=== PATIENT | male | born 1965 | race Caucasian/White ===

== ENCOUNTER 2018-09-15 03:00 | Inpatient (IN) | payer OTHER ==
[2018-09-15] MEDS ORDERED: Piperacillin/Tazobactam 4.5 GM VIAL ONE (03:15)
[2018-09-15] MEDS ORDERED: Morphine 4 MG/ML VIAL ONE ×2 (03:16→03:55)
[2018-09-15 03:39] LABS: #Eosinphils 0.1 thou/uL (0.0-0.7); #Lymphocytes 2.1 thou/uL (1.20-3.40); #Monocytes 1.3 thou/uL (0.11-0.59); #Neutrophils 12.6 thou/uL (1.40-6.50); %Basophils 0.2 % (0.0-1.0); %Eosinophils 0.8 % (0.0-10.0); %Lymphocytes 12.8 % (21.0-51.0); %Monocytes 8.2 % (0.0-10.0); Hemoglobin 13.1 g/dL (14.0-18.0); Mean Corpuscular HGB CONC 32.7 g/dL (32.0-36.0); Mean Corpuscular Hemoglobin 26.6 pg (27.0-31.0); Mean Corpuscular Volume 81.3 fL (78.0-98.0); Mean Platelet Volume 8.1 fL (7.4-10.4); Platelet Count 255 thou/uL (130-400); RBC Distribution Width 13.2 % (11.5-14.5); Red Blood Cell (RBC) Count 4.91 mill/uL (4.70-6.10); White Blood Cell (WBC) Count 16.1 thou/uL (4.8-10.8)
[2018-09-15 03:45] LABS: INR-International Normal Ratio 1.2; PTT 27.7 SEC (22.9-36.1); Prothrombin Time 15.6 SEC (12.0-14.7)
[2018-09-15 03:57] LABS: Albumin 3.2 g/dL (3.5-5.0); Calcium 8.8 mg/dL (7.8-10.44); Chloride 102 mmol/L (98-107); Glucose 260 mg/dL (70-105); Potassium 4.2 mmol/L (3.5-5.1); Sodium 132 mmol/L (136-145)
[2018-09-15 03:58] LABS: Globulin 3.1 g/dL (2.4-3.5); Protein, Total 6.3 g/dL (6.0-8.3)
[2018-09-15 03:59] LABS: Anion Gap 15 mmol/L (10-20); Bilirubin, Total 0.4 mg/dL (0.2-1.2); Carbon Dioxide 19 mmol/L (22-29)
[2018-09-15 04:00] LABS: Alkaline Phosphatase 91 U/L (40-150)
[2018-09-15 04:01] LABS: Calc. Creatinine Clearance 0 mL/min (70-130); Estimated GFR-MDRD 60
[2018-09-15 04:02] LABS: BUN (Urea Nitrogen) 29 mg/dL (8.4-25.7)
[2018-09-15 04:03] LABS: ALT (SGPT) 78 U/L (8-55); AST (SGOT) 84 U/L (5-34); Lipase 32 U/L (8-78)
[2018-09-15 04:23] LABS: Acetaminophen Less than 6.0 mcg/mL (10.0-30.0); Alcohol Less than 10 mg/dL (Less than 10); Salicylate Less than 8.0 mg/dL (15.0-30.0)
[2018-09-15] MEDS ORDERED: HYDROcodone/Acetaminophen 5/325 mg Tablet PO PRN (04:26)
[2018-09-15] MEDS ORDERED: Ondansetron PF 4 MG/2 ML Vial IVP PRN (04:26)
[2018-09-15] MEDS ORDERED: Dextrose 5% in Water 1,000 ML IV PRN (04:31)
[2018-09-15] MEDS ORDERED: Dextrose 50% Abboject 50 ML SYRINGE SLOW IVP PRN (04:31)
[2018-09-15 04:45] LABS: CK (CPK) 6045 U/L (30-200)
--- NOTE | 2018-09-15 04:50 | CON ---
DATE OF CONSULTATION: 09/15/2018 HISTORY OF PRESENT ILLNESS: Mr. Mo is a 53-year-old gentleman with a peripheral vascular disease history. Four years ago, he had an ischemic right foot. He had a right popliteal artery stent placed in [place] and a transmetatarsal amputation performed on the right. Subsequently, he moved to [place] where this was revised. He had a wound VAC and eventually his foot healed. He says that 4 days ago he began to have color changes in his foot. He has been in the emergency room on 09/03 with left foot pain, so this has been going on for some time. He presented today to [facility] with left foot pain. A limited CT angio was performed from the upper thigh down through the foot. Apparently, the inflow is okay because the superficial femoral artery has bright contrast within it. Distal superficial femoral artery on the left is occluded with chronic disease distal to this. He has no flow that is seen in the left leg below the distal superficial femoral artery. I was called for acute management of ischemic leg. PAST MEDICAL HISTORY: 1. Hypertension. 2. Diabetes mellitus. 3. Peripheral vascular disease. 4. Multisubstance abuse-the patient used methamphetamine prior to coming to the hospital. PAST SURGICAL HISTORY: 1. Right SFA stent. 2. Right transmetatarsal amputation. ALLERGIES: NONE. CURRENT MEDICATIONS: 1. Atenolol. 2. Atorvastatin. 3. Hydrochlorothiazide 25 mg daily. 4. Humalog 70/30, 20 units q.a.m. and 15 units q.p.m. SOCIAL HISTORY: He uses tobacco. He smokes methamphetamine. He is unemployed. He lives in his brother's rent house. PHYSICAL EXAMINATION: GENERAL: Obviously, chronically ill gentleman. VITAL SIGNS: Heart rate is 100. His rhythm on the monitor is sinus. Blood pressure is 130/72. HEENT: He has multiple lesions over his face. These are round, early eschars that are all over his face and neck. CHEST: Clear bilaterally. HEART: Rhythm is regular without murmur. ABDOMEN: Soft and nontender. EXTREMITIES: On the right, he has a transmetatarsal amputation. Femoral pulse is palpable. He has no lesions and no pain. On the left, his leg is purple from the upper calf through the foot. He has no sensation in his lower leg. He has no motor function of his lower leg. He states he has been unable to walk for 4 days on it. He has a palpable femoral pulse on the left with no Doppler signal below the femoral. ASSESSMENT AND PLAN: Chronic peripheral vascular disease with occlusion of his superficial femoral artery. This has obviously been going on for quite some time as he has an anesthetic, paralyzed left lower extremity. He is going to need an amputation. I have told him that he needs an above-knee amputation due to the level of the ischemia on his lower leg. We will get him admitted to the hospital. I will have the hospitalist see him for his diabetes mellitus and these lesions on his face, and plan is amputation later today. Job ID: [id number]
[2018-09-15] MEDS ORDERED: Morphine 4 MG/ML VIAL SLOW IVP PRN (05:45)
[2018-09-15 06:15] LABS: Bilirubin Negative (Negative); Blood, Urine Negative (Negative); Clarity CLEAR (Clear); Glucose, Urine (Dipstick) >=1000 mg/dL (Negative); Leukocyte Negative (Negative); Nitrite Negative (Negative); Protein, Urine (Dipstick) Negative (Neg-Trace); pH, Urine 5.5 (5.0-9.0)
[2018-09-15 06:17] LABS: Specific Gravity, Urine 1.048 (1.002-1.036)
[2018-09-15 06:25] LABS: Amphetamine Detected (NotDetected); Barbiturates Screen Not Detected (NotDetected); Benzodiazepine Screen Not Detected (NotDetected); Cocaine Metabolite Screen Not Detected (NotDetected); Medtox Control Line Valid? VALID (VALID); Medtox Reader # READER 1; Methadone Not Detected (NotDetected); Methamphetamine Detected (NotDetected); Opiate Screen Detected (NotDetected); Oxycodone Screen Not Detected (NotDetected); Phencyclidine (PCP) Not Detected (NotDetected); THC/Cannabinoid Screen Not Detected (NotDetected); Tricyclic Screen Not Detected (NotDetected)
[2018-09-15] MEDS: Sodium Chloride 0.9% 1,000 ML IV SCH ×2 (07:08→15:47)
--- NOTE | 2018-09-15 07:56 | RAD ---
Exam: Chest one view HISTORY:Dyspnea Comparison: None FINDINGS: Cardiac silhouette: Normal Pulmonary vessels: Slightly prominent Costophrenic angles: Clear LUNGS: Patchy interstitial opacities Pneumothorax: None Osseous abnormalities: None IMPRESSION: 1. Mild pulmonary vascular prominence. Patchy interstitial opacities. Correlate for volume overload a nd interstitial edema.
[2018-09-15 08:20] LABS: Hemoglobin A1c 11.8 % (4.0-6.0)
[2018-09-15 08:54] LABS: HBCM Index 0.19 S/CO (0-0.79); HBSAg Index 0.35 S/CO (0-0.99); Hep A IgM AB Non-Reactive (NonReactive); Hep A IgM S/CO 0.18 S/CO (0-0.79); Hep B Surf Ag Non-Reactive S/CO (NonReactive); Hepatitis B Core IgM Abs Non-Reactive (NonReactive)
[2018-09-15] MEDS ORDERED: Artificial Tears 18 DROP/0.9 ML EA EYE PRN (09:08)
[2018-09-15] MEDS ORDERED: hydrALAZINE 20 MG/ML VIAL SLOW IVP PRN (09:08)
[2018-09-15] MEDS ORDERED: Sodium Chloride 0.65% Nasal 44 ML BOT EA NARE PRN (09:08)
[2018-09-15] MEDS ORDERED: Cepastat Lozenges 1 LOZ PO PRN (09:08)
[2018-09-15] MEDS ORDERED: Eucerin (Mineral Oil/Petrolatum,White) 30 gm Jar TOP PRN (09:08)
[2018-09-15 09:11] LABS: Hep C IgG Ab Reflex HepC Qnt (NonReactive); Hep C Index 8.02 S/CO (0-0.79)
[2018-09-15] MEDS: Hydrochlorothiazide 25 MG TAB PO SCH (09:28)
[2018-09-15] MEDS: Famotidine 20 MG TAB PO SCH ×2 (09:28→21:19)
[2018-09-15] MEDS: Piperacillin/Tazobactam 3.375 GM in Sodium Chloride 0.9% 100 ML IVPB SCH ×3 (09:40→21:28)
--- NOTE | 2018-09-15 10:14 | HP ---
PRIMARY CARE PHYSICIAN: [facility] Call admission. REASON FOR ADMISSION: Subacute ischemia of left lower extremity. HISTORY OF PRESENT ILLNESS: A 53-year-old male, who has history of hypertension and diabetes type 2, who initially went to [facility] for evaluation of right lower extremity pain. The patient has this pain for about 2 weeks. Before that he was experiencing claudication symptoms. For last 2 weeks, he is experiencing more and more pain. Even at rest, he is experiencing entire left lower extremity pain. He also noticed erythema of left lower extremity. He did not have any fever. He was having cramps in his muscles. He was feeling his left lower extremity cold and finally after waiting two weeks, he decided to go to emergency room as he was not feeling better. At [facility], the patient had a CT scan of the lower extremity which showed an abrupt occlusion of distal left superficial femoral artery. The patient also has abrupt occlusion on the right distal femoral artery as well as metallic stent within the right popliteal artery. The patient also has complete occlusion of left popliteal artery. The patient was transferred to our hospital in our emergency room. Prior to that, he was given morphine 4 mg, Zofran 4 mg, insulin 10 units, 2 g vancomycin and after arrived to emergency room in our hospital, new cardiovascular surgeon evaluated this patient and the patient was planned for amputation. He is also given Zosyn, IV fluid, and a couple of doses of morphine. When I saw this patient at that time, he was feeling sleepy, but he was able to provide history. He was having lot of pain. REVIEW OF SYSTEMS: CONSTITUTIONAL: Negative for weight loss or gain, ability to conduct usual activities. SKIN: Negative for rash, itching. EYES: Negative for double vision, pain. ENT/MOUTH: Negative for nose bleeding, neck stiffness, pain, tenderness. CARDIOVASCULAR: Negative for palpitations, dyspnea on exertion, orthopnea. RESPIRATORY: Negative for shortness of breath, wheezing, cough, hemoptysis, fever or night sweats. GASTROINTESTINAL: Negative for poor appetite, abdominal pain, heartburn, nausea, vomiting, constipation, or diarrhea. GENITOURINARY: Negative for urgency, frequency, dysuria, nocturia. MUSCULOSKELETAL: Negative for pain, swelling. NEUROLOGIC/PSYCHIATRIC: Negative for anxiety, depression. ALLERGY/IMMUNOLOGIC: Negative for skin rash, bleeding tendency. Please see my HPI for pertinent positive and negative. All other review of systems reviewed and negative except as mentioned in HPI. PAST MEDICAL HISTORY: Hypertension, diabetes type 2, obesity, dyslipidemia, and peripheral arterial disease. PAST SURGICAL HISTORY: Stent placed in the right leg in popliteal artery. The patient also has toe amputated on the right foot. He also had rotator cuff repair on the left shoulder, which was repaired. PAST PSYCHIATRIC HISTORY: Reviewed and negative. SOCIAL HISTORY: The patient has history of methamphetamine use with last use yesterday. He abuses methamphetamine, amphetamine periodically. He currently denies any smoking. He denies any alcohol abuse. He is originally from other [facility]. FAMILY HISTORY: No strong family history of premature coronary artery disease, stroke, or cancer. ALLERGIES: NO KNOWN DRUG ALLERGIES. CURRENT HOME MEDICATION: 1. Atenolol 25 mg daily. 2. Lipitor 20 mg at bedtime. 3. Lasix 20 mg daily. 4. Humulin R 70/30, 20 units in the morning and 15 units in the evening. EMERGENCY ROOM COURSE: The patient has received morphine 4 mg, Zofran 4 mg, Humulin 10 units, 2 g vancomycin, Zosyn, and IV fluid as well as several doses of morphine. PHYSICAL EXAMINATION: VITAL SIGNS: Currently, blood pressure 156/117, pulse 108, respiratory rate 18, temperature 98.2, and saturation 96% on room air. Weight 108.6 kg. GENERAL: The patient is currently alert and awake. No obvious acute distress, though the patient has lot of pain. HEENT: Head; normocephalic and atraumatic. Eyes; pupils are round and reactive to light. Extraocular muscle intact. ENT; oropharynx within normal limits. Moist mucous membranes. No oral lesion. No pharyngeal erythema. No exudate. NECK: Supple. No JVD. No thyromegaly. No carotid bruit. No jugular venous distention. LUNGS: Clear to auscultation without any rhonchi or rales. CARDIAC: S1 and S2 regular. Tachycardia. No murmur. No gallop. No rub. ABDOMEN: Obesity present. Bowel sounds present. Nontender. Nondistended. No organomegaly. No mass. No suprapubic tenderness. BACK: Examination unremarkable. No CVA tenderness. EXTREMITIES: Upper extremity; passive movement of all joints are normal. Lower extremity, patient's left lower extremity is cold, erythematous, tender. Distal pulsation is completely absent. Right lower extremity has all toe amputated on the right foot, otherwise unremarkable. NEUROLOGIC: Nonfocal examination. He moves all 4 limbs. SKIN: No skin rash other than the erythematous changes and coldness on the left lower extremity. PSYCHIATRIC: Normal affect. SIGNIFICANT LABORATORY DATA: CT angiography showing abrupt occlusion on distal left superficial femoral artery and abrupt occlusion of right distal femoral artery. Metallic stent in the right popliteal artery. Complete occlusion of left popliteal artery. Chest x-ray based on my review; no acute cardiopulmonary process. CBC; WBC 18.3, hemoglobin 14.2, platelet 301. INR 1.2. Sodium 130, potassium 4.3, chloride 96, carbon dioxide 21, anion gap 17, BUN 31, creatinine 1.54, glucose 423, calcium 9.4. Lactic acid is 3.5. LFT; AST 104, ALT 99, alkaline phosphatase 109, albumin 3.9, lipase 32. BNP 55.2. Troponin I 0.022. Lactic acid 3.5. Hemoglobin A1c 11.8. Urinalysis; glucosuria; urine drug screen positive for amphetamine and methamphetamine. Serum drug screen negative. EKG showing sinus tachycardia without any acute ischemic changes. Chest x-ray based on my review, no acute cardiopulmonary process. ASSESSMENT AND PLAN/IMPRESSION: 1. Yqjkz-jf-ykoxvim arterial insufficiency of left lower extremity with ischemia. The patient has wrist pain and his left lower extremity [QAMARKER] complete gangrene. Cardiovascular surgeon has been consulted and they already evaluated. At this point, plan is to do amputation because there is no possibility of salvage therapy. The patient's pain will be controlled with morphine p.r.n. basis. Cardiovascular surgeon will do surgery later on. The patient is medically cleared for surgery at acceptable risk as the patient is currently euvolemic and he does not have any CHF symptoms or any active angina. We will continue prophylactic antibiotic therapy with Zosyn and vancomycin. This patient already has peripheral vascular disease. 2. Lactic acidosis, likely due to tissue ischemia and repeat lactic acid level is normal. 3. Acute kidney injury, likely due to dehydration. The patient has been given IV fluid and his renal function has improved. We will continue IV fluid while in hospital. 4. Dyslipidemia. We will continue Lipitor 40 mg p.o. nightly. 5. Hypertension. We will continue hydrochlorothiazide 25 mg p.o. daily. 6. Abnormal LFT. We will recheck hepatitis profile. 7. Rhabdomyolysis, likely related with muscle ischemia. We will repeat CK level tomorrow and continue IV fluid. 8. Hyponatremia, likely due to volume depletion. We will continue with IV fluid and will repeat BMP tomorrow. 9. Polysubstance abuse. The patient is given counseling to avoid amphetamine and methamphetamine abuse. 10. Obesity. Dietary education given. Weight loss education given. Healthy lifestyle measure discussed with the patient. 11. Deep venous thrombosis prophylaxis. After surgery, the patient will get heparin or Lovenox for DVT prophylaxis. 12. Gastrointestinal prophylaxis, Pepcid 20 mg p.o. b.i.d. CODE STATUS: The patient is full code. The patient does not have any surrogate decision maker. DISPOSITION PLAN: Based on clinical course, we are expecting the patient's stay in hospital more than 2 midnights. Plan of care discussed with the patient in detail. Job ID: [id number]
[2018-09-15] MEDS ORDERED: Lidocaine 1% PF 5 ML VIAL ONE (13:47)
[2018-09-15] MEDS ORDERED: Rocuronium Bromide 10 MG/ML (10ML VIAL) ONE (13:47)
[2018-09-15] MEDS ORDERED: PROPOFOL 200 MG/20 ML VIAL ONE (13:47)
[2018-09-15] MEDS ORDERED: Glycopyrrolate 0.2 MG/ML 5 ML SYRINGE ONE (13:47)
[2018-09-15 14:00] VITALS: BMI 36.5
[2018-09-15] MEDS: Morphine 4 MG/ML VIAL SLOW IVP PRN ×2 (16:41→21:19)
[2018-09-15] MEDS ORDERED: Fentanyl 100 MCG/2 ML VIAL ONE ×2 (16:52→19:34)
[2018-09-15] MEDS ORDERED: Ondansetron HCl/PF 4 MG/2 ML Vial IVP PRN (19:30)
[2018-09-15] MEDS ORDERED: Promethazine HCl 25 MG/ML VIAL SLOW IVP PRN (19:30)
[2018-09-15] MEDS ORDERED: Promethazine HCl 25 MG/ML VIAL IM PRN (19:30)
[2018-09-15] MEDS: Gabapentin 300 MG CAP PO SCH (21:19)
[2018-09-15] MEDS: Atorvastatin Calcium 40 MG TAB PO SCH (21:19)
[2018-09-15] MEDS: Insulin Regular 300 UNITS/3 ML VIAL SC PRN (21:25)
[2018-09-15] MEDS: Insulin Glargine 5 UNITS in Pre-Filled Syringe 1 EACH SC SCH (21:26)
[2018-09-16] MEDS: Ketorolac Tromethamine 30 MG/ML VIAL IVP SCH ×5 (00:15→23:52)
[2018-09-16] MEDS: Sodium Chloride 0.9% 1,000 ML IV SCH ×3 (01:32→23:48)
[2018-09-16] MEDS: Piperacillin/Tazobactam 3.375 GM in Sodium Chloride 0.9% 100 ML IVPB SCH ×4 (03:33→21:51)
[2018-09-16 06:36] LABS: #Eosinphils 0.2 thou/uL (0.0-0.7); #Lymphocytes 1.1 thou/uL (1.20-3.40); #Monocytes 0.9 thou/uL (0.11-0.59); #Neutrophils 9.9 thou/uL (1.40-6.50); %Basophils 0.4 % (0.0-1.0); %Eosinophils 1.4 % (0.0-10.0); %Monocytes 7.5 % (0.0-10.0); %Neutrophils 81.7 % (42.0-75.0); Hemoglobin 11.4 g/dL (14.0-18.0); Mean Corpuscular HGB CONC 30.4 g/dL (32.0-36.0); Mean Corpuscular Hemoglobin 25.4 pg (27.0-31.0); Mean Corpuscular Volume 83.4 fL (78.0-98.0); Mean Platelet Volume 7.9 fL (7.4-10.4); Platelet Count 263 thou/uL (130-400); RBC Distribution Width 13.3 % (11.5-14.5); Red Blood Cell (RBC) Count 4.49 mill/uL (4.70-6.10); White Blood Cell (WBC) Count 12.1 thou/uL (4.8-10.8)
[2018-09-16 06:55] LABS: ALT (SGPT) 57 U/L (8-55); AST (SGOT) 47 U/L (5-34); Albumin 2.7 g/dL (3.5-5.0); Alkaline Phosphatase 76 U/L (40-150); Anion Gap 11 mmol/L (10-20); BUN (Urea Nitrogen) 17 mg/dL (8.4-25.7); Bilirubin, Total 0.5 mg/dL (0.2-1.2); Calc. Creatinine Clearance 162 mL/min (70-130); Calcium 8.4 mg/dL (7.8-10.44); Carbon Dioxide 21 mmol/L (22-29); Chloride 107 mmol/L (98-107); Estimated GFR-MDRD Greater than 90; Glucose 165 mg/dL (70-105); Potassium 4.2 mmol/L (3.5-5.1); Protein, Total 5.7 g/dL (6.0-8.3); Sodium 135 mmol/L (136-145)
[2018-09-16 07:07] LABS: CK (CPK) 2104 U/L (30-200)
--- NOTE | 2018-09-16 08:28 | OP ---
DATE OF PROCEDURE: 09/15/2018 PREOPERATIVE DIAGNOSIS: Gangrene, left lower extremity. PROCEDURE PERFORMED: Left iksty-can-ozen amputation. ANESTHESIA: General. ESTIMATED BLOOD LOSS: 200. INDICATIONS FOR PROCEDURE: The patient with lower extremity gangrene, admitted early this morning with extensive tissue loss extending almost to the level of the knee. The patient was counseled by Dr. Rojas in the morning and by me this afternoon in preparation for this surgery. DESCRIPTION OF PROCEDURE: After adequate anesthesia had been obtained, the patient was prepped and draped. Antibiotics had been given just prior to coming to the operating room as a scheduled medication. Skin was marked and anteroposterior flaps created with skin incision. Muscle layers were divided with a Bovie flower arranger and the femur was divided with a Gigli saw and then about an inch more proximally with a power saw. Following copious irrigation and obtaining hemostasis, wounds were closed with interrupted [id number] Vicryl sutures approximating the fascia layers and then skin was closed with a combination of nylon sutures and graham. The tissues were quite edematous, but muscle appeared viable. Dressings were applied and the patient is to be taken to the recovery room. Job ID: [id number]
[2018-09-16] MEDS ORDERED: Insulin Glargine 5 UNITS in Pre-Filled Syringe 1 EACH SC SCH (09:00)
[2018-09-16] MEDS: Enoxaparin Sodium 30 MG/0.3 ML SYRINGE SC SCH (09:22)
[2018-09-16] MEDS: Gabapentin 300 MG CAP PO SCH ×3 (09:22→21:48)
[2018-09-16] MEDS: Famotidine 20 MG TAB PO SCH ×2 (09:23→21:49)
[2018-09-16] MEDS: Hydrochlorothiazide 25 MG TAB PO SCH (09:23)
[2018-09-16] MEDS: Insulin Regular 300 UNITS/3 ML VIAL SC PRN ×3 (09:24→21:47)
--- NOTE | 2018-09-16 10:42 | PDOC.PN ---
- Subjective Encounter Start Date: 09/16/18 Encounter Start Time: 08:30 -: old records requested/rev Patient seen and examined. No new complaints. No overnight events yesterday he had left AKA - Objective Resuscitation Status - Order Detail: 09/15/18 04:26 Resuscitation Status Routine Resuscitation Status: FULL: Full Resuscitation MAR Reviewed: Yes Vital Signs & Weight: Vital Signs (12 hours) Temp Pulse Resp BP Pulse Ox 09/16/18 07:28 97.7 F 106 H 20 132/84 95 09/16/18 03:38 97.4 F L 93 16 147/82 H 98 Weight Weight 240 lb I&O: 09/15/18 09/16/18 09/17/18 06:59 06:59 06:59 Intake Total 1400 Output Total 850 Balance 550 Result Diagrams: 09/16/18 05:55 09/16/18 05:55 Additional Labs: Accuchecks 09/15/18 09/15/18 20:54 16:23 POC Glucose 189 H 197 H Phys Exam - Physical Examination Constitutional: NAD HEENT: PERRLA, moist MMs, sclera anicteric Neck: no JVD, supple Respiratory: no wheezing, no rales, no rhonchi Cardiovascular: RRR, no significant murmur, no rub Gastrointestinal: soft, non-tender, no distention, positive bowel sounds left AKA with dressing, all toe amputated on right foot Neurological: non-focal, normal sensation Lymphatic: no nodes Psychiatric: normal affect, A&O x 3 Skin: no rash, normal turgor Dx/Plan (1) Abnormal LFTs Code(s): R94.5 - ABNORMAL RESULTS OF LIVER FUNCTION STUDIES Status: Acute Comment: due to chronic hep c (2) Anemia, normocytic normochromic Code(s): D64.9 - ANEMIA, UNSPECIFIED Status: Acute Comment: due to post operative blood loss (3) Hyponatremia Code(s): E87.1 - HYPO-OSMOLALITY AND HYPONATREMIA Status: Acute Comment: due to hyperglycemia, improved (4) Ischemia of left lower extremity Code(s): I99.8 - OTHER DISORDER OF CIRCULATORY SYSTEM Status: Acute Comment : due to arterial occlusion, subacute, s/p left AKA (5) Lactic acidosis Code(s): E87.2 - ACIDOSIS Status: Resolved (6) Rhabdomyolysis Code(s): M62.82 - RHABDOMYOLYSIS Status: Acute Comment: due to ischemic damage to muscle (7) Chronic hepatitis C Code(s): B18.2 - CHRONIC VIRAL HEPATITIS C Status: Chronic (8) Diabetes type 2, controlled Code(s): E11.9 - TYPE 2 DIABETES MELLITUS WITHOUT COMPLICATIONS Status: Chronic Comment: started lantus (9) Dyslipidemia Code(s): E78.5 - HYPERLIPIDEMIA, UNSPECIFIED Status: Chronic Comment: on lipitor (10) Hypertension Code(s): I10 - ESSENTIAL (PRIMARY) HYPERTENSION Status: Chronic (11) Methamphetamine abuse Code(s): F15.10 - OTHER STIMULANT ABUSE, UNCOMPLICATED Status: Chronic Comment: counselled to avoid illicit drugs (12) Obesity (BMI 30-39.9) Code(s): E66.9 - OBESITY, UNSPECIFIED Status: Chronic (13) PAD (peripheral artery disease) Code(s): I73.9 - PERIPHERAL VASCULAR DISEASE, UNSPECIFIED Status: Chronic - Plan cont current plan of care, continue antibiotics, 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 Review of Systems - Review of Systems ENT: negative: Ear Pain, Ear Discharge, Nose Pain, Nose Discharge, Nose Congestion, Mouth Pain, Mouth Swelling, Throat Pain, Throat Swelling, Other Respiratory: negative: Cough, Dry, Shortness of Breath, Hemoptysis, SOB with Excertion, Pleuritic Pain, Sputum, Wheezing Cardiovascular: negative: chest pain, palpitations, orthopnea, paroxysmal nocturnal dyspnea, edema, light headedness, other Gastrointestinal: negative: Nausea, Vomiting, Abdominal Pain, Diarrhea, Constipation, Melena, Hematochezia, Other Genitourinary: negative: Dysuria, Frequency, Incontinence, Hematuria, Retention , Other Musculoskeletal: negative: Neck Pain, Shoulder Pain, Arm Pain, Back Pain, Hand Pain, Leg Pain, Foot Pain, Other - Medications/Allergies Allergies/Adverse Reactions: Allergies Allergy/AdvReac Type Severity Reaction Status Date / Time No Known Allergies Allergy Unverified 09/15/18 05:30 Medications: Current Medications Hydrocodone Bitart/Acetaminophen ([place] 5/325) 1 tab PO Q4H PRN PRN Reason: Moderate Pain (4-6) Hydrocodone Bitart/Acetaminophen ([place] 5/325) 2 tab PO Q4H PRN PRN Reason: Severe Pain (7-10) Artificial Tears (Tears Naturale) 2 drop EA EYE PRN PRN PRN Reason: Dry Eyes Atorvastatin Calcium (Lipitor) 40 mg PO HS [facility] Last Admin: 09/15/18 21:19 Dose: 40 mg Dextrose/Water (Dextrose 50%) 25 gm SLOW IVP PRN PRN PRN Reason: Hypoglycemia Enoxaparin Sodium (Lovenox) 30 mg SC 0900 [facility] Last Admin: 09/16/18 09:22 Dose: 30 mg Famotidine (Pepcid) 20 mg PO BID [facility] Last Admin: 09/16/18 09:23 Dose: 20 mg Gabapentin (Neurontin) 300 mg PO TID [facility] Last Admin: 09/16/18 09:22 Dose: 300 mg Glucagon (Glucagon) 1 mg IM PRN PRN PRN Reason: Hypoglycemia Hydralazine HCl (Apresoline) 10 mg SLOW IVP Q4H PRN PRN Reason: SBP > 180 and HR < 70 Hydrochlorothiazide (Hydrochlorothiazide) 25 mg PO DAILY [facility] Last Admin: 09/16/18 09:23 Dose: 25 mg Dextrose/Water (D5w) 1,000 mls @ 0 mls/hr IV .Q0M PRN PRN Reason: Hypoglycemia Sodium Chloride (Normal Saline 0.9%) 1,000 mls @ 100 mls/hr IV .Q10H [facility] Last Admin: 09/16/18 01:32 Dose: Not Given Piperacillin Sod/Tazobactam (Sod 3.375 gm/ Sodium Chloride) 100 mls @ 200 mls/ hr IVPB Q6H [facility] Last Admin: 09/16/18 09:23 Dose: 100 mls Insulin Glargine 5 units/ (Miscellaneous Medication) 0.05 mls @ 0 mls/hr SC HS [facility] Last Admin: 09/15/18 21:26 Dose: 0.05 mls Insulin Glargine 5 units/ (Miscellaneous Medication) 0.05 mls @ 0 mls/hr SC QAM [facility] Last Admin: 09/16/18 09:23 Dose: 0.05 mls Vancomycin HCl 2.5 gm/ Sodium (Chloride) 500 mls @ 200 mls/hr IVPB 1100 [facility] Stop: 09/16/18 14:00 Vancomycin HCl 2 gm/ Sodium (Chloride) 500 mls @ 250 mls/hr IVPB 1100,2300 [facility] Insulin Human Regular (Humulin R) 0 units SC .MODERATE SLIDING SC PRN PRN Reason: Moderate Correctional Scale Last Admin: 09/16/18 09:24 Dose: 2 unit Ketorolac Tromethamine (Toradol) 15 mg IVP Q6HR [facility] Stop: 09/17/18 12:00 Last Admin: 09/16/18 05:42 Dose: 15 mg Mineral Oil/White Petrolatum (Eucerin Cream) 0 gm TOP BIDPRN PRN PRN Reason: Dry Skin Miscellaneous Medication (Pharmacy To Dose) 1 each IVPB .VANCOMYCIN PRN PRN Reason: LABS Morphine Sulfate (Morphine) 2 mg SLOW IVP Q4H PRN PRN Reason: Severe Pain (7-10) Morphine Sulfate (Morphine) 4 mg SLOW IVP Q4H PRN PRN Reason: Severe Pain 7-10 BREAKTHROUGH Last Admin: 09/15/18 21:19 Dose: 4 mg Ondansetron HCl (Zofran) 4 mg IVP Q6H PRN PRN Reason: Nausea/Vomiting Sodium Chloride (Flush - Normal Saline) 10 ml IVF Q12HR [facility] Last Admin: 09/15/18 21:51 Dose: Not Given Sodium Chloride (Flush - Normal Saline) 10 ml IVF PRN PRN PRN Reason: Saline Flush Sodium Chloride ([place] Nasal [place] 0.65%) 0 ml EA NARE QIDPRN PRN PRN Reason: Nasal Congestion Throat Lozenges (Cepastat Lozenges) 1 xiomara PO Q2H PRN PRN Reason: Sore Throat
[2018-09-16] MEDS ORDERED: Vancomycin HCl 2.5 GM in Sodium Chloride 0.9% 500 ML IVPB SCH (11:00)
[2018-09-16] MEDS: HYDROcodone/Acetaminophen 5/325 mg Tablet PO PRN ×2 (11:43→21:48)
[2018-09-16] MEDS: Insulin Glargine 5 UNITS in Pre-Filled Syringe 1 EACH SC SCH (21:47)
[2018-09-16] MEDS: Atorvastatin Calcium 40 MG TAB PO SCH (21:48)
[2018-09-17] MEDS: Piperacillin/Tazobactam 3.375 GM in Sodium Chloride 0.9% 100 ML IVPB SCH ×4 (04:07→20:29)
[2018-09-17] MEDS: Ketorolac Tromethamine 30 MG/ML VIAL IVP SCH ×2 (05:51→12:52)
[2018-09-17] MEDS: Insulin Regular 300 UNITS/3 ML VIAL SC PRN ×4 (06:21→20:37)
[2018-09-17] MEDS: Sodium Chloride 0.9% 1,000 ML IV SCH (07:34)
[2018-09-17] MEDS: Enoxaparin Sodium 30 MG/0.3 ML SYRINGE SC SCH (08:42)
[2018-09-17] MEDS: Hydrochlorothiazide 25 MG TAB PO SCH (08:43)
[2018-09-17] MEDS: Atenolol 25 MG TAB PO SCH (08:43)
[2018-09-17] MEDS: Gabapentin 300 MG CAP PO SCH ×3 (08:43→20:35)
[2018-09-17] MEDS: Famotidine 20 MG TAB PO SCH ×2 (08:43→20:35)
[2018-09-17] MEDS: Insulin Glargine 10 UNITS in Pre-Filled Syringe 1 EACH SC SCH (08:47)
--- NOTE | 2018-09-17 10:33 | PDOC.PN ---
- Subjective Encounter Start Date: 09/17/18 Encounter Start Time: 09:00 Patient seen and examined. No new complaints. No overnight events - Objective Resuscitation Status - Order Detail: 09/15/18 04:26 Resuscitation Status Routine Resuscitation Status: FULL: Full Resuscitation MAR Reviewed: Yes Vital Signs & Weight: Vital Signs (12 hours) Temp Pulse Resp BP BP BP Pulse Ox 09/17/18 08:43 87 138/85 09/17/18 04:24 98.2 F 88 16 135/87 96 09/17/18 00:14 98.4 F 98 16 141/84 H 92 L Weight Weight 240 lb I&O: 09/16/18 09/17/18 09/18/18 06:59 06:59 06:59 Intake Total 1400 2160 Output Total 850 1200 Balance 550 960 Result Diagrams: 09/16/18 05:55 09/16/18 05:55 Additional Labs: Accuchecks 09/17/18 09/16/18 09/16/18 05:51 21:01 15:40 POC Glucose 219 H 186 H 186 H 09/16/18 11:24 POC Glucose 143 H Phys Exam - Physical Examination Constitutional: NAD HEENT: PERRLA, moist MMs, sclera anicteric Neck: no JVD, supple Respiratory: no wheezing, no rales, no rhonchi Cardiovascular: RRR, no significant murmur, no rub Gastrointestinal: soft, non-tender, no distention, positive bowel sounds left AKA Neurological: non-focal, normal sensation, moves all 4 limbs Psychiatric: normal affect, A&O x 3 Skin: no rash, normal turgor Dx/Plan (1) Abnormal LFTs Code(s): R94.5 - ABNORMAL RESULTS OF LIVER FUNCTION STUDIES Status: Acute Comment: due to chronic hep c (2) Anemia, normocytic normochromic Code(s): D64.9 - ANEMIA, UNSPECIFIED Status: Acute Comment: due to post operative blood loss (3) Hyponatremia Code(s): E87.1 - HYPO-OSMOLALITY AND HYPONATREMIA Status: Acute Comment: due to hyperglycemia, improved (4) Ischemia of left lower extremity Code(s): I99.8 - OTHER DISORDER OF CIRCULATORY SYSTEM Status: Acute Comment : due to arterial occlusion, subacute, s/p left AKA (5) Lactic acidosis Code(s): E87.2 - ACIDOSIS Status: Resolved (6) Rhabdomyolysis Code(s): M62.82 - RHABDOMYOLYSIS Status: Acute Comment: due to ischemic damage to muscle (7) Chronic hepatitis C Code(s): B18.2 - CHRONIC VIRAL HEPATITIS C Status: Chronic (8) Diabetes type 2, controlled Code(s): E11.9 - TYPE 2 DIABETES MELLITUS WITHOUT COMPLICATIONS Status: Chronic Comment: started lantus (9) Dyslipidemia Code(s): E78.5 - HYPERLIPIDEMIA, UNSPECIFIED Status: Chronic Comment: on lipitor (10) Hypertension Code(s): I10 - ESSENTIAL (PRIMARY) HYPERTENSION Status: Chronic (11) Methamphetamine abuse Code(s): F15.10 - OTHER STIMULANT ABUSE, UNCOMPLICATED Status: Chronic Comment: counselled to avoid illicit drugs (12) Obesity (BMI 30-39.9) Code(s): E66.9 - OBESITY, UNSPECIFIED Status: Chronic (13) PAD (peripheral artery disease) Code(s): I73.9 - PERIPHERAL VASCULAR DISEASE, UNSPECIFIED Status: Chronic - Plan cont current plan of care, continue antibiotics * DC IVF * will consider changing to po antibiotics tomorrow * medication reviewed as below * symptomatic treatment * will need rehab * increase lantus 10 unit in AM, 5 unit PM. Review of Systems - Review of Systems ENT: negative: Ear Pain, Ear Discharge, Nose Pain, Nose Discharge, Nose Congestion, Mouth Pain, Mouth Swelling, Throat Pain, Throat Swelling, Other Respiratory: negative: Cough, Dry, Shortness of Breath, Hemoptysis, SOB with Excertion, Pleuritic Pain, Sputum, Wheezing Cardiovascular: negative: chest pain, palpitations, orthopnea, paroxysmal nocturnal dyspnea, edema, light headedness, other Gastrointestinal: negative: Nausea, Vomiting, Abdominal Pain, Diarrhea, Constipation, Melena, Hematochezia, Other Genitourinary: negative: Dysuria, Frequency, Incontinence, Hematuria, Retention , Other Musculoskeletal: negative: Neck Pain, Shoulder Pain, Arm Pain, Back Pain, Hand Pain, Leg Pain, Foot Pain, Other - Medications/Allergies Allergies/Adverse Reactions: Allergies Allergy/AdvReac Type Severity Reaction Status Date / Time No Known Allergies Allergy Unverified 09/15/18 05:30 Medications: Current Medications Hydrocodone Bitart/Acetaminophen ([place] 5/325) 1 tab PO Q4H PRN PRN Reason: Moderate Pain (4-6) Hydrocodone Bitart/Acetaminophen ([place] 5/325) 2 tab PO Q4H PRN PRN Reason: Severe Pain (7-10) Last Admin: 09/16/18 21:48 Dose: 2 tab Artificial Tears (Tears Naturale) 2 drop EA EYE PRN PRN PRN Reason: Dry Eyes Atenolol (Tenormin) 25 mg PO DAILY [facility] Last Admin: 09/17/18 08:43 Dose: 25 mg Atorvastatin Calcium (Lipitor) 40 mg PO [facility] Last Admin: 09/16/18 21:48 Dose: 40 mg Dextrose/Water (Dextrose 50%) 25 gm SLOW IVP PRN PRN PRN Reason: Hypoglycemia Enoxaparin Sodium (Lovenox) 30 mg SC 0900 [facility] Last Admin: 09/17/18 08:42 Dose: 30 mg Famotidine (Pepcid) 20 mg PO BID [facility] Last Admin: 09/17/18 08:43 Dose: 20 mg Gabapentin (Neurontin) 300 mg PO TID [facility] Last Admin: 09/17/18 08:43 Dose: 300 mg Glucagon (Glucagon) 1 mg IM PRN PRN PRN Reason: Hypoglycemia Hydralazine HCl (Apresoline) 10 mg SLOW IVP Q4H PRN PRN Reason: SBP > 180 and HR < 70 Hydrochlorothiazide (Hydrochlorothiazide) 25 mg PO DAILY [facility] Last Admin: 09/17/18 08:43 Dose: 25 mg Dextrose/Water (D5w) 1,000 mls @ 0 mls/hr IV .Q0M PRN PRN Reason: Hypoglycemia Piperacillin Sod/Tazobactam (Sod 3.375 gm/ Sodium Chloride) 100 mls @ 200 mls/ hr IVPB Q6H [facility] Last Admin: 09/17/18 08:44 Dose: 100 mls Insulin Glargine 5 units/ (Miscellaneous Medication) 0.05 mls @ 0 mls/hr SC [facility] Last Admin: 09/16/18 21:47 Dose: 0.05 mls Vancomycin HCl 2 gm/ Sodium (Chloride) 500 mls @ 250 mls/hr IVPB 1100,2300 [facility] Last Admin: 09/16/18 23:52 Dose: 500 mls Insulin Glargine 10 units/ (Miscellaneous Medication) 0.1 mls @ 0 mls/hr SC QAM [facility] Last Admin: 09/17/18 08:47 Dose: 0.1 mls Insulin Human Regular (Humulin R) 0 units SC .MODERATE SLIDING SC PRN PRN Reason: Moderate Correctional Scale Last Admin: 09/17/18 06:21 Dose: 4 unit Ketorolac Tromethamine (Toradol) 15 mg IVP Q6HR [facility] Stop: 09/17/18 12:00 Last Admin: 09/17/18 05:51 Dose: 15 mg Mineral Oil/White Petrolatum (Eucerin Cream) 0 gm TOP BIDPRN PRN PRN Reason: Dry Skin Miscellaneous Medication (Pharmacy To Dose) 1 each IVPB .VANCOMYCIN PRN PRN Reason: LABS Morphine Sulfate (Morphine) 2 mg SLOW IVP Q4H PRN PRN Reason: Severe Pain (7-10) Morphine Sulfate (Morphine) 4 mg SLOW IVP Q4H PRN PRN Reason: Severe Pain 7-10 BREAKTHROUGH Last Admin: 09/15/18 21:19 Dose: 4 mg Ondansetron HCl (Zofran) 4 mg IVP Q6H PRN PRN Reason: Nausea/Vomiting Sodium Chloride (Flush - Normal Saline) 10 ml IVF Q12HR [facility] Last Admin: 09/17/18 08:48 Dose: Not Given Sodium Chloride (Flush - Normal Saline) 10 ml IVF PRN PRN PRN Reason: Saline Flush Sodium Chloride ([place] Nasal [place] 0.65%) 0 ml EA NARE QIDPRN PRN PRN Reason: Nasal Congestion Throat Lozenges (Cepastat Lozenges) 1 xiomara PO Q2H PRN PRN Reason: Sore Throat
[2018-09-17] MEDS: HYDROcodone/Acetaminophen 5/325 mg Tablet PO PRN (11:24)
[2018-09-17] MEDS: Atorvastatin Calcium 40 MG TAB PO SCH (20:34)
[2018-09-17] MEDS: Insulin Glargine 5 UNITS in Pre-Filled Syringe 1 EACH SC SCH (20:36)
[2018-09-17 22:43] LABS: Vancomycin, Trough 44.9 ug/mL
[2018-09-18] MEDS: Piperacillin/Tazobactam 3.375 GM in Sodium Chloride 0.9% 100 ML IVPB SCH ×4 (03:40→21:41)
[2018-09-18 06:08] LABS: #Basophils 0.1 thou/uL (0.0-0.2); #Eosinphils 0.4 thou/uL (0.0-0.7); #Lymphocytes 1.5 thou/uL (1.20-3.40); #Monocytes 1.1 thou/uL (0.11-0.59); #Neutrophils 8.9 thou/uL (1.40-6.50); %Basophils 0.6 % (0.0-1.0); %Lymphocytes 12.3 % (21.0-51.0); %Monocytes 9.3 % (0.0-10.0); %Neutrophils 74.8 % (42.0-75.0); Hemoglobin 11.7 g/dL (14.0-18.0); Mean Corpuscular Volume 84.2 fL (78.0-98.0); Mean Platelet Volume 7.7 fL (7.4-10.4); Platelet Count 333 thou/uL (130-400); RBC Distribution Width 13.4 % (11.5-14.5); Red Blood Cell (RBC) Count 4.33 mill/uL (4.70-6.10); White Blood Cell (WBC) Count 11.9 thou/uL (4.8-10.8)
[2018-09-18 06:28] LABS: Anion Gap 14 mmol/L (10-20); BUN (Urea Nitrogen) 27 mg/dL (8.4-25.7); Calc. Creatinine Clearance 60 mL/min (70-130); Calcium 8.6 mg/dL (7.8-10.44); Carbon Dioxide 18 mmol/L (22-29); Chloride 105 mmol/L (98-107); Estimated GFR-MDRD 31; Glucose 256 mg/dL (70-105); Potassium 4.6 mmol/L (3.5-5.1); Sodium 132 mmol/L (136-145)
[2018-09-18] MEDS: HYDROcodone/Acetaminophen 5/325 mg Tablet PO PRN ×2 (08:05→19:44)
[2018-09-18] MEDS: Gabapentin 300 MG CAP PO SCH ×3 (08:06→21:30)
[2018-09-18] MEDS: Atenolol 25 MG TAB PO SCH (08:06)
[2018-09-18] MEDS: Hydrochlorothiazide 25 MG TAB PO SCH (08:07)
[2018-09-18] MEDS: Famotidine 20 MG TAB PO SCH ×2 (08:07→21:30)
[2018-09-18] MEDS: Enoxaparin Sodium 30 MG/0.3 ML SYRINGE SC SCH (08:08)
[2018-09-18] MEDS: Insulin Glargine 10 UNITS in Pre-Filled Syringe 1 EACH SC SCH (08:36)
--- NOTE | 2018-09-18 12:11 | PDOC.PN ---
- Subjective Encounter Start Date: 09/18/18 Encounter Start Time: 12:09 Subjective: still has pain in [facility], [place] - Objective Resuscitation Status - Order Detail: 09/15/18 04:26 Resuscitation Status Routine Resuscitation Status: FULL: Full Resuscitation MAR Reviewed: Yes Vital Signs & Weight: Vital Signs (12 hours) Temp Pulse Resp BP Pulse Ox 09/18/18 11:50 97.3 F L 66 20 109/72 97 09/18/18 08:06 71 09/18/18 08:00 98.4 F 71 18 131/84 93 L 09/18/18 04:00 97.7 F 76 20 131/84 96 Weight Weight 240 lb I&O: 09/17/18 09/18/18 09/19/18 06:59 06:59 06:59 Intake Total 2160 2890 Output Total 1200 1700 Balance 960 1190 Result Diagrams: 09/18/18 05:40 09/18/18 05:40 Additional Labs: Accuchecks 09/18/18 09/18/18 09/17/18 11:05 05:23 20:36 POC Glucose 300 H 132 H 221 H 09/17/18 15:34 POC Glucose 243 H Phys Exam - Physical Examination skin- cold, clammy Neck: no JVD Respiratory: clear to auscultation bilateral Cardiovascular: RRR, no significant murmur Gastrointestinal: soft, non-tender, positive bowel sounds bandaged [facility], [place] Dx/Plan (1) Anemia, normocytic normochromic Code(s): D64.9 - ANEMIA, UNSPECIFIED Status: Acute Comment: due to post operative blood loss (2) Hyponatremia Code(s): E87.1 - HYPO-OSMOLALITY AND HYPONATREMIA Status: Acute Comment: due to hyperglycemia, improved (3) Ischemia of left lower extremity Code(s): I99.8 - OTHER DISORDER OF CIRCULATORY SYSTEM Status: Acute Comment : due to arterial occlusion, subacute, s/p left AKA (4) Rhabdomyolysis Code(s): M62.82 - RHABDOMYOLYSIS Status: Acute Comment: due to ischemic damage to muscle (5) Chronic hepatitis C Code(s): B18.2 - CHRONIC VIRAL HEPATITIS C Status: Chronic (6) Diabetes type 2, controlled Code(s): E11.9 - TYPE 2 DIABETES MELLITUS WITHOUT COMPLICATIONS Status: Chronic Qualifiers: 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 use: with nursing home use Diabetes mellitus complication status: with circulatory complication Comment: started lantus (7) Hypertension Code(s): I10 - ESSENTIAL (PRIMARY) HYPERTENSION Status: Chronic Qualifiers: Hypertension type: essential hypertension Qualified Code(s): I10 - Essential (primary) hypertension (8) PAD (peripheral artery disease) Code(s): I73.9 - PERIPHERAL VASCULAR DISEASE, UNSPECIFIED Status: Chronic (9) Lactic acidosis Code(s): E87.2 - ACIDOSIS Status: Resolved (10) Acute renal failure Status: Acute - Plan stat accu -: start iv fluids- monitor renal fcn -: accu/ss -: morphine iv for pain * .
[2018-09-18] MEDS: Sodium Chloride 0.9% 1,000 ML IV SCH ×2 (14:24→21:56)
[2018-09-18] MEDS: Insulin Regular 300 UNITS/3 ML VIAL SC PRN ×2 (15:34→21:31)
[2018-09-18] MEDS: Atorvastatin Calcium 40 MG TAB PO SCH (21:30)
[2018-09-18] MEDS: Insulin Glargine 5 UNITS in Pre-Filled Syringe 1 EACH SC SCH (21:30)
[2018-09-18 22:32] LABS: Vancomycin, Random 25.2 ug/mL (See Comment)
[2018-09-18] MEDS ORDERED: Vancomycin HCl 1 GM in Premix Bag 1 BAG IVPB SCH (23:00)
[2018-09-19] MEDS: Piperacillin/Tazobactam 3.375 GM in Sodium Chloride 0.9% 100 ML IVPB SCH (02:31)
[2018-09-19] MEDS: Sodium Chloride 0.9% 1,000 ML IV SCH ×3 (02:31→18:14)
[2018-09-19] MEDS: HYDROcodone/Acetaminophen 5/325 mg Tablet PO PRN ×3 (04:29→13:55)
[2018-09-19] MEDS: Insulin Regular 300 UNITS/3 ML VIAL SC PRN ×3 (06:34→18:08)
[2018-09-19] MEDS: Gabapentin 300 MG CAP PO SCH ×3 (08:30→20:23)
[2018-09-19] MEDS: Hydrochlorothiazide 25 MG TAB PO SCH (08:30)
[2018-09-19] MEDS: Enoxaparin Sodium 30 MG/0.3 ML SYRINGE SC SCH (08:30)
[2018-09-19] MEDS: Atenolol 25 MG TAB PO SCH (08:30)
[2018-09-19] MEDS: Famotidine 20 MG TAB PO SCH ×2 (08:31→20:23)
[2018-09-19 10:09] LABS: Vancomycin, Random 20.1 ug/mL (See Comment)
[2018-09-19 10:18] LABS: ALT (SGPT) 47 U/L (8-55); AST (SGOT) 34 U/L (5-34); Albumin 2.8 g/dL (3.5-5.0); Alkaline Phosphatase 92 U/L (40-150); Anion Gap 14 mmol/L (10-20); BUN (Urea Nitrogen) 30 mg/dL (8.4-25.7); Bilirubin, Total 0.3 mg/dL (0.2-1.2); CK (CPK) 739 U/L (30-200); Calc. Creatinine Clearance 61 mL/min (70-130); Calcium 8.1 mg/dL (7.8-10.44); Carbon Dioxide 22 mmol/L (22-29); Chloride 106 mmol/L (98-107); Estimated GFR-MDRD 32; Globulin 2.7 g/dL (2.4-3.5); Glucose 171 mg/dL (70-105); Potassium 4.7 mmol/L (3.5-5.1); Protein, Total 5.5 g/dL (6.0-8.3); Sodium 137 mmol/L (136-145)
[2018-09-19] MEDS: HumuLIN 70/30 (300 UNITS/3 ML VIAL) SC SCH ×2 (10:49→18:08)
[2018-09-19] MEDS ORDERED: Polyethylene Glycol 3350 17 GM Packet PO PRN (12:21)
[2018-09-19] MEDS ORDERED: ALPRAZolam 0.25 MG TAB PO PRN (12:21)
--- NOTE | 2018-09-19 12:37 | PDOC.PN ---
- Subjective Encounter Start Date: 09/19/18 Encounter Start Time: 10:30 Subjective: pt up in bed complains of sob - Objective Resuscitation Status - Order Detail: 09/15/18 04:26 Resuscitation Status Routine Resuscitation Status: FULL: Full Resuscitation Vital Signs & Weight: Vital Signs (12 hours) Temp Pulse Resp BP Pulse Ox 09/19/18 11:30 98.0 F 62 20 142/91 H 100 09/19/18 08:30 64 09/19/18 07:40 98.0 F 64 16 130/98 H 98 09/19/18 04:00 98.5 F 67 20 139/93 H 93 L Weight Weight 240 lb I&O: 09/18/18 09/19/18 09/20/18 06:59 06:59 06:59 Intake Total 2890 1200 Output Total 1700 1500 Balance 1190 -300 Result Diagrams: 09/18/18 05:40 09/19/18 09:37 Additional Labs: Accuchecks 09/19/18 09/19/18 09/18/18 11:16 05:57 21:23 POC Glucose 167 H 176 H 310 H 09/18/18 09/18/18 15:26 12:12 POC Glucose 303 H 187 H Phys Exam - Physical Examination Respiratory: no wheezing, no rales, no rhonchi, wheezing present, clear to auscultation bilateral Cardiovascular: RRR, no significant murmur, no rub, gallop, irregular Gastrointestinal: soft, non-tender, no distention, positive bowel sounds Musculoskeletal: no edema, pulses present, edema present Dx/Plan (1) Ischemia of left lower extremity Code(s): I99.8 - OTHER DISORDER OF CIRCULATORY SYSTEM Status: Acute Comment : due to arterial occlusion, subacute, s/p left AKA (2) Anemia, normocytic normochromic Code(s): D64.9 - ANEMIA, UNSPECIFIED Status: Acute Comment: due to post operative blood loss (3) Rhabdomyolysis Code(s): M62.82 - RHABDOMYOLYSIS Status: Acute Comment: due to ischemic damage to muscle (4) Chronic hepatitis C Code(s): B18.2 - CHRONIC VIRAL HEPATITIS C Status: Chronic (5) Diabetes type 2, controlled Code(s): E11.9 - TYPE 2 DIABETES MELLITUS WITHOUT COMPLICATIONS Status: Chronic Qualifiers: 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 -: will add stool softners. will restart his home dose -: insulin. will discontinue his abx. his ck has improved -: will decrease his fluids to 50ml/hr * . Review of Systems - Review of Systems Respiratory: Shortness of Breath Cardiovascular: negative: chest pain, palpitations, orthopnea, paroxysmal nocturnal dyspnea, edema, light headedness, other Gastrointestinal: negative: Nausea, Vomiting, Abdominal Pain, Diarrhea, Constipation, Melena, Hematochezia, Other - Medications/Allergies Allergies/Adverse Reactions: Allergies Allergy/AdvReac Type Severity Reaction Status Date / Time No Known Allergies Allergy Unverified 09/15/18 05:30 Medications: Current Medications Hydrocodone Bitart/Acetaminophen ([place] 5/325) 1 tab PO Q4H PRN PRN Reason: Moderate Pain (4-6) Hydrocodone Bitart/Acetaminophen ([place] 5/325) 2 tab PO Q4H PRN PRN Reason: Severe Pain (7-10) Last Admin: 09/19/18 04:29 Dose: 2 tab Alprazolam (Xanax) 0.25 mg PO Q24H PRN PRN Reason: Anxiety Artificial Tears (Tears Naturale) 2 drop EA EYE PRN PRN PRN Reason: Dry Eyes Atenolol (Tenormin) 25 mg PO DAILY [facility] Last Admin: 09/19/18 08:30 Dose: 25 mg Atorvastatin Calcium (Lipitor) 40 mg PO HS [facility] Last Admin: 09/18/18 21:30 Dose: 40 mg Dextrose/Water (Dextrose 50%) 25 gm SLOW IVP PRN PRN PRN Reason: Hypoglycemia Enoxaparin Sodium (Lovenox) 30 mg SC 0900 [facility] Last Admin: 09/19/18 08:30 Dose: 30 mg Famotidine (Pepcid) 20 mg PO BID [facility] Last Admin: 09/19/18 08:31 Dose: 20 mg Gabapentin (Neurontin) 300 mg PO TID [facility] Last Admin: 09/19/18 08:30 Dose: 300 mg Glucagon (Glucagon) 1 mg IM PRN PRN PRN Reason: Hypoglycemia Hydralazine HCl (Apresoline) 10 mg SLOW IVP Q4H PRN PRN Reason: SBP > 180 and HR < 70 Hydrochlorothiazide (Hydrochlorothiazide) 25 mg PO DAILY [facility] Last Admin: 09/19/18 08:30 Dose: 25 mg Dextrose/Water (D5w) 1,000 mls @ 0 mls/hr IV .Q0M PRN PRN Reason: Hypoglycemia Sodium Chloride (Normal Saline 0.9%) 1,000 mls @ 50 mls/hr IV .Q20H [facility] Insulin Human Isoph/Insulin Regular (Humulin 70/30) 15 units SC BID-AC [facility] Last Admin: 09/19/18 10:49 Dose: 15 unit Insulin Human Regular (Humulin R) 0 units SC .MODERATE SLIDING SC PRN PRN Reason: Moderate Correctional Scale Last Admin: 09/19/18 06:34 Dose: 2 unit Mineral Oil/White Petrolatum (Eucerin Cream) 0 gm TOP BIDPRN PRN PRN Reason: Dry Skin Morphine Sulfate (Morphine) 2 mg SLOW IVP Q4H PRN PRN Reason: Severe Pain (7-10) Morphine Sulfate (Morphine) 4 mg SLOW IVP Q4H PRN PRN Reason: Severe Pain 7-10 BREAKTHROUGH Last Admin: 09/15/18 21:19 Dose: 4 mg Ondansetron HCl (Zofran) 4 mg IVP Q6H PRN PRN Reason: Nausea/Vomiting Last Admin: 09/19/18 08:30 Dose: 4 mg Polyethylene Glycol (Miralax) 17 gm PO DAILY [facility] Polyethylene Glycol (Miralax) 17 gm PO DAILYPRN PRN PRN Reason: Constipation Senna/Docusate Sodium (Senokot S) 1 tab PO BID [facility] Sodium Chloride (Flush - Normal Saline) 10 ml IVF Q12HR [facility] Last Admin: 09/19/18 08:31 Dose: Not Given Sodium Chloride (Flush - Normal Saline) 10 ml IVF PRN PRN PRN Reason: Saline Flush Sodium Chloride ([place] Nasal [place] 0.65%) 0 ml EA NARE QIDPRN PRN PRN Reason: Nasal Congestion Throat Lozenges (Cepastat Lozenges) 1 xiomara PO Q2H PRN PRN Reason: Sore Throat
[2018-09-19] MEDS: Morphine 4 MG/ML VIAL SLOW IVP PRN ×2 (12:51→20:18)
[2018-09-19] MEDS ORDERED: Morphine 4 MG/ML VIAL SLOW IVP SCH (15:45)
[2018-09-19 16:09] LABS: Hep C PCR-Quant HCV Not Detected IU/mL (.)
[2018-09-19] MEDS: Atorvastatin Calcium 40 MG TAB PO SCH (20:23)
[2018-09-19] MEDS: Senokot S 8.6-50 MG TAB PO SCH (20:23)
[2018-09-20] MEDS: HYDROcodone/Acetaminophen 5/325 mg Tablet PO PRN ×2 (00:13→08:29)
[2018-09-20] MEDS: HumuLIN 70/30 (300 UNITS/3 ML VIAL) SC SCH ×2 (07:34→16:50)
[2018-09-20] MEDS: Morphine 4 MG/ML VIAL SLOW IVP PRN ×2 (07:35→22:49)
[2018-09-20] MEDS: Atenolol 25 MG TAB PO SCH (08:24)
[2018-09-20] MEDS: Hydrochlorothiazide 25 MG TAB PO SCH (08:24)
[2018-09-20] MEDS: Gabapentin 300 MG CAP PO SCH ×3 (08:27→20:13)
[2018-09-20] MEDS: Famotidine 20 MG TAB PO SCH ×2 (08:27→20:14)
[2018-09-20] MEDS: Senokot S 8.6-50 MG TAB PO SCH ×2 (08:27→20:13)
[2018-09-20] MEDS: Sodium Chloride 0.9% 1,000 ML IV SCH (08:28)
[2018-09-20] MEDS: Enoxaparin Sodium 30 MG/0.3 ML SYRINGE SC SCH (08:28)
[2018-09-20] MEDS: Polyethylene Glycol 3350 17 GM Packet PO SCH (08:31)
[2018-09-20 10:56] LABS: #Basophils 0.1 thou/uL (0.0-0.2); #Eosinphils 0.3 thou/uL (0.0-0.7); #Lymphocytes 1.9 thou/uL (1.20-3.40); #Monocytes 0.9 thou/uL (0.11-0.59); #Neutrophils 8.6 thou/uL (1.40-6.50); %Basophils 0.5 % (0.0-1.0); %Eosinophils 2.5 % (0.0-10.0); %Lymphocytes 16.5 % (21.0-51.0); %Monocytes 7.9 % (0.0-10.0); %Neutrophils 72.6 % (42.0-75.0); Hemoglobin 11.5 g/dL (14.0-18.0); Mean Corpuscular HGB CONC 31.5 g/dL (32.0-36.0); Mean Corpuscular Hemoglobin 26.3 pg (27.0-31.0); Mean Corpuscular Volume 83.4 fL (78.0-98.0); Mean Platelet Volume 7.4 fL (7.4-10.4); Platelet Count 460 thou/uL (130-400); RBC Distribution Width 13.4 % (11.5-14.5); Red Blood Cell (RBC) Count 4.36 mill/uL (4.70-6.10); White Blood Cell (WBC) Count 11.8 thou/uL (4.8-10.8)
[2018-09-20 11:17] LABS: ALT (SGPT) 871 U/L (8-55); AST (SGOT) 1312 U/L (5-34); Albumin 2.8 g/dL (3.5-5.0); Alkaline Phosphatase 97 U/L (40-150); Anion Gap 14 mmol/L (10-20); BUN (Urea Nitrogen) 32 mg/dL (8.4-25.7); Bilirubin, Total 0.4 mg/dL (0.2-1.2); CK (CPK) 604 U/L (30-200); Calc. Creatinine Clearance 62 mL/min (70-130); Carbon Dioxide 22 mmol/L (22-29); Chloride 104 mmol/L (98-107); Estimated GFR-MDRD 33; Globulin 3.7 g/dL (2.4-3.5); Glucose 129 mg/dL (70-105); Potassium 4.8 mmol/L (3.5-5.1); Protein, Total 6.5 g/dL (6.0-8.3); Sodium 135 mmol/L (136-145)
[2018-09-20] MEDS: oxyCODONE 5 MG TAB PO PRN ×2 (12:10→20:11)
[2018-09-20] MEDS ORDERED: Lorazepam 1 MG TAB PO SCH (12:15)
--- NOTE | 2018-09-20 17:46 | PDOC.PN ---
- Subjective Encounter Start Date: 09/20/18 Encounter Start Time: 11:15 Subjective: pt up in bed complains of pain to his right stump area - Objective Resuscitation Status - Order Detail: 09/15/18 04:26 Resuscitation Status Routine Resuscitation Status: FULL: Full Resuscitation Vital Signs & Weight: Vital Signs (12 hours) Temp Pulse Pulse Resp BP BP Pulse Ox 09/20/18 15:36 97.8 F 52 L 20 115/82 96 09/20/18 11:16 98.3 F 57 L 20 116/79 96 09/20/18 08:50 65 142/94 H 09/20/18 08:24 62 09/20/18 07:34 100 09/20/18 07:07 98.3 F 58 L 18 122/80 100 Pulse Ox 09/20/18 15:36 09/20/18 11:16 09/20/18 08:50 95 09/20/18 08:24 09/20/18 07:34 09/20/18 07:07 Weight Weight 240 lb I&O: 09/19/18 09/20/18 09/21/18 06:59 06:59 06:59 Intake Total 1200 1600 1980 Output Total 1500 1200 1625 Balance -300 400 355 Result Diagrams: 09/20/18 10:43 09/20/18 10:43 Additional Labs: Accuchecks 09/20/18 09/20/18 09/20/18 15:40 11:20 05:12 POC Glucose 110 116 H 109 09/19/18 19:58 POC Glucose 110 Phys Exam - Physical Examination Neck: no nodes, no JVD, supple, full ROM Respiratory: no wheezing, no rales, no rhonchi, wheezing present, clear to auscultation bilateral Cardiovascular: RRR, no significant murmur, no rub, gallop, irregular Gastrointestinal: soft, non-tender, no distention, positive bowel sounds Dx/Plan (1) Ischemia of left lower extremity Code(s): I99.8 - OTHER DISORDER OF CIRCULATORY SYSTEM Status: Acute Comment : due to arterial occlusion, subacute, s/p left AKA (2) Anemia, normocytic normochromic Code(s): D64.9 - ANEMIA, UNSPECIFIED Status: Acute Comment: due to post operative blood loss (3) Rhabdomyolysis Code(s): M62.82 - RHABDOMYOLYSIS Status: Acute Comment: due to ischemic damage to muscle (4) Chronic hepatitis C Code(s): B18.2 - CHRONIC VIRAL HEPATITIS C Status: Chronic (5) Diabetes type 2, controlled Code(s): E11.9 - TYPE 2 DIABETES MELLITUS WITHOUT COMPLICATIONS Status: Chronic Qualifiers: 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 * . Review of Systems - Review of Systems Respiratory: negative: Cough, Dry, Shortness of Breath, Hemoptysis, SOB with Excertion, Pleuritic Pain, Sputum, Wheezing Cardiovascular: negative: chest pain, palpitations, orthopnea, paroxysmal nocturnal dyspnea, edema, light headedness, other Gastrointestinal: negative: Nausea, Vomiting, Abdominal Pain, Diarrhea, Constipation, Melena, Hematochezia, Other Musculoskeletal: Leg Pain - Medications/Allergies Allergies/Adverse Reactions: Allergies Allergy/AdvReac Type Severity Reaction Status Date / Time No Known Allergies Allergy Unverified 09/15/18 05:30 Medications: Current Medications Artificial Tears (Tears Naturale) 2 drop EA EYE PRN PRN PRN Reason: Dry Eyes Atenolol (Tenormin) 25 mg PO DAILY [facility] Last Admin: 09/20/18 08:24 Dose: 25 mg Dextrose/Water (Dextrose 50%) 25 gm SLOW IVP PRN PRN PRN Reason: Hypoglycemia Famotidine (Pepcid) 20 mg PO BID [facility] Last Admin: 09/20/18 08:27 Dose: 20 mg Gabapentin (Neurontin) 300 mg PO TID [facility] Last Admin: 09/20/18 15:31 Dose: 300 mg Glucagon (Glucagon) 1 mg IM PRN PRN PRN Reason: Hypoglycemia Heparin Sodium (Porcine) (Heparin) 5,000 units SC BID [facility] Hydralazine HCl (Apresoline) 10 mg SLOW IVP Q4H PRN PRN Reason: SBP > 180 and HR < 70 Hydrochlorothiazide (Hydrochlorothiazide) 25 mg PO DAILY [facility] Last Admin: 09/20/18 08:24 Dose: 25 mg Dextrose/Water (D5w) 1,000 mls @ 0 mls/hr IV .Q0M PRN PRN Reason: Hypoglycemia Sodium Chloride (Normal Saline 0.9%) 1,000 mls @ 50 mls/hr IV .Q20H [facility] Last Admin: 09/20/18 08:28 Dose: 1,000 mls Insulin Human Isoph/Insulin Regular (Humulin 70/30) 15 units SC BID-AC [facility] Last Admin: 09/20/18 16:50 Dose: 15 unit Insulin Human Regular (Humulin R) 0 units SC .MODERATE SLIDING SC PRN PRN Reason: Moderate Correctional Scale Last Admin: 09/19/18 18:08 Dose: 2 unit Mineral Oil/White Petrolatum (Eucerin Cream) 0 gm TOP BIDPRN PRN PRN Reason: Dry Skin Morphine Sulfate (Morphine) 2 mg SLOW IVP Q4H PRN PRN Reason: Severe Pain (7-10) Morphine Sulfate (Morphine) 4 mg SLOW IVP Q4H PRN PRN Reason: Severe Pain 7-10 BREAKTHROUGH Last Admin: 09/20/18 07:35 Dose: 4 mg Ondansetron HCl (Zofran) 4 mg IVP Q6H PRN PRN Reason: Nausea/Vomiting Last Admin: 09/19/18 08:30 Dose: 4 mg Oxycodone HCl (Oxycodone Ir) 10 mg PO Q4H PRN PRN Reason: Moderate Pain (4-6) Last Admin: 09/20/18 12:10 Dose: 10 mg Polyethylene Glycol (Miralax) 17 gm PO DAILY [facility] Last Admin: 09/20/18 08:31 Dose: Not Given Polyethylene Glycol (Miralax) 17 gm PO DAILYPRN PRN PRN Reason: Constipation Senna/Docusate Sodium (Senokot S) 1 tab PO BID [facility] Last Admin: 09/20/18 08:27 Dose: 1 tab Sodium Chloride (Flush - Normal Saline) 10 ml IVF Q12HR [facility] Last Admin: 09/20/18 08:31 Dose: Not Given Sodium Chloride (Flush - Normal Saline) 10 ml IVF PRN PRN PRN Reason: Saline Flush Sodium Chloride ([place] Nasal [place] 0.65%) 0 ml EA NARE QIDPRN PRN PRN Reason: Nasal Congestion Throat Lozenges (Cepastat Lozenges) 1 xiomara PO Q2H PRN PRN Reason: Sore Throat
[2018-09-20] MEDS: Heparin 5,000 UNITS/ML VIAL SC SCH (20:14)
[2018-09-21] MEDS: Morphine 4 MG/ML VIAL SLOW IVP PRN ×2 (04:19→21:05)
[2018-09-21 06:03] LABS: #Basophils 0.1 thou/uL (0.0-0.2); #Eosinphils 0.3 thou/uL (0.0-0.7); #Lymphocytes 1.8 thou/uL (1.20-3.40); #Monocytes 0.9 thou/uL (0.11-0.59); #Neutrophils 7.2 thou/uL (1.40-6.50); %Basophils 0.6 % (0.0-1.0); %Eosinophils 2.6 % (0.0-10.0); %Lymphocytes 17.3 % (21.0-51.0); %Monocytes 9.1 % (0.0-10.0); %Neutrophils 70.4 % (42.0-75.0); Hemoglobin 11.5 g/dL (14.0-18.0); Mean Corpuscular HGB CONC 31.2 g/dL (32.0-36.0); Mean Corpuscular Hemoglobin 26.1 pg (27.0-31.0); Mean Corpuscular Volume 83.7 fL (78.0-98.0); Mean Platelet Volume 7.6 fL (7.4-10.4); Platelet Count 483 thou/uL (130-400); RBC Distribution Width 13.6 % (11.5-14.5); Red Blood Cell (RBC) Count 4.41 mill/uL (4.70-6.10); White Blood Cell (WBC) Count 10.2 thou/uL (4.8-10.8)
[2018-09-21] MEDS: oxyCODONE 5 MG TAB PO PRN ×3 (06:19→19:51)
[2018-09-21] MEDS: Insulin Regular 300 UNITS/3 ML VIAL SC PRN (06:26)
[2018-09-21] MEDS: HumuLIN 70/30 (300 UNITS/3 ML VIAL) SC SCH ×2 (06:27→19:45)
[2018-09-21 06:36] LABS: ALT (SGPT) 696 U/L (8-55); AST (SGOT) 388 U/L (5-34); Albumin 2.8 g/dL (3.5-5.0); Alkaline Phosphatase 118 U/L (40-150); Anion Gap 12 mmol/L (10-20); BUN (Urea Nitrogen) 33 mg/dL (8.4-25.7); Bilirubin, Total 0.3 mg/dL (0.2-1.2); Calc. Creatinine Clearance 64 mL/min (70-130); Carbon Dioxide 23 mmol/L (22-29); Estimated GFR-MDRD 34; Globulin 3.6 g/dL (2.4-3.5); Glucose 173 mg/dL (70-105); Potassium 4.4 mmol/L (3.5-5.1); Protein, Total 6.4 g/dL (6.0-8.3)
[2018-09-21 06:43] LABS: Chloride 103 mmol/L (98-107); Sodium 134 mmol/L (136-145)
[2018-09-21] MEDS: Sodium Chloride 0.9% 1,000 ML IV SCH ×2 (07:21→09:00)
[2018-09-21] MEDS: Famotidine 20 MG TAB PO SCH ×2 (08:58→21:01)
[2018-09-21] MEDS: Hydrochlorothiazide 25 MG TAB PO SCH (08:58)
[2018-09-21] MEDS: Atenolol 25 MG TAB PO SCH (08:58)
[2018-09-21] MEDS: Senokot S 8.6-50 MG TAB PO SCH ×2 (08:59→21:00)
[2018-09-21] MEDS: Gabapentin 300 MG CAP PO SCH ×3 (08:59→21:01)
[2018-09-21] MEDS: Polyethylene Glycol 3350 17 GM Packet PO SCH (08:59)
[2018-09-21] MEDS: Heparin 5,000 UNITS/ML VIAL SC SCH ×2 (08:59→21:01)
--- NOTE | 2018-09-21 16:13 | RAD ---
CHEST ONE VIEW: 09/21/18 INDICATION: 53-year-old male with shortness of breath. COMPARISON: Prior exam dated 09/15/18. FINDINGS: Cardiomegaly is stable. Hypoventilation accentuates the heart size and pulmonary vasculature. No defi nite consolidation is evident. There is some increased linear opacity in the left lung base suspiciou s for atelectasis. No pleural effusion or pneumothorax evident. IMPRESSION: 1. Mild left basilar atelectasis. 2. Stable cardiomegaly. POS: CET
[2018-09-21] MEDS ORDERED: Bisacodyl 5 MG TAB PO SCH (19:00)
--- NOTE | 2018-09-21 19:00 | PDOC.PN ---
- Subjective Encounter Start Date: 09/21/18 Encounter Start Time: 10:15 Subjective: pt up in bed very emotional states he is he sob and starts crying - Objective Resuscitation Status - Order Detail: 09/15/18 04:26 Resuscitation Status Routine Resuscitation Status: FULL: Full Resuscitation Vital Signs & Weight: Vital Signs (12 hours) Temp Pulse Resp BP BP Pulse Ox 09/21/18 15:23 97.5 F L 55 L 20 131/83 97 09/21/18 11:34 97.9 F 67 18 114/71 97 09/21/18 08:58 66 139/85 09/21/18 08:00 100 09/21/18 07:19 97.7 F 66 20 139/85 100 Weight Weight 240 lb I&O: 09/20/18 09/21/18 09/22/18 06:59 06:59 06:59 Intake Total 1600 3780 Output Total 1200 3525 Balance 400 255 Result Diagrams: 09/21/18 04:53 09/21/18 04:53 Additional Labs: Accuchecks 09/21/18 09/21/18 09/21/18 15:25 11:33 05:30 POC Glucose 151 H 207 H 202 H 09/20/18 21:22 POC Glucose 141 H Phys Exam - Physical Examination Neck: no nodes, no JVD, supple, full ROM Respiratory: no wheezing, no rales, no rhonchi Cardiovascular: RRR, no significant murmur, no rub, gallop Gastrointestinal: soft, non-tender, no distention, positive bowel sounds Musculoskeletal: no edema, pulses present, edema present Neurological: non-focal, normal sensation, moves all 4 limbs Dx/Plan (1) Ischemia of left lower extremity Code(s): I99.8 - OTHER DISORDER OF CIRCULATORY SYSTEM Status: Acute Comment : due to arterial occlusion, subacute, s/p left AKA (2) Anemia, normocytic normochromic Code(s): D64.9 - ANEMIA, UNSPECIFIED Status: Acute Comment: due to post operative blood loss (3) Rhabdomyolysis Code(s): M62.82 - RHABDOMYOLYSIS Status: Acute Comment: due to ischemic damage to muscle (4) Chronic hepatitis C Code(s): B18.2 - CHRONIC VIRAL HEPATITIS C Status: Chronic (5) Diabetes type 2, controlled Code(s): E11.9 - TYPE 2 DIABETES MELLITUS WITHOUT COMPLICATIONS Status: Chronic Qualifiers: Diabetes mellitus buttermaker helper insulin use: with snf use Diabetes mellitus complication status: with circulatory complication Comment: started lantus (6) PAD (peripheral artery disease) Code(s): I73.9 - PERIPHERAL VASCULAR DISEASE, UNSPECIFIED Status: Chronic - Plan lfts improving, will hold statin for now -: cxr no acute process, pt is very anxious -: urinary retention will start pt on flomax. will also rx dulcolax -: since he has not had a bm. VALERIA improving -: stable to be discharged to rehab. will stop iv fluids * . Review of Systems - Review of Systems Respiratory: Shortness of Breath - Medications/Allergies Allergies/Adverse Reactions: Allergies Allergy/AdvReac Type Severity Reaction Status Date / Time No Known Allergies Allergy Unverified 09/15/18 05:30 Medications: Current Medications Artificial Tears (Tears Naturale) 2 drop EA EYE PRN PRN PRN Reason: Dry Eyes Atenolol (Tenormin) 25 mg PO DAILY [facility] Last Admin: 09/21/18 08:58 Dose: 25 mg Bisacodyl (Dulcolax) 10 mg PO NOW [facility] Dextrose/Water (Dextrose 50%) 25 gm SLOW IVP PRN PRN PRN Reason: Hypoglycemia Famotidine (Pepcid) 20 mg PO BID [facility] Last Admin: 09/21/18 08:58 Dose: 20 mg Gabapentin (Neurontin) 300 mg PO TID [facility] Last Admin: 09/21/18 15:05 Dose: 300 mg Glucagon (Glucagon) 1 mg IM PRN PRN PRN Reason: Hypoglycemia Heparin Sodium (Porcine) (Heparin) 5,000 units SC BID [facility] Last Admin: 09/21/18 08:59 Dose: 5,000 units Hydralazine HCl (Apresoline) 10 mg SLOW IVP Q4H PRN PRN Reason: SBP > 180 and HR < 70 Hydrochlorothiazide (Hydrochlorothiazide) 25 mg PO DAILY [facility] Last Admin: 09/21/18 08:58 Dose: 25 mg Dextrose/Water (D5w) 1,000 mls @ 0 mls/hr IV .Q0M PRN PRN Reason: Hypoglycemia Insulin Human Isoph/Insulin Regular (Humulin 70/30) 15 units SC BID[facility] Last Admin: 09/21/18 06:27 Dose: 15 unit Insulin Human Regular (Humulin R) 0 units SC .MODERATE SLIDING SC PRN PRN Reason: Moderate Correctional Scale Last Admin: 09/21/18 06:26 Dose: 4 unit Mineral Oil/White Petrolatum (Eucerin Cream) 0 gm TOP BIDPRN PRN PRN Reason: Dry Skin Morphine Sulfate (Morphine) 2 mg SLOW IVP Q4H PRN PRN Reason: Severe Pain (7-10) Morphine Sulfate (Morphine) 4 mg SLOW IVP Q4H PRN PRN Reason: Severe Pain 7-10 BREAKTHROUGH Last Admin: 09/21/18 04:19 Dose: 4 mg Ondansetron HCl (Zofran) 4 mg IVP Q6H PRN PRN Reason: Nausea/Vomiting Last Admin: 09/19/18 08:30 Dose: 4 mg Oxycodone HCl (Oxycodone Ir) 10 mg PO Q4H PRN PRN Reason: Moderate Pain (4-6) Last Admin: 09/21/18 12:19 Dose: 10 mg Polyethylene Glycol (Miralax) 17 gm PO DAILY [facility] Last Admin: 09/21/18 08:59 Dose: 17 gm Polyethylene Glycol (Miralax) 17 gm PO DAILYPRN PRN PRN Reason: Constipation Senna/Docusate Sodium (Senokot S) 1 tab PO BID [facility] Last Admin: 09/21/18 08:59 Dose: 1 tab Sodium Chloride (Flush - Normal Saline) 10 ml IVF Q12HR [facility] Last Admin: 09/21/18 08:59 Dose: Not Given Sodium Chloride (Flush - Normal Saline) 10 ml IVF PRN PRN PRN Reason: Saline Flush Sodium Chloride ([place] Nasal [place] 0.65%) 0 ml EA NARE QIDPRN PRN PRN Reason: Nasal Congestion Tamsulosin HCl (Flomax) 0.4 mg PO HS [facility] Throat Lozenges (Cepastat Lozenges) 1 xiomara PO Q2H PRN PRN Reason: Sore Throat
[2018-09-21] MEDS: Tamsulosin HCl 0.4 MG CAP PO SCH (21:00)
[2018-09-22] MEDS: oxyCODONE 5 MG TAB PO PRN ×5 (00:33→18:39)
[2018-09-22] MEDS: Morphine 4 MG/ML VIAL SLOW IVP PRN ×2 (02:40→22:13)
[2018-09-22] MEDS: Insulin Regular 300 UNITS/3 ML VIAL SC PRN ×3 (06:22→16:41)
[2018-09-22] MEDS: HumuLIN 70/30 (300 UNITS/3 ML VIAL) SC SCH ×2 (06:22→16:40)
[2018-09-22 06:25] LABS: #Basophils 0.1 thou/uL (0.0-0.2); #Eosinphils 0.3 thou/uL (0.0-0.7); #Lymphocytes 2.1 thou/uL (1.20-3.40); #Neutrophils 8.7 thou/uL (1.40-6.50); %Basophils 0.7 % (0.0-1.0); %Eosinophils 2.2 % (0.0-10.0); %Lymphocytes 17.5 % (21.0-51.0); %Monocytes 8.5 % (0.0-10.0); %Neutrophils 71.1 % (42.0-75.0); Hemoglobin 12.7 g/dL (14.0-18.0); Mean Corpuscular HGB CONC 31.5 g/dL (32.0-36.0); Mean Corpuscular Hemoglobin 26.3 pg (27.0-31.0); Mean Corpuscular Volume 83.5 fL (78.0-98.0); Mean Platelet Volume 7.2 fL (7.4-10.4); Platelet Count 524 thou/uL (130-400); RBC Distribution Width 13.6 % (11.5-14.5); Red Blood Cell (RBC) Count 4.81 mill/uL (4.70-6.10); White Blood Cell (WBC) Count 12.2 thou/uL (4.8-10.8)
[2018-09-22 06:48] LABS: ALT (SGPT) 556 U/L (8-55); AST (SGOT) 183 U/L (5-34); Albumin 3.1 g/dL (3.5-5.0); Alkaline Phosphatase 112 U/L (40-150); Anion Gap 16 mmol/L (10-20); BUN (Urea Nitrogen) 35 mg/dL (8.4-25.7); Bilirubin, Total 0.2 mg/dL (0.2-1.2); Calc. Creatinine Clearance 58 mL/min (70-130); Calcium 9.5 mg/dL (7.8-10.44); Carbon Dioxide 22 mmol/L (22-29); Chloride 103 mmol/L (98-107); Estimated GFR-MDRD 31; Globulin 3.9 g/dL (2.4-3.5); Glucose 196 mg/dL (70-105); Potassium 4.7 mmol/L (3.5-5.1); Sodium 136 mmol/L (136-145)
--- NOTE | 2018-09-22 09:30 | ULT ---
EXAM: Abdominal ultrasound complete: HISTORY: Liver and kidney function tests abnormal COMPARISON: None FINDINGS: Hepatomegaly with coarse increased echogenicity, nonspecific. Somewhat poorly defined gallbladder wit hout overt gallstones or wall thickening or pericholecystic fluid. Negative Marquis's sign. The common bile duct is 0.5 cm Visualized pancreas: Unremarkable. Visualized abdominal aorta: Unremarkable. Visualized IVC: Unremarkable. Visualized spleen: Unremarkable. Visualized kidneys: No evidence for hydronephrosis or solid or cystic mass. No mass, abscess, adenopathy, or abnormal fluid collection or other acute process. Evidence for right pleural effusion. IMPRESSION: Hepatomegaly with heterogeneous liver echogenicity, nonspecific. Right pleural effusion. No definite gallstones or signs of acute cholecystitis although the gallbladder is less than optimally imaged.
[2018-09-22] MEDS: Atenolol 25 MG TAB PO SCH (09:59)
[2018-09-22] MEDS: Hydrochlorothiazide 25 MG TAB PO SCH (09:59)
[2018-09-22] MEDS: Famotidine 20 MG TAB PO SCH (10:00)
[2018-09-22] MEDS: Gabapentin 300 MG CAP PO SCH ×3 (10:01→20:37)
[2018-09-22] MEDS: Heparin 5,000 UNITS/ML VIAL SC SCH ×2 (10:01→20:37)
--- NOTE | 2018-09-22 11:51 | PDOC.PN ---
- Subjective Encounter Start Date: 09/22/18 Encounter Start Time: 09:30 -: old records requested/rev today he has scrotal swelling, he has pain at amputation site, he had good BM, able to void by himself - Objective Resuscitation Status - Order Detail: 09/15/18 04:26 Resuscitation Status Routine Resuscitation Status: FULL: Full Resuscitation MAR Reviewed: Yes Vital Signs & Weight: Vital Signs (12 hours) Temp Pulse Resp BP Pulse Ox 09/22/18 09:59 61 09/22/18 08:26 98.4 F 63 20 153/80 H 96 09/22/18 04:42 98.7 F 66 16 128/82 96 09/22/18 00:52 98.4 F 62 16 126/80 100 Weight Weight 240 lb I&O: 09/21/18 09/22/18 09/23/18 06:59 06:59 06:59 Intake Total 3780 800 Output Total 3525 900 Balance 255 -100 Result Diagrams: 09/22/18 06:16 09/22/18 06:16 Additional Labs: Accuchecks 09/22/18 09/22/18 09/21/18 10:57 05:57 20:41 POC Glucose 209 H 198 H 178 H 09/21/18 09/21/18 15:25 11:33 POC Glucose 151 H 207 H Phys Exam - Physical Examination Constitutional: NAD HEENT: PERRLA, moist MMs, sclera anicteric Neck: no JVD, supple Respiratory: no wheezing, no rales, no rhonchi Cardiovascular: RRR, no significant murmur, no rub Gastrointestinal: soft, non-tender, no distention, positive bowel sounds scrotal swelling left AKA with dressing Neurological: non-focal, normal sensation Lymphatic: no nodes Psychiatric: normal affect Skin: no rash, normal turgor Dx/Plan (1) Ischemia of left lower extremity Code(s): I99.8 - OTHER DISORDER OF CIRCULATORY SYSTEM Status: Acute Comment : due to arterial occlusion, subacute, s/p left AKA (2) Abnormal LFTs Code(s): R94.5 - ABNORMAL RESULTS OF LIVER FUNCTION STUDIES Status: Acute Comment: due to fatty liver (3) Anemia, normocytic normochromic Code(s): D64.9 - ANEMIA, UNSPECIFIED Status: Acute Comment: due to post operative blood loss (4) Hyponatremia Code(s): E87.1 - HYPO-OSMOLALITY AND HYPONATREMIA Status: Resolved Comment: due to hyperglycemia, improved (5) Lactic acidosis Code(s): E87.2 - ACIDOSIS Status: Resolved (6) Rhabdomyolysis Code(s): M62.82 - RHABDOMYOLYSIS Status: Acute Comment: due to ischemic damage to muscle (7) Diabetes type 2, controlled Code(s): E11.9 - TYPE 2 DIABETES MELLITUS WITHOUT COMPLICATIONS Status: Chronic Qualifiers: Diabetes mellitus terminal operations manager insulin use: with correction use Diabetes mellitus complication status: with circulatory complication Comment: started lantus (8) Dyslipidemia Code(s): E78.5 - HYPERLIPIDEMIA, UNSPECIFIED Status: Chronic Comment: on lipitor (9) Hypertension Code(s): I10 - ESSENTIAL (PRIMARY) HYPERTENSION Status: Chronic Qualifiers: Hypertension type: essential hypertension Qualified Code(s): I10 - Essential (primary) hypertension (10) Methamphetamine abuse Code(s): F15.10 - OTHER STIMULANT ABUSE, UNCOMPLICATED Status: Chronic Comment: counselled to avoid illicit drugs (11) Obesity (BMI 30-39.9) Code(s): E66.9 - OBESITY, UNSPECIFIED Status: Chronic (12) PAD (peripheral artery disease) Code(s): I73.9 - PERIPHERAL VASCULAR DISEASE, UNSPECIFIED Status: Chronic (13) Acute renal failure Status: Acute (14) Acute urinary retention Code(s): R33.8 - OTHER RETENTION OF URINE Status: Resolved (15) Hepatitis C antibody test positive Code(s): R76.8 - OTHER SPECIFIED ABNORMAL IMMUNOLOGICAL FINDINGS IN SERUM Status: Acute - Plan cont current plan of care * will get US abdomen for abnormal LFT and RFT * consult nephrology for elevated creatinine * medication reviewed as below * symptomatic treatment * post operative wound care * rehab placement soon * repeat labs tomorrow. Review of Systems - Review of Systems ENT: negative: Ear Pain, Ear Discharge, Nose Pain, Nose Discharge, Nose Congestion, Mouth Pain, Mouth Swelling, Throat Pain, Throat Swelling, Other Respiratory: negative: Cough, Dry, Shortness of Breath, Hemoptysis, SOB with Excertion, Pleuritic Pain, Sputum, Wheezing Cardiovascular: negative: chest pain, palpitations, orthopnea, paroxysmal nocturnal dyspnea, edema, light headedness, other Gastrointestinal: negative: Nausea, Vomiting, Abdominal Pain, Diarrhea, Constipation, Melena, Hematochezia, Other Genitourinary: negative: Dysuria, Frequency, Incontinence, Hematuria, Retention , Other Musculoskeletal: Leg Pain. negative: Neck Pain, Shoulder Pain, Arm Pain, Back Pain, Hand Pain, Foot Pain, Other - Medications/Allergies Allergies/Adverse Reactions: Allergies Allergy/AdvReac Type Severity Reaction Status Date / Time No Known Allergies Allergy Unverified 09/15/18 05:30 Medications: Current Medications Artificial Tears (Tears Naturale) 2 drop EA EYE PRN PRN PRN Reason: Dry Eyes Atenolol (Tenormin) 25 mg PO DAILY [facility] Last Admin: 09/22/18 09:59 Dose: 25 mg Dextrose/Water (Dextrose 50%) 25 gm SLOW IVP PRN PRN PRN Reason: Hypoglycemia Famotidine (Pepcid) 20 mg PO DAILY [facility] Last Admin: 09/22/18 10:00 Dose: 20 mg Gabapentin (Neurontin) 300 mg PO TID [facility] Last Admin: 09/22/18 10:01 Dose: 300 mg Glucagon (Glucagon) 1 mg IM PRN PRN PRN Reason: Hypoglycemia Heparin Sodium (Porcine) (Heparin) 5,000 units SC BID [facility] Last Admin: 09/22/18 10:01 Dose: 5,000 units Hydralazine HCl (Apresoline) 10 mg SLOW IVP Q4H PRN PRN Reason: SBP > 180 and HR < 70 Hydrochlorothiazide (Hydrochlorothiazide) 25 mg PO DAILY [facility] Last Admin: 09/22/18 09:59 Dose: 25 mg Dextrose/Water (D5w) 1,000 mls @ 0 mls/hr IV .Q0M PRN PRN Reason: Hypoglycemia Insulin Human Isoph/Insulin Regular (Humulin 70/30) 15 units SC BID-[facility] Last Admin: 09/22/18 06:22 Dose: 15 unit Insulin Human Regular (Humulin R) 0 units SC .MODERATE SLIDING SC PRN PRN Reason: Moderate Correctional Scale Last Admin: 09/22/18 06:22 Dose: 2 unit Mineral Oil/White Petrolatum (Eucerin Cream) 0 gm TOP BIDPRN PRN PRN Reason: Dry Skin Morphine Sulfate (Morphine) 2 mg SLOW IVP Q4H PRN PRN Reason: Severe Pain (7-10) Morphine Sulfate (Morphine) 4 mg SLOW IVP Q4H PRN PRN Reason: Severe Pain 7-10 BREAKTHROUGH Last Admin: 09/22/18 02:40 Dose: 4 mg Ondansetron HCl (Zofran) 4 mg IVP Q6H PRN PRN Reason: Nausea/Vomiting Last Admin: 09/19/18 08:30 Dose: 4 mg Oxycodone HCl (Oxycodone Ir) 10 mg PO Q4H PRN PRN Reason: Moderate Pain (4-6) Last Admin: 09/22/18 10:02 Dose: 10 mg Polyethylene Glycol (Miralax) 17 gm PO DAILY [facility] Last Admin: 09/21/18 08:59 Dose: 17 gm Polyethylene Glycol (Miralax) 17 gm PO DAILYPRN PRN PRN Reason: Constipation Senna/Docusate Sodium (Senokot S) 1 tab PO BID [facility] Last Admin: 09/21/18 21:00 Dose: 1 tab Sodium Chloride (Flush - Normal Saline) 10 ml IVF Q12HR [facility] Last Admin: 09/22/18 10:03 Dose: 10 ml Sodium Chloride (Flush - Normal Saline) 10 ml IVF PRN PRN PRN Reason: Saline Flush Sodium Chloride ([place] Nasal [place] 0.65%) 0 ml EA NARE QIDPRN PRN PRN Reason: Nasal Congestion Tamsulosin HCl (Flomax) 0.4 mg PO HS [facility] Last Admin: 09/21/18 21:00 Dose: 0.4 mg Throat Lozenges (Cepastat Lozenges) 1 xiomara PO Q2H PRN PRN Reason: Sore Throat
[2018-09-22] MEDS: Senokot S 8.6-50 MG TAB PO SCH ×2 (14:13→20:37)
[2018-09-22] MEDS: Polyethylene Glycol 3350 17 GM Packet PO SCH (14:13)
[2018-09-22] MEDS: Tamsulosin HCl 0.4 MG CAP PO SCH (20:37)
--- NOTE | 2018-09-23 00:06 | CON ---
DATE OF CONSULTATION: CONSULTING PHYSICIAN: Sukhwinder Ochoa MD REASON FOR CONSULTATION: Acute kidney injury. IMPRESSION: 1. Acute kidney injury, query cause. This is possibly related to hemodynamically-mediated acute kidney injury with the possibility of intraoperative hypotension. 2. Cannot completely rule out other potential etiologies including obstructive uropathy and possible nephrotoxicity from Vancomycin supratherapeutic level PLAN: 1. Renal supportive measures in terms of gentle rehydration. 2. Ensure that there is no evidence of obstruction and if there is, we will relieve this with [place] catheterization. 3. Renally dose all medications and avoid potentially nephrotoxic agents. 4. Further management will be dependent on the clinical course. HISTORY OF PRESENT ILLNESS: History is that of a 53-year-old gentleman who presented here with right lower extremity pain. The patient did undergo amputation. The patient of note presented with a normal creatinine; however, over the course of this hospitalization, creatinine has gone up above 2. The patient did undergo above-knee amputation and ever since then, has been experiencing worsening renal function within the possibility of intraoperative related hypotension. Otherwise , the patient denies any other complaints except the noted finding of inability to urinate, which the patient described as inability to have a good position to urinate. Otherwise, no bloody urine and no frothy urine. PAST MEDICAL HISTORY: Significant for diabetes, peripheral vascular disease, obesity, and dyslipidemia. MEDICATIONS: Reviewed as documented on [employer]. ALLERGIES: NO KNOWN DRUG ALLERGIES. FAMILY HISTORY: No family history of kidney disease. SOCIAL HISTORY: Significant for illicit drug use and aware of methamphetamine. REVIEW OF SYSTEMS: As documented in the body of the history. All other systems were reviewed and found not to be significantly related to present illness. PHYSICAL EXAMINATION: GENERAL AND VITAL SIGNS: The patient was found not to be in any respiratory distress, noted with the following vital signs; afebrile, temperature 98, pulse 59, respiratory rate of 20, O2 saturation 98% with blood pressure of 122/81. HEENT: Unremarkable. CARDIOVASCULAR SYSTEM: First and second heart sounds were heard. RESPIRATORY SYSTEM: Clear to auscultation. DIGESTIVE SYSTEM: Revealed a benign abdomen. EXTREMITIES: No peripheral edema. SKIN: No new gross rash. LYMPHATICS: No peripheral lymphadenopathy. LABORATORY INVESTIGATION: Significant for creatinine of 2.25 and BUN of 35. In summary, a 53-year-old gentleman who came in with ischemic lower extremity above-knee amputation, now experiencing worsening renal function. Thank you for this consultation. We will follow with you. Job ID: [id number] MTDD
[2018-09-23] MEDS: oxyCODONE 5 MG TAB PO PRN ×3 (01:39→11:30)
[2018-09-23 05:30] LABS: #Basophils 0.1 thou/uL (0.0-0.2); #Eosinphils 0.5 thou/uL (0.0-0.7); #Lymphocytes 2.3 thou/uL (1.20-3.40); #Monocytes 1.2 thou/uL (0.11-0.59); #Neutrophils 7.9 thou/uL (1.40-6.50); %Basophils 0.7 % (0.0-1.0); %Eosinophils 3.8 % (0.0-10.0); %Monocytes 9.8 % (0.0-10.0); %Neutrophils 66.7 % (42.0-75.0); Hemoglobin 11.3 g/dL (14.0-18.0); Mean Corpuscular HGB CONC 31.8 g/dL (32.0-36.0); Mean Corpuscular Hemoglobin 26.2 pg (27.0-31.0); Mean Corpuscular Volume 82.5 fL (78.0-98.0); Mean Platelet Volume 7.1 fL (7.4-10.4); Platelet Count 540 thou/uL (130-400); RBC Distribution Width 13.9 % (11.5-14.5); Red Blood Cell (RBC) Count 4.32 mill/uL (4.70-6.10); White Blood Cell (WBC) Count 11.9 thou/uL (4.8-10.8)
[2018-09-23 05:51] LABS: ALT (SGPT) 417 U/L (8-55); AST (SGOT) 155 U/L (5-34); Albumin 2.8 g/dL (3.5-5.0); Alkaline Phosphatase 93 U/L (40-150); Anion Gap 15 mmol/L (10-20); BUN (Urea Nitrogen) 38 mg/dL (8.4-25.7); Bilirubin, Total 0.3 mg/dL (0.2-1.2); Calc. Creatinine Clearance 60 mL/min (70-130); Calcium 9.3 mg/dL (7.8-10.44); Carbon Dioxide 25 mmol/L (22-29); Chloride 101 mmol/L (98-107); Estimated GFR-MDRD 32; Globulin 3.6 g/dL (2.4-3.5); Glucose 157 mg/dL (70-105); Potassium 4.6 mmol/L (3.5-5.1); Protein, Total 6.4 g/dL (6.0-8.3); Sodium 136 mmol/L (136-145)
[2018-09-23] MEDS: HumuLIN 70/30 (300 UNITS/3 ML VIAL) SC SCH (06:18)
[2018-09-23] MEDS: Insulin Regular 300 UNITS/3 ML VIAL SC PRN ×2 (06:22→11:31)
[2018-09-23] MEDS: Heparin 5,000 UNITS/ML VIAL SC SCH (08:26)
[2018-09-23] MEDS: Atenolol 25 MG TAB PO SCH (08:26)
[2018-09-23] MEDS: Gabapentin 300 MG CAP PO SCH (08:26)
[2018-09-23] MEDS: Famotidine 20 MG TAB PO SCH (08:26)
[2018-09-23] MEDS: Hydrochlorothiazide 25 MG TAB PO SCH (08:26)
[2018-09-23] MEDS: Senokot S 8.6-50 MG TAB PO SCH (08:27)
[2018-09-23] MEDS: Polyethylene Glycol 3350 17 GM Packet PO SCH (08:27)
[2018-09-23] MEDS: Morphine 4 MG/ML VIAL SLOW IVP PRN (08:34)
--- NOTE | 2018-09-23 10:33 | PRG ---
DATE OF SERVICE: 09/23/2018 SUBJECTIVE: The patient was seen and examined with no new complaint noted with the following vital signs. OBJECTIVE: VITAL SIGNS: Afebrile, temperature 98.1 pulse 61, respiratory rate of 20, O2 saturation 98%, blood pressure 133/81. HEENT: Unremarkable. CARDIOVASCULAR SYSTEM: First and second heart sounds were heard. RESPIRATORY SYSTEM: Clear to auscultation. DIGESTIVE SYSTEM: Revealed obese abdomen. EXTREMITIES: No peripheral edema. UROGENITAL SYSTEM: Revealed scrotal edema. LABORATORY INVESTIGATION: Showed creatinine of 2.19 with BUN of 38. IMPRESSION: 1. Acute kidney injury. This is possibly related to supratherapeutic vancomycin level plus or minus hemodynamics changes especially during the surgery. 2. Scrotal edema, query cause may be related to hydrocele/ascites . PLAN: 1. Continue current renal supportive measures. 2. [facility]ph[facility] Service to continue under the service of Dr. Bill Prescott or Dr. Nichol Groves. 3. Further management to be dependent on the clinical course. Job ID: [id number]
[2018-09-23 11:07] VITALS: BP 116/75; TEMP 98.2
--- NOTE | 2018-09-23 11:27 | PDOC.PN ---
- Subjective Encounter Start Date: 09/23/18 Encounter Start Time: 09:30 Patient seen and examined. No new complaints. No overnight events - Objective Resuscitation Status - Order Detail: 09/15/18 04:26 Resuscitation Status Routine Resuscitation Status: FULL: Full Resuscitation MAR Reviewed: Yes Vital Signs & Weight: Vital Signs (12 hours) Temp Pulse Resp BP Pulse Ox 09/23/18 11:06 98.2 F 62 14 116/75 98 09/23/18 08:26 61 09/23/18 07:40 98.1 F 61 20 133/81 98 09/23/18 05:06 98.8 F 68 20 130/78 98 09/23/18 00:17 98.8 F 64 20 130/79 98 Weight Weight 240 lb I&O: 09/22/18 09/23/18 09/24/18 06:59 06:59 06:59 Intake Total 800 1960 Output Total 900 1725 Balance -100 235 Result Diagrams: 09/23/18 05:00 09/23/18 05:00 Additional Labs: Accuchecks 09/23/18 09/22/18 09/22/18 05:44 20:59 16:06 POC Glucose 161 H 143 H 183 H Phys Exam - Physical Examination Constitutional: NAD HEENT: PERRLA, moist MMs, sclera anicteric Neck: no JVD, supple Respiratory: no wheezing, no rales, no rhonchi Cardiovascular: RRR, no significant murmur, no rub Gastrointestinal: soft, non-tender, no distention, positive bowel sounds left AKA, all toe amputated on right foot Neurological: non-focal Lymphatic: no nodes Psychiatric: normal affect Skin: no rash, normal turgor Dx/Plan (1) Ischemia of left lower extremity Code(s): I99.8 - OTHER DISORDER OF CIRCULATORY SYSTEM Status: Acute Comment : due to arterial occlusion, subacute, s/p left AKA (2) Abnormal LFTs Code(s): R94.5 - ABNORMAL RESULTS OF LIVER FUNCTION STUDIES Status: Acute Comment: due to fatty liver (3) Anemia, normocytic normochromic Code(s): D64.9 - ANEMIA, UNSPECIFIED Status: Acute Comment: due to post operative blood loss (4) Hyponatremia Code(s): E87.1 - HYPO-OSMOLALITY AND HYPONATREMIA Status: Resolved Comment: due to hyperglycemia, improved (5) Lactic acidosis Code(s): E87.2 - ACIDOSIS Status: Resolved (6) Rhabdomyolysis Code(s): M62.82 - RHABDOMYOLYSIS Status: Acute Comment: due to ischemic damage to muscle (7) Diabetes type 2, controlled Code(s): E11.9 - TYPE 2 DIABETES MELLITUS WITHOUT COMPLICATIONS Status: Chronic Qualifiers: Diabetes mellitus prison insulin use: with vermin exterminator use Diabetes mellitus complication status: with circulatory complication Comment: started lantus (8) Dyslipidemia Code(s): E78.5 - HYPERLIPIDEMIA, UNSPECIFIED Status: Chronic Comment: on lipitor (9) Hypertension Code(s): I10 - ESSENTIAL (PRIMARY) HYPERTENSION Status: Chronic Qualifiers: Hypertension type: essential hypertension Qualified Code(s): I10 - Essential (primary) hypertension (10) Methamphetamine abuse Code(s): F15.10 - OTHER STIMULANT ABUSE, UNCOMPLICATED Status: Chronic Comment: counselled to avoid illicit drugs (11) Obesity (BMI 30-39.9) Code(s): E66.9 - OBESITY, UNSPECIFIED Status: Chronic (12) PAD (peripheral artery disease) Code(s): I73.9 - PERIPHERAL VASCULAR DISEASE, UNSPECIFIED Status: Chronic (13) Acute renal failure Status: Acute (14) Acute urinary retention Code(s): R33.8 - OTHER RETENTION OF URINE Status: Resolved (15) Hepatitis C antibody test positive Code(s): R76.8 - OTHER SPECIFIED ABNORMAL IMMUNOLOGICAL FINDINGS IN SERUM Status: Acute - Plan cont current plan of care, PT/OT, neonatal social worker * medication reviewed as below * symptomatic treatment * continue wound care at surgical site * he is advised to follow up with nephrology and CV surgery * see discharge marce. Review of Systems - Review of Systems ENT: negative: Ear Pain, Ear Discharge, Nose Pain, Nose Discharge, Nose Congestion, Mouth Pain, Mouth Swelling, Throat Pain, Throat Swelling, Other Respiratory: negative: Cough, Dry, Shortness of Breath, Hemoptysis, SOB with Excertion, Pleuritic Pain, Sputum, Wheezing Cardiovascular: negative: chest pain, palpitations, orthopnea, paroxysmal nocturnal dyspnea, edema, light headedness, other Gastrointestinal: negative: Nausea, Vomiting, Abdominal Pain, Diarrhea, Constipation, Melena, Hematochezia, Other Genitourinary: negative: Dysuria, Frequency, Incontinence, Hematuria, Retention , Other Musculoskeletal: negative: Neck Pain, Shoulder Pain, Arm Pain, Back Pain, Hand Pain, Leg Pain, Foot Pain, Other - Medications/Allergies Allergies/Adverse Reactions: Allergies Allergy/AdvReac Type Severity Reaction Status Date / Time No Known Allergies Allergy Unverified 09/15/18 05:30 Medications: Current Medications Artificial Tears (Tears Naturale) 2 drop EA EYE PRN PRN PRN Reason: Dry Eyes Atenolol (Tenormin) 25 mg PO DAILY [facility] Last Admin: 09/23/18 08:26 Dose: 25 mg Dextrose/Water (Dextrose 50%) 25 gm SLOW IVP PRN PRN PRN Reason: Hypoglycemia Famotidine (Pepcid) 20 mg PO DAILY [facility] Last Admin: 09/23/18 08:26 Dose: 20 mg Gabapentin (Neurontin) 300 mg PO TID [facility] Last Admin: 09/23/18 08:26 Dose: 300 mg Glucagon (Glucagon) 1 mg IM PRN PRN PRN Reason: Hypoglycemia Heparin Sodium (Porcine) (Heparin) 5,000 units SC BID [facility] Last Admin: 09/23/18 08:26 Dose: 5,000 units Hydralazine HCl (Apresoline) 10 mg SLOW IVP Q4H PRN PRN Reason: SBP > 180 and HR < 70 Hydrochlorothiazide (Hydrochlorothiazide) 25 mg PO DAILY [facility] Last Admin: 09/23/18 08:26 Dose: 25 mg Dextrose/Water (D5w) 1,000 mls @ 0 mls/hr IV .Q0M PRN PRN Reason: Hypoglycemia Insulin Human Isoph/Insulin Regular (Humulin 70/30) 15 units SC BID[facility] Last Admin: 09/23/18 06:18 Dose: 15 unit Insulin Human Regular (Humulin R) 0 units SC .MODERATE SLIDING SC PRN PRN Reason: Moderate [employer]al Scale Last Admin: 09/23/18 06:22 Dose: 2 unit Mineral Oil/White Petrolatum (Eucerin Cream) 0 gm TOP BIDPRN PRN PRN Reason: Dry Skin Morphine Sulfate (Morphine) 2 mg SLOW IVP Q4H PRN PRN Reason: Severe Pain (7-10) Morphine Sulfate (Morphine) 4 mg SLOW IVP Q4H PRN PRN Reason: Severe Pain 7-10 BREAKTHROUGH Last Admin: 09/23/18 08:34 Dose: 4 mg Ondansetron HCl (Zofran) 4 mg IVP Q6H PRN PRN Reason: Nausea/Vomiting Last Admin: 09/19/18 08:30 Dose: 4 mg Oxycodone HCl (Oxycodone Ir) 10 mg PO Q4H PRN PRN Reason: Moderate Pain (4-6) Last Admin: 09/23/18 06:18 Dose: 10 mg Polyethylene Glycol (Miralax) 17 gm PO DAILY [facility] Last Admin: 09/23/18 08:27 Dose: Not Given Polyethylene Glycol (Miralax) 17 gm PO DAILYPRN PRN PRN Reason: Constipation Senna/Docusate Sodium (Senokot S) 1 tab PO BID [facility] Last Admin: 09/23/18 08:27 Dose: Not Given Sodium Chloride (Flush - Normal Saline) 10 ml IVF Q12HR [facility] Last Admin: 09/23/18 08:27 Dose: 10 ml Sodium Chloride (Flush - Normal Saline) 10 ml IVF PRN PRN PRN Reason: Saline Flush Sodium Chloride ([place] Nasal [place] 0.65%) 0 ml EA NARE QIDPRN PRN PRN Reason: Nasal Congestion Tamsulosin HCl (Flomax) 0.4 mg PO HS [facility] Last Admin: 09/22/18 20:37 Dose: 0.4 mg Throat Lozenges (Cepastat Lozenges) 1 xiomara PO Q2H PRN PRN Reason: Sore Throat
--- NOTE | 2018-09-23 11:44 | DIS ---
DATE OF ADMISSION: 09/15/2018 DATE OF DISCHARGE: 09/23/2018 PRIMARY CARE PHYSICIAN: [facility] Call admission. DISCHARGE DISPOSITION: Rehab. PRIMARY DISCHARGE DIAGNOSES: 1. Subacute ischemia of left lower extremity state, required left above-knee amputation. 2. Hyponatremia due to hyperglycemia. 3. Lactic acidosis due to tissue ischemia. 4. Rhabdomyolysis due to muscle ischemia. 5. Abnormal LFT. 6. Acute kidney failure. 7. Acute urinary retention, resolved. SECONDARY DISCHARGE DIAGNOSES: Diabetes type 2, dyslipidemia, hypertension, methamphetamine abuse, obesity with BMI 36, and peripheral arterial disease. PRIMARY PROCEDURE/OPERATION: The patient underwent a bony amputation by Dr. Cho on September 15, 2018. RADIOLOGICAL INVESTIGATION: Chest x-ray normal. Repeat chest x-ray was unremarkable. Abdominal ultrasound was negative for any acute process. SIGNIFICANT LABORATORY DATA: WBC 11.9, hemoglobin 11.3, platelet 540. INR 1.2. Sodium 136, potassium 4.6, BUN 38, creatinine 2.19, glucose 157, calcium 9.3, AST 155, ALT 417, alkaline phosphatase 93, albumin 2.8. Urinalysis unremarkable. Urine drug screen positive for amphetamine and methamphetamine. Hepatitis C antibody positive, but hepatitis virus negative. DISCHARGE MEDICATIONS: 1. Lasix 20 mg daily. 2. Tenormin 25 mg daily. 3. Gabapentin 300 mg t.i.d. 4. Heparin 5000 units subcu b.i.d. for DVT prophylaxis. 5. Humulin 70/30, 15 units subcu b.i.d. 6. Hydrochlorothiazide 25 mg daily. 7. MiraLAX 17 g p.o. daily. 8. Senokot one tablet twice daily. 9. Flomax 0.4 mg p.o. daily. CONTRAINDICATION: None. CODE STATUS: Full code. INPATIENT BUSINESS SERVICES ADMINISTRATOR: Dr. Cho was consulted while in the hospital. Dr. Pretty, refinery operator polymerization plant, was consulted for renal failure. TEST RESULTS PENDING ON DISCHARGE: None. ALLERGIES: NO KNOWN DRUG ALLERGIES. DISCHARGE PLAN: Posthospital, the patient will follow up with primary care physician, Dr. Pretty as well as Dr. Cho as instructed. HOSPITAL COURSE: A 53-year-old male, who was admitted by me on September 15, 2018. Please see my HPI for further details. This patient was having 2-week history of increasing left lower extremity pain, erythema, and discoloration. His left lower extremity was cold, clammy, and with poor circulation. He was found with severe impending gangrene to left lower extremity. Dr. Rojas initially evaluated this patient and the patient was taken to OR for left AKA, which was done by Dr. Cho. After that, the patient was stayed in the surgical floor. We were managing medical problem. He was also positive for polysubstance abuse on admission, we provided the patient counseling. He was given IV fluid, empiric antibiotic therapy with vancomycin and Zosyn. He had renal insufficiency, which we suspected from vancomycin toxicity. His renal function started improving. We consulted Nephrology and Nephrology told me today that they will follow up with the patient as an outpatient basis to monitor his renal function. At this point, the patient is not given any more antibiotic therapy as source of infection is cleared. While in the hospital, he had urinary retention and that is why we started Flomax and subsequently, the patient was able to void by himself. He has abnormal LFT and that is why we checked hepatitis profile, but it was hepatitis C antibody positive, but virus was negative. We are suspecting that his LFT abnormality is related with fatty liver and he needs to follow up with his primary care physician to see the trend of LFT. We provided the patient counseling to avoid illicit drugs and healthy lifestyle measure discussed with the patient. Dietary education given. At this point, the patient has good improvement at surgical site and pleased with progress and the patient needs rehabilitation and that is why with the help of case management specialist, we are arranging to rehab. The patient will follow up with primary care physician, Dr. Cho and Dr. Pretty as instructed. I have seen and examined the patient at bedside today. Paper work for discharge done. Discharge medication reconciliation done. All review of systems reviewed with him and negative. Total time spent on discharge day, 32 minutes. Job ID: [id number] [facility]
== END 2018-09-23 14:11 | DRG 240 ==
LOC: ERS 03:00 → ERHOLD 04:26 → SURG B 13:18
PROVIDERS: ADMIT Thoracic Surgery (Cardiothoracic Vascular Surgery); ATTEND Thoracic Surgery (Cardiothoracic Vascular Surgery)
PROC: 0Y6D0Z1 Detachment at Left Upper Leg, High, Open Approach (ICD-10-PCS; principal; 2018-09-15)
DX: E11.52 Type 2 diabetes mellitus with diabetic peripheral angiopathy with gangrene (principal); I70.261 Atherosclerosis of native arteries of extremities with gangrene, right leg; E87.2 Acidosis; N17.9 Acute kidney failure, unspecified; E87.1 Hypo-osmolality and hyponatremia; M62.82 Rhabdomyolysis; I10 Essential (primary) hypertension; E78.5 Hyperlipidemia, unspecified; E66.9 Obesity, unspecified; E86.0 Dehydration; F19.10 Other psychoactive substance abuse, uncomplicated; R33.8 Other retention of urine; F15.10 Other stimulant abuse, uncomplicated; B18.2 Chronic viral hepatitis C; D64.9 Anemia, unspecified; E11.65 Type 2 diabetes mellitus with hyperglycemia; Z68.36 Body mass index [BMI] 36.0-36.9, adult; Z79.4 Long term (current) use of insulin; Z79.899 Other long term (current) drug therapy
CPT/HCPCS: 36415; 36416; 71045; 76700; 80048; 80053; 80074; 80202; 80306; 80307; 81003; 82550; 83036; 83605; 83690; 83880; 84484; 85025; 85610; 85730; 86850; 86900; 86901; 87522; 88307; 88311; 93005; 96361; 96365; 96375; 96376; J0360; J1644; J1650; J1815; J1825; J1885; J2001; J2270; J2405; J2543; J2704; J3010; J3370; J3490; J7050

== ENCOUNTER 2018-09-28 18:44 | Inpatient (IN) | payer OTHER ==
[~2018-09-28 18:44] MED LIST: ISOVUE-370 76%-LOCM 1 ML ONE
--- NOTE | 2018-09-28 19:16 | RAD ---
RADIOGRAPH CHEST 1 VIEW: DATE: 09/28/2018 HISTORY: 53-year-old male with chest pain FINDINGS: There is no airspace density, pulmonary edema, or pneumothorax. The lateral costophrenic angles are n ot effaced. IMPRESSION: No acute pulmonary findings.
[2018-09-28 19:17] LABS: #Basophils 0.1 thou/uL (0.0-0.2); #Eosinphils 0.3 thou/uL (0.0-0.7); #Monocytes 0.9 thou/uL (0.11-0.59); #Neutrophils 9.4 thou/uL (1.40-6.50); %Basophils 0.4 % (0.0-1.0); %Eosinophils 2.5 % (0.0-10.0); %Lymphocytes 15.9 % (21.0-51.0); %Monocytes 7.3 % (0.0-10.0); %Neutrophils 73.9 % (42.0-75.0); Hemoglobin 10.7 g/dL (14.0-18.0); Mean Corpuscular HGB CONC 31.6 g/dL (32.0-36.0); Mean Corpuscular Volume 82.3 fL (78.0-98.0); Platelet Count 472 thou/uL (130-400); RBC Distribution Width 13.6 % (11.5-14.5); Red Blood Cell (RBC) Count 4.12 mill/uL (4.70-6.10); White Blood Cell (WBC) Count 12.8 thou/uL (4.8-10.8)
[2018-09-28 19:42] LABS: ALT (SGPT) 62 U/L (8-55); AST (SGOT) 17 U/L (5-34); Alkaline Phosphatase 90 U/L (40-150); Anion Gap 15 mmol/L (10-20); BUN (Urea Nitrogen) 32 mg/dL (8.4-25.7); Bilirubin, Total 0.2 mg/dL (0.2-1.2); CK (CPK) 181 U/L (30-200); Calc. Creatinine Clearance 0 mL/min (70-130); Calcium 8.5 mg/dL (7.8-10.44); Carbon Dioxide 23 mmol/L (22-29); Chloride 102 mmol/L (98-107); Estimated GFR-MDRD 48; Globulin 2.9 g/dL (2.4-3.5); Glucose 213 mg/dL (70-105); Lipase 30 U/L (8-78); Protein, Total 5.9 g/dL (6.0-8.3); Sodium 135 mmol/L (136-145)
--- NOTE | 2018-09-28 20:10 | CT ---
CT angiogram thorax with contrast: (CTA pulmonary angiogram) DATE: 09/28/2018 HISTORY: 53-year-old male with chest pain and dyspnea. Dr. Herrera reported the findings by telephone to nurse practitioner Kimberlee Chambers at 8:02 PM on 019. TECHNIQUE: IV injection of iodinated contrast. Scan acquisition timing attempted to coincide with iodinated contrast bolus reaching maximal density in pulmonary arteries. 3-D MIP reconstructions. FINDINGS: There is thrombus at the peripheral portion of the right main pulmonary artery, extending into the pr oximal, mid, and distal branches of the right lower lobe, right middle lobe, and posterior segment branch of right upper lobe. There is no thrombus in the rest of the right main pulmonary artery, enti re left pulmonary artery, or pulmonary trunk. However, there are small thromboemboli in the lingular branch of left upper lobe pulmonary artery, and possibly in the peripheral branches of the b asilar segments of left lower lobe. There is a moderate sized alveolar infiltrate-consolidation at the superior segment of the right lowe r lobe. This is probably pulmonary infarction. There is a small right pleural effusion and a tiny left pleural effusion. No thoracic aortic aneurysm or dissection. No pneumothorax. No pulmonary edema . IMPRESSION: 1. Positive for pulmonary thromboembolism. 2. This is bilateral, but the right side is much more severe than the left. 3. Evidence for pulmonary infarction involving superior segment of right lower lobe. 2. Bilateral small pleural effusions, right greater than left.
[2018-09-28] MEDS ORDERED: Heparin 10,000 UNITS/ 10 ML VIAL SLOW IVP SCH (20:45)
[2018-09-28] MEDS ORDERED: Heparin 25,000 units/D5W 500 ML IV SCH (20:45)
[2018-09-28 20:47] LABS: PTT 30.8 SEC (22.9-36.1); Prothrombin Time 13.7 SEC (12.0-14.7)
[2018-09-28] MEDS ORDERED: Heparin 25,000 units/D5W 500 ML ONE (20:48)
[2018-09-29] MEDS ORDERED: Sodium Chloride 0.9% 1,000 ML IV SCH (00:15)
[2018-09-29] MEDS ORDERED: HYDROcodone/Acetaminophen 7.5/325 mg Tablet PO PRN (00:48)
[2018-09-29] MEDS ORDERED: Acetaminophen 325 MG TAB PO PRN (00:49)
[2018-09-29] MEDS: HYDROcodone/Acetaminophen 7.5/325 mg Tablet PO PRN ×5 (01:17→20:01)
[2018-09-29] MEDS ORDERED: Ondansetron ODT 4 MG TAB PO PRN (02:27)
[2018-09-29] MEDS ORDERED: Ondansetron PF 4 MG/2 ML Vial IVP PRN (02:27)
[2018-09-29 02:47] LABS: Troponin I 0.011 ng/mL (< 0.028)
[2018-09-29] MEDS ORDERED: Dextrose 5% in Water 1,000 ML IV PRN (04:11)
[2018-09-29] MEDS ORDERED: Dextrose 50% Abboject 50 ML SYRINGE SLOW IVP PRN (04:11)
--- NOTE | 2018-09-29 05:30 | HP ---
PRIMARY CARE PHYSICIAN: An out of town physician. CODE STATUS: Full code. TIME OF EVALUATION: 1:00 a.m. CHIEF COMPLAINT: Chest pain. HISTORY OF PRESENT ILLNESS: This is a 53-year-old male patient with past medical history of diabetes type 2, and hypertension. The patient came to the hospital after having chest pain. The pain has been present for the past few days. He was recently admitted to the hospital and received left lower leg amputation and was getting some rehab. The symptoms were severe and it was worse on the left over chest. The pain was dull associated with cough, but worse with deep breath. REVIEW OF SYSTEMS: CONSTITUTIONAL: No fever, chills, or generalized weakness. RESPIRATORY: The patient has cough. No sputum production. Shortness of breath was reported. The patient has some pleuritic-like chest pain. CARDIOVASCULAR: No chest pain, or palpitation. GASTROINTESTINAL: No nausea, vomiting, diarrhea, or abdominal pain. SCRAP CUTTER: No dizziness, headache, or feeling lightheaded. GENITOURINARY: No burning on urination. EXTREMITIES: No leg swelling. All other systems were reviewed and negative except for the findings mentioned above. PAST MEDICAL HISTORY: As mentioned in the HPI. PAST SURGICAL HISTORY: The patient has stents placed to the right leg, also right foot during August 2017, left [id number] amputation. PSYCHIATRIC HISTORY: No previous psychiatric history. FAMILY HISTORY: Reviewed and no contributory to current presentation. SOCIAL HISTORY: The patient used to use meth, the last time was on September 15. No alcohol. No smoking history. KNOWN ALLERGIES: No known drug allergies. REPORTED MEDICATIONS: 1. Atenolol. 2. Atorvastatin. 3. Humulin. 4. Gabapentin. PHYSICAL EXAMINATION: VITAL SIGNS: Blood pressure 143/96 with heart rate 65, respiratory rate was 20, temperature 98.4, oxygen saturation 98% on room air. GENERAL APPEARANCE: The patient is alert, oriented, not in acute distress. HEENT: Eyes, normal conjunctivae. Moist oral mucosa. Anicteric. No JVD. RESPIRATORY: Bilateral air entry. No rales. No wheezing. Symmetric expansion. CARDIOVASCULAR: Normal rate, regular rhythm. No murmurs. No gallop. No edema. ABDOMEN: Soft, normal bowel sounds. MUSCULOSKELETAL: The patient has recent left amputation in the right. SKIN: Warm, intact. No pallor. No rash. No redness. Peripheral pulses are present. Capillary refill seems to be intact. NEUROLOGIC: No evidence of any new focal weakness. Baseline speech. Cranial nerves seems to be intact. PSYCHIATRIC: The patient is in good mood. No anxiety. Optimal judgment. DIAGNOSTIC DATA: EKG was reviewed. The patient has sinus bradycardia with occasional PVCs, low voltage QRS, ventricular rate 57, TX 144, QRS 64, QT corrected 422. Chest x-ray was reviewed. The patient has no acute pulmonary findings. The CT angio was reviewed. The patient has pulmonary thromboembolism, it is bilateral , the right side much more severe than the left, evidence for pulmonary infarction involving superior segment of right lower lobe, bilateral small pleural effusions, right greater than left. LABORATORY DATA: Labs were reviewed. The patient has white count 12.8, hemoglobin 10.7, MCV 82.3, platelet count 272. PT 13.7, INR 1.0, PTT 30.8. D-dimer 2.91. Sodium 135, potassium 5.0, chloride 102, carbon dioxide 23, anion gap 15, BUN 32 , creatinine 1.52. In the previous admissions, creatinine was elevated since September 18. GFR 48, glucose 213, calcium 9.5, total bilirubin 0.2, AST 17, ALT 62, alkaline phosphatase 90, CK 181. Troponin was negative x3. Lipase 30. ASSESSMENT AND PLAN: The patient will be placed in the hospital for following medical problems: 1. Pulmonary embolism that is on the right branch of the artery. The patient is getting heparin, continue to monitor on tele. The patient has been stable. Most likely will need warfarin for discharge given kidney failure. 2. Acute kidney injury. The patient has sustained elevated creatinine since September 18. Dr. Pretty has seen him in the past in previous admission, probably etiology was likely related to hypotension during surgery as per Nephrology notes, we will continue to monitor. If worsening, might need Nephrology evaluation. 3. Hyponatremia, sodium 135, this is minimal, no need for any acute intervention. We will monitor, we will treat accordingly. 4. Uncontrolled diabetes with blood sugar 213. We will reconcile home medications and place the patient on sliding scale for optimal control. Job ID: [id number] [facility]
[2018-09-29 05:52] LABS: #Basophils 0.1 thou/uL (0.0-0.2); #Eosinphils 0.3 thou/uL (0.0-0.7); #Lymphocytes 2.2 thou/uL (1.20-3.40); #Neutrophils 7.9 thou/uL (1.40-6.50); %Basophils 0.6 % (0.0-1.0); %Eosinophils 2.7 % (0.0-10.0); %Lymphocytes 19.3 % (21.0-51.0); %Monocytes 8.8 % (0.0-10.0); %Neutrophils 68.6 % (42.0-75.0); Hemoglobin 10.6 g/dL (14.0-18.0); Mean Corpuscular HGB CONC 30.9 g/dL (32.0-36.0); Mean Corpuscular Hemoglobin 25.5 pg (27.0-31.0); Mean Corpuscular Volume 82.3 fL (78.0-98.0); Mean Platelet Volume 7.3 fL (7.4-10.4); Platelet Count 443 thou/uL (130-400); RBC Distribution Width 13.6 % (11.5-14.5); Red Blood Cell (RBC) Count 4.15 mill/uL (4.70-6.10); White Blood Cell (WBC) Count 11.6 thou/uL (4.8-10.8)
[2018-09-29 06:04] LABS: Anion Gap 12 mmol/L (10-20); BUN (Urea Nitrogen) 28 mg/dL (8.4-25.7); Calc. Creatinine Clearance 87 mL/min (70-130); Calcium 8.9 mg/dL (7.8-10.44); Carbon Dioxide 24 mmol/L (22-29); Chloride 103 mmol/L (98-107); Estimated GFR-MDRD 49; Glucose 178 mg/dL (70-105); Potassium 4.3 mmol/L (3.5-5.1); Sodium 135 mmol/L (136-145)
[2018-09-29] MEDS ORDERED: Enoxaparin Sodium 40 MG/0.4 ML SYRINGE SC SCH (09:00)
[2018-09-29] MEDS: Apixaban 5 MG TAB PO SCH ×2 (09:58→20:02)
[2018-09-29] MEDS: Atenolol 25 MG TAB PO SCH (09:58)
[2018-09-29] MEDS: Gabapentin 300 MG CAP PO SCH ×3 (09:58→20:02)
--- NOTE | 2018-09-29 14:28 | PDOC.EVN ---
Event Note - Event Note Event Note: Patient seen and examined. Chest pain improved when lies still, still very sore right anterior chest wall. Renal function reviewed, GFR almost 50, not a contraindication to Eliquis. Given first dose this AM and heparin drip then stopped. Will continue to monitor on telemetry.
[2018-09-29] MEDS: HumaLOG 300 UNITS/3 ML VIAL SC PRN (17:42)
[2018-09-30] MEDS: HYDROcodone/Acetaminophen 7.5/325 mg Tablet PO PRN ×5 (01:10→20:35)
[2018-09-30] MEDS: Atenolol 25 MG TAB PO SCH (08:03)
[2018-09-30] MEDS: Apixaban 5 MG TAB PO SCH ×2 (08:03→20:35)
[2018-09-30] MEDS: HumaLOG 300 UNITS/3 ML VIAL SC PRN ×2 (08:03→11:55)
[2018-09-30] MEDS: Gabapentin 300 MG CAP PO SCH ×3 (08:03→20:35)
--- NOTE | 2018-09-30 15:18 | PDOC.PN ---
- Subjective Encounter Start Date: 09/30/18 Encounter Start Time: 15:05 Subjective: f/u for bilateral PE's on Eliquis. Feels better overall and less SOB -: No fever or chills. - Objective Resuscitation Status - Order Detail: 09/29/18 02:27 Resuscitation Status Routine Resuscitation Status: FULL: Full Resuscitation MAR Reviewed: Yes Vital Signs & Weight: Vital Signs (12 hours) Temp Pulse Resp BP BP Pulse Ox 09/30/18 11:51 57 L 20 132/92 H 97 09/30/18 08:03 98 09/30/18 07:30 97.6 F 71 18 155/82 H 98 Weight Admit Weight 237 lb 7 oz Weight 237 lb 7 oz I&O: 09/29/18 09/30/18 10/01/18 06:59 06:59 06:59 Intake Total 500 2955 Output Total 500 3375 Balance 0 -420 Result Diagrams: 09/29/18 05:20 09/29/18 05:20 Additional Labs: Accuchecks 09/30/18 09/30/18 09/29/18 10:42 05:16 20:38 POC Glucose 178 H 209 H 178 H 09/29/18 16:50 POC Glucose 234 H Laboratory Tests 09/28/18 19:08 Sodium 135 L BUN 32 H Creatinine 1.52 H Radiology Reviewed by me: Yes (CTA chest - bilat PE's R>L) EKG Reviewed by me: Yes (Tele - SR) Phys Exam - Physical Examination Constitutional: NAD HEENT: PERRLA, sclera anicteric, oral pharynx no lesions Neck: no nodes, no JVD, supple, full ROM diminished in bases Respiratory: no wheezing S1, S2 Cardiovascular: RRR, no significant murmur, no rub, gallop Gastrointestinal: soft, non-tender, no distention, positive bowel sounds L AKA with stump intact Musculoskeletal: pulses present Neurological: normal sensation, moves all 4 limbs Psychiatric: A&O x 3 Skin: normal turgor, cap refill <2 seconds Dx/Plan (1) Bilateral pulmonary embolism Code(s): I26.99 - OTHER PULMONARY EMBOLISM WITHOUT ACUTE COR PULMONALE Status : Acute Comment: Continue Eliquis 10mg BID, O2 prn (2) Acute kidney injury superimposed on CKD Code(s): N17.9 - ACUTE KIDNEY FAILURE, UNSPECIFIED; N18.9 - CHRONIC KIDNEY DISEASE, UNSPECIFIED Status: Acute Comment: Mild improvement, avoid nephrotoxic meds and limit contrast exposure, serial creatinine (3) Diabetes type 2, controlled Code(s): E11.9 - TYPE 2 DIABETES MELLITUS WITHOUT COMPLICATIONS Status: Chronic Qualifiers: Diabetes mellitus fdc insulin use: with fdc use Diabetes mellitus complication status: with circulatory complication Comment: Resume Humulin 70/30, 15u sc BID, ISS, ADA (4) Hypertension Code(s): I10 - ESSENTIAL (PRIMARY) HYPERTENSION Status: Chronic Qualifiers: Hypertension type: essential hypertension Qualified Code(s): I10 - Essential (primary) hypertension Comment: Continue Atenolol 25mg daily (5) Hyponatremia Code(s): E87.1 - HYPO-OSMOLALITY AND HYPONATREMIA Status: Chronic Comment: Secondary to hyperglycemia, serial Na+ monitoring - Plan 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
[2018-09-30] MEDS: HumuLIN 70/30 (300 UNITS/3 ML VIAL) SC SCH (17:23)
[2018-10-01] MEDS: HYDROcodone/Acetaminophen 7.5/325 mg Tablet PO PRN ×4 (04:00→21:35)
[2018-10-01 05:17] LABS: Anion Gap 10 mmol/L (10-20); BUN (Urea Nitrogen) 26 mg/dL (8.4-25.7); Calc. Creatinine Clearance 90 mL/min (70-130); Calcium 9.1 mg/dL (7.8-10.44); Carbon Dioxide 25 mmol/L (22-29); Chloride 104 mmol/L (98-107); Estimated GFR-MDRD 51; Glucose 164 mg/dL (70-105); Potassium 4.4 mmol/L (3.5-5.1); Sodium 135 mmol/L (136-145)
[2018-10-01] MEDS: HumuLIN 70/30 (300 UNITS/3 ML VIAL) SC SCH ×2 (08:19→17:14)
[2018-10-01] MEDS: Atenolol 25 MG TAB PO SCH (08:19)
[2018-10-01] MEDS: Gabapentin 300 MG CAP PO SCH ×3 (08:19→20:24)
[2018-10-01] MEDS: Apixaban 5 MG TAB PO SCH ×2 (08:19→20:24)
[2018-10-01] MEDS: HumaLOG 300 UNITS/3 ML VIAL SC PRN (11:53)
--- NOTE | 2018-10-01 12:18 | PDOC.PN ---
- Subjective Encounter Start Date: 10/01/18 Encounter Start Time: 12:15 Subjective: f/u for bilat PE's on Eliquis. States feeling ok overall. + BM - Objective Resuscitation Status - Order Detail: 09/29/18 02:27 Resuscitation Status Routine Resuscitation Status: FULL: Full Resuscitation MAR Reviewed: Yes Vital Signs & Weight: Vital Signs (12 hours) Temp Pulse Resp BP BP Pulse Ox 10/01/18 11:56 97.6 F 60 18 131/57 L 97 10/01/18 08:19 62 10/01/18 07:45 98.0 F 65 17 140/63 99 10/01/18 07:35 97 10/01/18 03:10 97.5 F L 64 16 112/60 94 L Weight Admit Weight 237 lb 7 oz Weight 237 lb 7 oz I&O: 09/30/18 10/01/18 10/02/18 06:59 06:59 06:59 Intake Total 2955 800 Output Total 3375 1400 Balance -420 -600 Result Diagrams: 09/29/18 05:20 10/01/18 04:06 Additional Labs: Accuchecks 10/01/18 10/01/18 09/30/18 10:37 05:06 20:11 POC Glucose 203 H 141 H 129 H 09/30/18 17:18 POC Glucose 181 H Laboratory Tests 09/28/18 19:08 Sodium 135 L BUN 32 H Creatinine 1.52 H EKG Reviewed by me: Yes (Tele - SR) Phys Exam - Physical Examination Constitutional: NAD HEENT: PERRLA, sclera anicteric, oral pharynx no lesions Neck: no nodes, no JVD, supple, full ROM Respiratory: no wheezing, no rales, no rhonchi, clear to auscultation bilateral S1, S2 Cardiovascular: RRR, no significant murmur, no rub, gallop Gastrointestinal: soft, non-tender, no distention, positive bowel sounds L AKA with intact stump Musculoskeletal: no edema, pulses present Neurological: normal sensation, moves all 4 limbs Psychiatric: A&O x 3 Skin: normal turgor, cap refill <2 seconds Dx/Plan (1) Bilateral pulmonary embolism Code(s): I26.99 - OTHER PULMONARY EMBOLISM WITHOUT ACUTE COR PULMONALE Status : Acute Comment: Continue Eliquis 10mg BID, O2 prn (2) Acute kidney injury superimposed on CKD Code(s): N17.9 - ACUTE KIDNEY FAILURE, UNSPECIFIED; N18.9 - CHRONIC KIDNEY DISEASE, UNSPECIFIED Status: Acute Comment: Mild improvement, avoid nephrotoxic meds and limit contrast exposure, serial creatinine (3) Diabetes type 2, controlled Code(s): E11.9 - TYPE 2 DIABETES MELLITUS WITHOUT COMPLICATIONS Status: Chronic Qualifiers: Diabetes mellitus roasterman insulin use: with roasterman use Diabetes mellitus complication status: with circulatory complication Comment: Resume Humulin 70/30, 15u sc BID, ISS, ADA (4) Hypertension Code(s): I10 - ESSENTIAL (PRIMARY) HYPERTENSION Status: Chronic Qualifiers: Hypertension type: essential hypertension Qualified Code(s): I10 - Essential (primary) hypertension Comment: Continue Atenolol 25mg daily, stable (5) Hyponatremia Code(s): E87.1 - HYPO-OSMOLALITY AND HYPONATREMIA Status: Chronic Comment: Secondary to hyperglycemia, serial Na+ monitoring - Plan PT/OT, social organization professor, out of bed/ambulate Stable currently -: Continue Eliquis 10mg BID -: Continue Gabapentin 300mg TID -: PT for mobilization, trial of RW -: Rehab screening * .
[2018-10-01] MEDS ORDERED: HumaLOG 300 UNITS/3 ML VIAL SC PRN (21:02)
[2018-10-02] MEDS: Atenolol 25 MG TAB PO SCH (08:29)
[2018-10-02] MEDS: Apixaban 5 MG TAB PO SCH ×2 (08:29→20:50)
[2018-10-02] MEDS: HYDROcodone/Acetaminophen 7.5/325 mg Tablet PO PRN ×2 (08:30→20:50)
[2018-10-02] MEDS: Gabapentin 300 MG CAP PO SCH ×3 (08:30→20:50)
[2018-10-02] MEDS: HumuLIN 70/30 (300 UNITS/3 ML VIAL) SC SCH ×2 (08:37→18:04)
--- NOTE | 2018-10-02 12:23 | PDOC.PN ---
- Subjective Encounter Start Date: 10/02/18 Encounter Start Time: 12:20 Subjective: f/u for PE's on Eliquis. Had dyspnea this am when attempting to go -: to restroom. Feels better currently. No hemoptysis, fever. - Objective Resuscitation Status - Order Detail: 09/29/18 02:27 Resuscitation Status Routine Resuscitation Status: FULL: Full Resuscitation MAR Reviewed: Yes Vital Signs & Weight: Vital Signs (12 hours) Temp Pulse Resp BP Pulse Ox 10/02/18 12:00 98.2 F 61 18 117/69 100 10/02/18 08:39 97.9 F 65 22 H 144/82 H 98 10/02/18 08:25 97 10/02/18 04:00 97.6 F 67 15 131/71 97 Weight Admit Weight 237 lb 7 oz Weight 237 lb 7 oz I&O: 10/01/18 10/02/18 10/03/18 06:59 06:59 06:59 Intake Total 800 1740 Output Total 1400 2985 Balance -600 -1245 Result Diagrams: 09/29/18 05:20 10/01/18 04:06 Additional Labs: Accuchecks 10/02/18 10/02/18 10/01/18 10:52 05:22 20:07 POC Glucose 130 H 111 H 251 H 10/01/18 16:37 POC Glucose 148 H Laboratory Tests 09/28/18 19:08 Sodium 135 L BUN 32 H Creatinine 1.52 H EKG Reviewed by me: Yes (Tele - SR) Phys Exam - Physical Examination Constitutional: NAD HEENT: PERRLA, sclera anicteric, oral pharynx no lesions Neck: no nodes, no JVD, supple, full ROM Respiratory: no wheezing, no rales, no rhonchi, clear to auscultation bilateral S1, S2 Cardiovascular: RRR, no significant murmur, no rub, gallop Gastrointestinal: soft, non-tender, no distention, positive bowel sounds L AKA Musculoskeletal: no edema, pulses present Neurological: normal sensation, moves all 4 limbs Psychiatric: A&O x 3 Skin: normal turgor, cap refill <2 seconds Dx/Plan (1) Bilateral pulmonary embolism Code(s): I26.99 - OTHER PULMONARY EMBOLISM WITHOUT ACUTE COR PULMONALE Status : Acute Comment: Continue Eliquis 10mg BID, O2 prn (2) Acute kidney injury superimposed on CKD Code(s): N17.9 - ACUTE KIDNEY FAILURE, UNSPECIFIED; N18.9 - CHRONIC KIDNEY DISEASE, UNSPECIFIED Status: Acute Comment: Mild improvement, avoid nephrotoxic meds and limit contrast exposure, serial creatinine (3) Diabetes type 2, controlled Code(s): E11.9 - TYPE 2 DIABETES MELLITUS WITHOUT COMPLICATIONS Status: Chronic Qualifiers: Diabetes mellitus emt intermediate insulin use: with [place] [facility] use Diabetes mellitus complication status: with circulatory complication Comment: Resume Humulin 70/30, 15u sc BID, ISS, ADA (4) Hypertension Code(s): I10 - ESSENTIAL (PRIMARY) HYPERTENSION Status: Chronic Qualifiers: Hypertension type: essential hypertension Qualified Code(s): I10 - Essential (primary) hypertension Comment: Continue Atenolol 25mg daily, stable (5) Hyponatremia Code(s): E87.1 - HYPO-OSMOLALITY AND HYPONATREMIA Status: Chronic Comment: Secondary to hyperglycemia, serial Na+ monitoring - Plan PT/OT, social security specialist, out of bed/ambulate Stable currently -: Continue Eliquis 10mg BID -: Rehab screening in progress -: OOB with PT -: Serial H/H monitoring * .
[2018-10-03] MEDS: HYDROcodone/Acetaminophen 7.5/325 mg Tablet PO PRN ×3 (06:32→21:07)
[2018-10-03] MEDS ORDERED: Sodium Chloride 0.9% 10 ML ONE (08:02)
[2018-10-03] MEDS: HumuLIN 70/30 (300 UNITS/3 ML VIAL) SC SCH ×2 (08:25→17:25)
[2018-10-03] MEDS: Apixaban 5 MG TAB PO SCH ×2 (08:30→21:07)
[2018-10-03] MEDS: Atenolol 25 MG TAB PO SCH (08:30)
[2018-10-03] MEDS: Gabapentin 300 MG CAP PO SCH ×3 (08:30→21:08)
--- NOTE | 2018-10-03 10:40 | PDOC.PN ---
- Subjective Encounter Start Date: 10/03/18 Encounter Start Time: 10:35 Subjective: f/u for bilat PE's on current Eliquis. Some increased cough and chest -: pain with movement or activity. - Objective Resuscitation Status - Order Detail: 09/29/18 02:27 Resuscitation Status Routine Resuscitation Status: FULL: Full Resuscitation MAR Reviewed: Yes Vital Signs & Weight: Vital Signs (12 hours) Temp Pulse Resp BP Pulse Ox 10/03/18 08:23 98.2 F 75 18 141/67 H 95 10/03/18 03:00 98.7 F 63 18 140/72 96 Weight Admit Weight 237 lb 7 oz Weight 234 lb I&O: 10/02/18 10/03/18 10/04/18 06:59 06:59 06:59 Intake Total 1740 2510 Output Total 2985 4540 Balance -1244 Result Diagrams: 09/29/18 05:20 10/01/18 04:06 Additional Labs: Accuchecks 10/03/18 10/02/18 10/02/18 05:20 20:18 17:13 POC Glucose 195 H 167 H 139 H 10/02/18 10:52 POC Glucose 130 H Laboratory Tests 09/28/18 19:08 Sodium 135 L BUN 32 H Creatinine 1.52 H EKG Reviewed by me: Yes (Tele - SR) Phys Exam - Physical Examination Constitutional: NAD HEENT: PERRLA, sclera anicteric, oral pharynx no lesions Neck: no nodes, no JVD, supple, full ROM Respiratory: no wheezing, no rales, no rhonchi, clear to auscultation bilateral S1, S2 Cardiovascular: RRR, no significant murmur, no rub, gallop Gastrointestinal: soft, non-tender, no distention, positive bowel sounds L AKA Musculoskeletal: no edema, pulses present Neurological: normal sensation, moves all 4 limbs Psychiatric: A&O x 3 Skin: normal turgor, cap refill <2 seconds Dx/Plan (1) Bilateral pulmonary embolism Code(s): I26.99 - OTHER PULMONARY EMBOLISM WITHOUT ACUTE COR PULMONALE Status : Acute Comment: Continue Eliquis 10mg BID, O2 prn (2) Acute kidney injury superimposed on CKD Code(s): N17.9 - ACUTE KIDNEY FAILURE, UNSPECIFIED; N18.9 - CHRONIC KIDNEY DISEASE, UNSPECIFIED Status: Acute Comment: Mild improvement, avoid nephrotoxic meds and limit contrast exposure, serial creatinine (3) Diabetes type 2, controlled Code(s): E11.9 - TYPE 2 DIABETES MELLITUS WITHOUT COMPLICATIONS Status: Chronic Qualifiers: Diabetes mellitus usp insulin use: with wound treatment rn use Diabetes mellitus complication status: with circulatory complication Comment: Resume Humulin 70/30, 15u sc BID, ISS, ADA (4) Hypertension Code(s): I10 - ESSENTIAL (PRIMARY) HYPERTENSION Status: Chronic Qualifiers: Hypertension type: essential hypertension Qualified Code(s): I10 - Essential (primary) hypertension Comment: Continue Atenolol 25mg daily, stable (5) Hyponatremia Code(s): E87.1 - HYPO-OSMOLALITY AND HYPONATREMIA Status: Chronic Comment: Secondary to hyperglycemia, serial Na+ monitoring - Plan PT/OT, social work therapist Stable currently -: Add Robitussin DM q4h prn -: Continue Eliquis 10mg BID -: Pain control with [place]/Tylenol -: Rehab approval pending * AM lab: BMP, CBC
[2018-10-03] MEDS: Diabetic Tussin DM 5 ML UDCUP PO PRN ×2 (11:38→21:08)
[2018-10-04 05:01] LABS: Eosinophils 2 % (0-10); Hemoglobin 11.4 g/dL (14.0-18.0); Lymphocytes 31 % (21-51); MDiff Complete? YES; Mean Corpuscular HGB CONC 31.1 g/dL (32.0-36.0); Mean Corpuscular Hemoglobin 25.6 pg (27.0-31.0); Mean Corpuscular Volume 82.3 fL (78.0-98.0); Mean Platelet Volume 7.6 fL (7.4-10.4); Monocytes 8 % (0-10); Neutrophil 58 % (42-75); Platelet Count 462 thou/uL (130-400); RBC Distribution Width 13.7 % (11.5-14.5); Red Blood Cell (RBC) Count 4.44 mill/uL (4.70-6.10)
[2018-10-04 05:26] LABS: Anion Gap 15 mmol/L (10-20); BUN (Urea Nitrogen) 30 mg/dL (8.4-25.7); Calc. Creatinine Clearance 94 mL/min (70-130); Calcium 9.4 mg/dL (7.8-10.44); Carbon Dioxide 24 mmol/L (22-29); Chloride 104 mmol/L (98-107); Estimated GFR-MDRD 54; Glucose 181 mg/dL (70-105); Potassium 4.5 mmol/L (3.5-5.1); Sodium 138 mmol/L (136-145)
[2018-10-04] MEDS: HYDROcodone/Acetaminophen 7.5/325 mg Tablet PO PRN ×4 (06:26→18:55)
[2018-10-04] MEDS: Apixaban 5 MG TAB PO SCH ×2 (08:37→20:41)
[2018-10-04] MEDS: Atenolol 25 MG TAB PO SCH (08:38)
[2018-10-04] MEDS: Gabapentin 300 MG CAP PO SCH ×3 (08:38→20:41)
[2018-10-04] MEDS: HumuLIN 70/30 (300 UNITS/3 ML VIAL) SC SCH ×2 (08:39→16:20)
--- NOTE | 2018-10-04 13:16 | PDOC.PN ---
- Subjective Encounter Start Date: 10/04/18 Encounter Start Time: 13:14 Mr. Mo was seen today in follow-up of PE. He denies any chest pain, or dyspnea. He had the graham removed form the left stump. - Objective Resuscitation Status - Order Detail: 09/29/18 02:27 Resuscitation Status Routine Resuscitation Status: FULL: Full Resuscitation MAR Reviewed: Yes Vital Signs & Weight: Vital Signs (12 hours) Temp Pulse Pulse Pulse Resp BP BP 10/04/18 10:46 59 L 57 L 135/67 115/72 10/04/18 08:38 60 10/04/18 08:10 97.6 F 53 L 20 10/04/18 03:15 97.7 F 65 21 H BP BP Pulse Ox 10/04/18 10:46 10/04/18 08:38 10/04/18 08:10 146/72 H 98 10/04/18 03:15 129/71 97 Weight Admit Weight 237 lb 7 oz Weight 227 lb 12.8 oz I&O: 10/03/18 10/04/18 10/05/18 06:59 06:59 06:59 Intake Total 2510 1450 Output Total 4540 2560 Balance -2030 -1110 Result Diagrams: 10/04/18 04:08 10/04/18 04:08 Additional Labs: Accuchecks 10/04/18 10/04/18 10/03/18 10:34 05:52 20:11 POC Glucose 170 H 152 H 178 H 10/03/18 17:19 POC Glucose 151 H Phys Exam - Physical Examination HEENT: PERRLA Respiratory: no wheezing, no rales, no rhonchi, clear to auscultation bilateral Cardiovascular: RRR, no significant murmur, no rub Gastrointestinal: soft, non-tender, no distention, positive bowel sounds Musculoskeletal: no edema, pulses present + stump site ok, no drainage no induration no eruthema Dx/Plan (1) Bilateral pulmonary embolism Code(s): I26.99 - OTHER PULMONARY EMBOLISM WITHOUT ACUTE COR PULMONALE Status : Acute Comment: Continue Eliquis 10mg BID, O2 prn (2) Diabetes type 2, controlled Code(s): E11.9 - TYPE 2 DIABETES MELLITUS WITHOUT COMPLICATIONS Status: Chronic Qualifiers: Diabetes mellitus fpc insulin use: with 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
[2018-10-04 14:37] VITALS: BMI 34.6
[2018-10-04] MEDS: Diabetic Tussin 200 MG/10 ML UDCUP PO PRN (19:04)
[2018-10-05] MEDS: HumuLIN 70/30 (300 UNITS/3 ML VIAL) SC SCH ×2 (08:29→17:47)
[2018-10-05] MEDS: Gabapentin 300 MG CAP PO SCH ×3 (08:31→20:19)
[2018-10-05] MEDS: HYDROcodone/Acetaminophen 7.5/325 mg Tablet PO PRN ×3 (08:31→20:20)
[2018-10-05] MEDS: Apixaban 5 MG TAB PO SCH ×2 (08:31→20:19)
[2018-10-05] MEDS: Atenolol 25 MG TAB PO SCH (08:31)
--- NOTE | 2018-10-05 11:12 | PDOC.PN ---
- Subjective Encounter Start Date: 10/05/18 Encounter Start Time: 11:11 Mr. Mo was seen today in follow-up. He admits to an occasional cough, but denies feeling short of breath or having chest pain. - Objective Resuscitation Status - Order Detail: 09/29/18 02:27 Resuscitation Status Routine Resuscitation Status: FULL: Full Resuscitation MAR Reviewed: Yes Vital Signs & Weight: Vital Signs (12 hours) Temp Pulse Resp BP BP Pulse Ox 10/05/18 08:31 64 10/05/18 07:21 99.0 F 64 17 122/71 96 10/05/18 03:33 97.8 F 58 L 17 120/58 L 97 Weight Admit Weight 237 lb 7 oz Weight 227 lb 12.8 oz I&O: 10/04/18 10/05/18 10/06/18 06:59 06:59 06:59 Intake Total 1450 2084 Output Total 2560 2650 Balance -1110 -566 Result Diagrams: 10/04/18 04:08 10/04/18 04:08 Additional Labs: Accuchecks 10/05/18 10/05/18 10/04/18 10:34 05:15 20:18 POC Glucose 152 H 127 H 229 H 10/04/18 16:35 POC Glucose 157 H Phys Exam - Physical Examination HEENT: PERRLA Respiratory: no wheezing, no rales, no rhonchi, clear to auscultation bilateral Cardiovascular: RRR, no significant murmur, no rub Gastrointestinal: soft, non-tender, no distention, positive bowel sounds Musculoskeletal: no edema stump site ok Dx/Plan (1) Bilateral pulmonary embolism Code(s): I26.99 - OTHER PULMONARY EMBOLISM WITHOUT ACUTE COR PULMONALE Status : Acute Comment: Continue Eliquis 10mg BID, O2 prn (2) Diabetes type 2, controlled Code(s): E11.9 - TYPE 2 DIABETES MELLITUS WITHOUT COMPLICATIONS Status: Chronic Qualifiers: 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 * Recent Left AKA- continue PT/OT and awaiting Rehab approval
[2018-10-05] MEDS: HumaLOG 300 UNITS/3 ML VIAL SC PRN (13:36)
[2018-10-05] MEDS: Diabetic Tussin 200 MG/10 ML UDCUP PO PRN (13:40)
[2018-10-06] MEDS: Apixaban 5 MG TAB PO SCH (08:54)
[2018-10-06] MEDS: HYDROcodone/Acetaminophen 7.5/325 mg Tablet PO PRN ×4 (08:54→22:17)
[2018-10-06] MEDS: Atenolol 25 MG TAB PO SCH (08:55)
[2018-10-06] MEDS: Gabapentin 300 MG CAP PO SCH ×3 (08:55→20:57)
[2018-10-06] MEDS: HumuLIN 70/30 (300 UNITS/3 ML VIAL) SC SCH ×2 (08:58→15:55)
--- NOTE | 2018-10-06 10:56 | PDOC.PN ---
- Subjective Encounter Start Date: 10/06/18 Encounter Start Time: 10:55 Mr. Mo was seen today in follow-up of PE. He notes waking up this morning with chest pain. He also had some cough as well. He also noted some trouble catching his breath. He says this has passed. - Objective Resuscitation Status - Order Detail: 09/29/18 02:27 Resuscitation Status Routine Resuscitation Status: FULL: Full Resuscitation MAR Reviewed: Yes Vital Signs & Weight: Vital Signs (12 hours) Temp Pulse Resp BP BP Pulse Ox 10/06/18 08:54 98 10/06/18 07:51 97.7 F 61 18 139/79 98 10/06/18 03:53 98.0 F 74 24 H 139/63 95 Weight Admit Weight 237 lb 7 oz Weight 227 lb 12.8 oz I&O: 10/05/18 10/06/18 10/07/18 06:59 06:59 06:59 Intake Total 2084 3524 Output Total 2650 3600 Balance -566 -76 Result Diagrams: 10/04/18 04:08 10/04/18 04:08 Additional Labs: Accuchecks 10/06/18 10/05/18 10/05/18 05:23 20:58 16:31 POC Glucose 124 H 175 H 140 H 10/05/18 10:34 POC Glucose 152 H Phys Exam - Physical Examination HEENT: PERRLA Respiratory: no rales, wheezing present + rhonchi and occasional wheeze in the right lung field Cardiovascular: RRR, no significant murmur, no rub Gastrointestinal: soft, non-tender, no distention, positive bowel sounds Musculoskeletal: no edema, pulses present Dx/Plan (1) Bilateral pulmonary embolism Code(s): I26.99 - OTHER PULMONARY EMBOLISM WITHOUT ACUTE COR PULMONALE Status : Acute Comment: Continue Eliquis 10mg BID, O2 prn (2) Diabetes type 2, controlled Code(s): E11.9 - TYPE 2 DIABETES MELLITUS WITHOUT COMPLICATIONS Status: Chronic Qualifiers: 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 Diabetes mellitus complication status: with circulatory complication Comment: Resume Humulin 70/30, 15u sc BID, ISS, ADA (3) Hypertension Code(s): I10 - ESSENTIAL (PRIMARY) HYPERTENSION Status: Chronic Qualifiers: Hypertension type: essential hypertension Qualified Code(s): I10 - Essential (primary) hypertension Comment: Continue Atenolol 25mg daily, stable - Plan * Bilateral PE- continue Eliquis, and he has completed the loading dose, and will change to 5mg twice a day * Cough with some SOB- will check a Chest X-ray- rule out infiltrate * HTN- blood pressure is stable * DM- Blood glucose is stable.
--- NOTE | 2018-10-06 12:21 | RAD ---
SINGLE VIEW OF THE CHEST: COMPARISON: 09/28/2018. HISTORY: Cough and chest pain. FINDINGS: Single view of the chest shows a normal sized cardiomediastinal silhouette. There is no evidence of c onsolidation, mass, or pleural effusion. The bones are unremarkable. IMPRESSION: No evidence of acute cardiopulmonary disease. POS: [facility]
[2018-10-06] MEDS ORDERED: Apixaban 5 MG TAB PO SCH (21:00)
[2018-10-06 21:07] VITALS: BP 139/76; TEMP 98
--- NOTE | 2018-10-07 02:23 | DIS ---
DATE OF ADMISSION: 09/28/2018 DATE OF DISCHARGE: 10/06/2018 PRIMARY CARE PHYSICIAN: The patient does not have a primary care physician. DISCHARGE DISPOSITION: Inpatient rehab. DISCHARGE DIAGNOSES: 1. Bilateral pulmonary embolism. 2. Acute respiratory failure secondary to #1. 3. Hypertension. 4. Diabetes mellitus type 2. 5. Recent left [id number]-[id number] amputation. 6. Peripheral vascular disease. DISCHARGE MEDICATIONS: Include; 1. Eliquis 5 mg twice a day. 2. Atenolol 25 mg daily. 3. Neurontin 300 mg t.i.d. 4. Insulin 70/30, 15 units twice a day. PROCEDURES DONE DURING THE ADMISSION: The patient had a CT angiogram of the chest showing bilateral pulmonary thromboembolism, the right was more than the left. There was evidence of pulmonary infarction involving the superior segment of the right lower lobe. CODE STATUS: Full code. ALLERGIES: TRAMADOL. HOSPITAL COURSE: Mr. Mo is a pleasant, 53-year-old gentleman who presented to the emergency room with complaints of chest pain. He was also having some shortness of breath and cough. He was evaluated and found to have bilateral pulmonary embolism with right pulmonary infarct. He was admitted and started on Lovenox. This was eventually transitioned to Eliquis. The patient recently had blnby-[id number]-[id number] amputation. Surgery was consulted to remove the stitches and the patient will be evaluated for inpatient rehabilitation to aid in helping him with his ambulation. Job ID: [id number]
== END 2018-10-06 22:25 | DRG 175 ==
LOC: ERS 18:44 → 2NO 23:12
PROVIDERS: ADMIT Hospitalist; ATTEND Hospitalist
DX: I26.99 Other pulmonary embolism without acute cor pulmonale (principal); J96.01 Acute respiratory failure with hypoxia; N17.9 Acute kidney failure, unspecified; E87.1 Hypo-osmolality and hyponatremia; N18.9 Chronic kidney disease, unspecified; E11.22 Type 2 diabetes mellitus with diabetic chronic kidney disease; I12.9 Hypertensive chronic kidney disease with stage 1 through stage 4 chronic kidney disease, or unspecified chronic kidney disease; E11.51 Type 2 diabetes mellitus with diabetic peripheral angiopathy without gangrene; Z89.612 Acquired absence of left leg above knee
CPT/HCPCS: 36415; 36416; 71045; 71275; 80048; 80053; 82550; 83690; 84484; 85007; 85025; 85027; 85379; 85610; 85730; 93005; 94760; 96365; 96366; 96375; J1644; J1815; Q9966

== ENCOUNTER 2018-10-31 18:27 | Emergency (ER) | payer OTHER | END 2018-10-31 19:33 | disposition home or self-care (01) | LOC: ERS 18:27 | DX: M79.605 Pain in left leg (principal); E11.9 Type 2 diabetes mellitus without complications; I10 Essential (primary) hypertension; Z79.4 Long term (current) use of insulin; Z79.899 Other long term (current) drug therapy; Z86.711 Personal history of pulmonary embolism; W19.XXXA Unspecified fall, initial encounter | CPT/HCPCS: 99283 ==

== ENCOUNTER 2019-08-01 21:20 | Inpatient (IN) | payer OTHER ==
[~2019-08-01 21:20] MED LIST changes: +Heparin 1,000 UNITS/ML VIAL ONE; -ISOVUE-370 76%-LOCM 1 ML ONE; +Iopamidol-370 76% 500 ML 1 ML ONE
[2019-08-01] MEDS ORDERED: Ondansetron PF 4 MG/2 ML Vial ONE (21:45)
[2019-08-01] MEDS ORDERED: Morphine 4 MG/ML VIAL ONE ×2 (21:45→22:42)
[2019-08-01 22:09] LABS: #Basophils 0.1 thou/uL (0.0-0.2); #Eosinphils 0.1 thou/uL (0.0-0.7); #Lymphocytes 1.6 thou/uL (1.20-3.40); #Monocytes 1.1 thou/uL (0.11-0.59); %Basophils 0.5 % (0.0-1.0); %Eosinophils 0.8 % (0.0-10.0); %Monocytes 7.2 % (0.0-10.0); %Neutrophils 80.5 % (42.0-75.0); Hemoglobin 15.1 g/dL (14.0-18.0); Mean Corpuscular Hemoglobin 26.3 pg (27.0-31.0); Mean Corpuscular Volume 79.7 fL (78.0-98.0); Mean Platelet Volume 7.8 fL (7.4-10.4); Platelet Count 349 thou/uL (130-400); RBC Distribution Width 13.6 % (11.5-14.5); Red Blood Cell (RBC) Count 5.75 mill/uL (4.70-6.10); White Blood Cell (WBC) Count 14.9 thou/uL (4.8-10.8)
[2019-08-01] MEDS ORDERED: Cefepime 2 GM VIAL ONE (22:21)
[2019-08-01 22:30] LABS: ALT (SGPT) 19 U/L (8-55); AST (SGOT) 25 U/L (5-34); Albumin 3.8 g/dL (3.5-5.0); Alkaline Phosphatase 101 U/L (40-110); Anion Gap 14 mmol/L (10-20); BUN (Urea Nitrogen) 15 mg/dL (8.4-25.7); Bilirubin, Total 0.3 mg/dL (0.2-1.2); CK (CPK) 1544 U/L (30-200); Calc. Creatinine Clearance 0 mL/min (70-130); Calcium 8.6 mg/dL (7.8-10.44); Carbon Dioxide 21 mmol/L (22-29); Chloride 101 mmol/L (98-107); Estimated GFR-MDRD 76; Globulin 2.8 g/dL (2.4-3.5); Glucose 393 mg/dL (70-105); Potassium 4.6 mmol/L (3.5-5.1); Protein, Total 6.6 g/dL (6.0-8.3); Sodium 131 mmol/L (136-145)
--- NOTE | 2019-08-01 22:30 | ULT ---
ULTRASOUND DOPPLER DUPLEX VENOUS RIGHT LOWER EXTREMITY: DATE: 08/01/2019 HISTORY: 54-year-old female with right lower extremity pain and erythema TECHNIQUE: Grayscale, color-flow, and spectral analysis, of major veins of right lower extremity. FINDINGS: There is demonstration of blood flow with normal compressibility, of the right common femoral, profun da femoral, greater saphenous, femoral, popliteal, and posterior tibial, veins. IMPRESSION: Negative. No deep venous thrombosis of right lower extremity.
--- NOTE | 2019-08-01 22:40 | ULT ---
Ultrasound Doppler duplex arterial right lower extremity: DATE: 08/01/2019 HISTORY: 54-year-old female with absent pedal pulses and with cold and painful right lower extremity. Dr. Herrera discussed the findings by telephone with GIANNI Rojas at 10:33 PM 08/01/2019 TECHNIQUE: Grayscale, color-flow, spectral analysis, of major arteries of right lower extremity. FINDINGS: Common femoral artery: Triphasic waveform. Diminished peak systolic velocity of 40 cm/s. Proximal Superficial femoral artery: Triphasic but abnormal waterhammer-type waveform. Very diminishe d peak systolic velocity of 15 cm/s. Mid and distal superficial femoral arteries, popliteal artery, posterior tibial artery, and anterior tibial artery, all have very abnormal, completely nonpulsatile wave forms, with very low velocities of approximately 4 cm/s, and apparently bidirectional flow. Flow not detected in the dorsalis pedis artery. IMPRESSION: Very abnormal Doppler pattern of all major arteries of right lower extremity, with severely diminishe d blood flow, suggestive of near occlusion.
--- NOTE | 2019-08-01 22:51 | RAD ---
Radiograph right foot 3 views: DATE: 08/01/2019 Time: 10:35 PM HISTORY: 54-year-old male with cold, pulseless and painful right foot. Rule out osteomyelitis. FINDINGS: Other than the fragments of bases of fifth and second metatarsals, all of the rest of the metatarsals and all of the bones distal to them, are absent. No amina destructive osseous lesion is identified. No subcutaneous emphysema. IMPRESSION: 1. Status post amputation-disarticulation at all of the tarsometatarsal joints. 2. No amina bone destruction identified.
[2019-08-01] MEDS ORDERED: Sodium Chloride 0.9% 1,000 ML IV SCH (23:00)
[2019-08-01] MEDS ORDERED: Ondansetron ODT 4 MG TAB PO PRN (23:00)
[2019-08-01] MEDS ORDERED: Ondansetron PF 4 MG/2 ML Vial IVP PRN (23:00)
[2019-08-01] MEDS ORDERED: Calcium Carbonate 500 MG ChewTAB PO PRN (23:00)
[2019-08-01] MEDS ORDERED: Bisacodyl 10 MG SUPP PR PRN (23:00)
[2019-08-01] MEDS ORDERED: Heparin 1,000 UNITS/ML VIAL ONE (23:13)
[2019-08-01] MEDS ORDERED: Heparin 10,000 UNITS/ 10 ML VIAL SLOW IVP SCH (23:15)
[2019-08-01] MEDS ORDERED: Vancomycin 1 GM in Premix Bag 1 BAG IVPB SCH (23:15)
[2019-08-01] MEDS ORDERED: Heparin 25,000 units/D5W 500 ML IVPB SCH (23:15)
[2019-08-01 23:23] LABS: Hemoglobin 15.3 g/dL (14.0-18.0); Platelet Count 364 thou/uL (130-400)
--- NOTE | 2019-08-01 23:29 | RAD ---
RADIOGRAPH CHEST 1 VIEW: DATE: 08/01/2019 HISTORY: 54-year-old male with sepsis FINDINGS: There are no airspace densities, pulmonary edema, pneumothorax, or cardiomegaly. The lateral costophr enic angles are sharp. IMPRESSION: No acute cardiopulmonary findings.
[2019-08-01 23:30] LABS: PTT 25.6 SEC (22.9-36.1); Prothrombin Time 13.6 SEC (12.0-14.7)
[2019-08-01 23:41] LABS: Hemoglobin A1c 5.3 % (4.0-6.0)
[2019-08-01] MEDS ORDERED: Aspirin 81 mg Enteric Coated Tablet PO SCH (23:45)
[2019-08-01] MEDS ORDERED: Dextrose 50% Abboject 50 ML SYRINGE SLOW IVP PRN (23:46)
[2019-08-01] MEDS ORDERED: Dextrose 5% in Water 1,000 ML IV PRN (23:46)
[2019-08-01] MEDS ORDERED: hydrALAZINE 20 MG/ML VIAL SLOW IVP PRN (23:47)
[2019-08-01] MEDS ORDERED: Aspirin 325 MG TAB ONE (23:55)
[2019-08-01] MEDS ORDERED: Heparin 25,000 units/D5W 500 ML ONE (23:58)
[2019-08-02] MEDS ORDERED: cloNIDine 0.1 MG TAB PO PRN (00:25)
[2019-08-02] MEDS ORDERED: Nitroglycerin 0.4 MG TAB (25 Tab Bottle) PO PRN (01:03)
[2019-08-02 01:06] VITALS: BMI 37.3
[2019-08-02] MEDS: Morphine 2 MG/ML SYRINGE SLOW IVP PRN ×4 (01:11→20:45)
--- NOTE | 2019-08-02 01:59 | HP ---
Patient was seen and examined on August 01, 2019, in the emergency room. CHIEF COMPLAINT: Right lower extremity pain. HISTORY OF PRESENT ILLNESS: Patient is a 54-year-old male with peripheral vascular disease, status post left above-knee amputation last year, presented to the emergency room with the above complaints. The patient underwent left above-knee amputation for gangrene in September of 2018. He was diagnosed with bilateral pulmonary embolism and was started on Eliquis two weeks later. He recently completed the Eliquis. Over the last two weeks, he is only on Plavix. Patient presented to the emergency room with right lower extremity pain along with numbness that has been ongoing for a week or so. His pain got worse today, for which he presented to the emergency room. The pain was moderate to severe in intensity, radiating to his right groin. He felt febrile, however, did not record his temperature. He also noticed that his right lower extremity was cold to touch. He denies any chest pain, palpitations, lightheadedness, dizziness, or syncope. No recent immobilization or travel reported. PAST MEDICAL HISTORY: 1. Peripheral vascular disease, status post left above-knee amputation in September of 2018. 2. Bilateral pulmonary embolism in September of 2018, completed Eliquis. 3. Hypertension. 4. Diabetes mellitus, type 2. 5. Methamphetamine abuse. The last use was a few weeks ago. PAST SURGICAL HISTORY: 1. Left above-knee amputation. 2. Right lower extremity stent placement. 3. Right forearm surgery. 4. Left rotator cuff surgery. 5. Right metatarsal amputation in 2018. ALLERGIES: PATIENT IS ALLERGIC TO TRAMADOL. CURRENT HOME MEDICATION: 1. Plavix 75 mg daily. 2. Neurontin 600 mg 3 times a day. 3. Lisinopril 20 mg at bedtime. 4. Metformin 1000 mg b.i.d. 5. Atenolol 25 mg daily. 6. Lipitor 80 mg at bedtime. 7. Humulin 70/30, 15 units b.i.d., the last dose was approximately 1 week ago. SOCIAL HISTORY: As discussed above. He currently lives at home. His brother is the primary decision maker. He is full code. He denies any smoking or alcohol use. FAMILY HISTORY: Negative for premature coronary artery disease. REVIEW OF SYSTEMS: All other review of systems was reviewed and was found negative. PHYSICAL EXAMINATION: VITAL SIGNS: Temperature 97.8, respirations of 19, pulse rate of 109 with a blood pressure of 167/104, and O2 saturation 96% on room air. GENERAL: A 54-year-old male, in mild distress due to right lower extremity pain. HEENT: Head, atraumatic and normocephalic. Sclerae anicteric. Moist mucous membranes. No oral lesion. NECK: Supple. No JVD appreciated. No carotid bruit. LUNGS: Clear to auscultation bilaterally. No wheezing, rales, or rhonchi. HEART: S1 and S2 present. Regular rate and rhythm. No rubs or gallops. ABDOMEN: Soft, nontender. Bowel sounds present. EXTREMITIES: Right lower extremity was cool to touch. There was minimal drainage from the right foot amputation site. Posterior tibial pulses were not detectable even by Doppler. Patient has a history of left above-knee amputation. NEUROLOGIC: Grossly nonfocal. Moves all 4 extremities. PSYCHIATRY: As discussed above. SKIN: As discussed above. A small, approximately 1.5 x 1.5 cm abscess on the right sabianist noted with fluctuance. LYMPH NODES: No palpable lymph nodes in the neck. PERIPHERAL VASCULAR: As discussed above. LABORATORY FINDINGS: CBC showed WBC 14.9 with hemoglobin 15.1, hematocrit 45.8, and platelet of 349. Chemistries showed sodium 131, potassium 4.6, chloride 101, bicarb 21, BUN 15, and creatinine 1.02, and glucose of 393. Hemoglobin A1c 5.3. Lactic acid 2.0. Magnesium 1.9. CK was 1544. EKG by my review showed sinus rhythm with left axis deviation. CT angiogram of the abdomen and pelvis with runoff showed hypodense filling defect measuring approximately 3.2 x 2.4 cm in the left ventricle concerning for intraventricular thrombus. He also had complete loss of opacification of the right common femoral artery. There was complete loss of opacification of the right internal iliac artery. IMPRESSION: 1. Right lower extremity ischemia due to right common femoral artery/right internal iliac artery occlusion. 2. Questionable intraventricular thrombus. 3. Diabetes mellitus, type 2. 4. Obesity with a BMI of 37.3. 5. Systemic inflammatory response syndrome, probably secondary to right lower extremity ischemia due to right common femoral artery/right internal iliac artery occlusion. 6. Methamphetamine abuse. 7. Peripheral vascular disease, status post stent placement in the right lower extremity, and left above-knee amputation. 8. History of bilateral pulmonary embolism last year, completed Eliquis. Please note that Eliquis was discontinued two weeks ago. 9. Diabetic neuropathy. 10. Hypertension. 11. Chronic kidney disease, stage 2. 12. Hyponatremia. 13. Rhabdomyolysis. 14. Elevated inflammatory markers. PLAN: Patient has been started on heparin drip. Plavix will be continued. We will start him on low-dose aspirin as well. We will keep him n.p.o. past midnight. Dr. Cho has been notified. He also has been started on empiric antibiotics. Repeat CK in a.m. Echocardiogram will be obtained for left ventricular thrombus. Urine drug screen is pending at this time. We will monitor PTT and H and H per protocol. Patient understands the above plan of care. Job ID: [id number]
[2019-08-02] MEDS ORDERED: Heparin 25,000 units/D5W 500 ML IV SCH ×2 (02:00→20:45)
[2019-08-02] MEDS ORDERED: Heparin 10,000 UNITS/ 10 ML VIAL SLOW IVP SCH ×3 (02:00→16:00)
[2019-08-02 02:42] LABS: Troponin I 0.035 ng/mL (< 0.028)
[2019-08-02] MEDS: Sodium Chloride 0.9% 1,000 ML IV SCH ×3 (05:16→16:42)
[2019-08-02] MEDS: HYDROcodone/Acetaminophen 5/325 mg Tablet PO PRN ×3 (05:29→22:56)
[2019-08-02 05:31] LABS: #Basophils 0.1 thou/uL (0.0-0.2); #Eosinphils 0.3 thou/uL (0.0-0.7); #Lymphocytes 2.2 thou/uL (1.20-3.40); #Neutrophils 8.9 thou/uL (1.40-6.50); %Basophils 0.5 % (0.0-1.0); %Eosinophils 2.2 % (0.0-10.0); %Lymphocytes 17.9 % (21.0-51.0); %Monocytes 7.7 % (0.0-10.0); %Neutrophils 71.7 % (42.0-75.0); Hemoglobin 14.5 g/dL (14.0-18.0); Mean Corpuscular HGB CONC 31.6 g/dL (32.0-36.0); Mean Corpuscular Hemoglobin 25.3 pg (27.0-31.0); Mean Platelet Volume 7.8 fL (7.4-10.4); Platelet Count 361 thou/uL (130-400); RBC Distribution Width 13.6 % (11.5-14.5); Red Blood Cell (RBC) Count 5.72 mill/uL (4.70-6.10); White Blood Cell (WBC) Count 12.4 thou/uL (4.8-10.8)
[2019-08-02 05:47] LABS: Lactic Acid 1.1 mmol/L (0.5-2.2)
[2019-08-02 05:50] LABS: Albumin 3.5 g/dL (3.5-5.0)
[2019-08-02 05:51] LABS: Chloride 103 mmol/L (98-107); Potassium 4.5 mmol/L (3.5-5.1); Sodium 130 mmol/L (136-145)
[2019-08-02 05:52] LABS: Calcium 8.2 mg/dL (7.8-10.44); Glucose 259 mg/dL (70-105)
[2019-08-02 05:53] LABS: Globulin 3.1 g/dL (2.4-3.5); Protein, Total 6.6 g/dL (6.0-8.3); Triglycerides 162 mg/dL (Less than 150)
[2019-08-02 05:54] LABS: Bilirubin, Total 0.3 mg/dL (0.2-1.2); Carbon Dioxide 18 mmol/L (22-29)
[2019-08-02 05:55] LABS: Alkaline Phosphatase 95 U/L (40-110); Troponin I 0.051 ng/mL (< 0.028)
[2019-08-02 05:56] LABS: Calc. Creatinine Clearance 146 mL/min (70-130); Estimated GFR-MDRD 87
[2019-08-02 05:57] LABS: BUN (Urea Nitrogen) 13 mg/dL (8.4-25.7); Cholesterol 122 mg/dl (< 200 Desired)
[2019-08-02 05:58] LABS: ALT (SGPT) 19 U/L (8-55); AST (SGOT) 27 U/L (5-34); CK (CPK) 1365 U/L (30-200); Cardiac Risk 4.9 (Less than 4.5); HDL Cholesterol 25 mg/dL (>60 Neg Risk); LDL Cholesterol, Calculated 65 mg/dL
[2019-08-02 06:04] LABS: Anion Gap 14 mmol/L (10-20)
--- NOTE | 2019-08-02 07:34 | CON ---
DATE OF CONSULTATION: HISTORY OF PRESENT ILLNESS: This is an unfortunate 54-year-old diabetic gentleman with history of peripheral vascular disease. He initially was seen at this institution about September of last year when he presented with advanced mottled left lower extremity. He had previously undergone stenting of his right popliteal artery at another city. When evaluated in September last year, he required a left above knee amputation emergently and then was noted to have occlusion of his popliteal stent, his superficial femoral artery above this to about the mid thigh and then vein visualization of a tibial vessel distally on his CAT scan. He healed his AKA amputation site, but had persistent opening in a right transmetatarsal amputation that had been present for at least the year prior to his AKA amputation. He suffered a rather submassive pulmonary embolism almost completely occluding his right main pulmonary artery about a week postop, then was placed on Eliquis. This was maintained by Dr. Zambrano in [place] until about 2 weeks ago and this was stopped. He had been getting around recently with an artificial limb on some occasions. However, about 3 days ago noticed a fever and some small amount of drainage from his transmetatarsal amputation on the right. He then noticed a painful sensation in the foot region as well as coolness of his leg, which prompted coming to the emergency room last night. He was admitted with an ischemic leg. A CT angiogram was ordered showing normal aortoiliac and common femoral segments. He had only a single profunda branch on the right with perhaps a second profunda branch filling slowly, although this was difficult to see and unfortunately his CTA from last September did not include the groin region. Superficial femoral artery was occluded a couple of inches below its takeoff, which was a couple of inches higher than it was occluded last visit. No vasculature was visualized below the knee. PAST MEDICAL HISTORY: As mentioned includes diabetes mellitus. He has a remote history of drug usage in the past, but states he has not used any. He has a history of hypertension, the previously noted pulmonary embolus. PAST SURGICAL HISTORY: Includes the transmetatarsal amputation in 2018 and stenting at that time of his popliteal artery, left above-knee amputation, rotator cuff surgery. MEDICATIONS: At home included; 1. Plavix 75 a day. 2. Neurontin 600 t.i.d. 3. Lisinopril 20 at night. 4. 70/30 insulin 15 b.i.d. 5. Lipitor 80 at night. 6. Atenolol 25 a day. 7. Metformin 1000 b.i.d. He said he was taking these medicines regularly, although states he stopped his insulin about a week ago. SOCIAL HISTORY: He lives alone in the [place] area. Nonsmoker. PHYSICAL EXAMINATION: GENERAL: Alert, cooperative gentleman. VITAL SIGNS: Heart rate about 100, blood pressure . HEAD, EARS, EYES, NOSE, AND THROAT: He has inflamed pustular area on the side of his forehead on the right. NECK: No bruits. LUNGS: Clear to auscultation. CARDIAC: Tachycardia. ABDOMEN: Obese and nontender. EXTREMITIES: He has palpable femoral pulses with no distal pulses. He has no Doppler signals in his foot. He has slight erythematous changes on the right leg over the anterior compartment. Then, it is firm but nontender. SKIN: Cool and slightly dusky in the lower leg. It does not appear tense. He has open wound with no drainage at the site of his previous transmetatarsal amputation. There is no foul smell. Reviewing the CT scan, it appears that the superficial artery is occluded slightly more proximally than last time, probably compromising few collaterals that were stenotic but patent. His profunda system is rather small and whether he has occluded profunda branch is difficult to say. I have discussed with him the likelihood that above-knee amputation may be the only reasonable option. We will go ahead and check a cardiac echo to ensure that he does not have any embolic source, but this appears to be just progressive peripheral vascular disease, perhaps hypercoagulable state in addition. He is on a heparin infusion right now. Really not complaining of any pain. In fact, he was sleeping when I came in the room. He has above-knee amputation at this time, although I think he would agree to it and will discuss his case further with colleagues. Job ID: [id number]
--- NOTE | 2019-08-02 08:33 | CT ---
PRELIMINARY REPORT/[facility]/EMERGENCY AFTER HOURS PROCEDURE: This report was discussed with Sylvain Rojas NP by Margarita Muhammad on Aug 02, 2019 00:49:00 CDT. Addendum electronically signed by Margarita Muhammad on August 02, 2019 12:52:21 AM CDT Receipt of this report by the clinical staff was confirmed with Sylvain Rojas NP by Margarita Muhammad Aug 02, 2019 00:49:00 CDT. Addendum electronically signed by Margarita Muhammad on August 02, 2019 12:51:57 AM CDT EXAM: CTA Abdomen and Pelvis With Runoff to the Lower Extremities with Intravenous Contrast. CLINICAL HISTORY: ER 6... reports pain and numbness to right lower leg (starting at the rt knee all the way to his foot ) and states leg is cold to touch. Pt has history of PAD with stents in this leg. He was previously o n Eliquis, but stopped this approx. 10 days ago. States current symptoms started 2 days ago. Denies f ever or injury. Pt has chronic open sound to stump of right foot since forefoot amputation approx. 2 yrs ago. Denies any changes to this wound. TECHNIQUE: Axial CTA images of the abdomen, pelvis and lower extremities with intravenous contrast. Three-dimens ional MIP/volume rendered formations were performed. CONTRAST: With; isovue 370, 93 ml COMPARISON: None provided. FINDINGS: VASCULATURE: Aorta: No acute finding. No abdominal aortic aneurysm. No dissection. Celiac trunk: No acute finding. No occlusion or significant stenosis. Superior mesenteric artery: No acute finding. No occlusion or significant stenosis. Inferior mesenteric artery: No acute finding. No occlusion or significant stenosis. Renal arteries: No acute finding. No occlusion or significant stenosis. Right iliac arteries: No acute finding or occlusion of the right external iliac artery. Loss of opacification of the right internal iliac artery. Right femoral arteries: Abrupt loss of opacification of the mid right femoral artery, axial series 2, image 217. Just proxim al to this, there is non-calcific mural thrombus. Right popliteal artery Non-opacified. Right popliteal stent. Right calf arteries: Nonopacified Left iliac arteries No acute finding. No occlusion. Noncalcific mural plaque left common iliac artery. Left femoral arteries No acute finding. No occlusion or significant stenosis. Total [id number] amputation of the left lower extremity Lower thorax: No basilar airspace consolidation. Hypodense structure in the left ventricle measuring 3.2 x 2.4 cm. ABDOMEN: Liver: Unremarkable. No mass. Gallbladder and bile ducts: No calcified stone. No ductal dilation. Pancreas: Unremarkable. No ductal dilation. Spleen: Unremarkable. Adrenals: No mass. Kidneys, ureters, and bladder: The kidneys enhance symmetrically. Multifocal areas of cortical thinning may represent sequela of pr ior remote injury or infection. No hydronephrosis. No solid mass. Stomach and bowel: No obstruction. No bowel wall thickening. Scattered colonic diverticulosis. No CT evidence of acute diverticulitis. Abdominal wall and soft tissues: Unremarkable. Appendix: No CT evidence for appendicitis. Reproductive: Unremarkable. Peritoneum: No free fluid. No free air. Lymph nodes: No lymphadenopathy. Bones: No acute osseous abnormality. Soft tissues: The soft tissues are unremarkable. IMPRESSION: 1. Hypodense filling defect measuring approximately 3.2 x 2.4 cm in the left ventricle concerning fo r intraventricular thrombus. 2. Complete loss of opacification of the right common femoral artery as described above. No opacifi ed vessels distal to this is seen in the right lower extremity. 3. Complete loss of opacification of the right internal iliac artery. 4. Noncalcific atherosclerotic plaque of the left common iliac artery and right common femoral arter y. ELECTRONICALLY SIGNED BY: Elie Sanchez DO Aug 02, 2019 12:47:30 AM CDT This report is intended for review by the ordering physician only, in accordance of law. If you recei ve this report in error, please call [facility] at [phone]. FINAL REPORT CTA CHEST AND ABDOMEN AND LOWER EXTREMITIES: Date: 08/01/2019 Multiple axial tomograms obtained with IV enhancement following angio protocol with multiplanar recon struction and 3D postprocessing. FINDINGS/IMPRESSION: The abdominal aorta shows no significant atherosclerotic disease. There is thrombus in the left commo n iliac which is nonocclusive and results in moderate stenosis, which is nearing hemodynamic signific ance by NASCET criteria. Internal and external iliacs are patent on the left. The left common femoral and profunda femoral are patent. Left superficial femoral is patent proximally, but does occlude distally just proximal to the AK ampu tation. On the right, the right common iliac and external iliac are patent. Internal iliac on the right appea rs occluded proximally but does reconstitute distally. Profunda is patent. The right superficial femoral artery occludes proximally just beyond its origin i n the upper right thigh. There is a filling defect in the left ventricle as noted on the preliminary report concerning for lef t ventricular thrombus. I am in agreement with the preliminary report issued by [facility]. POS: JOEY
[2019-08-02] MEDS ORDERED: Midazolam HCl 2 mg/2 ml Vial ONE ×2 (08:39→15:51)
[2019-08-02] MEDS ORDERED: Fentanyl 100 MCG/2 ML VIAL ONE ×2 (08:39→15:51)
[2019-08-02] MEDS ORDERED: Heparin 10,000 UNITS/1 ML VIAL ONE (08:57)
[2019-08-02] MEDS ORDERED: Clopidogrel Bisulfate 75 MG TAB PO SCH ×2 (09:00→21:00)
[2019-08-02] MEDS ORDERED: Atenolol 25 MG TAB PO SCH (09:00)
[2019-08-02] MEDS ORDERED: Protamine Sulfate 50 MG/5 ML VIAL ONE ×2 (09:25→15:54)
[2019-08-02] MEDS ORDERED: Iopamidol 370 76% 50 ML VIAL FS ONE (09:37)
[2019-08-02] MEDS ORDERED: Morphine 2 MG/ML SYRINGE ONE (09:47)
[2019-08-02] MEDS ORDERED: Glycopyrrolate 0.2 MG/ML 5 ML SYRINGE ONE (09:50)
[2019-08-02] MEDS ORDERED: Lidocaine 1% PF 5 ML VIAL ONE (09:50)
[2019-08-02] MEDS ORDERED: Ondansetron PF 4 MG/2 ML Vial ONE (09:50)
[2019-08-02] MEDS ORDERED: PHENYLEPHRINE-NS 100 MCG/ML 10 ML SYRINGE ONE (09:50)
[2019-08-02] MEDS ORDERED: Rocuronium Bromide 10 MG/ML (10ML VIAL) ONE (09:50)
[2019-08-02] MEDS ORDERED: Succinylcholine Chloride 20 MG/ML 10 ml SYRINGE FS ONE (09:50)
--- NOTE | 2019-08-02 10:06 | OP ---
DATE OF PROCEDURE: 08/02/2019 PREOPERATIVE DIAGNOSIS: Peripheral vascular disease with limb-threatening ischemia of the right leg. POSTOPERATIVE DIAGNOSIS: Peripheral vascular disease with limb-threatening ischemia of the right leg. PROCEDURES PERFORMED: 1. Ultrasound-guided left common femoral artery access. 2. Abdominal aortogram x2. 3. Right common femoral, superficial femoral, popliteal artery angiograms with runoff. ANESTHESIA: 1% lidocaine for local/1 mg Versed and 25 mcg of fentanyl for IV sedation. TOTAL CONTRAST: 19 mL. TOTAL FLUORO TIME: 9.5 minutes. DESCRIPTION OF PROCEDURE: After consent was obtained, the patient was brought to the minilab operator, placed in supine position on minilab operator table. Appropriate monitoring was placed. IV sedation was given. Using ultrasound guidance, the left groin was anesthetized with 1% lidocaine. Using ultrasound guidance, the left common femoral artery was accessed with micropuncture needle and wire. This was followed under fluoro into the iliac system. A micropuncture sheath was placed and exchanged for a 5-Comoran sheath. A Contra catheter was passed over guidewire into the abdominal aorta. Aortogram was performed showing no intraluminal encroachment from atherosclerotic disease in the aorta or proximal iliac arteries. Contra catheter was brought back down to the aortic bifurcation. A second aortogram was performed illuminating the aortic bifurcation and iliac arteries. There was no flow-limiting disease throughout the iliac system. Contra catheter was guided over the aortic bifurcation into the right common femoral artery. Hand-injected arteriogram was performed showing the common femoral and proximal superficial femoral artery patent. He had very small profunda branches. The superficial femoral artery was acutely occluded. The Contra catheter was guided down to the area of occlusion. Digital angiography was used to follow contrast. The contrast filled retrograde into the profunda branches and then filled collaterals within the thigh. There was no reconstitution of the popliteal artery via the collaterals. The patient was given 5000 units of heparin. A Magic Torque guidewire was placed over the aortic bifurcation into the right superficial femoral artery. Contra catheter and 5-Comoran sheath were removed, and a 5-Comoran Destination sheath was passed over the aortic bifurcation into the common femoral artery. Using an angled Glidewire and angled Berkley catheter, the cap of the occlusion was traversed. Catheter was able to griffin all the way down to his previously-placed popliteal stent. Hand-injected arteriogram was performed with tip of the catheter in the popliteal artery. This showed a patent popliteal artery with occlusion and what appeared to be a significant calcification within the popliteal artery around and into the stent. There was no flow in the stent. There was no flow distal to the stent. At this point, we abandoned the further attempted intervention. Catheters and guidewires were removed. The 5-Comoran Destination sheath was removed over Bentson guidewire. Manual pressure was held for hemostasis. 50 mg of protamine was given. Heparin drip was stopped. The patient tolerated the procedure well and was transferred to the recovery area in stable condition. There is no intervention possible in this gentleman. He will need an above-knee amputation. Job ID: [id number]
[2019-08-02] MEDS ORDERED: HYDROcodone/Acetaminophen 5/325 mg Tablet ONE (10:28)
[2019-08-02] MEDS ORDERED: Vancomycin HCl 1.75 GM in Sodium Chloride 0.9% 500 ML IVPB SCH (11:00)
[2019-08-02] MEDS: Gabapentin 300 MG CAP PO SCH ×3 (12:15→23:04)
[2019-08-02] MEDS: Famotidine 20 MG TAB PO SCH ×2 (12:15→23:05)
[2019-08-02] MEDS: Senokot S 8.6-50 MG TAB PO SCH ×2 (12:15→23:05)
[2019-08-02] MEDS: Cefepime 1 GM in Sodium Chloride 0.9% 100 ML IVPB SCH ×2 (12:15→22:02)
[2019-08-02] MEDS: Acetaminophen 325 MG TAB PO PRN (12:22)
[2019-08-02] MEDS: Insulin Regular 300 UNITS/3 ML VIAL SC PRN ×2 (12:33→22:04)
[2019-08-02] MEDS ORDERED: Heparin 25,000 units/D5W 500 ML IVPB SCH (14:30)
[2019-08-02 14:46] LABS: Hemoglobin 13.7 g/dL (14.0-18.0); Platelet Count 308 thou/uL (130-400)
[2019-08-02] MEDS ORDERED: Lidocaine 2% Jelly 5 ML TUBE ONE (15:52)
[2019-08-02] MEDS ORDERED: Heparin 5,000 UNITS/ML VIAL ONE (15:54)
[2019-08-02 16:20] LABS: Bacteria/HPF None Seen HPF (None Seen); Bilirubin Negative (Negative); Blood, Urine Trace (Negative); Clarity Clear (Clear); Glucose, Urine (Dipstick) Greater than 1000 mg/dL (Negative); Leukocyte Negative Leu/uL (Negative); Nitrite Negative (Negative); Protein, Urine (Dipstick) 30 mg/dL (Neg-Trace); Squamous Epithelial None Seen HPF (0-3); Urobilinogen Normal mg/dL (Less than 2); WBC/HPF 0-3 HPF (0-3)
[2019-08-02] MEDS ORDERED: Phenylephrine 10 MG/ML VIAL ONE (16:27)
[2019-08-02 16:28] LABS: Amphetamine Detected (NotDetected); Cocaine Metabolite Screen Not Detected (NotDetected); Medtox Reader # READER 4; Methamphetamine Detected (NotDetected); Opiate Screen Detected (NotDetected); Phencyclidine (PCP) Not Detected (NotDetected); THC/Cannabinoid Screen Not Detected (NotDetected)
[2019-08-02 16:29] LABS: Barbiturates Screen Not Detected (NotDetected); Benzodiazepine Screen Not Detected (NotDetected); Medtox Control Line Valid? VALID (VALID); Methadone Not Detected (NotDetected); Oxycodone Screen Not Detected (NotDetected); Tricyclic Screen Not Detected (NotDetected)
[2019-08-02] MEDS ORDERED: Ketamine 50 MG/ML (10ML VIAL) ONE ×2 (16:32→18:55)
--- NOTE | 2019-08-02 17:19 | CON ---
DATE OF CONSULTATION: 08/02/2019 INDICATION FOR CONSULTATION: This is an unfortunate 54-year-old gentleman with a long history of diabetes and peripheral vascular disease. He has already experienced a left AKA. He presented at this time having some pain in the right lower extremity. He had also been noticing some fevers. He had a CT angiogram, which showed a significant peripheral vascular disease. He had then undergone an arteriogram and was found to have superficial femoral artery occlusion with some minimal flow from the profunda femoral artery. He also at that time was noted to have what appeared to be a thrombus in the left ventricle. Echocardiogram today also shows what appears to be a large left ventricular thrombus with severe decrease in left ventricular systolic function. It appears to be maybe he has had a silent myocardial infarction in the past, and review of the EKG also indicated poor R-wave progression in the anterior leads compatible with old anterior myocardial infarction. He does have sinus rhythm. EF is about 25% to 30%. The thrombus in the left ventricle is approximately 3.7 x 2.3 cm, appears to be in the apex of the left ventricle, but does not appear to be mobile and is attached to the apex, and the anterior wall and septum appear to be akinetic. He does not give any previous history of having any heart disease; however, he is a diabetic, and obviously, he has suffered what appears to be a silent myocardial infarction. He did have some history of drug abuse in the past, but apparently, he has not had any recently. He does have a history also of hypertension and also, I believe within the last 6 months or so, had a large pulmonary embolus. Actually, this occurred, I believe, back in September of 2018, after he had undergone the amputation of the left lower extremity. PAST MEDICAL HISTORY: Significant for the left AKA. He has also had metatarsal amputation in 2018, and underwent stenting of the popliteal artery. He has had rotator cuff surgery. He has diabetes. He has hypertension. MEDICATIONS PRIOR TO ADMISSION: Included: 1. Plavix 75 mg a day. 2. Neurontin 600 mg t.i.d. 3. Lisinopril 20 mg q.p.m. 4. Insulin 70/30 of 15 units twice a day. 5. Lipitor 80 mg q.p.m. 6. Atenolol 25 mg a day. 7. Metformin 1000 mg b.i.d. He recently said that he has stopped his insulin about a week ago. He also had been taken Eliquis, and this was stopped a couple of weeks ago. SOCIAL HISTORY: I believe he lives with his brother. He has moved to different areas. He has no history of significant tobacco abuse. REVIEW OF SYSTEMS: Please refer to the notes already dictated. He denies any new HEENT complaints or visual changes. No pulmonary complaints. No chest pains or other cardiac problems such as shortness of breath or dyspnea on exertion. He is mainly complaining of his leg problems with pain in his legs. PHYSICAL EXAMINATION: GENERAL: Reveals a morbidly obese gentleman, who is in some degree of distress complaining of right leg pain. VITAL SIGNS: His temperature, he is afebrile. Heart rate is around 100 to 104. Blood pressure is 131/98. O2 saturation is 96% on room air. HEENT: Showed the head to be normocephalic and atraumatic. I do not hear any significant bruits. CHEST: Actually was clear to auscultation without rales, rhonchi, or wheezing. CARDIOVASCULAR: Reveals a mild tachycardia, but no gross murmurs were noted. ABDOMEN: Obese. I cannot palpate any tenderness or masses. EXTREMITIES: Showed left AKA. The right lower extremity was cool to the touch. I cannot palpate pedal pulses. He has recently undergone an arteriogram with the puncture site that was on the left side and then up and over to the right femoral runoff. There is a palpable pulse on the right side, but otherwise, he has no significant pulses. There was no edema. NEUROLOGIC: He appears to be grossly intact. LABORATORY DATA: Show a WBC of 12.4, hemoglobin was 14.5, hematocrit 45.7, and platelet count was 361,000. His sodium is 130, potassium is 4.5, BUN was 13 with a creatinine of 0.91. Blood sugar was in the 250s to 300 range. His CK was elevated most likely due to the ischemia of the right lower extremity. His CK was 1365. Troponin I was 0.051, would not be considered abnormal, wound not even considered high in someone who has a severe CK of this magnitude. Triglyceride level was 162, and LDL level was 65. IMPRESSION: 1. Elderly gentleman, 54-year-old, with what appears to be a possibly ischemic cardiomyopathy. I suspect he has suffered an anterior myocardial infarction in the past with large left ventricular thrombus, who has severe peripheral vascular disease. He may have a part of a thrombus to the right lower extremity worsening his peripheral vascular disease. Most likely, he will be continued on his heparin and started on some other anticoagulation such as Eliquis or Coumadin long-term. I believe he is now being re-evaluated by the surgeons for possible embolectomy of the right lower extremity due to the large thrombus that was noted in the left ventricle. 2. Left ventricular thrombus. He will need to be on anticoagulation for a long time due to the size of this thrombus. 3. Peripheral vascular disease. This is being dealt with by the primary care surgeons, and it is quite possible he may lose his other leg. 4. History of pulmonary emboli. He may need to be evaluated for some type of coagulopathy since he has had this left ventricular thrombus as well as pulmonary emboli. 5. Diabetes. This will be dealt with by the primary care service. 6. Hypertension. This is under reasonable control at this time. We will be more than happy to continue to follow the patient with you. Once he becomes more stable, most likely, he will be advised to undergo a cardiac catheterization to evaluate his coronary artery status. Job ID: [id number]
[2019-08-02] MEDS ORDERED: SODIUM CHLORIDE 0.9% FS SCH (17:30)
[2019-08-02] MEDS ORDERED: ACTIVASE FS SCH (17:30)
[2019-08-02] MEDS: Lactated Ringer's 1,000 ML IV SCH (20:55)
[2019-08-02] MEDS ORDERED: Lisinopril 20 MG TAB PO SCH (21:00)
[2019-08-02] MEDS: Atorvastatin Calcium 40 MG TAB PO SCH (23:02)
[2019-08-02] MEDS: Aspirin 81 mg Enteric Coated Tablet PO SCH (23:05)
[2019-08-03 02:49] LABS: #Basophils 0.1 thou/uL (0.0-0.2); #Eosinphils 0.2 thou/uL (0.0-0.7); #Lymphocytes 1.3 thou/uL (1.20-3.40); #Neutrophils 11.5 thou/uL (1.40-6.50); %Basophils 0.5 % (0.0-1.0); %Eosinophils 1.3 % (0.0-10.0); %Lymphocytes 9.1 % (21.0-51.0); %Monocytes 7.1 % (0.0-10.0); %Neutrophils 81.9 % (42.0-75.0); Hemoglobin 11.7 g/dL (14.0-18.0); Mean Corpuscular HGB CONC 31.9 g/dL (32.0-36.0); Mean Corpuscular Hemoglobin 25.5 pg (27.0-31.0); Mean Corpuscular Volume 79.9 fL (78.0-98.0); Mean Platelet Volume 7.7 fL (7.4-10.4); Platelet Count 313 thou/uL (130-400); RBC Distribution Width 13.4 % (11.5-14.5); Red Blood Cell (RBC) Count 4.59 mill/uL (4.70-6.10); White Blood Cell (WBC) Count 14.1 thou/uL (4.8-10.8)
[2019-08-03 02:56] LABS: ALT (SGPT) 15 U/L (8-55); AST (SGOT) 22 U/L (5-34); Albumin 2.9 g/dL (3.5-5.0); Alkaline Phosphatase 76 U/L (40-110); Anion Gap 14 mmol/L (10-20); BUN (Urea Nitrogen) 13 mg/dL (8.4-25.7); Bilirubin, Total 0.2 mg/dL (0.2-1.2); CK (CPK) 1268 U/L (30-200); Calc. Creatinine Clearance 158 mL/min (70-130); Calcium 7.9 mg/dL (7.8-10.44); Carbon Dioxide 18 mmol/L (22-29); Chloride 104 mmol/L (98-107); Estimated GFR-MDRD Greater than 90; Globulin 2.8 g/dL (2.4-3.5); Glucose 271 mg/dL (70-105); Potassium 4.2 mmol/L (3.5-5.1); Protein, Total 5.7 g/dL (6.0-8.3); Sodium 132 mmol/L (136-145)
[2019-08-03] MEDS: Lactated Ringer's 1,000 ML IV SCH (04:32)
[2019-08-03] MEDS: Insulin Regular 300 UNITS/3 ML VIAL SC PRN ×5 (04:34→21:45)
[2019-08-03] MEDS: HYDROcodone/Acetaminophen 5/325 mg Tablet PO PRN (05:53)
[2019-08-03] MEDS: Famotidine 20 MG TAB PO SCH ×2 (08:52→21:23)
[2019-08-03] MEDS: Gabapentin 300 MG CAP PO SCH ×3 (08:52→21:22)
[2019-08-03] MEDS: Polyethylene Glycol 3350 17 GM Packet PO SCH (08:52)
[2019-08-03] MEDS: Senokot S 8.6-50 MG TAB PO SCH ×2 (08:52→21:28)
[2019-08-03] MEDS: Morphine 2 MG/ML SYRINGE SLOW IVP PRN ×3 (08:53→21:43)
[2019-08-03] MEDS ORDERED: Heparin 25,000 units/D5W 500 ML IV SCH (09:30)
[2019-08-03] MEDS: Heparin 10,000 UNITS/ 10 ML VIAL SLOW IVP SCH ×2 (09:45→14:56)
[2019-08-03] MEDS: Insulin Glargine 10 UNITS in Pre-Filled Syringe 1 EACH SC SCH (11:03)
--- NOTE | 2019-08-03 13:06 | OP ---
DATE OF PROCEDURE: 08/02/2019 PREOPERATIVE DIAGNOSIS: Severe ischemia of right lower extremity. PROCEDURE PERFORMED: Right femoral artery exploration and embolectomy. ANESTHESIA: General. ESTIMATED BLOOD LOSS: 250 mL. FINDINGS: The patient had no pulse in the femoral artery upon opening the groin. Subsequently, the patient was found to have embolic material in the common femoral artery, the profunda femoral artery, and the superficial femoral artery. DESCRIPTION OF PROCEDURE: After general anesthesia had been obtained, the patient was prepped and draped. Incision made in the groin and carried down probably about 4 to 5 cm to the common femoral artery, which was dissected out. There were two profunda branches coming off the common trunk, one going more posteriorly and one more going caudally. The superficial femoral artery was also soft and all vessels were controlled with loops. Arteriotomy was then performed from the common femoral onto the origin of the superficial femoral. Embolic material was removed and sent for permanent section. There was excellent flow from the iliac artery after removing embolic material, and the Fito was passed up there without any further retrieval of material. It was then passed down the superficial femoral, where some embolic material was removed and there was slow retrograde filling. The profunda femoral had a significant plug of embolic material, which was removed, and the posterior branch had vigorous backbleeding. The caudal branch had less impressive backbleeding and multiple passes with the catheter revealed only a small amount of embolic material. About 10 mg of tPA was then instilled in the superficial femoral artery and the profunda femoral branches while the arteriotomy was reapproximated with a double layer of 6-0 Prolene suture. Prior to completing the suture line, flow was restored down the profunda branches and then the superficial femoral artery. The patient was on a continuous heparin drip and did receive 5000 units of heparin during the case. The wounds were then irrigated and closed in layers. At that point, there was no palpable femoral pulse and Doppler demonstrated no flow in the groin. The incision was then opened and the femoral artery had an excellent pulse, and a different Doppler was then obtained showing triphasic flow in the profunda branch and monophasic in the superficial femoral artery. The wound was then irrigated and closed in layers. At the conclusion of the procedure, the anterior compartment remained tight and this was felt to be related to anterior compartment syndrome present prior to admission as the patient had a red area over the anterior compartment on admission, and related to that, this had been quite painful the prior 2 days. He had no significant pain over the compartment on admission. Posterior compartment was soft. Job ID: [id number]
--- NOTE | 2019-08-03 14:17 | PDOC.HOSPP ---
- Subjective Encounter Date: 08/03/19 Subjective: His pain is better controlled than yesterday - Objective Vital Signs & Weight: Vital Signs (12 hours) Temp Pulse Resp BP Pulse Ox 08/03/19 11:13 98.1 F 97 18 106/72 94 L 08/03/19 08:52 96 08/03/19 08:18 98.1 F 89 14 118/79 96 08/03/19 07:25 98.3 F 97 16 120/80 96 08/03/19 04:00 98.3 F 15 156/84 H 97 Weight Admit Weight 245 lb 3.2 oz Weight 245 lb 3.2 oz Most Recent Monitor Data Heart Rate from ECG 98 NIBP 119/72 NIBP BP-Mean 87 Respiration from ECG 19 SpO2 97 I&O: 08/02/19 08/03/19 08/04/19 06:59 06:59 06:59 Intake Total 3660.4 Output Total 1455 Balance 2205.4 Result Diagrams: 08/03/19 02:21 08/03/19 02:21 Additional Labs: Accuchecks 08/03/19 08/03/19 08/03/19 13:41 08:37 03:59 POC Glucose 227 H 323 H 246 H 08/03/19 08/02/19 00:13 20:56 POC Glucose 287 H 254 H Hospitalist ROS - Medication Medications: Active Medications Generic Name Dose Route Start Last Admin Trade Name Freq PRN Reason Stop Dose Admin Acetaminophen 650 mg 08/01/19 23:00 08/02/19 12:22 Tylenol PO 650 mg Q4H PRN Administration Headache/Fever/Mild Pain (1-3) Aspirin 81 mg 08/02/19 21:00 08/02/19 23:05 Ecotrin PO 81 mg HS KATHLEEN Administration Atorvastatin Calcium 80 mg 08/02/19 21:00 08/02/19 23:02 Lipitor PO 80 mg HS KATHLEEN Administration Famotidine 20 mg 08/02/19 09:00 08/03/19 08:52 Pepcid PO 20 mg BID KATHLEEN Administration Gabapentin 600 mg 08/02/19 09:00 08/03/19 14:10 Neurontin PO 600 mg TID KATHLEEN Administration Heparin Sodium (Porcine) 0 units 08/03/19 09:45 08/03/19 09:45 Heparin 1,000 Units/Ml (10 Ml) SLOW IVP 4,448 unit ASDIR KATHLEEN Administration Protocol Insulin Glargine 10 units/ 0.1 mls @ 0 mls/hr 08/03/19 09:00 08/03/19 11:03 Miscellaneous Medication SC 0.1 mls QAM KATHLEEN Administration Heparin Sodium/Dextrose 500 mls @ 0 mls/hr 08/03/19 09:30 08/03/19 13:06 Heparin 25,000 Units/D5w IV 08/03/19 17:00 500 mls INF KATHLEEN Administration Protocol As Directed Vancomycin HCl 2 gm/ Sodium 500 mls @ 250 mls/hr 08/03/19 13:00 08/03/19 12: 36 Chloride IVPB 500 mls 0100,1300 KATHLEEN Administration Insulin Human Regular 0 units 08/01/19 23:46 08/03/19 14:10 Humulin R SC 4 units .MODERATE SLIDING SC PRN Administration Moderate Correctional Scale Lisinopril 20 mg 08/02/19 21:00 08/02/19 22:56 Zestril PO 20 mg HS KATHLEEN Administration Morphine Sulfate 2 mg 08/03/19 07:14 08/03/19 08:53 Morphine SLOW IVP 2 mg Q4H PRN Administration Pain Polyethylene Glycol 17 gm 08/03/19 09:00 08/03/19 08:52 Miralax PO Not Given DAILY [facility] Senna/Docusate Sodium 1 tab 08/02/19 09:00 08/03/19 08:52 Senokot S PO 1 tab BID KATHLEEN Administration - Exam General Appearance: NAD ENT: normocephalic atraumatic Neck: supple, no JVD Heart: RRR Respiratory: CTAB Gastrointestinal: soft, non-tender, non-distended, normal bowel sounds Hosp A/P (1) Ischemia of right lower extremity Code(s): I99.8 - OTHER DISORDER OF CIRCULATORY SYSTEM Status: Acute (2) LV (left ventricular) mural thrombus Code(s): I51.3 - INTRACARDIAC THROMBOSIS, NOT ELSEWHERE CLASSIFIED Status: Acute (3) Bacteremia due to Staphylococcus Code(s): R78.81 - BACTEREMIA; B95.8 - UNSP STAPHYLOCOCCUS THE CAUSE OF DISEASES CLASSD ELSWHR Status: Acute - Plan S/P embolectomy. On heparin drip. Transition to eliquis this evening. Morphine for pain. Vancomycin for staph bactremia. Pending sensitivity data.
--- NOTE | 2019-08-03 14:39 | PDOC.CPN ---
- Subjective Date: 08/03/19 Time: 08:30 Interval history: The pt seen and examined. No overnight events. No cardiac complaints. - Objective Allergies/Adverse Reactions: Allergies Allergy/AdvReac Type Severity Reaction Status Date / Time tramadol Allergy Verified 09/28/18 23:44 Visit Medications: Current Medications Acetaminophen (Tylenol) 650 mg PO Q4H PRN PRN Reason: Headache/Fever/Mild Pain (1-3) Last Admin: 08/02/19 12:22 Dose: 650 mg Hydrocodone Bitart/Acetaminophen ([place] 5/325) 2 tab PO Q6HR KATHLEEN Apixaban (Eliquis) 5 mg PO BID [facility] Aspirin (Ecotrin) 81 mg PO HS [facility] Last Admin: 08/02/19 23:05 Dose: 81 mg Atorvastatin Calcium (Lipitor) 80 mg PO HS [facility] Last Admin: 08/02/19 23:02 Dose: 80 mg Bisacodyl (Dulcolax) 10 mg [place] DAILYPRN PRN PRN Reason: Constipation Calcium Carbonate (Tums) 1,000 mg PO Q4H PRN PRN Reason: Heartburn or Indigestion Clonidine (Catapres) 0.1 mg PO Q4H PRN PRN Reason: SBP Greater Than 180 Dextrose/Water (Dextrose 50%) 25 gm SLOW IVP PRN PRN PRN Reason: Hypoglycemia Famotidine (Pepcid) 20 mg PO BID [facility] Last Admin: 08/03/19 08:52 Dose: 20 mg Gabapentin (Neurontin) 600 mg PO TID [facility] Last Admin: 08/03/19 14:10 Dose: 600 mg Glucagon (Glucagon) 1 mg IM PRN PRN PRN Reason: Hypoglycemia Heparin Sodium (Porcine) (Heparin 1,000 Units/Ml (10 Ml)) 0 units SLOW IVP ASDIR [facility]; Protocol Last Admin: 08/03/19 09:45 Dose: 4,448 unit Hydralazine HCl (Apresoline) 10 mg SLOW IVP Q4H PRN PRN Reason: SBP Greater Than 180 Dextrose/Water (D5w) 1,000 mls @ 0 mls/hr IV .Q0M PRN PRN Reason: Hypoglycemia Insulin Glargine 10 units/ (Miscellaneous Medication) 0.1 mls @ 0 mls/hr SC QAM [facility] Last Admin: 08/03/19 11:03 Dose: 0.1 mls Heparin Sodium/Dextrose (Heparin 25,000 Units/D5w) 500 mls @ 0 mls/hr IV INF [facility]; Protocol Stop: 08/03/19 17:00 Last Admin: 08/03/19 13:06 Dose: 500 mls Vancomycin HCl 2 gm/ Sodium (Chloride) 500 mls @ 250 mls/hr IVPB 0100,1300 [facility] Last Admin: 08/03/19 12:36 Dose: 500 mls Insulin Glargine 13 units/ (Miscellaneous Medication) 0.13 mls @ 0 mls/hr SC BID KATHLEEN Insulin Human Regular (Humulin R) 0 units SC .MODERATE SLIDING SC PRN PRN Reason: Moderate Correctional Scale Last Admin: 08/03/19 14:10 Dose: 4 units Insulin Human Regular (Humulin R) 0 units SC .BEDTIME SLIDING SC PRN PRN Reason: Bedtime Correctional Scale Lisinopril (Zestril) 20 mg PO HS [facility] Last Admin: 08/02/19 22:56 Dose: 20 mg Miscellaneous Medication (Pharmacy To Dose) 1 each IVPB PRN PRN PRN Reason: Pharmacy to dose Morphine Sulfate (Morphine) 2 mg SLOW IVP Q4H PRN PRN Reason: Pain Last Admin: 08/03/19 14:27 Dose: 2 mg Nitroglycerin (Nitrostat) 0.4 mg PO Q5MIN PRN PRN Reason: Chest Pain Ondansetron HCl (Zofran) 4 mg IVP Q6H PRN PRN Reason: Nausea/Vomiting Polyethylene Glycol (Miralax) 17 gm PO DAILY [facility] Last Admin: 08/03/19 08:52 Dose: Not Given Senna/Docusate Sodium (Senokot S) 1 tab PO BID [facility] Last Admin: 08/03/19 08:52 Dose: 1 tab Sodium Chloride (Flush - Normal Saline) 10 ml IVF PRN PRN PRN Reason: Saline Flush Vital Signs & Weight: Vital Signs Temp Pulse Resp BP Pulse Ox 08/03/19 11:13 98.1 F 97 18 106/72 94 L 08/03/19 08:52 96 08/03/19 08:18 98.1 F 89 14 118/79 96 08/03/19 07:25 98.3 F 97 16 120/80 96 08/03/19 04:00 98.3 F 15 156/84 H 97 Admit Weight 245 lb 3.2 oz Weight 245 lb 3.2 oz - Physical Exam General: alert & oriented x3 HEENT: mucus membranes moist Neck: supple neck Cardiac: regular rate and rhythm, S1/S2 Lungs: decreased breath sounds - Labs Result Diagrams: 08/03/19 02:21 08/03/19 02:21 Troponin/CKMB Troponin I 0.051 ng/mL (< 0.028) H 08/02/19 05:21 - Assessment/Plan Assessment/Plan: 1. 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 2. Acute on Chronic Systolic HF with EF 25-30% - will start Coreg 3.125mg BID for CHF management; will hold Lisinopril until his VS is more stable; 3. Large Lt ventricular thrombus (3.7x2.3cm) - Eliquis 5mg BID will be started from this PM 4. Ischemia of RLE with s/p Rt Fem artery exploration and embolectomy on 2019 - On Eliquis, ASA and Plavix 5. HTN - stable 6. DM type 2 7. CKD stage 2 8. PVD with s/p stent in RLE and s/p Lt AKA in - on ASA and Plavix 9. hx of PE in 09/2018 10. hyponatremia - slightly better today 11. Staphylococcus Bacteremia - on ABX IV Methamphetamine abuse 12. Obese MAR Reviewed * Echo on 08/02/2019 with EF 25-30%, mild-mod LAE, mild MR and TR, and 3.7x2.3cm thrombus in LV. Pt. seen and eval. I agree with the a/P by the MANAGER [employer]ER[employer] DIRECTOR. Agree with prison OAC. May need to continue heparin for the right lower extremity.Likely embolic disease from the LV. Chest clear. RRR.
[2019-08-03] MEDS: HYDROcodone/Acetaminophen 5/325 mg Tablet PO SCH ×2 (17:16→23:45)
[2019-08-03] MEDS: Carvedilol 3.125 MG TAB PO SCH (17:17)
[2019-08-03] MEDS ORDERED: Insulin Glargine 10 UNITS in Pre-Filled Syringe 1 EACH SC SCH (21:00)
[2019-08-03] MEDS ORDERED: Vancomycin 1 GM in Premix Bag 1 BAG IVPB SCH (21:00)
[2019-08-03] MEDS: Atorvastatin Calcium 40 MG TAB PO SCH (21:21)
[2019-08-03] MEDS: Apixaban 5 MG TAB PO SCH (21:22)
[2019-08-03] MEDS: Insulin Glargine 13 UNITS in Pre-Filled Syringe 1 EACH SC SCH (21:24)
[2019-08-03] MEDS: Aspirin 81 mg Enteric Coated Tablet PO SCH (21:28)
[2019-08-03 23:46] LABS: Hemoglobin 11.8 g/dL (14.0-18.0); Platelet Count 309 thou/uL (130-400)
[2019-08-04 05:54] LABS: Mean Corpuscular HGB CONC 32.9 g/dL (32.0-36.0); Mean Corpuscular Hemoglobin 26.6 pg (27.0-31.0); Mean Corpuscular Volume 80.7 fL (78.0-98.0); Platelet Count 321 thou/uL (130-400); RBC Distribution Width 13.4 % (11.5-14.5); Red Blood Cell (RBC) Count 4.51 mill/uL (4.70-6.10)
[2019-08-04 06:06] LABS: Band 4 % (5-11); Eosinophils 3 % (0-10); Lymphocytes 8 % (21-51); MDiff Complete? YES; Monocytes 11 % (0-10); Neutrophil 74 % (42-75)
[2019-08-04 06:08] LABS: Anion Gap 14 mmol/L (10-20); BUN (Urea Nitrogen) 16 mg/dL (8.4-25.7); Calc. Creatinine Clearance 154 mL/min (70-130); Calcium 8.3 mg/dL (7.8-10.44); Carbon Dioxide 20 mmol/L (22-29); Chloride 105 mmol/L (98-107); Estimated GFR-MDRD Greater than 90; Glucose 247 mg/dL (70-105); Potassium 4.2 mmol/L (3.5-5.1); Sodium 135 mmol/L (136-145)
[2019-08-04] MEDS: HYDROcodone/Acetaminophen 5/325 mg Tablet PO SCH ×4 (06:45→23:53)
[2019-08-04] MEDS: Insulin Regular 300 UNITS/3 ML VIAL SC PRN ×4 (06:52→21:08)
[2019-08-04] MEDS: Apixaban 5 MG TAB PO SCH ×2 (09:09→21:08)
[2019-08-04] MEDS: Carvedilol 3.125 MG TAB PO SCH ×2 (09:09→18:10)
[2019-08-04] MEDS: Senokot S 8.6-50 MG TAB PO SCH ×2 (09:09→21:08)
[2019-08-04] MEDS: Gabapentin 300 MG CAP PO SCH ×3 (09:09→21:08)
[2019-08-04] MEDS: Insulin Glargine 10 UNITS in Pre-Filled Syringe 1 EACH SC SCH (09:09)
[2019-08-04] MEDS: Famotidine 20 MG TAB PO SCH ×2 (09:09→21:08)
[2019-08-04] MEDS: Polyethylene Glycol 3350 17 GM Packet PO SCH (09:09)
[2019-08-04] MEDS: Insulin Glargine 13 UNITS in Pre-Filled Syringe 1 EACH SC SCH (10:39)
--- NOTE | 2019-08-04 11:04 | PDOC.CPN ---
- Subjective Date: 08/04/19 Time: 08:00 Interval history: The pt seen and examined. No overnight events. No cardiac complaints. - Objective Allergies/Adverse Reactions: Allergies Allergy/AdvReac Type Severity Reaction Status Date / Time tramadol Allergy Verified 09/28/18 23:44 Visit Medications: Current Medications Acetaminophen (Tylenol) 650 mg PO Q4H PRN PRN Reason: Headache/Fever/Mild Pain (1-3) Last Admin: 08/02/19 12:22 Dose: 650 mg Hydrocodone Bitart/Acetaminophen ([place] 5/325) 2 tab PO Q6HR [facility] Last Admin: 08/04/19 06:45 Dose: 2 tab Apixaban (Eliquis) 5 mg PO BID [facility] Last Admin: 08/04/19 09:09 Dose: 5 mg Aspirin (Ecotrin) 81 mg PO [facility] Last Admin: 08/03/19 21:28 Dose: 81 mg Atorvastatin Calcium (Lipitor) 80 mg PO [facility] Last Admin: 08/03/19 21:21 Dose: 80 mg Bisacodyl (Dulcolax) 10 mg [place] DAILYPRN PRN PRN Reason: Constipation Calcium Carbonate (Tums) 1,000 mg PO Q4H PRN PRN Reason: Heartburn or Indigestion Carvedilol (Coreg) 3.125 mg PO BID[facility] Last Admin: 08/04/19 09:09 Dose: 3.125 mg Clonidine (Catapres) 0.1 mg PO Q4H PRN PRN Reason: SBP Greater Than 180 Dextrose/Water (Dextrose 50%) 25 gm SLOW IVP PRN PRN PRN Reason: Hypoglycemia Famotidine (Pepcid) 20 mg PO BID [facility] Last Admin: 08/04/19 09:09 Dose: 20 mg Gabapentin (Neurontin) 600 mg PO TID [facility] Last Admin: 08/04/19 09:09 Dose: 600 mg Glucagon (Glucagon) 1 mg IM PRN PRN PRN Reason: Hypoglycemia Hydralazine HCl (Apresoline) 10 mg SLOW IVP Q4H PRN PRN Reason: SBP Greater Than 180 Dextrose/Water (D5w) 1,000 mls @ 0 mls/hr IV .Q0M PRN PRN Reason: Hypoglycemia Vancomycin HCl 2 gm/ Sodium (Chloride) 500 mls @ 250 mls/hr IVPB 0100,1300 [facility] Last Admin: 08/04/19 01:14 Dose: 500 mls Insulin Glargine 13 units/ (Miscellaneous Medication) 0.13 mls @ 0 mls/hr SC BID [facility] Last Admin: 08/04/19 10:39 Dose: 0.03 mls Insulin Human Regular (Humulin R) 0 units SC .MODERATE SLIDING SC PRN PRN Reason: Moderate Correctional Scale Last Admin: 08/04/19 06:52 Dose: 4 units Insulin Human Regular (Humulin R) 0 units SC .BEDTIME SLIDING SC PRN PRN Reason: Bedtime Correctional Scale Last Admin: 08/03/19 21:45 Dose: 3 unit Miscellaneous Medication (Pharmacy To Dose) 1 each IVPB PRN PRN PRN Reason: Pharmacy to dose Morphine Sulfate (Morphine) 2 mg SLOW IVP Q4H PRN PRN Reason: Pain Last Admin: 08/03/19 21:43 Dose: 2 mg Nitroglycerin (Nitrostat) 0.4 mg PO Q5MIN PRN PRN Reason: Chest Pain Ondansetron HCl (Zofran) 4 mg IVP Q6H PRN PRN Reason: Nausea/Vomiting Last Admin: 08/03/19 23:49 Dose: 4 mg Polyethylene Glycol (Miralax) 17 gm PO DAILY [facility] Last Admin: 08/04/19 09:09 Dose: 17 gm Senna/Docusate Sodium (Senokot S) 1 tab PO BID [facility] Last Admin: 08/04/19 09:09 Dose: 1 tab Sodium Chloride (Flush - Normal Saline) 10 ml IVF PRN PRN PRN Reason: Saline Flush Vital Signs & Weight: Vital Signs Temp Pulse Resp BP Pulse Ox 08/04/19 07:10 98 F 98 16 127/89 95 08/04/19 04:48 98.6 F 99 18 119/78 94 L 08/04/19 01:00 94 L 08/03/19 23:59 98.5 F 106 H 18 156/92 H 93 L Admit Weight 245 lb 3.2 oz Weight 245 lb 3.2 oz - Physical Exam General: alert & oriented x3 HEENT: mucus membranes moist Neck: supple neck Cardiac: regular rate and rhythm Lungs: decreased breath sounds Extremities: other: (Lt AKA, Rt toe amputation.) - Labs Result Diagrams: 08/04/19 14:35 08/04/19 04:55 Troponin/CKMB Troponin I 0.051 ng/mL (< 0.028) H 08/02/19 05:21 - Assessment/Plan Assessment/Plan: 1. 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 2. Acute on Chronic Systolic HF with EF 25-30% - will start Coreg 3.125mg BID for CHF management; will hold Lisinopril until his VS is more stable; 3. Large Lt ventricular thrombus (3.7x2.3cm), ? mass. - Eliquis 5mg BID will be started from this PM 4. Ischemia of RLE with s/p Rt Fem artery exploration and embolectomy on 2019 - On Eliquis, ASA and Plavix 5. HTN - stable 6. DM type 2 7. CKD stage 2 8. PVD with s/p stent in RLE and s/p Lt AKA in - on ASA and Plavix 9. hx of PE in 09/2018 10. hyponatremia - slightly better today 11. Staphylococcus Bacteremia - on ABX IV 12. Obese 13.Methamphetamine abuse, positive drug screen this admission. The CMY may be due to prior drug abuse, CAD or idiopathic. MAR Reviewed * Echo on 08/02/2019 with EF 25-30%, mild-mod LAE, mild MR and TR, and 3.7x2.3cm thrombus in LV. Pt. seen and eval. by me. The right leg is painful and has an area that is demarcated on the lat. calf area that is cyanotic. this may be due to decreased perfusion from vascular disease and occlusion or compartment syndrome. The area is firm and tender. I agree with the remainder of the A/P by the MIDDLEWARE ARCHITECT.
--- NOTE | 2019-08-04 11:10 | PDOC.HOSPP ---
- Subjective Encounter Date: 08/04/19 Subjective: No new events - Objective Vital Signs & Weight: Vital Signs (12 hours) Temp Pulse Resp BP Pulse Ox 08/04/19 07:10 98 F 98 16 127/89 95 08/04/19 04:48 98.6 F 99 18 119/78 94 L 08/04/19 01:00 94 L 08/03/19 23:59 98.5 F 106 H 18 156/92 H 93 L Weight Admit Weight 245 lb 3.2 oz Weight 245 lb 3.2 oz Most Recent Monitor Data Heart Rate from ECG 98 NIBP 119/72 NIBP BP-Mean 87 Respiration from ECG 19 SpO2 97 I&O: 08/03/19 08/04/19 08/05/19 06:59 06:59 06:59 Intake Total 3660.4 1500 Output Total 1455 2550 Balance 2205.4 -1050 Result Diagrams: 08/04/19 04:55 08/04/19 04:55 Additional Labs: Accuchecks 08/04/19 08/03/19 08/03/19 04:54 20:24 16:06 POC Glucose 244 H 273 H 341 H 08/03/19 13:41 POC Glucose 227 H Hospitalist ROS - Medication Medications: Active Medications Generic Name Dose Route Start Last Admin Trade Name Freq PRN Reason Stop Dose Admin Acetaminophen 650 mg 08/01/19 23:00 08/02/19 12:22 Tylenol PO 650 mg Q4H PRN Administration Headache/Fever/Mild Pain (1-3) Hydrocodone Bitart/Acetaminophen 2 tab 08/03/19 18:00 08/04/19 06:45 [place] 5/325 PO 2 tab Q6HR KATHLEEN Administration Apixaban 5 mg 08/03/19 21:00 08/04/19 09:09 Eliquis PO 5 mg BID KATHLEEN Administration Aspirin 81 mg 08/02/19 21:00 08/03/19 21:28 Ecotrin PO 81 mg HS KATHLEEN Administration Atorvastatin Calcium 80 mg 08/02/19 21:00 08/03/19 21:21 Lipitor PO 80 mg HS KATHLEEN Administration Carvedilol 3.125 mg 08/03/19 17:00 08/04/19 09:09 Coreg PO 3.125 mg BID-WM KATHLEEN Administration Famotidine 20 mg 08/02/19 09:00 08/04/19 09:09 Pepcid PO 20 mg BID KATHLEEN Administration Gabapentin 600 mg 08/02/19 09:00 08/04/19 09:09 Neurontin PO 600 mg TID KATHLEEN Administration Vancomycin HCl 2 gm/ Sodium 500 mls @ 250 mls/hr 08/03/19 13:00 08/04/19 01: 14 Chloride IVPB 500 mls 0100,1300 KATHLEEN Administration Insulin Glargine 13 units/ 0.13 mls @ 0 mls/hr 08/03/19 21:00 08/04/19 10:39 Miscellaneous Medication SC 0.03 mls BID KATHLEEN Administration Insulin Human Regular 0 units 08/01/19 23:46 08/04/19 06:52 Humulin R SC 4 units .MODERATE SLIDING SC PRN Administration Moderate Correctional Scale Insulin Human Regular 0 units 08/01/19 23:46 08/03/19 21:45 Humulin R SC 3 unit .BEDTIME SLIDING SC PRN Administration Bedtime Correctional Scale Morphine Sulfate 2 mg 08/03/19 07:14 08/03/19 21:43 Morphine SLOW IVP 2 mg Q4H PRN Administration Pain Ondansetron HCl 4 mg 08/01/19 23:00 08/03/19 23:49 Zofran IVP 4 mg Q6H PRN Administration Nausea/Vomiting Polyethylene Glycol 17 gm 08/03/19 09:00 08/04/19 09:09 Miralax PO 17 gm DAILY KATHLEEN Administration Senna/Docusate Sodium 1 tab 08/02/19 09:00 08/04/19 09:09 Senokot S PO 1 tab BID KATHLEEN Administration - Exam General Appearance: awake alert ENT: normocephalic atraumatic Neck: supple, no JVD Heart: RRR Respiratory: CTAB, no wheezes, no rales, no ronchi Gastrointestinal: soft, non-tender, non-distended, normal bowel sounds Hosp A/P (1) Ischemia of right lower extremity Code(s): I99.8 - OTHER DISORDER OF CIRCULATORY SYSTEM Status: Acute (2) LV (left ventricular) mural thrombus Code(s): I51.3 - INTRACARDIAC THROMBOSIS, NOT ELSEWHERE CLASSIFIED Status: Acute (3) Bacteremia due to Staphylococcus Code(s): R78.81 - BACTEREMIA; B95.8 - UNSP STAPHYLOCOCCUS THE CAUSE OF DISEASES CLASSD ELSWHR Status: Acute - Plan S/P embolectomy. On Eliquis. MSSA in the blood. Change Vancomycin to cefazolin. Consult ID. Repeat cuture.
[2019-08-04] MEDS ORDERED: CEFAZOLIN 1 GM in Sodium Chloride 0.9% 100 ML IVPB SCH (14:00)
[2019-08-04 14:49] LABS: Platelet Count 328 thou/uL (130-400)
--- NOTE | 2019-08-04 17:26 | CON ---
DATE OF CONSULTATION: 08/04/2019 REASON FOR CONSULTATION: Bacteremia. 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 The patient was noted from previous echocardiogram to have a left ventricular clot, felt to be secondary to prior CA that had not been identified. At this time, he presented with acute onset of pain, numbness in the right lower extremity, which felt cold to touch. He had been on Eliquis, but had stopped the medication 10 days before the development of these symptoms. He was found to have again the left ventricular thrombus and the impression was that most likely a fragment of the thrombus lodged in the right lower extremity arterial supply causing acute ischemia superimposed on chronic. He underwent procedure by Dr. Cho, which was embolectomy after femoral artery exploration, and the pathology showed reactive lymph node and fragments of thrombus with focal inflammatory change. The original procedure was on August 02, 2019. On the day of admission, 1 out of 2 sets of blood cultures yielded Staphylococcus aureus. The patient is currently complaining of pain in the right lower extremity, which is sort of an intermittent, mostly centered around the distal right thigh and calf. He also has noticed this inflammatory process in the right frontal area right above the right eye or lateral to it actually, close to the temporal skin area right side. He has squeezed this in the past and noticed a purulent exudate emanating from it. He denies headaches. No visual symptoms, sore throat, odynophagia, or dysphagia. No back pain. No shoulder pain. No chest pain. No abdominal pain or diarrhea. No genitourinary symptoms. No dyspnea, cough, or sputum production. No other joint symptoms, except the ones related to the acute ischemia right lower extremity. No neurological symptoms other than the ones related to the ischemic injury to the right lower extremity. PAST MEDICAL HISTORY: Includes type 2 diabetes; left ventricular thrombus; probable CA in the past; bilateral pulmonary embolism in September 2018; peripheral vascular disease and left above the knee amputation in September 2018; methamphetamine use, still current use. He mostly inhales, but does not inject in the vein. PAST SURGICAL HISTORY: Left AKA; stents placed in the right lower extremity in the past; forearm surgery; rotator cuff surgery; transmetatarsal amputation, right foot. ALLERGIES: TRAMADOL. SOCIAL HISTORY: He lives in the area. No smoking, but does use methamphetamine regularly. FAMILY HISTORY: Noncontributory. CURRENT MEDICATIONS: 1. Tylenol. 2. [place]. 3. Eliquis. 4. Aspirin. 5. Lipitor. 6. Dulcolax. 7. Coreg. 8. Cefazolin. 9. Catapres. 10. Pepcid. 11. Glucagon. 12. Insulin. 13. Morphine. 14. MiraLax. PHYSICAL EXAMINATION: VITAL SIGNS: T-max 98.6, blood pressure 130/80, pulse 100, respirations 16, and O2 saturation 95%. SKIN: Shows the mottling livedo reticularis in the right lower extremity all the way to the foot. The transmetatarsal amputation site has an irregular kind of oval shaped wound in the lateral aspect of the transmetatarsal stump with dried, reddish base measuring about 1.5 cm x 0.5. The right side of the catholic has this inflammatory nodule, likely a skin abscess with a central ulcerated area. A sample from this area was submitted for cultures. Peripheral IV access; he has a [place] catheter in place. No lymphadenopathy. HEENT: Ocular movements conjugate. Oral cavity is not remarkable. NECK: Supple. No jugular vein distention. LUNGS: Symmetric. Clear breath sounds. Diminished heart sounds. HEART: S1 and S2, regular rate. No S3 or S4. No murmurs. ABDOMEN: Moderately distended, but not tender. No ascites. No bladder distention. No organomegaly. EXTREMITIES: The right knee is markedly tender, but that includes all the soft tissues around the right knee. I could not feel any popliteal or dorsalis pedis pulses. He moves upper extremities well. His cognitive function appears to be intact. LABORATORY DATA: White cell count is 12.4, now is 14,000; hemoglobin 12; platelets 321 with 74% neutrophils. Sodium 135, creatinine 0.86. Liver profile normal. CK was 1268 and it was 1544 on admission. Urinalysis with 0 to 3 wbc's, 1 out of 2 sets of blood cultures with Staphylococcus aureus, which is methicillin- sensitive. IMAGING STUDIES: Include the echocardiogram and a chest x-ray without any inflammatory changes. ASSESSMENT: 1. Type 2 diabetes; peripheral vascular disease; previous gangrene, left lower extremity, which led to an above the knee amputation, and now acute ischemia of the right lower extremity associated with embolism from the left ventricle, which is known to have a thrombus. 2. Methicillin-sensitive Staphylococcus aureus bacteremia, which appears to be transient, 1 out of 2 sets. 3. Skin abscess right forehead/temporal area skin. DISCUSSION: Differential diagnosis includes transient bacteremia from the abscess in the right forehead skin versus an operative site infection that is less likely since he was present on admission. Possibility of endocarditis is less likely since this is not a continuous bacteremia. No other sites of involvement are apparent at this time , and we will continue cefazolin. The dose will be upgraded to 2 g q.8. He is at risk for amputation of the right lower extremity at the AKA level, and we will have to follow closely. The right femoral access site for the embolectomy appears to be clinically well at this moment. Will submit culture swab from cutaneous abscess. Job ID: [id number] [facility]
[2019-08-04] MEDS: Insulin Glargine 15 UNITS in Pre-Filled Syringe 1 EACH SC SCH (21:07)
[2019-08-04] MEDS: Atorvastatin Calcium 40 MG TAB PO SCH (21:08)
[2019-08-04] MEDS: Aspirin 81 mg Enteric Coated Tablet PO SCH (21:08)
[2019-08-04] MEDS: Morphine 2 MG/ML SYRINGE SLOW IVP PRN (21:08)
[2019-08-04] MEDS: CEFAZOLIN 2 GM in Premix Bag 1 BAG IVPB SCH (21:26)
[2019-08-05] MEDS: Morphine 2 MG/ML SYRINGE SLOW IVP PRN ×4 (03:24→20:38)
[2019-08-05] MEDS: HYDROcodone/Acetaminophen 5/325 mg Tablet PO SCH ×3 (05:25→18:08)
[2019-08-05] MEDS: CEFAZOLIN 2 GM in Premix Bag 1 BAG IVPB SCH ×3 (05:25→21:25)
[2019-08-05 06:15] LABS: Anion Gap 17 mmol/L (10-20); BUN (Urea Nitrogen) 15 mg/dL (8.4-25.7); Calc. Creatinine Clearance 166 mL/min (70-130); Calcium 8.6 mg/dL (7.8-10.44); Carbon Dioxide 19 mmol/L (22-29); Chloride 101 mmol/L (98-107); Estimated GFR-MDRD Greater than 90; Glucose 248 mg/dL (70-105); Potassium 4.5 mmol/L (3.5-5.1); Sodium 132 mmol/L (136-145)
[2019-08-05 08:29] LABS: Band 6 % (5-11); Eosinophils 2 % (0-10); Lymphocytes 15 % (21-51); Monocytes 4 % (0-10); Neutrophil 73 % (42-75)
[2019-08-05 08:41] LABS: Hemoglobin 11.5 g/dL (14.0-18.0); Mean Corpuscular Hemoglobin 25.8 pg (27.0-31.0); Mean Corpuscular Volume 80.7 fL (78.0-98.0); Platelet Count 320 thou/uL (130-400); RBC Distribution Width 13.4 % (11.5-14.5); Red Blood Cell (RBC) Count 4.46 mill/uL (4.70-6.10); White Blood Cell (WBC) Count 19.2 thou/uL (4.8-10.8)
[2019-08-05 08:42] LABS: MDiff Complete? YES
[2019-08-05] MEDS: Gabapentin 300 MG CAP PO SCH ×3 (09:19→20:47)
[2019-08-05] MEDS: Famotidine 20 MG TAB PO SCH ×2 (09:19→20:48)
[2019-08-05] MEDS: Carvedilol 3.125 MG TAB PO SCH ×2 (09:19→18:09)
[2019-08-05] MEDS: Apixaban 5 MG TAB PO SCH ×2 (09:19→20:47)
[2019-08-05] MEDS: Polyethylene Glycol 3350 17 GM Packet PO SCH (09:20)
[2019-08-05] MEDS: Senokot S 8.6-50 MG TAB PO SCH ×2 (09:20→20:48)
--- NOTE | 2019-08-05 10:41 | PDOC.HOSPP ---
- Subjective Encounter Date: 08/05/19 Subjective: The patient complaining of RLE pain. He is receiving [place] and Morphine. No BM since admission. - Objective Vital Signs & Weight: Vital Signs (12 hours) Temp Pulse Resp BP Pulse Ox 08/05/19 08:29 98 F 95 18 123/79 95 08/05/19 04:10 98.7 F 97 16 133/86 95 08/04/19 23:29 99.4 F 100 16 130/88 95 Weight Admit Weight 245 lb 3.2 oz Weight 245 lb 3.2 oz Most Recent Monitor Data Heart Rate from ECG 98 NIBP 119/72 NIBP BP-Mean 87 Respiration from ECG 19 SpO2 97 I&O: 08/04/19 08/05/19 08/06/19 06:59 06:59 06:59 Intake Total 1500 2260 Output Total 2550 2400 Balance -1050 -140 Result Diagrams: 08/05/19 05:42 08/05/19 05:42 Additional Labs: Accuchecks 08/05/19 08/04/19 08/04/19 05:49 19:39 17:11 POC Glucose 292 H 274 H 279 H 08/04/19 11:30 POC Glucose 321 H Hospitalist ROS - Medication Medications: Active Medications Generic Name Dose Route Start Last Admin Trade Name Freq PRN Reason Stop Dose Admin Acetaminophen 650 mg 08/01/19 23:00 08/02/19 12:22 Tylenol PO 650 mg Q4H PRN Administration Headache/Fever/Mild Pain (1-3) Hydrocodone Bitart/Acetaminophen 2 tab 08/03/19 18:00 08/05/19 05:25 [place] 5/325 PO 2 tab Q6HR KATHLEEN Administration Apixaban 5 mg 08/03/19 21:00 08/05/19 09:19 Eliquis PO 5 mg BID KATHLEEN Administration Aspirin 81 mg 08/02/19 21:00 08/04/19 21:08 Ecotrin PO 81 mg HS KATHLEEN Administration Atorvastatin Calcium 80 mg 08/02/19 21:00 08/04/19 21:08 Lipitor PO 80 mg HS KATHLEEN Administration Carvedilol 3.125 mg 08/03/19 17:00 08/05/19 09:19 Coreg PO 3.125 mg BID-WM KATHLEEN Administration Famotidine 20 mg 08/02/19 09:00 08/05/19 09:19 Pepcid PO 20 mg BID KATHLEEN Administration Gabapentin 600 mg 08/02/19 09:00 08/05/19 09:19 Neurontin PO 600 mg TID KATHLEEN Administration Insulin Glargine 15 units/ 0.15 mls @ 0 mls/hr 08/04/19 21:00 08/04/19 21:07 Miscellaneous Medication SC 0.15 mls BID KATHLEEN Administration Cefazolin Sodium/Dextrose 2 gm 50 mls @ 100 mls/hr 08/04/19 22:00 08/05/19 05 :25 / Device IVPB 50 mls Q8HR KATHLEEN Administration Insulin Human Regular 0 units 08/01/19 23:46 08/04/19 18:12 Humulin R SC 6 units .MODERATE SLIDING SC PRN Administration Moderate Correctional Scale Insulin Human Regular 0 units 08/01/19 23:46 08/04/19 21:08 Humulin R SC 3 unit .BEDTIME SLIDING SC PRN Administration Bedtime Correctional Scale Morphine Sulfate 2 mg 08/03/19 07:14 08/05/19 09:18 Morphine SLOW IVP 2 mg Q4H PRN Administration Pain Ondansetron HCl 4 mg 08/01/19 23:00 08/03/19 23:49 Zofran IVP 4 mg Q6H PRN Administration Nausea/Vomiting Polyethylene Glycol 17 gm 08/03/19 09:00 08/05/19 09:20 Miralax PO Not Given DAILY [facility] Senna/Docusate Sodium 1 tab 08/02/19 09:00 08/05/19 09:20 Senokot S PO Not Given BID [facility] - Exam General Appearance: awake alert ENT: normocephalic atraumatic Neck: supple, no JVD Heart: RRR Respiratory: CTAB Gastrointestinal: soft, non-tender, normal bowel sounds, distended Hosp A/P (1) Ischemia of right lower extremity Code(s): I99.8 - OTHER DISORDER OF CIRCULATORY SYSTEM Status: Acute (2) LV (left ventricular) mural thrombus Code(s): I51.3 - INTRACARDIAC THROMBOSIS, NOT ELSEWHERE CLASSIFIED Status: Acute (3) Bacteremia due to Staphylococcus Code(s): R78.81 - BACTEREMIA; B95.8 - UNSP STAPHYLOCOCCUS THE CAUSE OF DISEASES CLASSD ELSWHR Status: Acute (4) Constipation Code(s): K59.00 - CONSTIPATION, UNSPECIFIED Status: Acute - Plan S/P embolectomy. On Eliquis. MSSA in the blood likely transient due to surgery vs from small facial abcess which was drained. Continue Cefazolin per ID. Continue [place] and morphine for pain. Miralax and dulcolax for constipation. PT and OT eval. Pending rehab placement.
[2019-08-05] MEDS: Insulin Glargine 15 UNITS in Pre-Filled Syringe 1 EACH SC SCH ×2 (10:46→21:25)
[2019-08-05] MEDS: HumaLOG 300 UNITS/3 ML VIAL SC SCH ×2 (12:17→18:09)
[2019-08-05] MEDS: Insulin Regular 300 UNITS/3 ML VIAL SC PRN ×3 (12:18→21:28)
--- NOTE | 2019-08-05 12:27 | PQF ---
CLINICAL DOCUMENTATION IMPROVEMENT CLARIFICATION FORM: ICD-10 Updated PLEASE DO AN ADDENDUM TO THE PROGRESS NOTE WITH ANY DOCUMENTATION UPDATES OR ADDITIONS AND CARRY THROUGH TO DC SUMMARY. THANK YOU. DATE: 08/05/2019 ATTN: Dr. Madrid Please exercise your independent, professional judgment in responding to the clarification form. Clinical indicators are provided on the bottom of this form for your review Please check appropriate box(es): [ >] Sepsis present on admission [ ] Sepsis NOT present on admission [ ] Unable to determine Due to Methicillin-sensitive Staphylococcus aureus bacteremia [ ] Sepsis present on admission [ ] Sepsis NOT present on admission [ ] Unable to determine Due to other: [ ] SIRS due to non-infectious process (please specify etiology) ____ [ ] with organ dysfunction [ ] without organ dysfunction [ ] Localized infection without sepsis [ ] Other diagnosis [ ] Unable to determine For continuity of documentation, please document condition throughout progress notes and discharge summary. Thank You. CLINICAL INDICATORS - SIGNS / SYMPTOMS / LABS / RESULTS AND LOCATION IN MR ER RECORD 07/31: VS: BP 167/104, Pulse 109. Resp 19, Temp 97.8 Diagnosis: Arterial occlusion of R LE. Additional: Sepsis H&P 07/31: SKIN: A small, approximately 1.5 x 1.5 cm abscess of the right orthodoxy noted with fluctuance. LAB: WBC 14.9 Lactic acid 2.0 Impression: Systemic inflammatory response syndrome, probably 2/2 to R LE ischemia due to r common femoral artery/ r internal iliac artery occlusion. 08/03 (Marlyn) On the day of admission, 1 out of 2 sets of blood cultures yielded Staphylococcus aureus. Assessment: Methicillin-sensitive Staphylococcus aureus bacteremia, which appears transient, 1 out of 2 sets. Discussion: Differential diagnosis includes transient bacteremia from the abscess in the right forehead skin versus an operative site infection that is less likely since he was present on admission. 08/04 (eMrcy) A/P Bacteremia due to Staphylococcus. Plan: MSSA in the blood likely transient due to surgery vs from small facial abcess which was drained. RISKS: H&P 07/31: PMH: PVD, s/p L AKA in September 2018. HTN: DM 2; Methamphetamine abuse. SKIN: A small, approximately 1.5 x 1.5 cm abscess of the right orthodoxy noted with fluctuance. PN 08/02 (Kelvingiuseppedavid) Bacteremia due to Staphylococcus TREATMENT: ID Consult 08/03 MAR: Order 08/02 -08/03: Vancomycin 2 gm IV. MAR: Order 08/03: Ancef 2 gm IV q 8 hr Thank you, Jessenia (This form is maintained as a part of the permanent medical record) 2015 [employer]. All Rights Reserved Jessenia Mccabe RN, BSN [email or web address] [facility]
[2019-08-05] MEDS: Aspirin 81 mg Enteric Coated Tablet PO SCH (20:47)
[2019-08-05] MEDS: Atorvastatin Calcium 40 MG TAB PO SCH (20:48)
[2019-08-05] MEDS: Acetaminophen 325 MG TAB PO PRN (21:27)
[2019-08-06] MEDS: HYDROcodone/Acetaminophen 5/325 mg Tablet PO SCH ×2 (00:01→06:00)
[2019-08-06] MEDS: Morphine 2 MG/ML SYRINGE SLOW IVP PRN ×3 (01:04→07:40)
[2019-08-06 05:14] LABS: Band 6 % (5-11); Eosinophils 2 % (0-10); Hemoglobin 11.2 g/dL (14.0-18.0); Lymphocytes 10 % (21-51); MDiff Complete? YES; Mean Corpuscular HGB CONC 33.8 g/dL (32.0-36.0); Mean Platelet Volume 7.9 fL (7.4-10.4); Monocytes 6 % (0-10); Neutrophil 76 % (42-75); Platelet Count 342 thou/uL (130-400); RBC Distribution Width 13.2 % (11.5-14.5); Red Blood Cell (RBC) Count 4.15 mill/uL (4.70-6.10); White Blood Cell (WBC) Count 17.7 thou/uL (4.8-10.8)
[2019-08-06 05:28] LABS: Anion Gap 14 mmol/L (10-20); BUN (Urea Nitrogen) 14 mg/dL (8.4-25.7); Calc. Creatinine Clearance 175 mL/min (70-130); Calcium 8.6 mg/dL (7.8-10.44); Carbon Dioxide 23 mmol/L (22-29); Chloride 99 mmol/L (98-107); Estimated GFR-MDRD Greater than 90; Glucose 192 mg/dL (70-105); Potassium 4.6 mmol/L (3.5-5.1); Sodium 131 mmol/L (136-145)
[2019-08-06] MEDS: CEFAZOLIN 2 GM in Premix Bag 1 BAG IVPB SCH ×3 (06:01→21:33)
[2019-08-06] MEDS: HumaLOG 300 UNITS/3 ML VIAL SC SCH ×3 (06:02→17:31)
[2019-08-06] MEDS: Carvedilol 3.125 MG TAB PO SCH ×2 (07:46→17:31)
[2019-08-06] MEDS: Gabapentin 300 MG CAP PO SCH ×3 (07:46→21:29)
[2019-08-06] MEDS: Polyethylene Glycol 3350 17 GM Packet PO SCH (07:46)
[2019-08-06] MEDS: Senokot S 8.6-50 MG TAB PO SCH ×2 (07:47→21:30)
[2019-08-06] MEDS: Famotidine 20 MG TAB PO SCH ×2 (07:47→21:30)
[2019-08-06] MEDS: Apixaban 5 MG TAB PO SCH (07:47)
[2019-08-06] MEDS: Insulin Glargine 15 UNITS in Pre-Filled Syringe 1 EACH SC SCH ×2 (09:49→21:29)
[2019-08-06] MEDS ORDERED: oxyCODONE/Acetaminophen 5 mg/325 mg Tablet PO PRN (10:25)
[2019-08-06] MEDS: Morphine 4 MG/ML VIAL SLOW IVP PRN ×5 (10:48→23:29)
--- NOTE | 2019-08-06 10:49 | PDOC.HOSPP ---
- Subjective Encounter Date: 08/06/19 Subjective: The patient started to work with PT today. Complained of worsening of his pain after physical therapy today. - Objective Vital Signs & Weight: Vital Signs (12 hours) Temp Pulse Resp BP Pulse Ox 08/06/19 07:30 99.4 F 91 16 133/82 98 08/06/19 03:02 97 Weight Admit Weight 245 lb 3.2 oz Weight 245 lb 3.2 oz Most Recent Monitor Data Heart Rate from ECG 98 NIBP 119/72 NIBP BP-Mean 87 Respiration from ECG 19 SpO2 97 I&O: 08/05/19 08/06/19 08/07/19 06:59 06:59 06:59 Intake Total 2260 800 Output Total 2400 3000 Balance -140 -2200 Result Diagrams: 08/06/19 04:50 08/06/19 04:50 Additional Labs: Accuchecks 08/05/19 08/05/19 08/05/19 21:28 15:54 12:10 POC Glucose 327 H 289 H 299 H Hospitalist ROS - Review of Systems Constitutional: denies: fever, chills Respiratory: denies: cough, shortness of breath Cardiovascular: denies: chest pain Gastrointestinal: denies: nausea, vomiting, abdominal pain - Medication Medications: Active Medications Generic Name Dose Route Start Last Admin Trade Name Jean Carlosq PRN Reason Stop Dose Admin Acetaminophen 650 mg 08/01/19 23:00 08/05/19 21:27 Tylenol PO 650 mg Q4H PRN Administration Headache/Fever/Mild Pain (1-3) Aspirin 81 mg 08/02/19 21:00 08/05/19 20:47 Ecotrin PO 81 mg HS KATHLEEN Administration Atorvastatin Calcium 80 mg 08/02/19 21:00 08/05/19 20:48 Lipitor PO 80 mg HS KATHLEEN Administration Carvedilol 3.125 mg 08/03/19 17:00 08/06/19 07:46 Coreg PO 3.125 mg BID-WM KATHLEEN Administration Famotidine 20 mg 08/02/19 09:00 08/06/19 07:47 Pepcid PO 20 mg BID KATHLEEN Administration Gabapentin 600 mg 08/02/19 09:00 08/06/19 07:46 Neurontin PO 600 mg TID KATHLEEN Administration Insulin Glargine 15 units/ 0.15 mls @ 0 mls/hr 08/04/19 21:00 08/06/19 09:49 Miscellaneous Medication SC 0.15 mls BID KATHLEEN Administration Cefazolin Sodium/Dextrose 2 gm 50 mls @ 100 mls/hr 08/04/19 22:00 08/06/19 06 :01 / Device IVPB 50 mls Q8HR KATHLEEN Administration Insulin Human Lispro 5 units 08/05/19 11:30 08/06/19 06:02 Humalog SC 5 unit AC KATHLEEN Administration Insulin Human Regular 0 units 08/01/19 23:46 08/05/19 18:10 Humulin R SC 6 units .MODERATE SLIDING SC PRN Administration Moderate Correctional Scale Insulin Human Regular 0 units 08/01/19 23:46 08/05/19 21:28 Humulin R SC 4 unit .BEDTIME SLIDING SC PRN Administration Bedtime Correctional Scale Ondansetron HCl 4 mg 08/01/19 23:00 08/03/19 23:49 Zofran IVP 4 mg Q6H PRN Administration Nausea/Vomiting Polyethylene Glycol 17 gm 08/03/19 09:00 08/06/19 07:46 Miralax PO 17 gm DAILY KATHLEEN Administration Senna/Docusate Sodium 1 tab 08/02/19 09:00 08/06/19 07:47 Senokot S PO 1 tab BID KATHLEEN Administration - Exam General Appearance: NAD, awake alert ENT: normocephalic atraumatic Neck: supple, no JVD Heart: normal peripheral pulses Respiratory: normal chest expansion, no tachypnea Gastrointestinal: soft Neurological: cranial nerve grossly intact Hosp A/P (1) Ischemia of right lower extremity Code(s): I99.8 - OTHER DISORDER OF CIRCULATORY SYSTEM Status: Acute (2) LV (left ventricular) mural thrombus Code(s): I51.3 - INTRACARDIAC THROMBOSIS, NOT ELSEWHERE CLASSIFIED Status: Acute (3) Bacteremia due to Staphylococcus Code(s): R78.81 - BACTEREMIA; B95.8 - UNSP STAPHYLOCOCCUS THE CAUSE OF DISEASES CLASSD ELSWHR Status: Acute (4) Constipation Code(s): K59.00 - CONSTIPATION, UNSPECIFIED Status: Acute - Plan Limb ischemia on the right LE due to embolic event related to LV thrombus. S/P embolectomy. On Eliquis. No evedince of bleeding. MSSA in the blood likely transient due to surgery vs from small facial abcess which was drained. Continue Cefazolin per ID. Continue [place] and morphine for pain. Anesthesiology consulted for pain management. Miralax and dulcolax for constipation. PT and OT eval. Pending rehab placement.
[2019-08-06] MEDS: Insulin Regular 300 UNITS/3 ML VIAL SC PRN ×2 (10:59→17:39)
[2019-08-06] MEDS: oxyCODONE/Acetaminophen 5 mg/325 mg Tablet PO PRN ×2 (17:30→21:33)
--- NOTE | 2019-08-06 17:48 | PRG ---
DATE OF SERVICE: 08/06/2019 SUBJECTIVE: Mr. Mo is still having quite a bit of pain in the right lower extremity, centered around the calf in the area surrounding the right knee. He still has a [place] catheter. He does not have any respiratory symptoms. No vomiting or abdominal pain. OBJECTIVE: VITAL SIGNS: T-max is 99.4, blood pressure 130/80, pulse 94, respirations 18, and O2 saturation 98%. The right leg still with mottling and livedo reticularis. Still cool to touch and with marked tenderness in the calf and the area surrounding the right knee. The patient has a [place] catheter. HEENT: Ocular movements conjugate. LUNGS: With clear breath sounds. HEART: S1 and S2, regular rate. ABDOMEN: Soft, not tender. No bladder distention. NEURO: Nonfocal. LABORATORY DATA: White cell count 17.7, hemoglobin 11, platelets 342 and creatinine 0.76. CK was 1200. Microbiology with only one set of blood cultures positive for Staphylococcus aureus. 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 The patient had an embolectomy by Dr. Cho, and now is in the surgical floor. He also had methicillin-sensitive Staphylococcus aureus bacteremia, one out of three sets, which could be from the right forehead or from the area of acute ischemia where he has an ulcer. Endocarditis is less likely. No other sites of involvement are apparent at this time and the patient will continue with cefazolin. We will go ahead and order a PICC line. He will need a total of 2 weeks of IV cefazolin followed by transition to oral Keflex for another 2 weeks. The patient is still at risk for losing the right leg at the AKA level and that is unfortunately the more likely scenario at this point in time. Job ID: [id number] [facility]
[2019-08-06] MEDS: Atorvastatin Calcium 40 MG TAB PO SCH (21:29)
[2019-08-06] MEDS: Aspirin 81 mg Enteric Coated Tablet PO SCH (21:30)
[2019-08-07] MEDS: Morphine 4 MG/ML VIAL SLOW IVP PRN ×5 (02:01→16:37)
[2019-08-07] MEDS: CEFAZOLIN 2 GM in Premix Bag 1 BAG IVPB SCH ×3 (05:00→22:09)
[2019-08-07 06:21] LABS: Anion Gap 18 mmol/L (10-20); BUN (Urea Nitrogen) 15 mg/dL (8.4-25.7); Calc. Creatinine Clearance 149 mL/min (70-130); Calcium 9.5 mg/dL (7.8-10.44); Carbon Dioxide 23 mmol/L (22-29); Chloride 96 mmol/L (98-107); Estimated GFR-MDRD 89; Glucose 223 mg/dL (70-105); Potassium 4.7 mmol/L (3.5-5.1); Sodium 132 mmol/L (136-145)
[2019-08-07 06:27] LABS: Band 14 % (5-11); Hemoglobin 12.2 g/dL (14.0-18.0); Lymphocytes 13 % (21-51); MDiff Complete? YES; Mean Corpuscular HGB CONC 29.3 g/dL (32.0-36.0); Mean Corpuscular Hemoglobin 23.4 pg (27.0-31.0); Mean Corpuscular Volume 79.9 fL (78.0-98.0); Monocytes 9 % (0-10); Neutrophil 64 % (42-75); Platelet Count 495 thou/uL (130-400); RBC Distribution Width 13.3 % (11.5-14.5); RBC Morphology Normal; White Blood Cell (WBC) Count 16.9 thou/uL (4.8-10.8)
[2019-08-07] MEDS: HumaLOG 300 UNITS/3 ML VIAL SC SCH ×3 (06:31→16:39)
--- NOTE | 2019-08-07 06:45 | PRG ---
DATE OF SERVICE: 08/07/2019 The patient's vital signs are good with a blood pressure in the 120 to 130 range, heart rate in the 90 range. His hemoglobin is stable. White count is 17,000. His sugars remain poorly controlled in the 200 to 300 range, even though, his A1c on admission was 5.3. Creatinine is satisfactory. The patient's main complaint is intermittent pain just above the knee, which has been present since his femoral embolectomy. Initially, this was thought to possibly due to neuropathy from his surgery. However, this really not responded to gabapentin. He is not really complaining of too much pain in the lower leg and has actually can bear weight on it to some degree. On examination, he still has some capillary refill and his heel dressing in place over his non-healed transmetatarsal site. He has some tenderness to palpation in the region of the suprapatellar area just medial to this. It is firm. At this time, the patient is still not interested in amputation and is being maintained on anticoagulation in anticipation of going to a alf unit soon. Ultimately, he will require [id number] amputation when he is ready to proceed with this. I am not certain the etiology of his pain in the knee, but he appears to have adequate circulation in the thigh. He can be switched back from his Lovenox to his Eliquis with anticipation that the Eliquis can be stopped whenever is deemed that an amputation is appropriate. Job ID: [id number]
[2019-08-07] MEDS: Polyethylene Glycol 3350 17 GM Packet PO SCH (07:52)
[2019-08-07] MEDS: Gabapentin 300 MG CAP PO SCH ×3 (07:52→20:31)
[2019-08-07] MEDS: Famotidine 20 MG TAB PO SCH ×2 (07:52→20:31)
[2019-08-07] MEDS: Carvedilol 3.125 MG TAB PO SCH ×2 (07:53→16:39)
[2019-08-07] MEDS: Insulin Glargine 15 UNITS in Pre-Filled Syringe 1 EACH SC SCH (07:53)
[2019-08-07] MEDS: Senokot S 8.6-50 MG TAB PO SCH ×2 (07:53→20:31)
[2019-08-07] MEDS: oxyCODONE/Acetaminophen 5 mg/325 mg Tablet PO PRN (08:37)
[2019-08-07] MEDS ORDERED: Enoxaparin Sodium 60 MG/0.6 ML SYRINGE SC SCH (09:00)
--- NOTE | 2019-08-07 10:58 | PDOC.CPN ---
- Subjective Date: 08/07/19 Time: 11:05 Interval history: The pt seen and examined. No overnight events. No cardiac complaints. - Objective Allergies/Adverse Reactions: Allergies Allergy/AdvReac Type Severity Reaction Status Date / Time tramadol Allergy Verified 09/28/18 23:44 Visit Medications: Current Medications Acetaminophen (Tylenol) 650 mg PO Q4H PRN PRN Reason: Headache/Fever/Mild Pain (1-3) Last Admin: 08/05/19 21:27 Dose: 650 mg Aspirin (Ecotrin) 81 mg PO [facility] Last Admin: 08/06/19 21:30 Dose: 81 mg Atorvastatin Calcium (Lipitor) 80 mg PO HS [facility] Last Admin: 08/06/19 21:29 Dose: 80 mg Bisacodyl (Dulcolax) 10 mg [place] DAILYPRN PRN PRN Reason: Constipation Calcium Carbonate (Tums) 1,000 mg PO Q4H PRN PRN Reason: Heartburn or Indigestion Carvedilol (Coreg) 3.125 mg PO BID-[facility] Last Admin: 08/07/19 07:53 Dose: 3.125 mg Clonidine (Catapres) 0.1 mg PO Q4H PRN PRN Reason: SBP Greater Than 180 Dextrose/Water (Dextrose 50%) 25 gm SLOW IVP PRN PRN PRN Reason: Hypoglycemia Enoxaparin Sodium (Lovenox) 100 mg SC 0900,2100 [facility] Enoxaparin Sodium (Lovenox) 60 mg SC 0900 [facility] Stop: 08/07/19 11:00 Famotidine (Pepcid) 20 mg PO BID [facility] Last Admin: 08/07/19 07:52 Dose: 20 mg Gabapentin (Neurontin) 600 mg PO TID [facility] Last Admin: 08/07/19 07:52 Dose: 600 mg Glucagon (Glucagon) 1 mg IM PRN PRN PRN Reason: Hypoglycemia Hydralazine HCl (Apresoline) 10 mg SLOW IVP Q4H PRN PRN Reason: SBP Greater Than 180 Dextrose/Water (D5w) 1,000 mls @ 0 mls/hr IV .Q0M PRN PRN Reason: Hypoglycemia Cefazolin Sodium/Dextrose 2 gm (/ Device) 50 mls @ 100 mls/hr IVPB Q8HR [facility] Last Admin: 08/07/19 05:00 Dose: 50 mls Insulin Glargine 18 units/ (Miscellaneous Medication) 0.18 mls @ 0 mls/hr SC BID [facility] Insulin Human Lispro (Humalog) 5 units SC AC [facility] Last Admin: 08/07/19 06:31 Dose: 5 unit Insulin Human Regular (Humulin R) 0 units SC .MODERATE SLIDING SC PRN PRN Reason: Moderate Correctional Scale Last Admin: 08/06/19 17:39 Dose: 4 units Insulin Human Regular (Humulin R) 0 units SC .BEDTIME SLIDING SC PRN PRN Reason: Bedtime Correctional Scale Last Admin: 08/05/19 21:28 Dose: 4 unit Morphine Sulfate (Morphine) 4 mg SLOW IVP Q2H PRN PRN Reason: Breakthrough Pain Last Admin: 08/07/19 07:53 Dose: 4 mg Nitroglycerin (Nitrostat) 0.4 mg PO Q5MIN PRN PRN Reason: Chest Pain Ondansetron HCl (Zofran) 4 mg IVP Q6H PRN PRN Reason: Nausea/Vomiting Last Admin: 08/03/19 23:49 Dose: 4 mg Oxycodone/Acetaminophen (Percocet 5/325) 1 tab PO Q4H PRN PRN Reason: Moderate Pain (4-6) Oxycodone/Acetaminophen (Percocet 5/325) 2 tab PO Q4H PRN PRN Reason: Severe Pain (7-10) Last Admin: 08/07/19 08:37 Dose: 2 tab Polyethylene Glycol (Miralax) 17 gm PO DAILY [facility] Last Admin: 08/07/19 07:52 Dose: 17 gm Senna/Docusate Sodium (Senokot S) 1 tab PO BID [facility] Last Admin: 08/07/19 07:53 Dose: 1 tab Sodium Chloride (Flush - Normal Saline) 10 ml IVF PRN PRN PRN Reason: Saline Flush Last Admin: 08/06/19 10:53 Dose: 10 ml Vital Signs & Weight: Vital Signs Temp Pulse Resp BP BP Pulse Ox 08/07/19 07:42 99.2 F 95 14 130/87 98 08/07/19 03:00 99 08/07/19 00:00 91 18 123/78 08/06/19 23:25 98 F 91 18 123/78 100 Admit Weight 245 lb 3.2 oz Weight 245 lb 3.2 oz - Physical Exam General: alert & oriented x3 HEENT: mucus membranes moist Neck: supple neck Cardiac: regular rate and rhythm Lungs: clear to auscultation, decreased breath sounds Neuro: cranial nerve 2-12 intact Extremities: other: (erythmia to Rt knee to iniguez. Lt AKA) - Labs Result Diagrams: 08/07/19 05:15 08/07/19 05:15 Troponin/CKMB Troponin I 0.051 ng/mL (< 0.028) H 08/02/19 05:21 - Assessment/Plan Assessment/Plan: 1. 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 Will order LifeVest for EF 25-30% 2. Acute on Chronic Systolic HF with EF 25-30% - will start Lisinopril 10mg qd from tomorrow; On Coreg 3.125mg BID; stable with RA and voiding well without diuretics 3. Large Lt ventricular thrombus (3.7x2.3cm), ? mass. - Lovenox was stopped today; Eliquis 5mg BID will be started from this PM; 4. Ischemia of RLE with s/p Rt Fem artery exploration and embolectomy on 2019 - On Eliquis, ASA and Plavix; plan for AKA in future 5. HTN - stable 6. DM type 2 7. CKD stage 2 8. PVD with s/p stent in RLE and s/p Lt AKA in - on ASA and Lovenox or Eliquis? 9. hx of PE in 09/2018 10. hyponatremia - slightly better today 11. Staphylococcus Bacteremia - on ABX IV 12. Obese 13.Methamphetamine abuse, positive drug screen this admission. The CMY may be due to prior drug abuse, CAD or idiopathic. MAR Reviewed * Echo on 08/02/2019 with EF 25-30%, mild-mod LAE, mild MR and TR, and 3.7x2.3cm thrombus in LV. Pt. seen and eval. by me. I agree with the A/P by the ALIGNMENT MECHANIC. Chest clear. RRR. There is an area on the right leg just above the knee that is erythematous and tender. I have outline this with a marker to see if it is increasing.
[2019-08-07] MEDS: Insulin Regular 300 UNITS/3 ML VIAL SC PRN ×3 (11:00→20:32)
--- NOTE | 2019-08-07 12:33 | SPC ---
Ultrasound and Fluoroscopic guided left upper extremity PICC placement HISTORY: Infection. Patient needs long-term IV antibiotics FINDINGS: Informed consent obtained prior to the procedure. An appropriate access site was determined with ultrasound guidance. The area was then meticulously pr epped and draped in usual sterile fashion. Skin overlying the left basilic vein anesthetized with 1% buffered lidocaine. Utilizing direct sonogr aphic guidance, vascular access is obtained via the left basilic vein, and an 0.018in guidewire was advanced to the SVC. Intravascular length is calculated at 42.5 cm, and the PICC is cut accordingly. Needle is removed and replaced with a peel-away sheath. The PICC was advanced over the wire. Wire and peel-away sheath were removed. The tip of the catheter overlies the SVC. The catheter was accessed and aspirated/flushed easily. Exposure data: 0 minutes of fluoroscopic time 1043 mGy centimeter squared FINDINGS: Technically successful placement of a 42.5 centimeter single lumen 5 Arabic left upper extremity PICC line. IMPRESSION: Successful ultrasound guided placement of a left upper extremity PICC.
--- NOTE | 2019-08-07 14:12 | PDOC.HOSPP ---
- Subjective Subjective: Seen and examined. Pending Life vest. Pain issues, chronic pain and Meth use Hx. States Muir was more effective then Oxycodone. Breathing comfortably. Anticoagulation being changed to oral. - Objective Vital Signs & Weight: Vital Signs (12 hours) Temp Pulse Resp BP Pulse Ox 08/07/19 07:42 99.2 F 95 14 130/87 98 08/07/19 03:00 99 Weight Admit Weight 245 lb 3.2 oz Weight 245 lb 3.2 oz Most Recent Monitor Data Heart Rate from ECG 98 NIBP 119/72 NIBP BP-Mean 87 Respiration from ECG 19 SpO2 97 I&O: 08/06/19 08/07/19 08/08/19 06:59 06:59 06:59 Intake Total 800 2654 Output Total 3000 2950 Balance -2200 -296 Result Diagrams: 08/07/19 05:15 08/07/19 05:15 Additional Labs: Accuchecks 08/07/19 08/06/19 08/06/19 05:18 21:31 15:39 POC Glucose 248 H 337 H 229 H Radiology Reviewed by me: Yes Hospitalist ROS - Review of Systems All other systems reviewed; all pertinent +/- noted in HPI/Subj - Medication Medications: Active Medications Generic Name Dose Route Start Last Admin Trade Name Freq PRN Reason Stop Dose Admin Acetaminophen 650 mg 08/01/19 23:00 08/05/19 21:27 Tylenol PO 650 mg Q4H PRN Administration Headache/Fever/Mild Pain (1-3) Aspirin 81 mg 08/02/19 21:00 08/06/19 21:30 Ecotrin PO 81 mg HS KATHLEEN Administration Atorvastatin Calcium 80 mg 08/02/19 21:00 08/06/19 21:29 Lipitor PO 80 mg HS KATHLEEN Administration Carvedilol 3.125 mg 08/03/19 17:00 08/07/19 07:53 Coreg PO 3.125 mg BID-WM KATHLEEN Administration Famotidine 20 mg 08/02/19 09:00 08/07/19 07:52 Pepcid PO 20 mg BID KATHLEEN Administration Gabapentin 600 mg 08/02/19 09:00 08/07/19 07:52 Neurontin PO 600 mg TID KATHLEEN Administration Cefazolin Sodium/Dextrose 2 gm 50 mls @ 100 mls/hr 08/04/19 22:00 08/07/19 05 :00 / Device IVPB 50 mls Q8HR KATHLEEN Administration Insulin Human Lispro 5 units 08/05/19 11:30 08/07/19 11:00 Humalog SC 5 unit AC KATHLEEN Administration Insulin Human Regular 0 units 08/01/19 23:46 08/07/19 11:00 Humulin R SC 8 units .MODERATE SLIDING SC PRN Administration Moderate Correctional Scale Insulin Human Regular 0 units 08/01/19 23:46 08/05/19 21:28 Humulin R SC 4 unit .BEDTIME SLIDING SC PRN Administration Bedtime Correctional Scale Morphine Sulfate 4 mg 08/06/19 10:26 08/07/19 10:54 Morphine SLOW IVP 4 mg Q2H PRN Administration Breakthrough Pain Ondansetron HCl 4 mg 08/01/19 23:00 08/03/19 23:49 Zofran IVP 4 mg Q6H PRN Administration Nausea/Vomiting Polyethylene Glycol 17 gm 08/03/19 09:00 08/07/19 07:52 Miralax PO 17 gm DAILY KATHLEEN Administration Senna/Docusate Sodium 1 tab 08/02/19 09:00 08/07/19 07:53 Senokot S PO 1 tab BID KATHLEEN Administration Sodium Chloride 10 ml 08/01/19 23:00 08/06/19 10:53 Flush - Normal Saline IVF 10 ml PRN PRN Administration Saline Flush - Exam General Appearance: NAD, awake alert Eye: anicteric sclera ENT: normocephalic atraumatic, moist mucosa Neck: supple, symmetric, no lymphadenopathy Heart: no murmur, no gallops, no rubs Respiratory: CTAB, no wheezes, no rales, no ronchi, no tachypnea Gastrointestinal: soft, non-tender, no guarding, no rigidity Gastrointestinal - other findings: obese Skin - other findings: See wound care pictures. Neurological: cranial nerve grossly intact, no focal deficits Musculoskeletal: generalized weakness Psychiatric: A&O x 3 Hosp A/P (1) Bacteremia due to Staphylococcus Code(s): R78.81 - BACTEREMIA; B95.8 - UNSP STAPHYLOCOCCUS THE CAUSE OF DISEASES CLASSD ELSWHR Status: Acute (2) Constipation Code(s): K59.00 - CONSTIPATION, UNSPECIFIED Status: Acute (3) Ischemia of right lower extremity Code(s): I99.8 - OTHER DISORDER OF CIRCULATORY SYSTEM Status: Acute (4) LV (left ventricular) mural thrombus Code(s): I51.3 - INTRACARDIAC THROMBOSIS, NOT ELSEWHERE CLASSIFIED Status: Acute (5) Abnormal LFTs Code(s): R94.5 - ABNORMAL RESULTS OF LIVER FUNCTION STUDIES Status: Acute (6) Acute kidney injury superimposed on CKD Code(s): N17.9 - ACUTE KIDNEY FAILURE, UNSPECIFIED; N18.9 - CHRONIC KIDNEY DISEASE, UNSPECIFIED Status: Acute (7) Acute renal failure Status: Acute (8) Anemia, normocytic normochromic Code(s): D64.9 - ANEMIA, UNSPECIFIED Status: Acute (9) Bilateral pulmonary embolism Code(s): I26.99 - OTHER PULMONARY EMBOLISM WITHOUT ACUTE COR PULMONALE Status : Acute (10) Hepatitis C antibody test positive Code(s): R76.8 - OTHER SPECIFIED ABNORMAL IMMUNOLOGICAL FINDINGS IN SERUM Status: Acute (11) Ischemia of left lower extremity Code(s): I99.8 - OTHER DISORDER OF CIRCULATORY SYSTEM Status: Acute (12) Rhabdomyolysis Code(s): M62.82 - RHABDOMYOLYSIS Status: Acute (13) Diabetes type 2, controlled Code(s): E11.9 - TYPE 2 DIABETES MELLITUS WITHOUT COMPLICATIONS Status: Chronic Qualifiers: Diabetes mellitus manager intermediate insulin use: with usp use Diabetes mellitus complication status: with circulatory complication (14) Dyslipidemia Code(s): E78.5 - HYPERLIPIDEMIA, UNSPECIFIED Status: Chronic (15) Hypertension Code(s): I10 - ESSENTIAL (PRIMARY) HYPERTENSION Status: Chronic Qualifiers: Hypertension type: essential hypertension Qualified Code(s): I10 - Essential (primary) hypertension (16) Hyponatremia Code(s): E87.1 - HYPO-OSMOLALITY AND HYPONATREMIA Status: Chronic (17) Methamphetamine abuse Code(s): F15.10 - OTHER STIMULANT ABUSE, UNCOMPLICATED Status: Chronic (18) Obesity (BMI 30-39.9) Code(s): E66.9 - OBESITY, UNSPECIFIED Status: Chronic (19) PAD (peripheral artery disease) Code(s): I73.9 - PERIPHERAL VASCULAR DISEASE, UNSPECIFIED Status: Chronic (20) Acute urinary retention Code(s): R33.8 - OTHER RETENTION OF URINE Status: Resolved (21) Lactic acidosis Code(s): E87.2 - ACIDOSIS Status: Resolved - Plan Plan: medical unit cardiology consultation, recommendations appreciated vascular surgery consultation, recommendations appreciated discharge planning to rehabilitation will need amputation at some point in the future per vascular surgery Life vest, prior to D/c Anticoagulation transition from Lovenox to Eliquis, large left ventricular thrombus ischemic right lower extremity status post right femoral artery with thrombectomy aspirin/Plavix ABX hypertension diabetes mellitus, adjust regimen chronic kidney disease Patient states norco was more effective than oxycodone methamphetamine use on urine toxicology, likely contributing to cardiomyopathy continue other home medications as able blood pressure control blood sugar control GI prophylaxis DVT prophylaxis
[2019-08-07] MEDS: HYDROcodone/Acetaminophen 10/325 mg Tablet PO PRN ×3 (14:18→23:18)
[2019-08-07] MEDS: HYDROcodone/Acetaminophen 5/325 mg Tablet PO PRN (18:36)
[2019-08-07] MEDS ORDERED: Morphine 2 MG/ML SYRINGE SLOW IVP SCH (19:30)
[2019-08-07] MEDS: Enoxaparin Sodium 100 MG/ML SYRINGE SC SCH (20:30)
[2019-08-07] MEDS: Aspirin 81 mg Enteric Coated Tablet PO SCH (20:31)
[2019-08-07] MEDS: Insulin Glargine 18 UNITS in Pre-Filled Syringe 1 EACH SC SCH (20:31)
[2019-08-07] MEDS: Atorvastatin Calcium 40 MG TAB PO SCH (20:31)
[2019-08-08] MEDS: Morphine 4 MG/ML VIAL SLOW IVP PRN ×2 (00:54→08:57)
[2019-08-08] MEDS: HYDROcodone/Acetaminophen 10/325 mg Tablet PO PRN ×4 (03:19→16:42)
[2019-08-08] MEDS: Acetaminophen 325 MG TAB PO PRN (03:19)
[2019-08-08] MEDS: CEFAZOLIN 2 GM in Premix Bag 1 BAG IVPB SCH ×2 (06:32→14:57)
[2019-08-08] MEDS: HumaLOG 300 UNITS/3 ML VIAL SC SCH ×3 (06:32→16:41)
[2019-08-08 07:05] LABS: Anion Gap 13 mmol/L (10-20); BUN (Urea Nitrogen) 18 mg/dL (8.4-25.7); Calc. Creatinine Clearance 146 mL/min (70-130); Calcium 8.8 mg/dL (7.8-10.44); Carbon Dioxide 27 mmol/L (22-29); Chloride 96 mmol/L (98-107); Estimated GFR-MDRD 87; Glucose 313 mg/dL (70-105); Potassium 4.8 mmol/L (3.5-5.1); Sodium 131 mmol/L (136-145)
[2019-08-08 07:27] LABS: Band 3 % (5-11); Eosinophils 3 % (0-10); Hemoglobin 10.1 g/dL (14.0-18.0); Lymphocytes 12 % (21-51); MDiff Complete? YES; Mean Corpuscular HGB CONC 32.8 g/dL (32.0-36.0); Mean Corpuscular Hemoglobin 26.2 pg (27.0-31.0); Mean Corpuscular Volume 79.7 fL (78.0-98.0); Mean Platelet Volume 7.5 fL (7.4-10.4); Monocytes 8 % (0-10); Myelocyte 1 % (0-0); Neutrophil 73 % (42-75); Platelet Count 451 thou/uL (130-400); Platelet Morphology Comment Appears Increased; Polychromasia SLIGHT = 2-3 cells (100X) (0-2/hpf); RBC Distribution Width 13.3 % (11.5-14.5); Red Blood Cell (RBC) Count 3.86 mill/uL (4.70-6.10); White Blood Cell (WBC) Count 17.2 thou/uL (4.8-10.8)
[2019-08-08] MEDS: Senokot S 8.6-50 MG TAB PO SCH (08:52)
[2019-08-08] MEDS: Polyethylene Glycol 3350 17 GM Packet PO SCH (08:52)
[2019-08-08] MEDS: Famotidine 20 MG TAB PO SCH (08:52)
[2019-08-08] MEDS: Enoxaparin Sodium 100 MG/ML SYRINGE SC SCH (08:52)
[2019-08-08] MEDS: Insulin Glargine 18 UNITS in Pre-Filled Syringe 1 EACH SC SCH (08:52)
[2019-08-08] MEDS: Gabapentin 300 MG CAP PO SCH ×2 (08:52→14:57)
[2019-08-08] MEDS: Carvedilol 3.125 MG TAB PO SCH ×2 (08:52→16:41)
[2019-08-08] MEDS ORDERED: Lisinopril 10 MG TAB PO SCH (09:00)
[2019-08-08] MEDS: HYDROcodone/Acetaminophen 5/325 mg Tablet PO PRN ×2 (11:57→16:42)
[2019-08-08] MEDS: Insulin Regular 300 UNITS/3 ML VIAL SC PRN ×2 (11:57→16:41)
--- NOTE | 2019-08-08 13:01 | PDOC.CPN ---
- Subjective Date: 08/08/19 Time: 08:00 Interval history: The pt seen and examined. No overnight events. No cardiac complaints. - Objective Allergies/Adverse Reactions: Allergies Allergy/AdvReac Type Severity Reaction Status Date / Time tramadol Allergy Verified 09/28/18 23:44 Visit Medications: Current Medications Acetaminophen (Tylenol) 650 mg PO Q4H PRN PRN Reason: Headache/Fever/Mild Pain (1-3) Last Admin: 08/08/19 03:19 Dose: 650 mg Hydrocodone Bitart/Acetaminophen ([place] 5/325) 1 tab PO Q4H PRN PRN Reason: Moderate Pain (4-6) Last Admin: 08/08/19 11:57 Dose: 1 tab Hydrocodone Bitart/Acetaminophen ([place] 10/325) 1 tab PO Q4H PRN PRN Reason: Severe Pain (7-10) Last Admin: 08/08/19 11:55 Dose: 1 tab Aspirin (Ecotrin) 81 mg PO [facility] Last Admin: 08/07/19 20:31 Dose: 81 mg Atorvastatin Calcium (Lipitor) 80 mg PO [facility] Last Admin: 08/07/19 20:31 Dose: 80 mg Bisacodyl (Dulcolax) 10 mg HI DAILYPRN PRN PRN Reason: Constipation Calcium Carbonate (Tums) 1,000 mg PO Q4H PRN PRN Reason: Heartburn or Indigestion Carvedilol (Coreg) 3.125 mg PO BID[facility] Last Admin: 08/08/19 08:52 Dose: 3.125 mg Clonidine (Catapres) 0.1 mg PO Q4H PRN PRN Reason: SBP Greater Than 180 Dextrose/Water (Dextrose 50%) 25 gm SLOW IVP PRN PRN PRN Reason: Hypoglycemia Enoxaparin Sodium (Lovenox) 100 mg SC 0900,2100 [facility] Last Admin: 08/08/19 08:52 Dose: 100 mg Famotidine (Pepcid) 20 mg PO BID [facility] Last Admin: 08/08/19 08:52 Dose: 20 mg Gabapentin (Neurontin) 600 mg PO TID [facility] Last Admin: 08/08/19 08:52 Dose: 600 mg Glucagon (Glucagon) 1 mg IM PRN PRN PRN Reason: Hypoglycemia Hydralazine HCl (Apresoline) 10 mg SLOW IVP Q4H PRN PRN Reason: SBP Greater Than 180 Dextrose/Water (D5w) 1,000 mls @ 0 mls/hr IV .Q0M PRN PRN Reason: Hypoglycemia Cefazolin Sodium/Dextrose 2 gm (/ Device) 50 mls @ 100 mls/hr IVPB Q8HR [facility] Last Admin: 08/08/19 06:32 Dose: 50 mls Insulin Glargine 18 units/ (Miscellaneous Medication) 0.18 mls @ 0 mls/hr SC BID [facility] Last Admin: 08/08/19 08:52 Dose: 0.18 mls Insulin Human Lispro (Humalog) 5 units SC AC [facility] Last Admin: 08/08/19 11:57 Dose: 8 unit Insulin Human Regular (Humulin R) 0 units SC .MODERATE SLIDING SC PRN PRN Reason: Moderate Correctional Scale Last Admin: 08/08/19 11:57 Dose: 6 units Insulin Human Regular (Humulin R) 0 units SC .BEDTIME SLIDING SC PRN PRN Reason: Bedtime Correctional Scale Last Admin: 08/07/19 20:32 Dose: 2 unit Lisinopril (Zestril) 10 mg PO DAILY [facility] Last Admin: 08/08/19 08:52 Dose: 10 mg Morphine Sulfate (Morphine) 4 mg SLOW IVP Q8H PRN PRN Reason: Breakthrough Pain Last Admin: 08/08/19 08:57 Dose: 4 mg Nitroglycerin (Nitrostat) 0.4 mg PO Q5MIN PRN PRN Reason: Chest Pain Ondansetron HCl (Zofran) 4 mg IVP Q6H PRN PRN Reason: Nausea/Vomiting Last Admin: 08/03/19 23:49 Dose: 4 mg Polyethylene Glycol (Miralax) 17 gm PO DAILY [facility] Last Admin: 08/08/19 08:52 Dose: 17 gm Senna/Docusate Sodium (Senokot S) 1 tab PO BID [facility] Last Admin: 08/08/19 08:52 Dose: 1 tab Sodium Chloride (Flush - Normal Saline) 10 ml IVF PRN PRN PRN Reason: Saline Flush Last Admin: 08/06/19 10:53 Dose: 10 ml Vital Signs & Weight: Vital Signs Temp Pulse Resp BP BP Pulse Ox 08/08/19 11:18 98.4 F 98 18 132/83 97 08/08/19 07:30 97.6 F 94 18 119/76 98 08/08/19 04:00 97 16 117/75 08/08/19 03:08 98.9 F 97 16 117/75 96 Admit Weight 245 lb 3.2 oz Weight 245 lb 3.2 oz - Physical Exam General: alert & oriented x3 HEENT: mucus membranes moist Neck: supple neck Cardiac: regular rate and rhythm - Labs Result Diagrams: 08/08/19 06:30 08/08/19 06:30 Troponin/CKMB Troponin I 0.051 ng/mL (< 0.028) H 08/02/19 05:21 - Assessment/Plan Assessment/Plan: 1. 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 The pt agrees to wear LifeVest for EF 25-30% 2. Acute on Chronic Systolic HF with EF 25-30% - On Lisinopril 10mg qd and Coreg 3.125mg BID; stable with RA and voiding well without diuretics 3. Large Lt ventricular thrombus (3.7x2.3cm), ? mass. - Lovenox 100mg BID; may start Eliquis 5mg BID; 4. Ischemia of RLE with s/p Rt Fem artery exploration and embolectomy on 2019 - On Lovenox, ASA and Plavix; plan for AKA in future 5. HTN - stable 6. DM type 2 7. CKD stage 2 8. PVD with s/p stent in RLE and s/p Lt AKA in - on ASA and Lovenox or Eliquis? 9. hx of PE in 09/2018 10. hyponatremia - slightly better today 11. Staphylococcus Bacteremia - on ABX IV 12. Obese 13.Methamphetamine abuse, positive drug screen this admission. The CMY may be due to prior drug abuse, CAD or idiopathic. MAR Reviewed * Echo on 08/02/2019 with EF 25-30%, mild-mod LAE, mild MR and TR, and 3.7x2.3cm thrombus in LV. Pt. seen and eval. by me. I agree with the A/P by the INSTRUMENT SETTER. Chest clear. RRR. site on right leg no larger. C/O pain in the right leg but says he has slept during the night with decr. pain. Life-Vest pending. Plan for cardiac cath when the infection has resolved.
--- NOTE | 2019-08-08 13:35 | PDOC.HOSPP ---
- Subjective Subjective: Seen and examined on the medical/surgical floor. Patient asks me if doing math is contributing to his current wound status and I told him definitely yes. I recommended he abstain from all methamphetamine use in the future if he would like to live. We are waiting for life vest, rehab will not take him until he has one. If the life vest can be arranged for today then we will plan for rehabilitation placement. Ultimately patient will lose the leg in the long-term situation per surgery, though he would like to try conservative therapy at this time. - Objective Vital Signs & Weight: Vital Signs (12 hours) Temp Pulse Resp BP BP Pulse Ox 08/08/19 11:18 98.4 F 98 18 132/83 97 08/08/19 07:30 97.6 F 94 18 119/76 98 08/08/19 04:00 97 16 117/75 08/08/19 03:08 98.9 F 97 16 117/75 96 Weight Admit Weight 245 lb 3.2 oz Weight 245 lb 3.2 oz Most Recent Monitor Data Heart Rate from ECG 98 NIBP 119/72 NIBP BP-Mean 87 Respiration from ECG 19 SpO2 97 I&O: 08/07/19 08/08/19 08/09/19 06:59 06:59 06:59 Intake Total 2654 3676 Output Total 2950 2450 Balance -296 1226 Result Diagrams: 08/08/19 06:30 08/08/19 06:30 Additional Labs: Accuchecks 08/08/19 08/08/19 11:46 06:35 POC Glucose 276 H 358 H Radiology Reviewed by me: Yes Hospitalist ROS - Review of Systems All other systems reviewed; all pertinent +/- noted in HPI/Subj - Medication Medications: Active Medications Generic Name Dose Route Start Last Admin Trade Name Freq PRN Reason Stop Dose Admin Acetaminophen 650 mg 08/01/19 23:00 08/08/19 03:19 Tylenol PO 650 mg Q4H PRN Administration Headache/Fever/Mild Pain (1-3) Hydrocodone Bitart/Acetaminophen 1 tab 08/07/19 11:20 08/08/19 11:57 [place] 5/325 PO 1 tab Q4H PRN Administration Moderate Pain (4-6) Hydrocodone Bitart/Acetaminophen 1 tab 08/07/19 11:20 08/08/19 11:55 [place] 10/325 PO 1 tab Q4H PRN Administration Severe Pain (7-10) Aspirin 81 mg 08/02/19 21:00 08/07/19 20:31 Ecotrin PO 81 mg HS KATHLEEN Administration Atorvastatin Calcium 80 mg 08/02/19 21:00 08/07/19 20:31 Lipitor PO 80 mg HS KATHLEEN Administration Carvedilol 3.125 mg 08/03/19 17:00 08/08/19 08:52 Coreg PO 3.125 mg BID-WM KATHLEEN Administration Enoxaparin Sodium 100 mg 08/07/19 21:00 08/08/19 08:52 Lovenox SC 100 mg 0900,2100 KATHLEEN Administration Famotidine 20 mg 08/02/19 09:00 08/08/19 08:52 Pepcid PO 20 mg BID KATHLEEN Administration Gabapentin 600 mg 08/02/19 09:00 08/08/19 08:52 Neurontin PO 600 mg TID KATHLEEN Administration Cefazolin Sodium/Dextrose 2 gm 50 mls @ 100 mls/hr 08/04/19 22:00 08/08/19 06 :32 / Device IVPB 50 mls Q8HR KATHLEEN Administration Insulin Glargine 18 units/ 0.18 mls @ 0 mls/hr 08/07/19 21:00 08/08/19 08:52 Miscellaneous Medication SC 0.18 mls BID KATHLEEN Administration Insulin Human Lispro 5 units 08/05/19 11:30 08/08/19 11:57 Humalog SC 8 unit AC KATHLEEN Administration Insulin Human Regular 0 units 08/01/19 23:46 08/08/19 11:57 Humulin R SC 6 units .MODERATE SLIDING SC PRN Administration Moderate Correctional Scale Insulin Human Regular 0 units 08/01/19 23:46 08/07/19 20:32 Humulin R SC 2 unit .BEDTIME SLIDING SC PRN Administration Bedtime Correctional Scale Lisinopril 10 mg 08/08/19 09:00 08/08/19 08:52 Zestril PO 10 mg DAILY KATHLEEN Administration Morphine Sulfate 4 mg 08/07/19 14:24 08/08/19 08:57 Morphine SLOW IVP 4 mg Q8H PRN Administration Breakthrough Pain Ondansetron HCl 4 mg 08/01/19 23:00 08/03/19 23:49 Zofran IVP 4 mg Q6H PRN Administration Nausea/Vomiting Polyethylene Glycol 17 gm 08/03/19 09:00 08/08/19 08:52 Miralax PO 17 gm DAILY KATHLEEN Administration Senna/Docusate Sodium 1 tab 08/02/19 09:00 08/08/19 08:52 Senokot S PO 1 tab BID KATHLEEN Administration Sodium Chloride 10 ml 08/01/19 23:00 08/06/19 10:53 Flush - Normal Saline IVF 10 ml PRN PRN Administration Saline Flush - Exam General Appearance: NAD, awake alert Eye: anicteric sclera ENT: normocephalic atraumatic, moist mucosa Neck: supple, symmetric, no lymphadenopathy Heart: no murmur, no gallops, no rubs Respiratory: CTAB, no wheezes, no rales, no ronchi, normal chest expansion, no tachypnea Gastrointestinal: soft, non-tender, non-distended, no guarding, no rigidity Extremities: 1+ LE edema Extremities - other findings: Prior amputations, see wound care pictures for details. Skin - other findings: Dressings clean and intact Neurological: cranial nerve grossly intact, no focal deficits Musculoskeletal: generalized weakness Psychiatric: A&O x 3 Hosp A/P (1) Bacteremia due to Staphylococcus Code(s): R78.81 - BACTEREMIA; B95.8 - UNSP STAPHYLOCOCCUS THE CAUSE OF DISEASES CLASSD ELSWHR Status: Acute (2) Constipation Code(s): K59.00 - CONSTIPATION, UNSPECIFIED Status: Acute (3) Ischemia of right lower extremity Code(s): I99.8 - OTHER DISORDER OF CIRCULATORY SYSTEM Status: Acute (4) LV (left ventricular) mural thrombus Code(s): I51.3 - INTRACARDIAC THROMBOSIS, NOT ELSEWHERE CLASSIFIED Status: Acute (5) Abnormal LFTs Code(s): R94.5 - ABNORMAL RESULTS OF LIVER FUNCTION STUDIES Status: Acute (6) Acute kidney injury superimposed on CKD Code(s): N17.9 - ACUTE KIDNEY FAILURE, UNSPECIFIED; N18.9 - CHRONIC KIDNEY DISEASE, UNSPECIFIED Status: Acute (7) Acute renal failure Status: Acute (8) Anemia, normocytic normochromic Code(s): D64.9 - ANEMIA, UNSPECIFIED Status: Acute (9) Bilateral pulmonary embolism Code(s): I26.99 - OTHER PULMONARY EMBOLISM WITHOUT ACUTE COR PULMONALE Status : Acute (10) Hepatitis C antibody test positive Code(s): R76.8 - OTHER SPECIFIED ABNORMAL IMMUNOLOGICAL FINDINGS IN SERUM Status: Acute (11) Ischemia of left lower extremity Code(s): I99.8 - OTHER DISORDER OF CIRCULATORY SYSTEM Status: Acute (12) Rhabdomyolysis Code(s): M62.82 - RHABDOMYOLYSIS Status: Acute (13) Diabetes type 2, controlled Code(s): E11.9 - TYPE 2 DIABETES MELLITUS WITHOUT COMPLICATIONS Status: Chronic Qualifiers: Diabetes mellitus half-way insulin use: with half-way use Diabetes mellitus complication status: with circulatory complication (14) Dyslipidemia Code(s): E78.5 - HYPERLIPIDEMIA, UNSPECIFIED Status: Chronic (15) Hypertension Code(s): I10 - ESSENTIAL (PRIMARY) HYPERTENSION Status: Chronic Qualifiers: Hypertension type: essential hypertension Qualified Code(s): I10 - Essential (primary) hypertension (16) Hyponatremia Code(s): E87.1 - HYPO-OSMOLALITY AND HYPONATREMIA Status: Chronic (17) Methamphetamine abuse Code(s): F15.10 - OTHER STIMULANT ABUSE, UNCOMPLICATED Status: Chronic (18) Obesity (BMI 30-39.9) Code(s): E66.9 - OBESITY, UNSPECIFIED Status: Chronic (19) PAD (peripheral artery disease) Code(s): I73.9 - PERIPHERAL VASCULAR DISEASE, UNSPECIFIED Status: Chronic (20) Acute urinary retention Code(s): R33.8 - OTHER RETENTION OF URINE Status: Resolved (21) Lactic acidosis Code(s): E87.2 - ACIDOSIS Status: Resolved - Plan Plan: medical unit cardiology consultation, recommendations appreciated vascular surgery consultation, recommendations appreciated discharge planning to rehabilitation will need amputation at some point in the future per vascular surgery Life vest, prior to D/c - Rehab will not accept him until he has this Anticoagulation transitioned Eliquis, large left ventricular thrombus ischemic right lower extremity status post right femoral artery with thrombectomy aspirin/Plavix ABX hypertension diabetes mellitus, adjust regimen chronic kidney disease Patient states norco was more effective than oxycodone Wean morphine methamphetamine use on urine toxicology, likely contributing to cardiomyopathy continue other home medications as able blood pressure control blood sugar control GI prophylaxis DVT prophylaxis
[2019-08-08] MEDS ORDERED: Morphine 4 MG/ML VIAL SLOW IVP PRN (13:38)
[2019-08-08] MEDS ORDERED: Morphine 2 MG/ML SYRINGE SLOW IVP PRN (13:39)
[2019-08-08 15:22] VITALS: BP 125/85; TEMP 97.6
--- NOTE | 2019-08-08 16:52 | DIS ---
DATE OF ADMISSION: 08/01/2019 DATE OF DISCHARGE: 08/08/2019 REASON FOR HOSPITALIZATION: Right lower extremity pain. PROCEDURES PERFORMED AND TREATMENTS RENDERED: Mr. Mo is a pleasant 54-year-old gentleman, who presented to [facility] on 08/02/2019 with right lower extremity leg pain. He was diagnosed with right lower extremity ischemia due to right common femoral artery/right internal iliac artery occlusion with thrombus. The patient was taken to the operating room by Dr. Rojas on 08/02/2019, please see full operative report from Dr. Rojas for full details. The patient diagnosed with peripheral vascular disease with limb-threatening ischemia of the right leg and angiograms were performed by Dr. Rojas. Please see full report for details. Dr. Cho also performing surgery on 08/02/2019, with right femoral artery exploration and embolectomy, please see full operative report for details. The patient tolerated the procedure well without intraoperative complications. The patient was transferred to the medical floor/surgical floor for close management postoperatively. Cardiology evaluated the patient throughout his hospitalization, please see full consultation notes and progress notes for details. The patient with cardiomyopathy with reduced ejection fraction. Manage cardiac medications throughout his hospitalization. The patient with an echocardiogram demonstrating an ejection fraction of 25% to 30% with a thrombus measuring 3.7 x 2.3 cm in the left ventricle, please see full report for details. Cardiology recommending chemical anticoagulation with Lovenox transitioned to Eliquis therapy. The patient had blood pressure medications adjusted appropriately throughout his hospitalization. The patient's diabetes regimen was adjusted for glucose control. Unfortunately, the patient with methamphetamine abuse, which was positive on drug screen on this admission and his cardiomyopathy may be partially due to methamphetamine use. The patient was evaluated by Vascular Surgery for possible amputation. Ultimately, he will require [id number]-[id number] amputation when he is ready. The patient at this time is stating he would like to give medical therapy an option and he would like to deny and refuse any amputations at this time. The patient wants to work with therapy and would like to walk again. The patient is motivated to work with Physical Therapy and Occupational Therapy and states that he wants to live. The patient was counseled on the importance of compliance with his medication regimen if he would like to avoid an amputation. The patient was also counseled on the critical importance of abstaining from methamphetamine use if he would like to avoid an amputation. Ultimately, if the patient does not control his diabetes, does not take all of his medications strictly as directed, does not follow up with all specialists including Surgery, Infectious Disease, Primary Care Physician, and Cardiology, he will require an amputation in the near future. Infectious Disease specialist, Dr. Cline, evaluated the patient for antibiotic management, please see full consultation notes and progress notes for details. Dr. Cline recommending a 2-week course of cefazolin, intravenous administration via PICC line. Following 2 weeks of IV cefazolin, he will have 2 weeks of Keflex orally. The patient was recommended safe for discharge by all specialists to rehabilitation facility with close followup in the outpatient setting. The patient was evaluated by Cardiology, who recommended that the patient would require a LifeVest due to his reduced ejection fraction. The patient was set up with a LifeVest at [facility] and fitted for this prior to discharge. This was completed on 08/08/2019. After his LifeVest was in place, he was recommended safe for discharge by Cardiology. CONDITION ON DISCHARGE: Stable. SPECIFIC INSTRUCTIONS FOR PATIENT/FAMILY: 1. The patient is recommended safe for transfer to rehabilitation facility. 2. The patient is recommended to take all medications as directed, to be re-evaluated by admitting physician. 3. The patient recommended to complete a 2-week course of cefazolin via his PICC line, which will be completed on August 17, this is to be followed by 2 weeks of oral Keflex. 4. The patient recommended to follow up with Infectious Disease specialist, Dr. Cline, in the outpatient setting in the next 1 to 2 weeks. 5. The patient is recommended follow up with Dr. Cho and Dr. Rojas in the outpatient setting in the next 1 to 2 weeks. 6. The patient recommended to follow up with Cardiology, Dr. Gandhi, in the next 1 to 2 weeks. 7. The patient is recommended to return to [facility] immediately if he is unable to comply with all of the previously mentioned steps in the allotted time. 8. The patient recommended to return to acute care hospital immediately if signs or symptoms return, worsen, or any other new symptoms occur. DISCHARGE MEDICATIONS: Please see full discharge medication list for details. 1. Cefazolin 2 g q.8 hours for the next 10 days, to be completed on August 17. 2. Keflex 250 mg p.o. b.i.d. for an additional 2 weeks. 3. Insulin Lantus 18 units injection b.i.d. 4. Aspirin 81 mg one tablet p.o. daily. 5. Atorvastatin 80 mg one tablet p.o. at bedtime. 6. Carvedilol 3.125 mg one tablet p.o. b.i.d. 7. Eliquis 5 mg one tablet p.o. b.i.d. 8. Famotidine 20 mg one tablet p.o. b.i.d. 9. Gabapentin 600 mg one tablet p.o. t.i.d. 10. Humalog 5 units with meals subcutaneous injection. 11. Humalog sliding scale - moderate - on top of meals and at bedtime, follow sliding scale for details. 12. Lisinopril 10 mg one tablet p.o. daily. 13. MiraLAX 17 g p.o. daily. 14. Senokot-S one tab p.o. b.i.d. 15. Tylenol 650 mg p.o. q.4 hours p.r.n. pain or fever. 16. Dulcolax 10 mg per rectal daily p.r.n. constipation. 17. Tums 1000 mg p.o. q.4 hours p.r.n. indigestion. 18. Clonidine 0.1 mg one tablet p.o. q.4 hours p.r.n. hypertension. 19. Glucagon 1 mg intramuscular injection p.r.n. hypoglycemia. TIME SPENT: Greater than 40 minutes spent in coordinating care and discharge process for this patient. Job ID: [id number]
== END 2019-08-08 20:15 | DRG 853 ==
LOC: ERS 21:20 → 2NO 23:04 → CCU 08-02 18:56 → SURG B 08-03 07:42 → SURG A 08-04 21:53
PROVIDERS: ADMIT Internal Medicine; ATTEND Internal Medicine
PROC: 04CK0ZZ Extirpation of Matter from Right Femoral Artery, Open Approach (ICD-10-PCS; principal; 2019-08-02)
PROC: B4101ZZ Fluoroscopy of Abdominal Aorta using Low Osmolar Contrast (ICD-10-PCS; 2019-08-02)
PROC: B41F1ZZ Fluoroscopy of Right Lower Extremity Arteries using Low Osmolar Contrast (ICD-10-PCS; 2019-08-02)
PROC: 02HV33Z Insertion of Infusion Device into Superior Vena Cava, Percutaneous Approach (ICD-10-PCS; 2019-08-07)
DX: A41.9 Sepsis, unspecified organism (principal); I50.23 Acute on chronic systolic (congestive) heart failure; I21.9 Acute myocardial infarction, unspecified; I74.5 Embolism and thrombosis of iliac artery; I74.3 Embolism and thrombosis of arteries of the lower extremities; I13.0 Hypertensive heart and chronic kidney disease with heart failure and stage 1 through stage 4 chronic kidney disease, or unspecified chronic kidney disease; E87.1 Hypo-osmolality and hyponatremia; M62.82 Rhabdomyolysis; I24.0 Acute coronary thrombosis not resulting in myocardial infarction; I96 Gangrene, not elsewhere classified; E11.52 Type 2 diabetes mellitus with diabetic peripheral angiopathy with gangrene; N17.9 Acute kidney failure, unspecified; E87.2 Acidosis; L02.01 Cutaneous abscess of face; F15.10 Other stimulant abuse, uncomplicated; I99.8 Other disorder of circulatory system; Z89.612 Acquired absence of left leg above knee; E11.9 Type 2 diabetes mellitus without complications; Z86.711 Personal history of pulmonary embolism; Z89.431 Acquired absence of right foot; Z88.6 Allergy status to analgesic agent; E66.9 Obesity, unspecified; Z68.37 Body mass index [BMI] 37.0-37.9, adult; E11.40 Type 2 diabetes mellitus with diabetic neuropathy, unspecified; E11.22 Type 2 diabetes mellitus with diabetic chronic kidney disease; N18.2 Chronic kidney disease, stage 2 (mild); I51.3 Intracardiac thrombosis, not elsewhere classified; I25.10 Atherosclerotic heart disease of native coronary artery without angina pectoris; K59.00 Constipation, unspecified; B95.61 Methicillin susceptible Staphylococcus aureus infection as the cause of diseases classified elsewhere; D64.9 Anemia, unspecified; R76.8 Other specified abnormal immunological findings in serum; Z79.4 Long term (current) use of insulin; I25.5 Ischemic cardiomyopathy
CPT/HCPCS: 36415; 36416; 36569; 71045; 75625; 75635; 75710; 76942; 80048; 80053; 80061; 80306; 81001; 82550; 83036; 83605; 83735; 84484; 85007; 85025; 85027; 85610; 85652; 85730; 86140; 87040; 87077; 87149; 87186; 88184; 88304; 88307; 88341; 88342; 93306; 93923; 94760; 96365; 96367; 96375; 96376; 99152; 99153; C1751; C1760; C1769; C1887; J0690; J0692; J1644; J1650; J1815; J2001; J2250; J2270; J2370; J2405; J2720; J3010; J3370; J3490; J7050; Q9967

== ENCOUNTER 2019-08-15 06:16 | Inpatient (IN) | payer OTHER ==
--- NOTE | 2019-08-15 13:56 | HP ---
HISTORY: This is an unfortunate 54-year-old gentleman, who underwent an amputation of his left leg about a year prior. At that time, he re-presented with a sizable right-sided pulmonary embolism, was begun on Eliquis, which was continued until about 1 month prior to this admission. The patient then developed severe pain in his right lower extremity over several days duration as well as a nonhealing right transmetatarsal amputation that had been done in [place] prior to 1 year ago. He underwent angiography of his right leg demonstrating very poor flow in his femoral artery with normal-appearing vessel, and I then performed a femoral embolectomy primarily involving one of the two profunda branches. His superficial femoral artery had poor backflow and no thrombus that could be evacuated. He continued to have pain in his right leg, but to a lesser degree and it warmed up some [id number]. Cardiac echo demonstrated a mass in his left ventricle with diminished ejection fraction, felt to be a thrombus, and he was restarted on his Eliquis. He is now reporting severe rest pain in his foot and wishing to have his leg amputated, which is planned for tomorrow. His risk factors include hypertension, diabetes mellitus, and multisubstance abuse. PAST SURGICAL HISTORY: Previous superficial femoral artery stent in his distal right superficial femoral popliteal artery, actually crossing the knee joint, and a right transmetatarsal amputation. ALLERGIES: HE HAS NO ALLERGIES. MEDICATIONS: 1. Insulin. 2. Hydrochlorothiazide. 3. Atorvastatin. 4. Atenolol. PHYSICAL EXAMINATION: GENERAL: On exam, he is alert and cooperative gentleman, overweight. VITAL SIGNS: Blood pressure 130/70. NECK: No carotid bruits. HEENT: He does have a healing infected area on his right taoist area. LUNGS: Clear to auscultation. CARDIAC: No murmurs. Regular rate and rhythm. Mild resting tachycardia. ABDOMEN: Soft and nontender. EXTREMITIES: He has a healing right groin incision with some macerations. His right leg is somewhat tender in the distal anterior thigh to palpation with an open wound on his right trans met area. PLAN: Plan at this time is a right AK amputation and the patient's Eliquis has been held. Job ID: [id number]
[2019-08-16] MEDS ORDERED: Midazolam HCl 2 mg/2 ml Vial ONE (06:27)
[2019-08-16] MEDS ORDERED: Fentanyl 100 MCG/2 ML VIAL ONE ×2 (06:27→10:22)
[2019-08-16] MEDS ORDERED: Atracurium 100 MG/10 ML VIAL ONE (07:30)
--- NOTE | 2019-08-16 07:38 | HP ---
ADDENDUM: On examination, the patient is in quite a bit of pain from his right leg. He has an area of redness over the anterior distal thigh and knee. That was the site of previous tenderness postoperatively, but now appears to be red, probably ischemic in nature rather than infectious. The thigh otherwise is warm. His recorded medications include Levemir 25 b.i.d., trazodone 50 at bedtime, gabapentin 600 t.i.d., Pepcid 20 b.i.d., Plavix 75 a day, Coreg 3.125 b.i.d., atorvastatin 80 a day, Eliquis 5 b.i.d., which has been on hold since Wednesday morning, lisinopril 10 a day. Plan on right [id number]-prw-[id number] amputation, may be a high amputation given the skin findings on the anterior thigh. Job ID: [id number]
[2019-08-16] MEDS ORDERED: Ondansetron HCl/PF 4 MG/2 ML Vial IVP PRN (09:47)
[2019-08-16] MEDS ORDERED: Ondansetron PF 4 MG/2 ML Vial ONE (09:56)
--- NOTE | 2019-08-16 10:37 | OP ---
DATE OF PROCEDURE: 08/16/2019 PREOPERATIVE DIAGNOSES: Ischemic rest pain and ulcerations, right lower extremity. PROCEDURE PERFORMED: Right djrtk-hjy-hrpy amputation with wound left open. ANESTHESIA: General. ESTIMATED BLOOD LOSS: 300. DESCRIPTION OF PROCEDURE: After prepping and draping, incision was made circumferentially around the distal femur. The anterior muscle bellies were all nonviable. Skin incision was then raised approximately about 2 inches to allow removal of as much of the necrotic muscle as possible. The femur was exposed. Femoral vessels were ligated and divided with the artery being occluded and the vein being patent. Skin incision was then extended cephalad anteriorly to allow removal of more necrotic muscle and a high femur transection with the saw. After this had been done, the leg was removed by completing the posterior incision, and hemostasis was obtained. At that time, it was felt that any attempted closure would be unsuccessful and that he should be treated with a wound VAC to see him if the circulation was adequate to allow eventual closure. Wound VAC was then placed by Wound Care. Job ID: [id number]
[2019-08-16] MEDS ORDERED: PROPOFOL 200 MG/20 ML VIAL ONE (10:56)
[2019-08-16] MEDS ORDERED: Bupivacaine HCl 0.5%/Epinephrine 1:200,000/PF 30 ml Vial ONE (10:56)
[2019-08-16] MEDS ORDERED: EPHEDRINE 25 MG/5 ML SYRINGE ONE (10:56)
[2019-08-16] MEDS ORDERED: Ondansetron ODT 4 MG TAB PO PRN (11:17)
[2019-08-16] MEDS ORDERED: Cepastat Lozenges 1 LOZ PO PRN (11:17)
[2019-08-16] MEDS ORDERED: Acetaminophen 325 MG TAB PO PRN (11:17)
[2019-08-16] MEDS ORDERED: Dextrose 5% in Water 1,000 ML IV PRN (11:17)
[2019-08-16] MEDS ORDERED: Dextrose 50% Abboject 50 ML SYRINGE SLOW IVP PRN (11:17)
[2019-08-16] MEDS ORDERED: Bisacodyl 5 MG TAB PO PRN (11:17)
[2019-08-16] MEDS ORDERED: Ondansetron PF 4 MG/2 ML Vial IVP PRN (11:17)
[2019-08-16] MEDS ORDERED: Senokot S 8.6-50 MG TAB PO PRN (11:17)
[2019-08-16] MEDS ORDERED: Bisacodyl 10 MG SUPP PR PRN (11:17)
[2019-08-16] MEDS ORDERED: HYDROcodone/Acetaminophen 5/325 mg Tablet PO PRN (11:17)
[2019-08-16] MEDS ORDERED: Fentanyl 100 MCG/2 ML VIAL SLOW IVP PRN ×2 (11:17→22:13)
[2019-08-16 12:02] VITALS: BMI 36.5
[2019-08-16 12:02] LABS: Hemoglobin 8.2 g/dL (14.0-18.0)
[2019-08-16] MEDS: HumaLOG 300 UNITS/3 ML VIAL SC PRN ×3 (12:16→20:20)
[2019-08-16] MEDS: HYDROcodone/Acetaminophen 5/325 mg Tablet PO PRN ×3 (12:17→20:12)
[2019-08-16] MEDS: Gabapentin 300 MG CAP PO SCH ×2 (14:23→20:26)
[2019-08-16] MEDS: Carvedilol 3.125 MG TAB PO SCH (16:40)
--- NOTE | 2019-08-16 17:27 | CON ---
DATE OF CONSULTATION: REASON FOR THE CONSULTATION: Medical management after AKA. 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 The patient was diagnosed with LV thrombus complicating his cardiomyopathy. He underwent a thrombectomy procedure and was placed on Eliquis for anticoagulation. His hospital stay was complicated with Staphylococcal bacteremia and he was discharged from the hospital on IV cefazolin. The patient was transferred back from the rehab facility due to worsening pain in his right lower extremity. He opted against AKA during his prior hospitalization and wanted to pursue medical. Apparently, his pain has worsened and at this time, he was agreeable for surgery. The patient underwent right above-knee amputation with wound VAC placement earlier today. At the time of my assessment, the patient was still sleepy, but denied any pain or complaints. REVIEW OF SYSTEMS: Negative except as noted in HPI. PAST MEDICAL HISTORY: Hypertension, diabetes mellitus, chronic kidney disease, chronic anemia, hepatitis C, limb ischemia, methamphetamine abuse, obesity, peripheral arterial disease, and cardiomyopathy. PAST SURGICAL HISTORY: Previous superficial femoral artery stent, right metatarsal amputation, left AKA. PHYSICAL EXAMINATION: GENERAL: The patient is sleepy, but answers questions appropriately. HEENT: Head is normocephalic and atraumatic. Extraocular muscles are intact. NECK: Supple. CHEST: Clear to auscultation bilaterally. ABDOMEN: Soft, nontender, nondistended. CARDIOVASCULAR: Showed normal S1 and S2. RRR, no murmurs, rubs, or gallops. ASSESSMENT: 1. Peripheral vascular disease, status post right AKA. 2. Bacteremia due to Staphylococcus. 3. Left LV thrombus. 4. Chronic kidney disease. 5. Chronic anemia. 6. Hepatitis C. 7. History of urinary retention. 8. Diabetes mellitus. 9. Hypertension. PLAN: 1. Continue postoperative surgical wound management per Dr. Cho. 2. Resume Eliquis when cleared by Surgery. 3. Continue sliding scale and Lantus for sugar management. 4. Continue IV cefazolin until August 17. 5. Continue his home antihypertensive medications. We will continue to follow the patient closely. Job ID: [id number]
[2019-08-16] MEDS: Insulin Glargine 25 UNITS in Pre-Filled Syringe 1 EACH SC SCH (20:13)
[2019-08-16] MEDS: Atorvastatin Calcium 40 MG TAB PO SCH (20:13)
[2019-08-16] MEDS: Famotidine 20 MG TAB PO SCH (20:13)
[2019-08-16] MEDS: Aspirin 81 mg Enteric Coated Tablet PO SCH (20:13)
[2019-08-16] MEDS: Enoxaparin Sodium 60 MG/0.6 ML SYRINGE SC SCH (20:26)
[2019-08-16] MEDS ORDERED: Non-Formulary Item 1 EACH (Insulin Detemir [Levemir] 25 UNIT) SQ SCH (21:00)
[2019-08-17] MEDS: HYDROcodone/Acetaminophen 5/325 mg Tablet PO PRN (03:15)
[2019-08-17 05:44] LABS: #Basophils 0.1 thou/uL (0.0-0.2); #Eosinphils 0.3 thou/uL (0.0-0.7); #Lymphocytes 1.7 thou/uL (1.20-3.40); #Neutrophils 12.7 thou/uL (1.40-6.50); %Basophils 0.4 % (0.0-1.0); %Eosinophils 1.8 % (0.0-10.0); %Lymphocytes 10.6 % (21.0-51.0); %Monocytes 6.3 % (0.0-10.0); %Neutrophils 80.8 % (42.0-75.0); Mean Corpuscular HGB CONC 29.9 g/dL (32.0-36.0); Mean Corpuscular Hemoglobin 24.5 pg (27.0-31.0); Mean Corpuscular Volume 81.8 fL (78.0-98.0); Mean Platelet Volume 6.9 fL (7.4-10.4); Platelet Count 759 thou/uL (130-400); RBC Distribution Width 14.4 % (11.5-14.5); Red Blood Cell (RBC) Count 3.28 mill/uL (4.70-6.10); White Blood Cell (WBC) Count 15.8 thou/uL (4.8-10.8)
[2019-08-17] MEDS: HumaLOG 300 UNITS/3 ML VIAL SC PRN ×2 (05:58→17:36)
[2019-08-17 06:06] LABS: Anion Gap 14 mmol/L (10-20); BUN (Urea Nitrogen) 20 mg/dL (8.4-25.7); Calc. Creatinine Clearance 161 mL/min (70-130); Calcium 8.4 mg/dL (7.8-10.44); Carbon Dioxide 22 mmol/L (22-29); Chloride 100 mmol/L (98-107); Estimated GFR-MDRD Greater than 90; Glucose 225 mg/dL (70-105); Potassium 5.1 mmol/L (3.5-5.1); Sodium 131 mmol/L (136-145)
[2019-08-17] MEDS ORDERED: Fentanyl 100 MCG/2 ML VIAL SLOW IVP SCH (06:15)
[2019-08-17] MEDS ORDERED: HYDROcodone/Acetaminophen 10/325 mg Tablet PO PRN (06:45)
--- NOTE | 2019-08-17 06:58 | PRG ---
DATE OF SERVICE: 08/17/2019 The patient is afebrile. Vital signs stable and blood pressure 130, heart rate 80s. Laboratory values; white count is 15,800 with a hemoglobin of 8, which is stable compared to yesterday postoperatively. His creatinine remains less than 1. Potassium level remains about 5. His primary complaint this morning is pain with some leg spasms. He states the pain is better than preop yesterday. He also complains of sweats, although he is afebrile. His wound VAC appears to be intact with an Herbert dressing over the residual stump on the right. We will increase his [place] for pain control and increase his fentanyl as needed. The patient has been on pain medicine for the better part of 3 to 4 weeks now and expect that he is getting some tolerance to this. We will look at the wound, when his wound VAC is changed to see whether how much more proximally we will have to debride in order to get to viable tissue. Otherwise, he is on Lovenox 60 q.6 and we will increase this gradually with his history of pulmonary embolus as well as LV thrombus. Job ID: [id number]
[2019-08-17] MEDS: HYDROcodone/Acetaminophen 10/325 mg Tablet PO PRN ×5 (07:35→23:44)
[2019-08-17] MEDS: Polyethylene Glycol 3350 17 GM Packet PO SCH (09:09)
[2019-08-17] MEDS: Insulin Glargine 25 UNITS in Pre-Filled Syringe 1 EACH SC SCH (09:09)
[2019-08-17] MEDS: Gabapentin 300 MG CAP PO SCH ×3 (09:09→21:17)
[2019-08-17] MEDS: Enoxaparin Sodium 60 MG/0.6 ML SYRINGE SC SCH ×2 (09:09→21:17)
[2019-08-17] MEDS: Carvedilol 3.125 MG TAB PO SCH ×2 (09:10→16:31)
[2019-08-17] MEDS: Famotidine 20 MG TAB PO SCH ×2 (09:10→21:17)
--- NOTE | 2019-08-17 09:39 | PDOC.HOSPP ---
- Subjective Encounter Date: 08/17/19 Subjective: The patient was sleeping when I walked into the room. I woke him up and he complained of "unbearable" pain. Tolerating his diet. BM yeaterday. - Objective Vital Signs & Weight: Vital Signs (12 hours) Temp Pulse Resp BP Pulse Ox 08/17/19 07:40 97.9 F 87 18 147/92 H 98 08/17/19 03:19 98.5 F 86 17 137/87 92 L 08/16/19 23:02 97.8 F 83 16 133/83 98 Weight Weight 240 lb I&O: 08/16/19 08/17/19 08/18/19 06:59 06:59 06:59 Intake Total 920 Output Total 1200 Balance -280 Result Diagrams: 08/17/19 05:22 08/17/19 05:22 Additional Labs: Accuchecks 08/17/19 08/16/19 08/16/19 05:15 19:59 15:39 POC Glucose 238 H 263 H 262 H 08/16/19 12:15 POC Glucose 305 H Hospitalist ROS - Medication Medications: Active Medications Generic Name Dose Route Start Last Admin Trade Name Freq PRN Reason Stop Dose Admin Hydrocodone Bitart/Acetaminophen 2 tab 08/17/19 06:45 08/17/19 07:35 [place] 10/325 PO 2 tab Q4H PRN Administration Severe Pain (7-10) Aspirin 81 mg 08/16/19 21:00 08/16/19 20:13 Ecotrin PO 81 mg HS KATHLEEN Administration Atorvastatin Calcium 80 mg 08/16/19 21:00 08/16/19 20:13 Lipitor PO 80 mg HS KATHLEEN Administration Carvedilol 3.125 mg 08/16/19 17:00 08/17/19 09:10 Coreg PO 3.125 mg BID-WM KATHLEEN Administration Cefazolin Sodium/Dextrose 2 gm 08/16/19 16:00 08/17/19 09:09 Ancef IVPB 08/18/19 08:01 2 gm Q8H KATHLEEN Administration Enoxaparin Sodium 60 mg 08/16/19 21:00 08/17/19 09:09 Lovenox SC 60 mg 0900,2100 KATHLEEN Administration Famotidine 20 mg 08/16/19 21:00 08/17/19 09:10 Pepcid PO 20 mg BID KATHLENE Administration Fentanyl 25 mcg 08/16/19 22:13 08/16/19 22:31 Sublimaze SLOW IVP 08/19/19 22:14 25 mcg ONE PRN Administration Severe Pain (7-10) Gabapentin 600 mg 08/16/19 15:00 08/17/19 09:09 Neurontin PO 600 mg TID KATHLEEN Administration Insulin Glargine 25 units/ 0.25 mls @ 0 mls/hr 08/16/19 21:00 08/17/19 09:09 Miscellaneous Medication SC 0.25 mls BID KATHLEEN Administration Insulin Human Lispro 0 units 08/16/19 11:17 08/17/19 05:58 Humalog SC 3 unit .MILD SLIDING SCALE PRN Administration Mild Correctional Scale Polyethylene Glycol 17 gm 08/17/19 09:00 08/17/19 09:09 Miralax PO 17 gm DAILY KATHLEEN Administration - Exam General Appearance: awake alert ENT: normocephalic atraumatic Neck: supple, symmetric, no JVD Respiratory: normal chest expansion, no tachypnea Gastrointestinal: non-tender, non-distended Extremities: no cyanosis Neurological: cranial nerve grossly intact Psychiatric: A&O x 3 Hosp A/P (1) Bacteremia due to Staphylococcus Code(s): R78.81 - BACTEREMIA; B95.8 - UNSP STAPHYLOCOCCUS THE CAUSE OF DISEASES CLASSD ELSWHR Status: Acute (2) Bilateral pulmonary embolism Code(s): I26.99 - OTHER PULMONARY EMBOLISM WITHOUT ACUTE COR PULMONALE Status : Acute (3) Ischemia of right lower extremity Code(s): I99.8 - OTHER DISORDER OF CIRCULATORY SYSTEM Status: Acute (4) LV (left ventricular) mural thrombus Code(s): I51.3 - INTRACARDIAC THROMBOSIS, NOT ELSEWHERE CLASSIFIED Status: Acute (5) Diabetes type 2, controlled Code(s): E11.9 - TYPE 2 DIABETES MELLITUS WITHOUT COMPLICATIONS Status: Chronic Qualifiers: Diabetes mellitus fci insulin use: with fci use Diabetes mellitus complication status: with circulatory complication (6) Dyslipidemia Code(s): E78.5 - HYPERLIPIDEMIA, UNSPECIFIED Status: Chronic (7) Hypertension Code(s): I10 - ESSENTIAL (PRIMARY) HYPERTENSION Status: Chronic Qualifiers: Hypertension type: essential hypertension Qualified Code(s): I10 - Essential (primary) hypertension (8) Methamphetamine abuse Code(s): F15.10 - OTHER STIMULANT ABUSE, UNCOMPLICATED Status: Chronic (9) Obesity (BMI 30-39.9) Code(s): E66.9 - OBESITY, UNSPECIFIED Status: Chronic (10) PAD (peripheral artery disease) Code(s): I73.9 - PERIPHERAL VASCULAR DISEASE, UNSPECIFIED Status: Chronic - Plan S/P R AKA Continue wound management per Dr. Cho. Resume full dose anticoagulation when okay by surgery. On [place] and Fentanyl for pain. Last dose of Cefazolin tomorrow.
[2019-08-17] MEDS ORDERED: Insulin Glargine 15 UNITS in Pre-Filled Syringe 1 EACH SC SCH (09:45)
[2019-08-17] MEDS: Fentanyl 100 MCG/2 ML VIAL SLOW IVP PRN ×4 (13:30→21:18)
[2019-08-17] MEDS: Insulin Glargine 20 UNITS in Pre-Filled Syringe 1 EACH SC SCH (21:16)
[2019-08-17] MEDS: Aspirin 81 mg Enteric Coated Tablet PO SCH (21:17)
[2019-08-17] MEDS: Atorvastatin Calcium 40 MG TAB PO SCH (21:17)
[2019-08-18] MEDS: Zolpidem Tartrate 5 MG TAB PO PRN (00:46)
[2019-08-18] MEDS: Fentanyl 100 MCG/2 ML VIAL SLOW IVP PRN ×6 (01:44→16:32)
[2019-08-18] MEDS: HYDROcodone/Acetaminophen 10/325 mg Tablet PO PRN ×4 (04:38→19:56)
--- NOTE | 2019-08-18 07:11 | PRG ---
DATE OF SERVICE: 08/18/2019 The patient is postop day #2 from an open amputation of the right lower extremity above the knee. 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 His blood pressure has been good. Sugars have been rather elevated and his insulin was adjusted by the hospitalist service yesterday. On examination, the patient is asleep and snoring. His wound VAC is intact. I just need to look at his wound when wound VAC is changed either today or tomorrow. No other laboratory values done this morning. Job ID: [id number]
[2019-08-18] MEDS: Famotidine 20 MG TAB PO SCH ×2 (08:00→20:05)
[2019-08-18] MEDS: Enoxaparin Sodium 60 MG/0.6 ML SYRINGE SC SCH (08:00)
[2019-08-18] MEDS: Gabapentin 300 MG CAP PO SCH ×3 (08:01→20:05)
[2019-08-18] MEDS: Insulin Glargine 40 UNITS in Pre-Filled Syringe 1 EACH SC SCH (08:01)
[2019-08-18] MEDS: Polyethylene Glycol 3350 17 GM Packet PO SCH (08:01)
[2019-08-18] MEDS: Carvedilol 3.125 MG TAB PO SCH ×2 (08:01→16:29)
[2019-08-18] MEDS ORDERED: Enoxaparin Sodium 60 MG/0.6 ML SYRINGE SC SCH (11:56)
[2019-08-18] MEDS: Cyclobenzaprine 10 MG TAB PO PRN ×2 (11:58→22:34)
[2019-08-18] MEDS ORDERED: Enoxaparin Sodium 80 MG/0.8 ML SYRINGE SC SCH (12:15)
[2019-08-18] MEDS: Lidocaine 4% Topical Sol 50 ML BOT TOP SCH (15:33)
[2019-08-18] MEDS: HumaLOG 300 UNITS/3 ML VIAL SC PRN (17:31)
[2019-08-18] MEDS: Atorvastatin Calcium 40 MG TAB PO SCH (20:05)
[2019-08-18] MEDS: Aspirin 81 mg Enteric Coated Tablet PO SCH (20:05)
[2019-08-18] MEDS: Enoxaparin Sodium 80 MG/0.8 ML SYRINGE SC SCH (20:05)
[2019-08-18] MEDS: Insulin Glargine 20 UNITS in Pre-Filled Syringe 1 EACH SC SCH (20:05)
--- NOTE | 2019-08-18 20:05 | PDOC.HOSPP ---
- Subjective Encounter Date: 08/18/19 Subjective: The patient was seen and examined. He stated that his pain is better than yesterday and he was able to sleep. - Objective Vital Signs & Weight: Vital Signs (12 hours) Temp Pulse Resp BP Pulse Ox 08/18/19 19:29 98 F 85 16 131/84 95 08/18/19 14:50 98.1 F 89 18 136/85 97 08/18/19 10:44 97.6 F 77 18 136/73 95 Weight Admit Weight 240 lb Weight 240 lb I&O: 08/17/19 08/18/19 08/19/19 06:59 06:59 06:59 Intake Total 920 1000 1500 Output Total 1200 1450 1000 Balance -280 -450 500 Result Diagrams: 08/17/19 05:22 08/17/19 05:22 Additional Labs: Accuchecks 08/18/19 08/18/19 08/18/19 16:10 10:38 05:38 POC Glucose 223 H 201 H 165 H 08/17/19 21:00 POC Glucose 310 H Hospitalist ROS - Medication Medications: Active Medications Generic Name Dose Route Start Last Admin Trade Name Freq PRN Reason Stop Dose Admin Hydrocodone Bitart/Acetaminophen 2 tab 08/17/19 06:45 08/18/19 19:56 [place] 10/325 PO 2 tab Q4H PRN Administration Severe Pain (7-10) Aspirin 81 mg 08/16/19 21:00 08/17/19 21:17 Ecotrin PO 81 mg HS KATHLEEN Administration Atorvastatin Calcium 80 mg 08/16/19 21:00 08/17/19 21:17 Lipitor PO 80 mg HS KATHLEEN Administration Carvedilol 3.125 mg 08/16/19 17:00 08/18/19 16:29 Coreg PO 3.125 mg BID-WM KATHLEEN Administration Cyclobenzaprine HCl 10 mg 08/18/19 11:46 08/18/19 11:58 Flexeril PO 10 mg TIDPRN PRN Administration Muscle Spasm Famotidine 20 mg 08/16/19 21:00 08/18/19 08:00 Pepcid PO 20 mg BID KATHLEEN Administration Fentanyl 25 mcg 08/16/19 22:13 08/16/19 22:31 Sublimaze SLOW IVP 08/19/19 22:14 25 mcg ONE PRN Administration Severe Pain (7-10) Fentanyl 50 mcg 08/17/19 06:12 08/18/19 16:32 Sublimaze SLOW IVP 50 mcg Q2H PRN Administration Severe Pain (7-10) Gabapentin 600 mg 08/16/19 15:00 08/18/19 16:29 Neurontin PO 600 mg TID KATHLEEN Administration Insulin Glargine 20 units/ 0.2 mls @ 0 mls/hr 08/17/19 21:00 08/17/19 21:16 Miscellaneous Medication SC 0.2 mls HS KATHLEEN Administration Insulin Glargine 40 units/ 0.4 mls @ 0 mls/hr 08/18/19 09:00 08/18/19 08:01 Miscellaneous Medication SC 0.4 mls QAM KAHTLEEN Administration Insulin Human Lispro 0 units 08/16/19 11:17 08/18/19 17:31 Humalog SC 3 unit .MILD SLIDING SCALE PRN Administration Mild Correctional Scale Lidocaine HCl 0 ml 08/18/19 12:15 08/18/19 15:33 Xylocaine 4% Topical Barb TOP Not Given Q3D KATHLEEN Polyethylene Glycol 17 gm 08/17/19 09:00 08/18/19 08:01 Miralax PO 17 gm DAILY KATHLEEN Administration Sodium Chloride 10 ml 08/17/19 21:00 08/18/19 10:12 Flush - Normal Saline IVF 10 ml Q12HR KATHLEEN Administration Zolpidem Tartrate 5 mg 08/16/19 11:17 08/18/19 00:46 Ambien PO 5 mg HSPRN PRN Administration Insomnia - Exam General Appearance: awake alert ENT: normocephalic atraumatic Neck: supple, no JVD Heart: RRR, no murmur, no gallops, no rubs, normal peripheral pulses Respiratory: CTAB, no wheezes, no rales Gastrointestinal: soft, non-tender, non-distended, normal bowel sounds Hosp A/P (1) Bacteremia due to Staphylococcus Code(s): R78.81 - BACTEREMIA; B95.8 - UNSP STAPHYLOCOCCUS THE CAUSE OF DISEASES CLASSD ELSWHR Status: Acute (2) Bilateral pulmonary embolism Code(s): I26.99 - OTHER PULMONARY EMBOLISM WITHOUT ACUTE COR PULMONALE Status : Acute (3) Ischemia of right lower extremity Code(s): I99.8 - OTHER DISORDER OF CIRCULATORY SYSTEM Status: Acute (4) LV (left ventricular) mural thrombus Code(s): I51.3 - INTRACARDIAC THROMBOSIS, NOT ELSEWHERE CLASSIFIED Status: Acute (5) Diabetes type 2, controlled Code(s): E11.9 - TYPE 2 DIABETES MELLITUS WITHOUT COMPLICATIONS Status: Chronic Qualifiers: Diabetes 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 exterminator insulin use: with fci use Diabetes mellitus complication status: with circulatory complication (6) Dyslipidemia Code(s): E78.5 - HYPERLIPIDEMIA, UNSPECIFIED Status: Chronic (7) Hypertension Code(s): I10 - ESSENTIAL (PRIMARY) HYPERTENSION Status: Chronic Qualifiers: Hypertension type: essential hypertension Qualified Code(s): I10 - Essential (primary) hypertension (8) Methamphetamine abuse Code(s): F15.10 - OTHER STIMULANT ABUSE, UNCOMPLICATED Status: Chronic (9) Obesity (BMI 30-39.9) Code(s): E66.9 - OBESITY, UNSPECIFIED Status: Chronic (10) PAD (peripheral artery disease) Code(s): I73.9 - PERIPHERAL VASCULAR DISEASE, UNSPECIFIED Status: Chronic - Plan S/P R AKA Continue wound management per Dr. Cho. Resume full dose anticoagulation when okay by surgery. On [place] and Fentanyl for pain. Completed his IV cefazolin course today.
[2019-08-19] MEDS: HYDROcodone/Acetaminophen 10/325 mg Tablet PO PRN ×4 (00:54→23:04)
[2019-08-19] MEDS: Fentanyl 100 MCG/2 ML VIAL SLOW IVP PRN ×5 (03:19→17:13)
[2019-08-19 03:55] LABS: #Basophils 0.1 thou/uL (0.0-0.2); #Eosinphils 0.4 thou/uL (0.0-0.7); #Lymphocytes 2.5 thou/uL (1.20-3.40); #Monocytes 1.1 thou/uL (0.11-0.59); #Neutrophils 9.3 thou/uL (1.40-6.50); %Basophils 0.5 % (0.0-1.0); %Eosinophils 3.3 % (0.0-10.0); %Lymphocytes 18.8 % (21.0-51.0); %Monocytes 8.4 % (0.0-10.0); %Neutrophils 68.9 % (42.0-75.0); Mean Corpuscular HGB CONC 30.3 g/dL (32.0-36.0); Mean Corpuscular Volume 82.6 fL (78.0-98.0); Mean Platelet Volume 6.4 fL (7.4-10.4); Platelet Count 678 thou/uL (130-400); RBC Distribution Width 14.9 % (11.5-14.5); Red Blood Cell (RBC) Count 3.18 mill/uL (4.70-6.10); White Blood Cell (WBC) Count 13.5 thou/uL (4.8-10.8)
[2019-08-19 04:52] LABS: Anion Gap 9 mmol/L (10-20); BUN (Urea Nitrogen) 21 mg/dL (8.4-25.7); Calc. Creatinine Clearance 173 mL/min (70-130); Calcium 8.5 mg/dL (7.8-10.44); Carbon Dioxide 30 mmol/L (22-29); Chloride 100 mmol/L (98-107); Estimated GFR-MDRD Greater than 90; Glucose 133 mg/dL (70-105); Potassium 4.9 mmol/L (3.5-5.1); Sodium 134 mmol/L (136-145)
[2019-08-19] MEDS: HumaLOG 300 UNITS/3 ML VIAL SC PRN (06:37)
[2019-08-19] MEDS: Gabapentin 300 MG CAP PO SCH ×3 (07:48→20:47)
[2019-08-19] MEDS: Polyethylene Glycol 3350 17 GM Packet PO SCH (07:48)
[2019-08-19] MEDS: Carvedilol 3.125 MG TAB PO SCH ×2 (07:48→17:12)
[2019-08-19] MEDS: Famotidine 20 MG TAB PO SCH ×2 (07:48→20:47)
[2019-08-19] MEDS: Cyclobenzaprine 10 MG TAB PO PRN ×2 (07:48→15:08)
[2019-08-19] MEDS: Enoxaparin Sodium 80 MG/0.8 ML SYRINGE SC SCH (07:48)
[2019-08-19] MEDS: Insulin Glargine 40 UNITS in Pre-Filled Syringe 1 EACH SC SCH (07:48)
[2019-08-19] MEDS: HumaLOG 300 UNITS/3 ML VIAL SC SCH ×2 (11:56→17:15)
--- NOTE | 2019-08-19 20:34 | PDOC.HOSPP ---
- Subjective Encounter Date: 08/19/19 Encounter Time: 10:00 Subjective: no overnight events. This morning feels well and has no complaints. - Objective Vital Signs & Weight: Vital Signs (12 hours) Temp Pulse Resp BP Pulse Ox 08/19/19 19:18 97.9 F 94 18 131/85 94 L 08/19/19 16:10 97.8 F 77 16 138/87 98 08/19/19 11:35 98.2 F 78 16 142/88 H 96 Weight Admit Weight 240 lb Weight 240 lb I&O: 08/18/19 08/19/19 08/20/19 06:59 06:59 06:59 Intake Total 1000 1500 Output Total 1450 1000 Balance -450 500 Result Diagrams: 08/19/19 03:30 08/19/19 03:30 Additional Labs: Accuchecks 08/19/19 08/19/19 08/19/19 16:26 11:41 06:08 POC Glucose 275 H 283 H 215 H 08/18/19 19:42 POC Glucose 181 H Hospitalist ROS - Review of Systems Constitutional: denies: fever, chills, sweats, weakness, malaise, other Respiratory: denies: cough, dry, shortness of breath, hemoptysis, SOB with excertion, pleuritic pain, sputum, wheezing, other Cardiovascular: denies: chest pain, palpitations, orthopnea, paroxysmal noc. dyspnea, edema, light headedness, other Gastrointestinal: denies: nausea, vomiting, abdominal pain, diarrhea, constipation, melena, hematochezia, other - Medication Medications: Active Medications Generic Name Dose Route Start Last Admin Trade Name Freq PRN Reason Stop Dose Admin Hydrocodone Bitart/Acetaminophen 2 tab 08/17/19 06:45 08/19/19 17:12 [place] 10/325 PO 2 tab Q4H PRN Administration Severe Pain (7-10) Aspirin 81 mg 08/16/19 21:00 08/18/19 20:05 Ecotrin PO 81 mg HS KATHLEEN Administration Atorvastatin Calcium 80 mg 08/16/19 21:00 08/18/19 20:05 Lipitor PO 80 mg HS KATHLEEN Administration Carvedilol 3.125 mg 08/16/19 17:00 08/19/19 17:12 Coreg PO 3.125 mg BID-WM KATHLEEN Administration Cyclobenzaprine HCl 10 mg 08/18/19 11:46 08/19/19 15:08 Flexeril PO 10 mg TIDPRN PRN Administration Muscle Spasm Famotidine 20 mg 08/16/19 21:00 08/19/19 07:48 Pepcid PO 20 mg BID KATHLEEN Administration Fentanyl 25 mcg 08/16/19 22:13 08/16/19 22:31 Sublimaze SLOW IVP 08/19/19 22:14 25 mcg ONE PRN Administration Severe Pain (7-10) Fentanyl 50 mcg 08/17/19 06:12 08/19/19 17:13 Sublimaze SLOW IVP 50 mcg Q2H PRN Administration Severe Pain (7-10) Gabapentin 600 mg 08/16/19 15:00 08/19/19 15:08 Neurontin PO 600 mg TID KATHLEEN Administration Insulin Glargine 20 units/ 0.2 mls @ 0 mls/hr 08/17/19 21:00 08/18/19 20:05 Miscellaneous Medication SC 0.2 mls HS KATHLEEN Administration Insulin Glargine 40 units/ 0.4 mls @ 0 mls/hr 08/18/19 09:00 08/19/19 07:48 Miscellaneous Medication SC 0.4 mls QAM KATHLEEN Administration Insulin Human Lispro 0 units 08/16/19 11:17 08/19/19 06:37 Humalog SC 3 unit .MILD SLIDING SCALE PRN Administration Mild Correctional Scale Insulin Human Lispro 5 units 08/19/19 11:30 08/19/19 17:15 Humalog SC 5 unit AC KATHLEEN Administration Lidocaine HCl 0 ml 08/18/19 12:15 08/18/19 15:33 Xylocaine 4% Topical Barb TOP Not Given Q3D KATHLEEN Polyethylene Glycol 17 gm 08/17/19 09:00 08/19/19 07:48 Miralax PO 17 gm DAILY KATHLEEN Administration Sodium Chloride 10 ml 08/17/19 21:00 08/19/19 08:21 Flush - Normal Saline IVF Not Given Q12HR KATHLEEN Zolpidem Tartrate 5 mg 08/16/19 11:17 08/18/19 00:46 Ambien PO 5 mg HSPRN PRN Administration Insomnia - Exam General Appearance: NAD, awake alert Heart: RRR, no murmur, no gallops, no rubs Respiratory: CTAB, no wheezes, no rales, no ronchi Gastrointestinal: soft, non-tender, non-distended, normal bowel sounds Extremities - other findings: R stomp wound vac in place draining serosanuinous fluid Psychiatric: normal affect, normal behavior, A&O x 3 Hosp A/P - Plan #PVD s/p R AKA -POD 3; pain improved -continue wound management as per surgery #right groin puncture wound -at site of previous access for emboletomy -draining serous fluid with minimal surrounding erythema -apply dry dressing to prevent infection -will continue to follow #T2DM -poorly controlled -started scheduled humalog in addition to long acting and sliding scale -will continue to monitor; if still poorly controlled, will revise regimen based on current insulin requirements and more balanced distribution of short and long acting insulin #pulmonary embolism -restarted on eliquis
[2019-08-19] MEDS: Apixaban 5 MG TAB PO SCH (20:47)
[2019-08-19] MEDS: Aspirin 81 mg Enteric Coated Tablet PO SCH (20:47)
[2019-08-19] MEDS: Atorvastatin Calcium 40 MG TAB PO SCH (20:47)
[2019-08-19] MEDS: Insulin Glargine 20 UNITS in Pre-Filled Syringe 1 EACH SC SCH (20:48)
[2019-08-19] MEDS: Zolpidem Tartrate 5 MG TAB PO PRN (23:04)
[2019-08-20] MEDS: Fentanyl 100 MCG/2 ML VIAL SLOW IVP PRN ×6 (04:04→20:58)
[2019-08-20] MEDS: HYDROcodone/Acetaminophen 10/325 mg Tablet PO PRN ×3 (06:40→18:02)
[2019-08-20] MEDS: HumaLOG 300 UNITS/3 ML VIAL SC SCH ×3 (06:40→18:01)
[2019-08-20] MEDS: Carvedilol 3.125 MG TAB PO SCH ×2 (09:22→18:01)
[2019-08-20] MEDS: Insulin Glargine 40 UNITS in Pre-Filled Syringe 1 EACH SC SCH (09:22)
[2019-08-20] MEDS: Gabapentin 300 MG CAP PO SCH ×3 (09:22→21:03)
[2019-08-20] MEDS: Famotidine 20 MG TAB PO SCH ×2 (09:22→21:03)
[2019-08-20] MEDS: Polyethylene Glycol 3350 17 GM Packet PO SCH (09:22)
[2019-08-20] MEDS: Apixaban 5 MG TAB PO SCH ×2 (09:23→21:03)
[2019-08-20 09:29] LABS: Hemoglobin 8.7 g/dL (14.0-18.0); Platelet Count 675 thou/uL (130-400)
[2019-08-20 09:45] LABS: Calc. Creatinine Clearance 181 mL/min (70-130); Estimated GFR-MDRD Greater than 90
[2019-08-20] MEDS: Cyclobenzaprine 10 MG TAB PO PRN (11:04)
--- NOTE | 2019-08-20 13:46 | PDOC.HOSPP ---
- Subjective Encounter Date: 08/20/19 Encounter Time: 10:00 Subjective: overnight, has been having waxing and waning right stomp pain temporally related to pain medication and muscle relaxant administration. Otherwise, has no complaints. - Objective Vital Signs & Weight: Vital Signs (12 hours) Temp Pulse Resp BP Pulse Ox 08/20/19 12:00 97.6 F 87 16 138/89 97 08/20/19 07:11 98 F 80 18 125/79 96 08/20/19 03:59 97.9 F 81 18 133/78 98 Weight Admit Weight 240 lb Weight 240 lb I&O: 08/19/19 08/20/19 08/21/19 06:59 06:59 06:59 Intake Total 1500 1200 Output Total 1000 2700 Balance 500 -1500 Result Diagrams: 08/20/19 09:18 08/20/19 09:18 Additional Labs: Accuchecks 08/20/19 08/20/19 08/19/19 10:53 05:33 19:24 POC Glucose 189 H 189 H 237 H 08/19/19 16:26 POC Glucose 275 H Hospitalist ROS - Review of Systems Constitutional: denies: fever, chills, sweats, weakness, malaise, other Respiratory: denies: cough, dry, shortness of breath, hemoptysis, SOB with excertion, pleuritic pain, sputum, wheezing, other Cardiovascular: denies: chest pain, palpitations, orthopnea, paroxysmal noc. dyspnea, edema, light headedness, other Gastrointestinal: denies: nausea, vomiting, abdominal pain, diarrhea, constipation, melena, hematochezia, other Musculoskeletal: reports: leg pain - Medication Medications: Active Medications Generic Name Dose Route Start Last Admin Trade Name Freq PRN Reason Stop Dose Admin Hydrocodone Bitart/Acetaminophen 2 tab 08/17/19 06:45 08/20/19 11:05 [place] 10/325 PO 2 tab Q4H PRN Administration Severe Pain (7-10) Apixaban 5 mg 08/19/19 21:00 08/20/19 09:23 Eliquis PO 5 mg BID KATHLEEN Administration Aspirin 81 mg 08/16/19 21:00 08/19/19 20:47 Ecotrin PO 81 mg HS KATHLEEN Administration Atorvastatin Calcium 80 mg 08/16/19 21:00 08/19/19 20:47 Lipitor PO 80 mg HS KATHLEEN Administration Carvedilol 3.125 mg 08/16/19 17:00 08/20/19 09:22 Coreg PO 3.125 mg BID-WM KATHLEEN Administration Cyclobenzaprine HCl 10 mg 08/18/19 11:46 08/20/19 11:04 Flexeril PO 10 mg TIDPRN PRN Administration Muscle Spasm Famotidine 20 mg 08/16/19 21:00 08/20/19 09:22 Pepcid PO 20 mg BID KATHLEEN Administration Fentanyl 50 mcg 08/17/19 06:12 08/20/19 09:23 Sublimaze SLOW IVP 50 mcg Q2H PRN Administration Severe Pain (7-10) Gabapentin 600 mg 08/16/19 15:00 08/20/19 09:22 Neurontin PO 600 mg TID KATHLEEN Administration Insulin Glargine 20 units/ 0.2 mls @ 0 mls/hr 08/17/19 21:00 08/19/19 20:48 Miscellaneous Medication SC 0.2 mls HS KATHLEEN Administration Insulin Glargine 40 units/ 0.4 mls @ 0 mls/hr 08/18/19 09:00 08/20/19 09:22 Miscellaneous Medication SC 0.4 mls QAM KATHLEEN Administration Lidocaine HCl 0 ml 08/18/19 12:15 08/18/19 15:33 Xylocaine 4% Topical Barb TOP Not Given Q3D KATHLEEN Polyethylene Glycol 17 gm 08/17/19 09:00 08/20/19 09:22 Miralax PO 17 gm DAILY KATHLEEN Administration Sodium Chloride 10 ml 08/17/19 21:00 08/20/19 09:23 Flush - Normal Saline IVF 10 ml Q12HR KATHLEEN Administration Zolpidem Tartrate 5 mg 08/16/19 11:17 08/19/19 23:04 Ambien PO 5 mg HSPRN PRN Administration Insomnia - Exam General Appearance: NAD, awake alert Heart: RRR, no murmur, no gallops, no rubs Respiratory: CTAB, no wheezes, no rales, no ronchi Gastrointestinal: soft, non-tender, non-distended, normal bowel sounds Extremities - other findings: wound vacuum on right stomp, minimal drainage of serosanguinous; Skin - other findings: right femoral puncture site with minimal serous drainage , erythema; not ten Psychiatric: normal affect, normal behavior, A&O x 3 Hosp A/P - Plan #PVD s/p R AKA -POD 4; waxing and waning stomp pain, occasinal phantom pain -patient showed recent picture of wound which appeared noninfected -consider long acting (oxycontin, moprhine), short acting PRN for breakthrough pain -continue wound management as per surgery #right groin puncture wound -at site of previous access for embolectomy -draining serous fluid with minimal surrounding erythema -apply dry dressing to prevent infection -will continue to follow #T2DM -better controlled -currently on lantus 20,40; increased humalog to 15u tidac and moderate correction -will continue to follow #pulmonary embolism -on eliquis
[2019-08-20] MEDS: Atorvastatin Calcium 40 MG TAB PO SCH (21:02)
[2019-08-20] MEDS: Insulin Glargine 20 UNITS in Pre-Filled Syringe 1 EACH SC SCH (21:02)
[2019-08-20] MEDS: Aspirin 81 mg Enteric Coated Tablet PO SCH (21:03)
[2019-08-20] MEDS: HumaLOG 300 UNITS/3 ML VIAL SC PRN (21:06)
[2019-08-21] MEDS: HYDROcodone/Acetaminophen 10/325 mg Tablet PO PRN ×5 (00:44→20:15)
[2019-08-21] MEDS: Fentanyl 100 MCG/2 ML VIAL SLOW IVP PRN ×6 (03:05→22:29)
[2019-08-21] MEDS: Cyclobenzaprine 10 MG TAB PO PRN ×2 (05:41→15:14)
[2019-08-21] MEDS: HumaLOG 300 UNITS/3 ML VIAL SC SCH ×3 (07:23→17:37)
[2019-08-21] MEDS: Famotidine 20 MG TAB PO SCH ×2 (08:43→20:15)
[2019-08-21] MEDS: Apixaban 5 MG TAB PO SCH ×2 (08:43→20:15)
[2019-08-21] MEDS: Gabapentin 300 MG CAP PO SCH ×3 (08:43→20:15)
[2019-08-21] MEDS: Insulin Glargine 40 UNITS in Pre-Filled Syringe 1 EACH SC SCH (08:43)
[2019-08-21] MEDS: Polyethylene Glycol 3350 17 GM Packet PO SCH (08:43)
[2019-08-21] MEDS: Carvedilol 3.125 MG TAB PO SCH ×2 (08:44→17:36)
[2019-08-21] MEDS: Lidocaine 4% Topical Sol 50 ML BOT TOP SCH (10:55)
[2019-08-21] MEDS: Insulin Glargine 20 UNITS in Pre-Filled Syringe 1 EACH SC SCH (20:14)
[2019-08-21] MEDS: Aspirin 81 mg Enteric Coated Tablet PO SCH (20:15)
[2019-08-21] MEDS: Atorvastatin Calcium 40 MG TAB PO SCH (20:15)
--- NOTE | 2019-08-21 21:02 | PDOC.HOSPP ---
- Subjective Encounter Date: 08/21/19 Encounter Time: 09:00 Subjective: no overnight events. this morning, says pain is better controlled but needs pain medication before bedtime since pain kept him up at night. otherwise has no complaints. - Objective Vital Signs & Weight: Vital Signs (12 hours) Temp Pulse Resp BP Pulse Ox 08/21/19 20:00 98 08/21/19 19:28 97.9 F 85 18 113/74 98 08/21/19 15:45 97.8 F 77 16 118/77 98 08/21/19 10:26 97.9 F 84 18 119/75 96 Weight Admit Weight 240 lb Weight 240 lb I&O: 08/20/19 08/21/19 08/22/19 06:59 06:59 06:59 Intake Total 3700 Output Total 5000 1000 Balance -1300 -1000 Result Diagrams: 08/20/19 09:18 08/20/19 09:18 Additional Labs: Accuchecks 08/21/19 08/21/19 08/21/19 20:15 16:08 10:29 POC Glucose 131 H 168 H 158 H 08/21/19 08/20/19 05:52 20:30 POC Glucose 194 H 200 H Hospitalist ROS - Review of Systems Constitutional: denies: fever, chills, sweats, weakness, malaise, other Respiratory: denies: cough, dry, shortness of breath, hemoptysis, SOB with excertion, pleuritic pain, sputum, wheezing, other Cardiovascular: denies: chest pain, palpitations, orthopnea, paroxysmal noc. dyspnea, edema, light headedness, other Gastrointestinal: denies: nausea, vomiting, abdominal pain, diarrhea, constipation, melena, hematochezia, other Musculoskeletal: reports: leg pain - Medication Medications: Active Medications Generic Name Dose Route Start Last Admin Trade Name Freq PRN Reason Stop Dose Admin Hydrocodone Bitart/Acetaminophen 2 tab 08/17/19 06:45 08/21/19 20:15 [place] 10/325 PO 2 tab Q4H PRN Administration Severe Pain (7-10) Apixaban 5 mg 08/19/19 21:00 08/21/19 20:15 Eliquis PO 5 mg BID KATHLEEN Administration Aspirin 81 mg 08/16/19 21:00 08/21/19 20:15 Ecotrin PO 81 mg HS KATHLEEN Administration Atorvastatin Calcium 80 mg 08/16/19 21:00 08/21/19 20:15 Lipitor PO 80 mg HS KATHLEEN Administration Carvedilol 3.125 mg 08/16/19 17:00 08/21/19 17:36 Coreg PO 3.125 mg BID-WM KATHLEEN Administration Cyclobenzaprine HCl 10 mg 08/18/19 11:46 08/21/19 15:14 Flexeril PO 10 mg TIDPRN PRN Administration Muscle Spasm Famotidine 20 mg 08/16/19 21:00 08/21/19 20:15 Pepcid PO 20 mg BID KATHLEEN Administration Fentanyl 50 mcg 08/17/19 06:12 08/21/19 18:47 Sublimaze SLOW IVP 50 mcg Q2H PRN Administration Severe Pain (7-10) Gabapentin 600 mg 08/16/19 15:00 08/21/19 20:15 Neurontin PO 600 mg TID KATHLEEN Administration Insulin Glargine 20 units/ 0.2 mls @ 0 mls/hr 08/17/19 21:00 08/21/19 20:14 Miscellaneous Medication SC 0.2 mls HS KATHLEEN Administration Insulin Glargine 40 units/ 0.4 mls @ 0 mls/hr 08/18/19 09:00 08/21/19 08:43 Miscellaneous Medication SC 0.4 mls QAM KATHLEEN Administration Insulin Human Lispro 0 units 08/19/19 20:55 08/20/19 21:06 Humalog SC 2 unit .MODERATE SLIDING SC PRN Administration Moderate Correctional Scale Insulin Human Lispro 15 units 08/20/19 17:00 08/21/19 17:37 Humalog SC 15 unit AC KATHLEEN Administration Lidocaine HCl 0 ml 08/18/19 12:15 08/21/19 10:55 Xylocaine 4% Topical Barb TOP 1 ml Q3D KATHLEEN Administration Polyethylene Glycol 17 gm 08/17/19 09:00 08/21/19 08:43 Miralax PO 17 gm DAILY KATHLEEN Administration Sodium Chloride 10 ml 08/17/19 21:00 08/21/19 20:15 Flush - Normal Saline IVF 10 ml Q12HR KATHLEEN Administration Zolpidem Tartrate 5 mg 08/16/19 11:17 08/19/19 23:04 Ambien PO 5 mg HSPRN PRN Administration Insomnia - Exam General Appearance: NAD, awake alert Neck: no JVD Heart: RRR, no murmur, no gallops, no rubs Respiratory: CTAB, no wheezes, no rales, no ronchi Gastrointestinal: soft, non-tender, non-distended, normal bowel sounds Extremities - other findings: no fluid in wound vac Skin - other findings: right femoral wound appears about the same, no active drainage Psychiatric: normal affect, normal behavior, A&O x 3 Hosp A/P - Plan #PVD s/p R AKA -POD 5; waxing and waning stomp pain, occasinal phantom pain -patient showed recent picture of wound which appeared noninfected -consider long acting (oxycontin, moprhine), short acting PRN for breakthrough pain -continue wound management as per surgery, wound care #right groin puncture wound -at site of previous access for embolectomy -no active drainage, minimal surrounding erythema -apply dry dressing to prevent infection #T2DM -within goal; will aid with wound healing -currently on lantus 20,40; humalog to 15u tidac and moderate correction -will continue to follow #pulmonary embolism -on eliquis
[2019-08-21] MEDS: Morphine ER 30 MG TAB PO SCH (22:29)
[2019-08-22] MEDS: HYDROcodone/Acetaminophen 10/325 mg Tablet PO PRN ×3 (00:34→15:38)
[2019-08-22] MEDS: Zolpidem Tartrate 5 MG TAB PO PRN (00:35)
[2019-08-22 04:01] LABS: #Eosinphils 0.4 thou/uL (0.0-0.7); #Lymphocytes 1.7 thou/uL (1.20-3.40); #Neutrophils 11.1 thou/uL (1.40-6.50); %Basophils 0.2 % (0.0-1.0); %Lymphocytes 12.1 % (21.0-51.0); %Monocytes 6.8 % (0.0-10.0); %Neutrophils 77.9 % (42.0-75.0); Mean Corpuscular HGB CONC 31.9 g/dL (32.0-36.0); Mean Corpuscular Hemoglobin 25.6 pg (27.0-31.0); Mean Corpuscular Volume 80.4 fL (78.0-98.0); Mean Platelet Volume 6.3 fL (7.4-10.4); Platelet Count 590 thou/uL (130-400); RBC Distribution Width 15.4 % (11.5-14.5); Red Blood Cell (RBC) Count 3.52 mill/uL (4.70-6.10); White Blood Cell (WBC) Count 14.3 thou/uL (4.8-10.8)
[2019-08-22 04:25] LABS: Anion Gap 12 mmol/L (10-20); BUN (Urea Nitrogen) 19 mg/dL (8.4-25.7); Calc. Creatinine Clearance 176 mL/min (70-130); Carbon Dioxide 27 mmol/L (22-29); Chloride 100 mmol/L (98-107); Estimated GFR-MDRD Greater than 90; Glucose 101 mg/dL (70-105); Magnesium 1.9 mg/dL (1.6-2.6); Potassium 4.7 mmol/L (3.5-5.1); Sodium 134 mmol/L (136-145)
[2019-08-22] MEDS: Morphine ER 30 MG TAB PO SCH ×3 (06:02→22:11)
[2019-08-22] MEDS: HumaLOG 300 UNITS/3 ML VIAL SC SCH ×3 (06:36→18:30)
[2019-08-22] MEDS: Fentanyl 100 MCG/2 ML VIAL SLOW IVP PRN ×5 (06:50→20:55)
[2019-08-22] MEDS: Carvedilol 3.125 MG TAB PO SCH ×2 (08:23→18:29)
[2019-08-22] MEDS: Gabapentin 300 MG CAP PO SCH ×3 (08:23→20:55)
[2019-08-22] MEDS: Famotidine 20 MG TAB PO SCH ×2 (08:24→20:55)
[2019-08-22] MEDS: Insulin Glargine 40 UNITS in Pre-Filled Syringe 1 EACH SC SCH (08:24)
[2019-08-22] MEDS: Apixaban 5 MG TAB PO SCH ×2 (08:24→20:55)
[2019-08-22] MEDS: Polyethylene Glycol 3350 17 GM Packet PO SCH (08:28)
[2019-08-22] MEDS: HumaLOG 300 UNITS/3 ML VIAL SC PRN ×2 (12:08→18:31)
--- NOTE | 2019-08-22 16:29 | PDOC.HOSPP ---
- Subjective Encounter Date: 08/22/19 Encounter Time: 09:00 Subjective: no overnight events. Endorses better control of pain with start of long acting morphine but still in significant pain. otherwise feels well and has no complaints. - Objective Vital Signs & Weight: Vital Signs (12 hours) Temp Pulse Pulse Resp BP BP Pulse Ox 08/22/19 15:53 98.1 F 87 20 122/80 94 L 08/22/19 11:13 98.1 F 92 20 131/84 96 08/22/19 10:23 96 111/69 08/22/19 07:44 98.6 F 91 18 141/85 H 96 Pulse Ox 08/22/19 15:53 08/22/19 11:13 08/22/19 10:23 95 08/22/19 07:44 Weight Admit Weight 240 lb Weight 240 lb I&O: 08/21/19 08/22/19 08/23/19 06:59 06:59 06:59 Intake Total 3700 1100 Output Total 5000 3975 Balance -1300 -1599 Result Diagrams: 08/22/19 03:50 08/22/19 03:50 Additional Labs: Accuchecks 08/22/19 08/22/19 08/22/19 16:01 12:09 11:04 POC Glucose 161 H 165 H 181 H 08/22/19 08/21/19 05:17 20:15 POC Glucose 139 H 131 H Hospitalist ROS - Review of Systems Constitutional: denies: fever, chills, sweats, weakness, malaise, other Respiratory: denies: cough, dry, shortness of breath, hemoptysis, SOB with excertion, pleuritic pain, sputum, wheezing, other Cardiovascular: denies: chest pain, palpitations, orthopnea, paroxysmal noc. dyspnea, edema, light headedness, other Gastrointestinal: denies: nausea, vomiting, abdominal pain, diarrhea, constipation, melena, hematochezia, other - Medication Medications: Active Medications Generic Name Dose Route Start Last Admin Trade Name Freq PRN Reason Stop Dose Admin Hydrocodone Bitart/Acetaminophen 2 tab 08/17/19 06:45 08/22/19 15:38 [place] 10/325 PO 2 tab Q4H PRN Administration Severe Pain (7-10) Apixaban 5 mg 08/19/19 21:00 08/22/19 08:24 Eliquis PO 5 mg BID KATHLEEN Administration Aspirin 81 mg 08/16/19 21:00 08/21/19 20:15 Ecotrin PO 81 mg HS KATHLEEN Administration Atorvastatin Calcium 80 mg 08/16/19 21:00 08/21/19 20:15 Lipitor PO 80 mg HS KATHLEEN Administration Carvedilol 3.125 mg 08/16/19 17:00 08/22/19 08:23 Coreg PO 3.125 mg BID-WM KATHLEEN Administration Cyclobenzaprine HCl 10 mg 08/18/19 11:46 08/21/19 15:14 Flexeril PO 10 mg TIDPRN PRN Administration Muscle Spasm Famotidine 20 mg 08/16/19 21:00 08/22/19 08:24 Pepcid PO 20 mg BID KATHLEEN Administration Fentanyl 50 mcg 08/17/19 06:12 08/22/19 11:56 Sublimaze SLOW IVP 50 mcg Q2H PRN Administration Severe Pain (7-10) Gabapentin 600 mg 08/16/19 15:00 08/22/19 14:05 Neurontin PO 600 mg TID KATHLEEN Administration Insulin Glargine 20 units/ 0.2 mls @ 0 mls/hr 08/17/19 21:00 08/21/19 20:14 Miscellaneous Medication SC 0.2 mls HS KATHLEEN Administration Insulin Glargine 40 units/ 0.4 mls @ 0 mls/hr 08/18/19 09:00 08/22/19 08:24 Miscellaneous Medication SC 0.4 mls QAM KATHLEEN Administration Insulin Human Lispro 0 units 08/19/19 20:55 08/22/19 12:08 Humalog SC 2 unit .MODERATE SLIDING SC PRN Administration Moderate Correctional Scale Lidocaine HCl 0 ml 08/18/19 12:15 08/21/19 10:55 Xylocaine 4% Topical Barb TOP 1 ml Q3D KATHLEEN Administration Morphine Sulfate 30 mg 08/21/19 22:00 08/22/19 14:05 Ms Contin PO 30 mg Q8HR KATHLEEN Administration Polyethylene Glycol 17 gm 08/17/19 09:00 08/22/19 08:28 Miralax PO Not Given DAILY KATHLEEN Sodium Chloride 10 ml 08/17/19 21:00 08/22/19 09:37 Flush - Normal Saline IVF 10 ml Q12HR KATHLEEN Administration Zolpidem Tartrate 5 mg 08/16/19 11:17 08/22/19 00:35 Ambien PO 5 mg HSPRN PRN Administration Insomnia - Exam General Appearance: NAD, awake alert Neck: no JVD Heart: RRR, no murmur, no gallops, no rubs Respiratory: CTAB, no wheezes, no rales, no ronchi Gastrointestinal: soft, non-tender, non-distended, normal bowel sounds Neurological: cranial nerve grossly intact Psychiatric: normal affect, normal behavior, A&O x 3 Hosp A/P - Plan #PVD s/p R AKA -POD 5; pain improved with long acting morphine -if remains in pain, can increase morphine long acting to 60mg -continue wound management as per surgery; pending wound assessment on 08/22, then may be discharged per patient #right groin puncture wound -at site of previous access for embolectomy -draining serous fluid with minimal surrounding erythema, improving -apply dry dressing to prevent infection -will continue to follow #T2DM -better controlled -currently on lantus 20,40; reduced humalog to 10u tidac, continue moderate correction -will continue to follow #pulmonary embolism -on eliquis
[2019-08-22] MEDS: Cyclobenzaprine 10 MG TAB PO PRN (18:34)
[2019-08-22] MEDS: Aspirin 81 mg Enteric Coated Tablet PO SCH (20:55)
[2019-08-22] MEDS: Atorvastatin Calcium 40 MG TAB PO SCH (20:55)
[2019-08-22] MEDS: Insulin Glargine 20 UNITS in Pre-Filled Syringe 1 EACH SC SCH (20:56)
[2019-08-23] MEDS: HYDROcodone/Acetaminophen 10/325 mg Tablet PO PRN ×4 (01:20→18:29)
[2019-08-23] MEDS: Fentanyl 100 MCG/2 ML VIAL SLOW IVP PRN ×6 (05:38→18:30)
[2019-08-23] MEDS: Cyclobenzaprine 10 MG TAB PO PRN ×2 (05:43→13:21)
[2019-08-23] MEDS: HumaLOG 300 UNITS/3 ML VIAL SC SCH ×3 (06:31→16:25)
[2019-08-23] MEDS: Morphine ER 30 MG TAB PO SCH ×2 (06:32→13:21)
[2019-08-23] MEDS: Gabapentin 300 MG CAP PO SCH ×3 (08:16→21:22)
[2019-08-23] MEDS: Famotidine 20 MG TAB PO SCH ×2 (08:16→21:23)
[2019-08-23] MEDS: Insulin Glargine 40 UNITS in Pre-Filled Syringe 1 EACH SC SCH (08:16)
[2019-08-23] MEDS: Polyethylene Glycol 3350 17 GM Packet PO SCH (08:17)
[2019-08-23] MEDS: Apixaban 5 MG TAB PO SCH ×2 (08:17→21:23)
[2019-08-23] MEDS: Carvedilol 3.125 MG TAB PO SCH ×2 (08:17→16:25)
[2019-08-23 09:51] LABS: Hemoglobin 8.7 g/dL (14.0-18.0); Platelet Count 508 thou/uL (130-400)
[2019-08-23 10:08] LABS: Calc. Creatinine Clearance 186 mL/min (70-130); Estimated GFR-MDRD Greater than 90
[2019-08-23] MEDS: HumaLOG 300 UNITS/3 ML VIAL SC PRN ×2 (11:04→21:28)
--- NOTE | 2019-08-23 15:28 | PDOC.HOSPP ---
- Subjective Encounter Date: 08/23/19 Encounter Time: 09:00 Subjective: no overnight events. This morning, complains of significant pain at the stomp area and requests to increase long acting morphine which helps him ask less short acting pain medications. otherwise no complaints. - Objective Vital Signs & Weight: Vital Signs (12 hours) Temp Pulse Resp BP Pulse Ox 08/23/19 11:25 97.8 F 89 14 122/83 98 08/23/19 07:37 98.2 F 93 16 120/80 94 L 08/23/19 03:30 98.6 F 90 16 115/78 97 Weight Admit Weight 240 lb Weight 240 lb I&O: 08/22/19 08/23/19 08/24/19 06:59 06:59 06:59 Intake Total 1100 1200 480 Output Total 7163 4300 Balance -4075 -5870 480 Result Diagrams: 08/23/19 09:34 08/23/19 09:34 Additional Labs: Accuchecks 08/23/19 08/23/19 08/22/19 10:52 03:39 20:54 POC Glucose 169 H 145 H 136 H 08/22/19 08/22/19 16:01 11:04 POC Glucose 161 H 181 H Hospitalist ROS - Review of Systems Constitutional: denies: fever, chills, sweats, weakness, malaise, other Respiratory: denies: cough, dry, shortness of breath, hemoptysis, SOB with excertion, pleuritic pain, sputum, wheezing, other Cardiovascular: denies: chest pain, palpitations, orthopnea, paroxysmal noc. dyspnea, edema, light headedness, other Gastrointestinal: denies: nausea, vomiting, abdominal pain, diarrhea, constipation, melena, hematochezia, other - Medication Medications: Active Medications Generic Name Dose Route Start Last Admin Trade Name Freq PRN Reason Stop Dose Admin Hydrocodone Bitart/Acetaminophen 2 tab 08/17/19 06:45 08/23/19 15:05 [place] 10/325 PO 2 tab Q4H PRN Administration Severe Pain (7-10) Apixaban 5 mg 08/19/19 21:00 08/23/19 08:17 Eliquis PO 5 mg BID KATHLEEN Administration Aspirin 81 mg 08/16/19 21:00 08/22/19 20:55 Ecotrin PO 81 mg HS KATHLEEN Administration Atorvastatin Calcium 80 mg 08/16/19 21:00 08/22/19 20:55 Lipitor PO 80 mg HS KATHLEEN Administration Carvedilol 3.125 mg 08/16/19 17:00 08/23/19 08:17 Coreg PO 3.125 mg BID-WM KATHLEEN Administration Cyclobenzaprine HCl 10 mg 08/18/19 11:46 08/23/19 13:21 Flexeril PO 10 mg TIDPRN PRN Administration Muscle Spasm Famotidine 20 mg 08/16/19 21:00 08/23/19 08:16 Pepcid PO 20 mg BID KATHLEEN Administration Fentanyl 50 mcg 08/17/19 06:12 08/23/19 13:22 Sublimaze SLOW IVP 50 mcg Q2H PRN Administration Severe Pain (7-10) Gabapentin 600 mg 08/16/19 15:00 08/23/19 08:16 Neurontin PO 600 mg TID KATHLEEN Administration Insulin Human Lispro 0 units 08/19/19 20:55 08/23/19 11:04 Humalog SC 2 unit .MODERATE SLIDING SC PRN Administration Moderate Correctional Scale Insulin Human Lispro 10 units 08/22/19 12:55 08/23/19 11:04 Humalog SC Not Given AC [facility] Lidocaine HCl 0 ml 08/18/19 12:15 08/21/19 10:55 Xylocaine 4% Topical Barb TOP 1 ml Q3D KATHLEEN Administration Polyethylene Glycol 17 gm 08/17/19 09:00 08/23/19 08:17 Miralax PO Not Given DAILY [facility] Sodium Chloride 10 ml 08/17/19 21:00 08/23/19 08:17 Flush - Normal Saline IVF 10 ml Q12HR KATHLEEN Administration Zolpidem Tartrate 5 mg 08/16/19 11:17 08/22/19 00:35 Ambien PO 5 mg HSPRN PRN Administration Insomnia - Exam General Appearance: awake alert General - other findings: in mild distress due to pain Eye: PERRL Neck: no JVD Heart: RRR, no murmur, no gallops, no rubs, normal peripheral pulses Respiratory: CTAB, no wheezes, no rales, no ronchi, normal chest expansion, no tachypnea, normal percussion Gastrointestinal: soft, non-tender, non-distended, normal bowel sounds, no palpable masses, no hepatomegaly, no splenomegaly, no bruit Psychiatric: normal affect, normal behavior, A&O x 3 Hosp A/P - Plan #PVD s/p R AKA -POD 6; pain improved with long acting morphine; increased to 45mg PO q8h pending wound assessment on 08/22 by surgery #right groin puncture wound -at site of previous access for embolectomy -draining serous fluid with minimal surrounding erythema, improving -apply dry dressing to prevent infection -will continue to follow #T2DM -reduced insulin demand, likely due to improving pain and inflammation -changed lantus to once daily 50u; continue moderate correction; stopped scheduled -will continue to follow #pulmonary embolism -on eliquis
[2019-08-23] MEDS ORDERED: Insulin Glargine 50 UNITS in Pre-Filled Syringe 1 EACH SC SCH (21:00)
[2019-08-23] MEDS: Aspirin 81 mg Enteric Coated Tablet PO SCH (21:23)
[2019-08-23] MEDS: Atorvastatin Calcium 40 MG TAB PO SCH (21:26)
[2019-08-23] MEDS: Morphine ER 15 MG TAB PO SCH (21:27)
[2019-08-24] MEDS: Fentanyl 100 MCG/2 ML VIAL SLOW IVP PRN ×3 (01:28→13:47)
[2019-08-24] MEDS: HYDROcodone/Acetaminophen 10/325 mg Tablet PO PRN ×2 (03:39→08:08)
[2019-08-24] MEDS: Morphine ER 15 MG TAB PO SCH ×2 (06:08→13:43)
[2019-08-24] MEDS: HumaLOG 300 UNITS/3 ML VIAL SC SCH ×2 (07:11→13:03)
[2019-08-24] MEDS: Gabapentin 300 MG CAP PO SCH (07:55)
[2019-08-24] MEDS: Carvedilol 3.125 MG TAB PO SCH ×2 (07:56→08:04)
[2019-08-24] MEDS: Polyethylene Glycol 3350 17 GM Packet PO SCH (07:57)
[2019-08-24] MEDS: Famotidine 20 MG TAB PO SCH (07:57)
[2019-08-24] MEDS: Apixaban 5 MG TAB PO SCH (07:57)
[2019-08-24] MEDS: Cyclobenzaprine 10 MG TAB PO PRN (08:08)
[2019-08-24 11:15] VITALS: BP 123/77; TEMP 98.2
[2019-08-24] MEDS: Lidocaine 4% Topical Sol 50 ML BOT TOP SCH (13:45)
== END 2019-08-24 15:33 | DRG 239 ==
LOC: SURG A 08-16 06:23 → SURG B 08-16 11:49 → SURG A 08-23 21:53
PROVIDERS: ADMIT Thoracic Surgery (Cardiothoracic Vascular Surgery); ATTEND Thoracic Surgery (Cardiothoracic Vascular Surgery)
PROC: 0Y6C0Z1 Detachment at Right Upper Leg, High, Open Approach (ICD-10-PCS; principal; 2019-08-16)
DX: I73.9 Peripheral vascular disease, unspecified (principal); I26.99 Other pulmonary embolism without acute cor pulmonale; R78.81 Bacteremia; B95.8 Unspecified staphylococcus as the cause of diseases classified elsewhere; I12.9 Hypertensive chronic kidney disease with stage 1 through stage 4 chronic kidney disease, or unspecified chronic kidney disease; E11.22 Type 2 diabetes mellitus with diabetic chronic kidney disease; N18.9 Chronic kidney disease, unspecified; D64.9 Anemia, unspecified; B19.20 Unspecified viral hepatitis C without hepatic coma; I51.3 Intracardiac thrombosis, not elsewhere classified; E78.5 Hyperlipidemia, unspecified; F15.10 Other stimulant abuse, uncomplicated; I99.8 Other disorder of circulatory system; E66.9 Obesity, unspecified; T81.89XA Other complications of procedures, not elsewhere classified, initial encounter; Y83.8 Other surgical procedures as the cause of abnormal reaction of the patient, or of later complication, without mention of misadventure at the time of the procedure; Z68.36 Body mass index [BMI] 36.0-36.9, adult; Z89.612 Acquired absence of left leg above knee
CPT/HCPCS: 36415; 36416; 36430; 80048; 82565; 83735; 85014; 85018; 85025; 85049; 86850; 86900; 86901; 88307; 88312; J0670; J0690; J1650; J1815; J2250; J2405; J2704; J3010

== ENCOUNTER 2019-08-27 15:01 | Inpatient (IN) | payer OTHER ==
[~2019-08-27 15:01] MED LIST changes: -Heparin 1,000 UNITS/ML VIAL ONE; +Iopamidol 370 76% 100 ML VIAL ONE; -Iopamidol-370 76% 500 ML 1 ML ONE
[2019-08-27] MEDS ORDERED: Morphine 4 MG/ML VIAL ONE (15:35)
[2019-08-27 16:15] LABS: #Eosinphils 0.4 thou/uL (0.0-0.7); #Lymphocytes 1.3 thou/uL (1.20-3.40); #Monocytes 1.1 thou/uL (0.11-0.59); #Neutrophils 7.8 thou/uL (1.40-6.50); %Basophils 0.4 % (0.0-1.0); %Eosinophils 3.6 % (0.0-10.0); %Lymphocytes 12.2 % (21.0-51.0); %Monocytes 10.5 % (0.0-10.0); %Neutrophils 73.2 % (42.0-75.0); Hemoglobin 8.6 g/dL (14.0-18.0); Mean Corpuscular HGB CONC 30.9 g/dL (32.0-36.0); Mean Corpuscular Hemoglobin 24.5 pg (27.0-31.0); Mean Corpuscular Volume 79.2 fL (78.0-98.0); Mean Platelet Volume 6.6 fL (7.4-10.4); Platelet Count 538 thou/uL (130-400); RBC Distribution Width 15.3 % (11.5-14.5); Red Blood Cell (RBC) Count 3.51 mill/uL (4.70-6.10); White Blood Cell (WBC) Count 10.6 thou/uL (4.8-10.8)
[2019-08-27 16:26] LABS: Bilirubin Negative (Negative); Blood, Urine 3+ (Negative); Clarity Extra Turbid (Clear); Glucose, Urine (Dipstick) Normal (Negative); Leukocyte 500 Leu/uL (Negative); Nitrite Negative (Negative); Protein, Urine (Dipstick) 100 mg/dL (Neg-Trace); RBC/HPF Greater than 50 HPF (0-3); Squamous Epithelial None Seen HPF (0-3); WBC/HPF Greater than 50 HPF (0-3)
[2019-08-27 16:36] LABS: Bacteria/HPF 1+ HPF (None Seen)
[2019-08-27 16:38] LABS: ALT (SGPT) 34 U/L (8-55); AST (SGOT) 32 U/L (5-34); Albumin 2.8 g/dL (3.5-5.0); Alkaline Phosphatase 102 U/L (40-110); Anion Gap 14 mmol/L (10-20); BUN (Urea Nitrogen) 21 mg/dL (8.4-25.7); Bilirubin, Total 0.3 mg/dL (0.2-1.2); Calc. Creatinine Clearance 0 mL/min (70-130); Calcium 8.7 mg/dL (7.8-10.44); Carbon Dioxide 22 mmol/L (22-29); Chloride 102 mmol/L (98-107); Estimated GFR-MDRD Greater than 90; Globulin 4.2 g/dL (2.4-3.5); Glucose 117 mg/dL (70-105); Sodium 133 mmol/L (136-145)
--- NOTE | 2019-08-27 16:42 | ULT ---
ULTRASOUND RIGHT LOWER EXTREMITY VENOUS DOPPLER: History: Pain and edema. Comparison: None. FINDINGS: Grayscale, color doppler, and spectral analysis of the right lower extremity venous system was perfor med. The common femoral, femoral, and deep femoral veins were interrogated. There is no deep venous thrombosis. There is a 2.5 cm fluid collection in the right groin superficial to the vasculature. IMPRESSION: 1. No deep venous thrombosis. 2. 2.5 cm fluid collection in the right groin superficial to the vasculature, in correlation with jhonatan or catheterization. POS: HOME
--- NOTE | 2019-08-27 16:58 | CT ---
CT PELVIS WITH CONTRAST: History: Abscess Comparison: Ultrasound, same day. FINDINGS: There appears to be catheterization of the right groin relative to the prior 08-02-2019 exam with a ra diopacity along the right common femoral artery which could be an occluding device. There is no contrast within the femoral artery. The soft tissue stump is not imaged. There is a gas and fluid collection along the right femoral amputation stump with some enhancement. T here is also a wound-vac in place with this collection of fluid having a sinus tract to the wound-vac . No erosive change along the distal amputation stump. There is an indwelling [place] catheter. No dilated loops of bowel in the abdomen. Pancreas is visualiz ed. IMPRESSION: 1. Peripherally enhancing collection along the femoral amputation stump measuring 5.7 cm transverse x 5.6 cm AP dimension with a length of approximately 2.5 cm. This has a connection to the skin surface at the wound-vac, a sinus tract. This is concern for underlying infection/abscess, although there ar e no erosions yet noted at the amputation site with minimal posterior periostitis. 2. Likely recent catheterization with intra-arterial arteriotomy occluding device. No contrast enhanc ement of the right femoral artery. POS: HOME
[2019-08-27] MEDS ORDERED: Zolpidem Tartrate 5 MG TAB PO PRN (17:57)
[2019-08-27] MEDS ORDERED: Ondansetron PF 4 MG/2 ML Vial IVP PRN (17:57)
[2019-08-27] MEDS ORDERED: Dextrose 50% Abboject 50 ML SYRINGE SLOW IVP PRN (18:06)
[2019-08-27] MEDS ORDERED: Dextrose 5% in Water 1,000 ML IV PRN (18:06)
[2019-08-27] MEDS ORDERED: Cefepime 2 GM VIAL ONE (18:24)
[2019-08-27] MEDS ORDERED: Morphine 4 MG/ML VIAL SLOW IVP SCH (18:30)
[2019-08-27] MEDS: Apixaban 5 MG TAB PO SCH (20:03)
[2019-08-27] MEDS: cloNIDine 0.1 MG TAB PO SCH (20:03)
[2019-08-27] MEDS: Morphine 4 MG/ML VIAL SLOW IVP PRN (20:03)
[2019-08-27] MEDS: Famotidine 20 MG TAB PO SCH (20:04)
[2019-08-27] MEDS: HYDROcodone/Acetaminophen 10/325 mg Tablet PO PRN (21:54)
[2019-08-28] MEDS: Morphine 4 MG/ML VIAL SLOW IVP PRN ×3 (02:52→15:06)
[2019-08-28] MEDS: HYDROcodone/Acetaminophen 10/325 mg Tablet PO PRN ×4 (05:13→20:29)
--- NOTE | 2019-08-28 06:02 | HP ---
CHIEF COMPLAINT: Right groin pain. HISTORY OF PRESENT ILLNESS: The patient is a 54-year-old male with past medical history of insulin-dependent diabetes mellitus, hypertension, peripheral vascular disease with prior bilateral AKAs, who was recently discharged from the hospital to the rehab facility after his recent right AKA. The patient's lower extremity ischemia was caused by peripheral vascular disease in addition to embolic event from the left LV thrombus. He is currently on anticoagulation. Over the past few days, the patient had been having increasing pain to the right groin area and the right thigh associated with swelling. His pain became controlled and he was sent to the ER today for further evaluation. DVT was suspected and ultrasound of the lower extremity was unremarkable for any clots. Subsequent CT scan of the pelvis showed a peripherally enhancing collection along the femoral amputation stump with connection to the skin surface at the wound VAC site. This was reviewed by the surgeon on-call, who suggested that these changes are likely postoperative changes and does not indicate presence of underlying abscess. At this time, the patient is complaining of uncontrolled pain and he was referred to our service for further evaluation. REVIEW OF SYSTEMS: Negative except as noted in HPI. PAST MEDICAL HISTORY: As noted above. PAST SURGICAL HISTORY: Bilateral AKA. PHYSICAL EXAMINATION: GENERAL: The patient is alert and oriented x3. HEENT: Head is normocephalic and atraumatic. Extraocular muscles are intact. NECK: Supple. CHEST: Clear to auscultation bilaterally. CARDIOVASCULAR: Revealed normal S1 and S2. Regular rate and rhythm. No murmurs, rubs, or gallops. ABDOMEN: Soft, nontender, nondistended. EXTREMITIES: Right lower extremity examination revealed no erythema. Tenderness is present and wound VAC is present. LABORATORY DATA: Urinalysis was performed showing elevated leukocytes with leukocyte esterase suggesting possible UTI. ASSESSMENT: 1. Uncontrolled pain related to peripheral vascular disease and status post recent right above-knee amputation. 2. Fluid collection around the site suggesting postsurgical changes. 3. Urinary tract infection. 4. Chronic kidney disease. 5. Left ventricular thrombus. 6. Chronic anemia. 7. Hepatitis C. 8. History of urine retention with chronic [place]. 9. Diabetes mellitus, dependent on insulin. 10. Hypertension. PLAN: We will start the patient on empiric broad-spectrum antibiotics and follow urine culture. Abscess is unlikely per Surgery. We will consult anesthesiology for options of pain control including femoral nerve block. Continue his home medications. Job ID: [id number]
[2019-08-28 06:32] LABS: #Eosinphils 0.4 thou/uL (0.0-0.7); #Lymphocytes 1.2 thou/uL (1.20-3.40); #Neutrophils 6.9 thou/uL (1.40-6.50); %Basophils 0.4 % (0.0-1.0); %Eosinophils 3.8 % (0.0-10.0); %Lymphocytes 12.4 % (21.0-51.0); %Monocytes 10.4 % (0.0-10.0); %Neutrophils 73.1 % (42.0-75.0); Hemoglobin 7.9 g/dL (14.0-18.0); Mean Corpuscular HGB CONC 30.1 g/dL (32.0-36.0); Mean Corpuscular Hemoglobin 23.8 pg (27.0-31.0); Mean Corpuscular Volume 79.4 fL (78.0-98.0); Mean Platelet Volume 6.5 fL (7.4-10.4); Platelet Count 576 thou/uL (130-400); RBC Distribution Width 15.4 % (11.5-14.5); Red Blood Cell (RBC) Count 3.33 mill/uL (4.70-6.10); White Blood Cell (WBC) Count 9.4 thou/uL (4.8-10.8)
[2019-08-28 06:52] LABS: Anion Gap 13 mmol/L (10-20); BUN (Urea Nitrogen) 17 mg/dL (8.4-25.7); Calc. Creatinine Clearance 192 mL/min (70-130); Calcium 8.5 mg/dL (7.8-10.44); Carbon Dioxide 21 mmol/L (22-29); Chloride 103 mmol/L (98-107); Estimated GFR-MDRD Greater than 90; Glucose 116 mg/dL (70-105); Potassium 4.5 mmol/L (3.5-5.1); Sodium 132 mmol/L (136-145)
[2019-08-28] MEDS: Famotidine 20 MG TAB PO SCH ×2 (08:57→20:28)
[2019-08-28] MEDS: cloNIDine 0.1 MG TAB PO SCH ×2 (08:57→20:30)
[2019-08-28] MEDS: Aspirin 81 mg Enteric Coated Tablet PO SCH (08:57)
[2019-08-28] MEDS: Apixaban 5 MG TAB PO SCH ×2 (08:57→20:29)
[2019-08-28] MEDS: Clopidogrel Bisulfate 75 MG TAB PO SCH (08:57)
[2019-08-28] MEDS: Vancomycin 1.5 GRAM/300 ML BAG 1.5 GM in Premix Bag 1 BAG IVPB SCH ×2 (08:57→22:00)
[2019-08-28] MEDS: cefTRIAXone\\ROCEPHIN 1 GM in Sodium Chloride 0.9% 100 ML IVPB SCH ×2 (09:00→17:02)
[2019-08-28] MEDS ORDERED: Enoxaparin Sodium 40 MG/0.4 ML SYRINGE SC SCH (09:00)
[2019-08-28] MEDS: Insulin Glargine 50 UNITS in Pre-Filled Syringe SC SCH (11:04)
--- NOTE | 2019-08-28 14:32 | PDOC.HOSPP ---
- Subjective Encounter Date: 08/28/19 Subjective: The patient was seen after his dressing changes today. He was in excruciating pain and was not able to communicate well. - Objective Vital Signs & Weight: Vital Signs (12 hours) Temp Pulse Resp BP BP Pulse Ox 08/28/19 10:40 98.3 F 93 18 106/71 96 08/28/19 08:57 132/66 08/28/19 08:00 96 08/28/19 07:18 98.5 F 99 18 132/86 98 08/28/19 04:00 99.7 F H 95 20 128/83 97 Weight Weight 244 lb 1.6 oz I&O: 08/27/19 08/28/19 08/29/19 06:59 06:59 06:59 Intake Total 480 Output Total 1800 Balance -1800 480 Result Diagrams: 08/28/19 06:18 08/28/19 06:18 Additional Labs: Accuchecks 08/28/19 08/28/19 08/27/19 10:47 04:48 20:04 POC Glucose 175 H 142 H 119 H Hospitalist ROS - Medication Medications: Active Medications Generic Name Dose Route Start Last Admin Trade Name Freq PRN Reason Stop Dose Admin Hydrocodone Bitart/Acetaminophen 2 tab 08/27/19 18:09 08/28/19 11:01 [place] 10/325 PO 2 tab Q4H PRN Administration PAIN 7-10 Apixaban 5 mg 08/27/19 21:00 08/28/19 08:57 Eliquis PO 5 mg BID KATHLEEN Administration Aspirin 81 mg 08/28/19 09:00 08/28/19 08:57 Ecotrin PO 81 mg DAILY KATHLEEN Administration Clonidine 0.1 mg 08/27/19 21:00 08/28/19 08:57 Catapres PO 0.1 mg BID KATHLEEN Administration Clopidogrel Bisulfate 75 mg 08/28/19 09:00 08/28/19 08:57 Plavix PO 75 mg DAILY KATHLEEN Administration Famotidine 20 mg 08/27/19 21:00 08/28/19 08:57 Pepcid PO 20 mg BID KATHLEEN Administration Vancomycin HCl 1.5 gm/ Device 300 mls @ 200 mls/hr 08/28/19 10:00 08/28/19 08 :57 IVPB 300 mls 1000,2200 KATHLEEN Administration Ceftriaxone Sodium 1 gm/ 100 mls @ 200 mls/hr 08/27/19 18:00 08/28/19 09:00 Sodium Chloride IVPB Not Given Q24HR [facility] Insulin Glargine 50 units/ 0.5 mls @ 0 mls/hr 08/28/19 09:00 08/28/19 11:04 Miscellaneous Medication SC Not Given QAM [facility] Morphine Sulfate 4 mg 08/27/19 18:22 08/28/19 08:58 Morphine SLOW IVP 4 mg Q6H PRN Administration Severe Pain (7-10) - Exam General Appearance: awake alert ENT: normocephalic atraumatic Neck: supple Heart: RRR Respiratory: normal chest expansion, no tachypnea Gastrointestinal: soft Neurological: cranial nerve grossly intact Hosp A/P (1) S/P AKA (above knee amputation) bilateral Code(s): Z89.611 - ACQUIRED ABSENCE OF RIGHT LEG ABOVE KNEE; Z89.612 - ACQUIRED ABSENCE OF LEFT LEG ABOVE KNEE Status: Acute (2) Bacteremia due to Staphylococcus Code(s): R78.81 - BACTEREMIA; B95.8 - UNSP STAPHYLOCOCCUS THE CAUSE OF DISEASES CLASSD ELSWHR Status: Acute (3) LV (left ventricular) mural thrombus Code(s): I51.3 - INTRACARDIAC THROMBOSIS, NOT ELSEWHERE CLASSIFIED Status: Acute (4) PAD (peripheral artery disease) Code(s): I73.9 - PERIPHERAL VASCULAR DISEASE, UNSPECIFIED Status: Chronic - Plan Discussed with Dr. Cho. No indication for surgical intervention. Patient was not a candidate for femoral nerve block per anesthesiology. We will continue pain management and transition the patient to the next site of care when available. He is refusing to go to senior living facility and would like to go back to the rehab.
[2019-08-28] MEDS: HumaLOG 300 UNITS/3 ML VIAL SC PRN (17:01)
[2019-08-29] MEDS: Morphine 4 MG/ML VIAL SLOW IVP PRN ×4 (00:45→20:13)
[2019-08-29] MEDS: HYDROcodone/Acetaminophen 10/325 mg Tablet PO PRN ×4 (05:24→22:55)
[2019-08-29 06:08] LABS: #Basophils 0.1 thou/uL (0.0-0.2); #Eosinphils 0.6 thou/uL (0.0-0.7); #Lymphocytes 1.5 thou/uL (1.20-3.40); #Monocytes 0.9 thou/uL (0.11-0.59); #Neutrophils 7.3 thou/uL (1.40-6.50); %Basophils 0.7 % (0.0-1.0); %Eosinophils 5.6 % (0.0-10.0); %Lymphocytes 14.4 % (21.0-51.0); %Monocytes 8.9 % (0.0-10.0); %Neutrophils 70.4 % (42.0-75.0); Hemoglobin 8.5 g/dL (14.0-18.0); Mean Corpuscular HGB CONC 30.3 g/dL (32.0-36.0); Mean Corpuscular Hemoglobin 24.1 pg (27.0-31.0); Mean Corpuscular Volume 79.4 fL (78.0-98.0); Mean Platelet Volume 6.4 fL (7.4-10.4); Platelet Count 641 thou/uL (130-400); RBC Distribution Width 15.3 % (11.5-14.5); Red Blood Cell (RBC) Count 3.54 mill/uL (4.70-6.10); White Blood Cell (WBC) Count 10.4 thou/uL (4.8-10.8)
[2019-08-29 06:25] LABS: Anion Gap 14 mmol/L (10-20); BUN (Urea Nitrogen) 15 mg/dL (8.4-25.7); Calc. Creatinine Clearance 197 mL/min (70-130); Calcium 8.9 mg/dL (7.8-10.44); Carbon Dioxide 19 mmol/L (22-29); Chloride 104 mmol/L (98-107); Estimated GFR-MDRD Greater than 90; Glucose 118 mg/dL (70-105); Potassium 4.4 mmol/L (3.5-5.1); Sodium 133 mmol/L (136-145)
[2019-08-29] MEDS: Aspirin 81 mg Enteric Coated Tablet PO SCH (08:18)
[2019-08-29] MEDS: Famotidine 20 MG TAB PO SCH ×2 (08:18→20:12)
[2019-08-29] MEDS: cloNIDine 0.1 MG TAB PO SCH ×2 (08:18→20:12)
[2019-08-29] MEDS: Apixaban 5 MG TAB PO SCH ×2 (08:18→20:12)
[2019-08-29] MEDS: Insulin Glargine 50 UNITS in Pre-Filled Syringe SC SCH (08:18)
[2019-08-29] MEDS: Clopidogrel Bisulfate 75 MG TAB PO SCH (08:18)
[2019-08-29 09:56] LABS: Vancomycin, Trough 13.7 ug/mL
[2019-08-29] MEDS: Vancomycin 1.5 GRAM/300 ML BAG 1.5 GM in Premix Bag 1 BAG IVPB SCH (10:28)
[2019-08-29] MEDS ORDERED: Vancomycin HCl 1.75 GM in Sodium Chloride 0.9% 500 ML IVPB SCH (11:00)
[2019-08-29 12:03] VITALS: BMI 37.0
[2019-08-29] MEDS: HumaLOG 300 UNITS/3 ML VIAL SC PRN ×2 (12:37→16:49)
[2019-08-29] MEDS: Vancomycin HCl 1.75 GM in Sodium Chloride 0.9% 500 ML IVPB SCH (14:09)
--- NOTE | 2019-08-29 16:55 | PDOC.HOSPP ---
- Subjective Encounter Date: 08/29/19 Subjective: His pain is more controlled today. - Objective Vital Signs & Weight: Vital Signs (12 hours) Temp Pulse Resp BP BP BP Pulse Ox 08/29/19 12:00 97.6 F 87 18 106/74 99 08/29/19 08:18 124/85 08/29/19 08:00 99 08/29/19 07:39 98.1 F 92 18 123/82 99 Weight Admit Weight 244 lb 1.6 oz Weight 244 lb 1.6 oz I&O: 08/28/19 08/29/19 08/30/19 06:59 06:59 06:59 Intake Total 960 1200 Output Total 1800 700 Balance -9245 556 7005 Result Diagrams: 08/29/19 05:51 08/29/19 05:51 Additional Labs: Accuchecks 08/29/19 08/29/19 08/29/19 16:34 11:24 05:07 POC Glucose 191 H 165 H 106 08/28/19 08/28/19 19:15 16:50 POC Glucose 189 H 222 H Hospitalist ROS - Medication Medications: Active Medications Generic Name Dose Route Start Last Admin Trade Name Freq PRN Reason Stop Dose Admin Hydrocodone Bitart/Acetaminophen 1 tab 08/27/19 17:57 08/29/19 05:24 [place] 10/325 PO 1 tab Q4H PRN Administration PAIN 4-6 Hydrocodone Bitart/Acetaminophen 2 tab 08/27/19 18:09 08/29/19 10:31 [place] 10/325 PO 2 tab Q4H PRN Administration PAIN 7-10 Apixaban 5 mg 08/27/19 21:00 08/29/19 08:18 Eliquis PO 5 mg BID KATHLEEN Administration Aspirin 81 mg 08/28/19 09:00 08/29/19 08:18 Ecotrin PO 81 mg DAILY KATHLEEN Administration Clonidine 0.1 mg 08/27/19 21:00 08/29/19 08:18 Catapres PO 0.1 mg BID KATHLEEN Administration Clopidogrel Bisulfate 75 mg 08/28/19 09:00 08/29/19 08:18 Plavix PO 75 mg DAILY KATHLEEN Administration Famotidine 20 mg 08/27/19 21:00 08/29/19 08:18 Pepcid PO 20 mg BID KATHLEEN Administration Ceftriaxone Sodium 1 gm/ 100 mls @ 200 mls/hr 08/27/19 18:00 08/28/19 17:02 Sodium Chloride IVPB 100 mls Q24HR KATHLEEN Administration Insulin Glargine 50 units/ 0.5 mls @ 0 mls/hr 08/28/19 09:00 08/29/19 08:18 Miscellaneous Medication SC 0.5 mls QAM KATHLEEN Administration Vancomycin HCl 1.75 gm/ Sodium 500 mls @ 250 mls/hr 08/29/19 13:00 08/29/19 14:09 Chloride IVPB 500 mls 0100,1300 KATHLEEN Administration Insulin Human Lispro 0 units 08/27/19 18:06 08/29/19 12:37 Humalog SC 3 unit .AGGRESSIVE SLIDING PRN Administration Aggressive Correctional Scale Morphine Sulfate 4 mg 08/27/19 18:22 08/29/19 14:09 Morphine SLOW IVP 4 mg Q6H PRN Administration Severe Pain (7-10) - Exam General Appearance: awake alert ENT: normocephalic atraumatic Neck: supple Heart: RRR Respiratory: CTAB, no tachypnea Gastrointestinal: soft, non-tender, non-distended, normal bowel sounds Neurological: cranial nerve grossly intact, no focal deficits Hosp A/P (1) S/P AKA (above knee amputation) bilateral Code(s): Z89.611 - ACQUIRED ABSENCE OF RIGHT LEG ABOVE KNEE; Z89.612 - ACQUIRED ABSENCE OF LEFT LEG ABOVE KNEE Status: Acute (2) Bacteremia due to Staphylococcus Code(s): R78.81 - BACTEREMIA; B95.8 - UNSP STAPHYLOCOCCUS THE CAUSE OF DISEASES CLASSD ELSWHR Status: Acute (3) LV (left ventricular) mural thrombus Code(s): I51.3 - INTRACARDIAC THROMBOSIS, NOT ELSEWHERE CLASSIFIED Status: Acute (4) PAD (peripheral artery disease) Code(s): I73.9 - PERIPHERAL VASCULAR DISEASE, UNSPECIFIED Status: Chronic - Plan Discussed with Dr. Cho. No indication for surgical intervention. Patient was not a candidate for femoral nerve block per anesthesiology. We will continue pain management and transition the patient to the next site of care when available. He is refusing to go to senior living facility and would like to go back to the rehab. wound culture showing mixed bacterial growth of Pseudomonas, Klebsella and enterococcus. I will add Levofloxacin to current antibiotics.
[2019-08-30] MEDS: Morphine 4 MG/ML VIAL SLOW IVP PRN ×4 (01:13→20:20)
[2019-08-30] MEDS: Vancomycin HCl 1.75 GM in Sodium Chloride 0.9% 500 ML IVPB SCH ×2 (01:13→14:39)
[2019-08-30] MEDS: HYDROcodone/Acetaminophen 10/325 mg Tablet PO PRN ×4 (04:14→18:11)
[2019-08-30 05:24] LABS: #Basophils 0.1 thou/uL (0.0-0.2); #Eosinphils 0.6 thou/uL (0.0-0.7); #Lymphocytes 1.7 thou/uL (1.20-3.40); #Monocytes 0.7 thou/uL (0.11-0.59); #Neutrophils 5.5 thou/uL (1.40-6.50); %Basophils 0.7 % (0.0-1.0); %Eosinophils 7.1 % (0.0-10.0); %Lymphocytes 19.4 % (21.0-51.0); %Monocytes 7.9 % (0.0-10.0); %Neutrophils 64.9 % (42.0-75.0); Hemoglobin 8.4 g/dL (14.0-18.0); Mean Corpuscular HGB CONC 29.6 g/dL (32.0-36.0); Mean Corpuscular Hemoglobin 23.6 pg (27.0-31.0); Mean Corpuscular Volume 79.8 fL (78.0-98.0); Mean Platelet Volume 6.4 fL (7.4-10.4); Platelet Count 672 thou/uL (130-400); RBC Distribution Width 15.4 % (11.5-14.5); Red Blood Cell (RBC) Count 3.57 mill/uL (4.70-6.10); White Blood Cell (WBC) Count 8.5 thou/uL (4.8-10.8)
[2019-08-30 05:39] LABS: Anion Gap 12 mmol/L (10-20); BUN (Urea Nitrogen) 21 mg/dL (8.4-25.7); Calc. Creatinine Clearance 194 mL/min (70-130); Calcium 8.8 mg/dL (7.8-10.44); Carbon Dioxide 20 mmol/L (22-29); Chloride 106 mmol/L (98-107); Estimated GFR-MDRD Greater than 90; Glucose 151 mg/dL (70-105); Potassium 4.3 mmol/L (3.5-5.1); Sodium 134 mmol/L (136-145)
[2019-08-30] MEDS: Famotidine 20 MG TAB PO SCH ×2 (08:11→20:19)
[2019-08-30] MEDS: cloNIDine 0.1 MG TAB PO SCH ×2 (08:12→20:19)
[2019-08-30] MEDS: Apixaban 5 MG TAB PO SCH ×2 (08:12→20:19)
[2019-08-30] MEDS: Clopidogrel Bisulfate 75 MG TAB PO SCH (08:12)
[2019-08-30] MEDS: Aspirin 81 mg Enteric Coated Tablet PO SCH (08:13)
[2019-08-30] MEDS: Insulin Glargine 50 UNITS in Pre-Filled Syringe SC SCH (09:15)
--- NOTE | 2019-08-30 15:45 | PDOC.HOSPP ---
- Objective Vital Signs & Weight: Vital Signs (12 hours) Temp Pulse Resp BP BP Pulse Ox 08/30/19 12:09 98.0 F 85 20 130/84 99 08/30/19 08:43 97.9 F 85 20 134/89 98 08/30/19 08:20 98 08/30/19 08:12 126/84 08/30/19 05:12 98.5 F 84 16 126/84 94 L Weight Admit Weight 244 lb 1.6 oz Weight 244 lb 1.6 oz I&O: 08/29/19 08/30/19 08/31/19 06:59 06:59 06:59 Intake Total 960 3120 Output Total 700 2500 Balance 260 620 Result Diagrams: 08/30/19 05:10 08/30/19 05:10 Additional Labs: Accuchecks 08/30/19 08/30/19 08/29/19 11:40 05:07 20:28 POC Glucose 134 H 166 H 172 H 08/29/19 16:34 POC Glucose 191 H Hospitalist ROS - Review of Systems Constitutional: denies: fever, chills Respiratory: denies: cough, shortness of breath Cardiovascular: denies: chest pain - Medication Medications: Active Medications Generic Name Dose Route Start Last Admin Trade Name Freq PRN Reason Stop Dose Admin Hydrocodone Bitart/Acetaminophen 1 tab 08/27/19 17:57 08/29/19 05:24 [place] 10/325 PO 1 tab Q4H PRN Administration PAIN 4-6 Hydrocodone Bitart/Acetaminophen 2 tab 08/27/19 18:09 08/30/19 14:36 [place] 10/325 PO 2 tab Q4H PRN Administration PAIN 7-10 Apixaban 5 mg 08/27/19 21:00 08/30/19 08:12 Eliquis PO 5 mg BID KATHLEEN Administration Aspirin 81 mg 08/28/19 09:00 08/30/19 08:13 Ecotrin PO 81 mg DAILY KATHLEEN Administration Clonidine 0.1 mg 08/27/19 21:00 08/30/19 08:12 Catapres PO 0.1 mg BID KATHLEEN Administration Clopidogrel Bisulfate 75 mg 08/28/19 09:00 08/30/19 08:12 Plavix PO 75 mg DAILY KATHLEEN Administration Famotidine 20 mg 08/27/19 21:00 08/30/19 08:11 Pepcid PO 20 mg BID KATHLEEN Administration Insulin Glargine 50 units/ 0.5 mls @ 0 mls/hr 08/28/19 09:00 08/30/19 09:15 Miscellaneous Medication SC 0.5 mls QAM KATHLEEN Administration Vancomycin HCl 1.75 gm/ Sodium 500 mls @ 250 mls/hr 08/29/19 13:00 08/30/19 14:39 Chloride IVPB 500 mls 0100,1300 KATHLEEN Administration Levofloxacin 750 mg/ Device 150 mls @ 100 mls/hr 08/29/19 17:00 08/29/19 17: 49 IVPB 150 mls Q24HR KATHLEEN Administration Insulin Human Lispro 0 units 08/27/19 18:06 08/29/19 16:49 Humalog SC 3 unit .AGGRESSIVE SLIDING PRN Administration Aggressive Correctional Scale Morphine Sulfate 4 mg 08/27/19 18:22 08/30/19 14:37 Morphine SLOW IVP 4 mg Q6H PRN Administration Severe Pain (7-10) - Exam General Appearance: awake alert Neck: supple Heart: RRR Respiratory: normal chest expansion, no tachypnea Gastrointestinal: soft Neurological: cranial nerve grossly intact Hosp A/P (1) S/P AKA (above knee amputation) bilateral Code(s): Z89.611 - ACQUIRED ABSENCE OF RIGHT LEG ABOVE KNEE; Z89.612 - ACQUIRED ABSENCE OF LEFT LEG ABOVE KNEE Status: Acute (2) Bacteremia due to Staphylococcus Code(s): R78.81 - BACTEREMIA; B95.8 - UNSP STAPHYLOCOCCUS THE CAUSE OF DISEASES CLASSD ELSWHR Status: Acute (3) LV (left ventricular) mural thrombus Code(s): I51.3 - INTRACARDIAC THROMBOSIS, NOT ELSEWHERE CLASSIFIED Status: Acute (4) PAD (peripheral artery disease) Code(s): I73.9 - PERIPHERAL VASCULAR DISEASE, UNSPECIFIED Status: Chronic - Plan Discussed with Dr. Cho. No indication for surgical intervention. Patient was not a candidate for femoral nerve block per anesthesiology. We will continue pain management and transition the patient to the next site of care when available. He is refusing to go to care home facility and would like to go back to the rehab, however, he does not have more rehab days and his only option is SNF. CM working on placement. wound culture showing mixed bacterial growth of Pseudomonas, Klebsella and enterococcus. Continue Vancomycin and Levofloxacin.
[2019-08-31 00:25] LABS: Vancomycin, Trough 21.6 ug/mL
[2019-08-31] MEDS: Vancomycin 1.5 GRAM/300 ML BAG 1.5 GM in Premix Bag 1 BAG IVPB SCH ×2 (00:47→13:45)
[2019-08-31] MEDS: HYDROcodone/Acetaminophen 10/325 mg Tablet PO PRN ×5 (00:51→20:35)
[2019-08-31] MEDS: Morphine 4 MG/ML VIAL SLOW IVP PRN ×3 (02:40→18:02)
[2019-08-31 06:43] LABS: #Basophils 0.1 thou/uL (0.0-0.2); #Eosinphils 0.5 thou/uL (0.0-0.7); #Lymphocytes 1.7 thou/uL (1.20-3.40); #Monocytes 0.8 thou/uL (0.11-0.59); #Neutrophils 6.1 thou/uL (1.40-6.50); %Basophils 0.6 % (0.0-1.0); %Eosinophils 5.5 % (0.0-10.0); %Lymphocytes 18.4 % (21.0-51.0); %Monocytes 8.9 % (0.0-10.0); %Neutrophils 66.6 % (42.0-75.0); Hemoglobin 8.7 g/dL (14.0-18.0); Mean Corpuscular HGB CONC 30.2 g/dL (32.0-36.0); Mean Corpuscular Hemoglobin 24.1 pg (27.0-31.0); Mean Platelet Volume 6.4 fL (7.4-10.4); Platelet Count 689 thou/uL (130-400); RBC Distribution Width 15.6 % (11.5-14.5); Red Blood Cell (RBC) Count 3.62 mill/uL (4.70-6.10); White Blood Cell (WBC) Count 9.2 thou/uL (4.8-10.8)
[2019-08-31 07:05] LABS: Anion Gap 15 mmol/L (10-20); BUN (Urea Nitrogen) 17 mg/dL (8.4-25.7); Calc. Creatinine Clearance 203 mL/min (70-130); Calcium 8.9 mg/dL (7.8-10.44); Carbon Dioxide 16 mmol/L (22-29); Chloride 105 mmol/L (98-107); Estimated GFR-MDRD Greater than 90; Glucose 94 mg/dL (70-105); Potassium 4.4 mmol/L (3.5-5.1); Sodium 132 mmol/L (136-145)
[2019-08-31] MEDS: Clopidogrel Bisulfate 75 MG TAB PO SCH (08:14)
[2019-08-31] MEDS: Aspirin 81 mg Enteric Coated Tablet PO SCH (08:14)
[2019-08-31] MEDS: cloNIDine 0.1 MG TAB PO SCH ×2 (08:14→20:34)
[2019-08-31] MEDS: Apixaban 5 MG TAB PO SCH ×2 (08:14→20:34)
[2019-08-31] MEDS: Insulin Glargine 50 UNITS in Pre-Filled Syringe SC SCH (08:15)
[2019-08-31] MEDS: Famotidine 20 MG TAB PO SCH ×2 (08:15→20:35)
--- NOTE | 2019-08-31 10:48 | PDOC.HOSPP ---
- Subjective Encounter Date: 08/31/19 Subjective: Stated that his pain is controlled most of the day. - Objective Vital Signs & Weight: Vital Signs (12 hours) Temp Pulse Resp BP BP Pulse Ox 08/31/19 08:14 008/80 08/31/19 07:40 98.3 F 90 16 118/80 93 L Weight Admit Weight 244 lb 1.6 oz Weight 244 lb 1.6 oz I&O: 08/30/19 08/31/19 09/01/19 06:59 06:59 06:59 Intake Total 3120 Output Total 2500 2800 Balance 620 -2800 Result Diagrams: 08/31/19 06:37 08/31/19 06:37 Additional Labs: Accuchecks 08/31/19 08/30/19 08/30/19 04:06 19:42 17:00 POC Glucose 104 178 H 117 H 08/30/19 11:40 POC Glucose 134 H Hospitalist ROS - Medication Medications: Active Medications Generic Name Dose Route Start Last Admin Trade Name Freq PRN Reason Stop Dose Admin Hydrocodone Bitart/Acetaminophen 1 tab 08/27/19 17:57 08/29/19 05:24 [place] 10/325 PO 1 tab Q4H PRN Administration PAIN 4-6 Hydrocodone Bitart/Acetaminophen 2 tab 08/27/19 18:09 08/31/19 05:59 [place] 10/325 PO 2 tab Q4H PRN Administration PAIN 7-10 Apixaban 5 mg 08/27/19 21:00 08/31/19 08:14 Eliquis PO 5 mg BID KATHLEEN Administration Aspirin 81 mg 08/28/19 09:00 08/31/19 08:14 Ecotrin PO 81 mg DAILY KATHLEEN Administration Clonidine 0.1 mg 08/27/19 21:00 08/31/19 08:14 Catapres PO 0.1 mg BID KATHLEEN Administration Clopidogrel Bisulfate 75 mg 08/28/19 09:00 08/31/19 08:14 Plavix PO 75 mg DAILY KATHLEEN Administration Famotidine 20 mg 08/27/19 21:00 08/31/19 08:15 Pepcid PO 20 mg BID KATHLEEN Administration Insulin Glargine 50 units/ 0.5 mls @ 0 mls/hr 08/28/19 09:00 08/31/19 08:15 Miscellaneous Medication SC 0.5 mls QAM KATHLEEN Administration Levofloxacin 750 mg/ Device 150 mls @ 100 mls/hr 08/29/19 17:00 08/30/19 18: 13 IVPB 150 mls Q24HR KATHLEEN Administration Vancomycin HCl 1.5 gm/ Device 300 mls @ 200 mls/hr 08/31/19 01:00 08/31/19 00 :47 IVPB 300 mls 0100,1300 KATHLEEN Administration Insulin Human Lispro 0 units 08/27/19 18:06 08/29/19 16:49 Humalog SC 3 unit .AGGRESSIVE SLIDING PRN Administration Aggressive Correctional Scale Morphine Sulfate 4 mg 08/27/19 18:22 08/31/19 02:40 Morphine SLOW IVP 4 mg Q6H PRN Administration Severe Pain (7-10) - Exam General Appearance: awake alert ENT: normocephalic atraumatic Neck: supple Respiratory: CTAB, no ronchi Gastrointestinal: soft Neurological: cranial nerve grossly intact Hosp A/P (1) S/P AKA (above knee amputation) bilateral Code(s): Z89.611 - ACQUIRED ABSENCE OF RIGHT LEG ABOVE KNEE; Z89.612 - ACQUIRED ABSENCE OF LEFT LEG ABOVE KNEE Status: Acute (2) Bacteremia due to Staphylococcus Code(s): R78.81 - BACTEREMIA; B95.8 - UNSP STAPHYLOCOCCUS THE CAUSE OF DISEASES CLASSD ELSWHR Status: Acute (3) LV (left ventricular) mural thrombus Code(s): I51.3 - INTRACARDIAC THROMBOSIS, NOT ELSEWHERE CLASSIFIED Status: Acute (4) PAD (peripheral artery disease) Code(s): I73.9 - PERIPHERAL VASCULAR DISEASE, UNSPECIFIED Status: Chronic - Plan Discussed with Dr. Cho. No indication for surgical intervention. Patient was not a candidate for femoral nerve block per anesthesiology. We will continue pain management and transition the patient to the next site of care when available. He is refusing to go to half-way facility and would like to go back to the rehab, however, he does not have more rehab days and his only option is SNF. CM working on placement. wound culture showing mixed bacterial growth of Pseudomonas, Klebsella and enterococcus. Continue Vancomycin and Levofloxacin. No evidence of sepsis.
[2019-08-31] MEDS: Lidocaine 4% Topical Sol 50 ML BOT TOP PRN (11:58)
--- NOTE | 2019-08-31 20:05 | PQF ---
SUJIT ARCOS MOEZ [id number] CLINICAL DOCUMENTATION IMPROVEMENT CLARIFICATION FORM: ICD-10 Updated PLEASE DO AN ADDENDUM TO THE PROGRESS NOTE WITH ANY DOCUMENTATION UPDATES OR ADDITIONS AND CARRY THROUGH TO DC SUMMARY. THANK YOU. DATE: 08/31/2019 ATTN: DR. Baljeet MAURO Please exercise your independent, professional judgment in responding to the clarification form. Clinical indicators are provided on the bottom of this form for your review. Please check appropriate box(s): [> ] UTI please specify if due to or related to (as applicable): [ >] Indwelling catheter [ ] Unable to determine etiology [ ] UTI Not D/T indwelling catheter. UTI Site: [ ] Kidney [ ] Ureter [ ] Bladder [ ] Urethra [ ] Unable to determine Specify Organism (if known): [ ] Unknown organism [ ] Contaminated urine specimen without UTI [ ] Other diagnosis [ ] Unable to determine In addition, please specify: Present on Admission (POA): [> ] Yes [ ] No [ ] Unable to determine For continuity of documentation, please document condition throughout progress notes and discharge summary. Thank You. CLINICAL INDICATORS - SIGNS / SYMPTOMS / LABS / RESULTS AND LOCATION IN MR 08/26 ED REPORT: DOMINGUEZ PRESENT PRIOR TO ARRIVAL. PLACED ON 08/17/2019 DURING HOSPITAL STAY FOR RT AKA. URINE IS EDU IN COLOR AND CLOUDY. 08/26 H&P (ZUNILDA) ASSESSMENT: 3). URINARY TRACT INFECTION, 8). HISTORY OF URINE RETENTION WITH CHRONIC DOMINGUEZ. 08/26 URINE CULTURE (DOMINGUEZ CATHETER) PSEUDOMONAS AERUGINOSA RISK: CHRONIC INDWELLING DOMINGUEZ CATHETER, BACTEREMIA D/T STAPHYLOCOCCUS, HX OF URINARY RETENTION AND CKD, ( ZUNILDA/H&P (08/26) TREATMENTS: URINE CULTURE 08/26 ROCEPHIN IV 08/26 - 08/27 VANCOMYCIN ( 08/26-PRESENT) THANK YOU! DAVID (This form is maintained as a part of the permanent medical record) 2014 [employer] [facility] [facility]. All Rights Reserved [email or web address] [facility]
[2019-09-01] MEDS: Morphine 4 MG/ML VIAL SLOW IVP PRN ×4 (00:20→21:02)
[2019-09-01] MEDS: Vancomycin 1.5 GRAM/300 ML BAG 1.5 GM in Premix Bag 1 BAG IVPB SCH ×2 (00:20→13:00)
[2019-09-01] MEDS: HYDROcodone/Acetaminophen 10/325 mg Tablet PO PRN ×4 (02:58→21:44)
[2019-09-01] MEDS: cloNIDine 0.1 MG TAB PO SCH ×2 (08:30→21:06)
[2019-09-01] MEDS: Apixaban 5 MG TAB PO SCH ×2 (08:31→21:07)
[2019-09-01] MEDS: Clopidogrel Bisulfate 75 MG TAB PO SCH (08:31)
[2019-09-01] MEDS: Aspirin 81 mg Enteric Coated Tablet PO SCH (08:31)
[2019-09-01] MEDS: Insulin Glargine 50 UNITS in Pre-Filled Syringe SC SCH (08:31)
[2019-09-01] MEDS: Famotidine 20 MG TAB PO SCH ×2 (08:31→21:07)
--- NOTE | 2019-09-01 11:12 | PDOC.HOSPP ---
- Subjective Encounter Date: 09/01/19 Subjective: Resting comfortably. No new events. - Objective Vital Signs & Weight: Vital Signs (12 hours) Temp Pulse Resp BP BP Pulse Ox 09/01/19 08:30 117/78 09/01/19 08:00 100 09/01/19 07:49 97.7 F 86 18 117/78 100 09/01/19 04:00 98 F 83 18 120/84 100 Weight Admit Weight 244 lb 1.6 oz Weight 244 lb 1.6 oz I&O: 08/31/19 09/01/19 09/02/19 06:59 06:59 06:59 Intake Total 3820 Output Total 2800 4500 Balance -2800 -680 Result Diagrams: 08/31/19 06:37 08/31/19 06:37 Additional Labs: Accuchecks 09/01/19 09/01/19 08/31/19 10:43 04:35 19:44 POC Glucose 148 H 119 H 160 H 08/31/19 08/31/19 16:32 11:24 POC Glucose 138 H 134 H Hospitalist ROS - Medication Medications: Active Medications Generic Name Dose Route Start Last Admin Trade Name Freq PRN Reason Stop Dose Admin Hydrocodone Bitart/Acetaminophen 2 tab 08/27/19 18:09 09/01/19 08:31 [place] 10/325 PO 2 tab Q4H PRN Administration PAIN 7-10 Apixaban 5 mg 08/27/19 21:00 09/01/19 08:31 Eliquis PO 5 mg BID KATHLEEN Administration Aspirin 81 mg 08/28/19 09:00 09/01/19 08:31 Ecotrin PO 81 mg DAILY KATHLEEN Administration Clonidine 0.1 mg 08/27/19 21:00 09/01/19 08:30 Catapres PO 0.1 mg BID KATHLEEN Administration Clopidogrel Bisulfate 75 mg 08/28/19 09:00 09/01/19 08:31 Plavix PO 75 mg DAILY KATHLEEN Administration Famotidine 20 mg 08/27/19 21:00 09/01/19 08:31 Pepcid PO 20 mg BID KATHLEEN Administration Insulin Glargine 50 units/ 0.5 mls @ 0 mls/hr 08/28/19 09:00 09/01/19 08:31 Miscellaneous Medication SC 0.5 mls QAM KATHLEEN Administration Levofloxacin 750 mg/ Device 150 mls @ 100 mls/hr 08/29/19 17:00 08/31/19 17: 21 IVPB 150 mls Q24HR KATHLEEN Administration Vancomycin HCl 1.5 gm/ Device 300 mls @ 200 mls/hr 08/31/19 01:00 09/01/19 00 :20 IVPB 300 mls 0100,1300 KATHLEEN Administration Insulin Human Lispro 0 units 08/27/19 18:06 08/29/19 16:49 Humalog SC 3 unit .AGGRESSIVE SLIDING PRN Administration Aggressive Correctional Scale Lidocaine HCl 0 ml 08/31/19 10:12 08/31/19 11:58 Xylocaine 4% Topical Barb TOP 50 ml PRN PRN Administration RIGHT VAC CHNAGES Morphine Sulfate 4 mg 08/27/19 18:22 09/01/19 06:31 Morphine SLOW IVP 4 mg Q6H PRN Administration Severe Pain (7-10) - Exam General Appearance: NAD ENT: normocephalic atraumatic Neck: supple, no JVD Heart: RRR Respiratory: normal chest expansion, no tachypnea Gastrointestinal: soft, non-tender, non-distended Neurological: cranial nerve grossly intact Hosp A/P (1) S/P AKA (above knee amputation) bilateral Code(s): Z89.611 - ACQUIRED ABSENCE OF RIGHT LEG ABOVE KNEE; Z89.612 - ACQUIRED ABSENCE OF LEFT LEG ABOVE KNEE Status: Acute (2) Bacteremia due to Staphylococcus Code(s): R78.81 - BACTEREMIA; B95.8 - UNSP STAPHYLOCOCCUS THE CAUSE OF DISEASES CLASSD ELSWHR Status: Acute (3) LV (left ventricular) mural thrombus Code(s): I51.3 - INTRACARDIAC THROMBOSIS, NOT ELSEWHERE CLASSIFIED Status: Acute (4) PAD (peripheral artery disease) Code(s): I73.9 - PERIPHERAL VASCULAR DISEASE, UNSPECIFIED Status: Chronic - Plan Discussed with Dr. Cho. No indication for surgical intervention. Patient was not a candidate for femoral nerve block per anesthesiology. We will continue pain management and transition the patient to the next site of care when available. He is refusing to go to fdc facility and would like to go back to the rehab, however, he does not have more rehab days and his only option is SNF. CM working on placement. wound culture showing mixed bacterial growth of Pseudomonas, Klebsella and enterococcus. Continue Vancomycin and Levofloxacin. No evidence of sepsis. 09/01: Pending placement.
[2019-09-01 12:19] LABS: Vancomycin, Trough 15.8 ug/mL
--- NOTE | 2019-09-01 13:57 | EKG ---
Test Reason : EXT MONITOR Blood Pressure : / mmHG Vent. Rate : 090 BPM Atrial Rate : 090 BPM P-R Int : 152 ms QRS Dur : 080 ms QT Int : 366 ms P-R-T Axes : 038 037 046 degrees QTc Int : 447 ms Normal sinus rhythm Normal ECG Confirmed by KARRI MENDEZ DO ([id number]), legal editor NOHELIA VELASQUEZ ([id number]) on 09/01/2019 1:57:14 PM Referred By: MIKAELA Confirmed By:KARRI MENDEZ DO
[2019-09-01] MEDS: Senokot S 8.6-50 MG TAB PO PRN (21:43)
[2019-09-02] MEDS: Vancomycin 1.5 GRAM/300 ML BAG 1.5 GM in Premix Bag 1 BAG IVPB SCH ×2 (01:27→15:12)
[2019-09-02] MEDS: HYDROcodone/Acetaminophen 10/325 mg Tablet PO PRN ×4 (01:34→23:57)
[2019-09-02] MEDS: Morphine 4 MG/ML VIAL SLOW IVP PRN ×2 (03:02→20:54)
[2019-09-02] MEDS: Fentanyl 100 MCG/2 ML VIAL SLOW IVP PRN ×5 (04:38→23:06)
[2019-09-02] MEDS: Aspirin 81 mg Enteric Coated Tablet PO SCH (08:24)
[2019-09-02] MEDS: cloNIDine 0.1 MG TAB PO SCH ×2 (08:24→20:50)
[2019-09-02] MEDS: Apixaban 5 MG TAB PO SCH ×2 (08:24→20:50)
[2019-09-02] MEDS: Clopidogrel Bisulfate 75 MG TAB PO SCH (08:24)
[2019-09-02] MEDS: Famotidine 20 MG TAB PO SCH ×2 (08:24→20:50)
[2019-09-02] MEDS: Insulin Glargine 50 UNITS in Pre-Filled Syringe SC SCH (08:30)
[2019-09-02] MEDS: Gabapentin 300 MG CAP PO SCH ×2 (15:09→20:50)
--- NOTE | 2019-09-02 18:28 | PDOC.HOSPP ---
- Subjective Encounter Date: 09/02/19 Encounter Time: 10:00 Subjective: The patient reports his pain has significantly improved. Previously it was severe pain radiating up his right leg. Now it is just some surgical pain, but nothing major. Per nursing patient was complaining of 10/10 pain and was demanding IV fentanyl - Objective Vital Signs & Weight: Vital Signs (12 hours) Temp Pulse Resp BP BP Pulse Ox 09/02/19 16:05 98.4 F 82 18 147/94 H 98 09/02/19 11:11 97.8 F 80 18 123/84 98 09/02/19 08:24 143/82 H 09/02/19 08:00 99 09/02/19 07:19 98.4 F 85 18 143/82 H 96 Weight Admit Weight 244 lb 1.6 oz Weight 244 lb 1.6 oz I&O: 09/01/19 09/02/19 09/03/19 06:59 06:59 06:59 Intake Total 3820 1300 Output Total 4500 2800 1650 Balance -680 -2800 -350 Result Diagrams: 08/31/19 06:37 08/31/19 06:37 Additional Labs: Accuchecks 09/02/19 09/02/19 09/02/19 16:09 11:16 04:19 POC Glucose 87 130 H 143 H 09/01/19 19:42 POC Glucose 139 H Hospitalist ROS - Review of Systems Constitutional: denies: fever, chills - Medication Medications: Active Medications Generic Name Dose Route Start Last Admin Trade Name Freq PRN Reason Stop Dose Admin Hydrocodone Bitart/Acetaminophen 2 tab 08/27/19 18:09 09/02/19 15:10 [place] 10/325 PO 2 tab Q4H PRN Administration PAIN 7-10 Apixaban 5 mg 08/27/19 21:00 09/02/19 08:24 Eliquis PO 5 mg BID KATHLEEN Administration Aspirin 81 mg 08/28/19 09:00 09/02/19 08:24 Ecotrin PO 81 mg DAILY KATHLEEN Administration Clonidine 0.1 mg 08/27/19 21:00 09/02/19 08:24 Catapres PO 0.1 mg BID KATHLEEN Administration Clopidogrel Bisulfate 75 mg 08/28/19 09:00 09/02/19 08:24 Plavix PO 75 mg DAILY KATHLEEN Administration Famotidine 20 mg 08/27/19 21:00 09/02/19 08:24 Pepcid PO 20 mg BID KATLHEEN Administration Fentanyl 50 mcg 09/02/19 04:34 09/02/19 17:49 Sublimaze SLOW IVP 50 mcg Q3H PRN Administration Severe Pain (7-10) Gabapentin 600 mg 09/02/19 15:00 09/02/19 15:09 Neurontin PO 600 mg TID KATHLEEN Administration Insulin Glargine 50 units/ 0.5 mls @ 0 mls/hr 08/28/19 09:00 09/02/19 08:30 Miscellaneous Medication SC 0.5 mls QAM KATHLEEN Administration Levofloxacin 750 mg/ Device 150 mls @ 100 mls/hr 08/29/19 17:00 09/02/19 17: 49 IVPB 150 mls Q24HR KATHLEEN Administration Vancomycin HCl 1.5 gm/ Device 300 mls @ 200 mls/hr 08/31/19 01:00 09/02/19 15 :12 IVPB 300 mls 0100,1300 KATHLEEN Administration Insulin Human Lispro 0 units 08/27/19 18:06 08/29/19 16:49 Humalog SC 3 unit .AGGRESSIVE SLIDING PRN Administration Aggressive Correctional Scale Lidocaine HCl 0 ml 08/31/19 10:12 08/31/19 11:58 Xylocaine 4% Topical Barb TOP 50 ml PRN PRN Administration RIGHT VAC CHNAGES Morphine Sulfate 4 mg 08/27/19 18:22 09/02/19 03:02 Morphine SLOW IVP 4 mg Q6H PRN Administration Severe Pain (7-10) Senna/Docusate Sodium 2 tab 08/27/19 17:57 09/01/19 21:43 Senokot S PO 2 tab BID PRN Administration Constipation - Exam General Appearance: NAD, awake alert General - other findings: morbidly obese Eye: PERRL, anicteric sclera ENT: normocephalic atraumatic, no oropharyngeal lesions Neck: supple, no JVD Heart: RRR, no murmur, no gallops, no rubs Respiratory: CTAB, no wheezes, no rales, no ronchi Gastrointestinal: soft, non-tender, non-distended, normal bowel sounds Extremities: no cyanosis, no clubbing Extremities - other findings: necrotic right stump dried Skin: normal turgor, no lesions, no rashes Neurological: cranial nerve grossly intact, normal sensation to touch, no focal deficits, no new deficit Musculoskeletal: normal tone, normal strength, no muscle wasting Psychiatric: normal affect, normal behavior, A&O x 3, oriented to person Hosp A/P - Plan This is 54 year old male who presetned with abscess near femoral amputation stump #Right femoral abscess #History of MSSA bacteremia - wound culture from amputation stump growing pseudomonas, Klebsiella, E faecalis. Started on levaquin 08/28, vancomycin added 08/30. Will switch to levaquin for two weeks per ID - received IV cefazolin during last admission. Per patient doesn't recall getting cephalex - per Dr. Marlyn gentile to d/c PICC line - resume gabapentin 600 mg tid Anemia - stable, will check iron levels in the morning Code status: full code
[2019-09-02] MEDS: Senokot S 8.6-50 MG TAB PO PRN (20:53)
--- NOTE | 2019-09-02 23:25 | CON ---
DATE OF CONSULTATION: 09/02/2019 REASON FOR CONSULTATION: Questions regarding the right AKA stump site on the possible presence of infection. HISTORY OF PRESENT ILLNESS: A 54-year-old patient whom I had seen in July this year when he presented with a history of type 2 diabetes, hypertension, and prior right foot amputations as well as revascularization procedures with stenting in the right lower extremity. The patient had required a left above-knee amputation because of gangrene of the left lower extremity in September 2018, and at this time he had an embolic phenomena to the right lower extremity from a left ventricular clot and culminated in loss of the right lower extremity at the AKA level. During this event, the patient had MSSA bacteremia 1 out of 2 sets. He was treated with IV antimicrobial therapy, and he was transferred to [facility] and he had been there for the past month and the AKA amputation site had dehisced and he was getting specialized wound management with negative pressure dressing. The patient presented to the emergency room because of worsening pain in the right lower extremity amputation site. The initial findings included BP 100/70, pulse 88, respirations 18, temperature 98.9, and O2 saturation 97%. He remained afebrile in the emergency room. Physical examination findings remarkable for the bilateral AKAs in the right stump with a wound sort of a triangular-shaped wound. There was no evidence of erythema or odor emanating from the right amputation site. The right groin had a little bit of purulent discharge noticeable and initial findings included a white cell count of 10.6, hemoglobin 8.6, platelets 538 with 73% neutrophils and creatinine 0.65. Imaging studies were done to evaluate the right lower extremity amputation site. There was described area measuring 5 x 5 x 2.5 cm connecting to the skin surface at the wound VAC. This had some enhancement, but mild. The patient had a vascular ultrasound as well. This was a venous study, which showed no evidence of thrombosis. There is a 2.5 cm fluid collection in the right groin, superficial to the vasculature. Currently, Mr. Mo still having moderate tenderness at the right thigh stump laterally and medially. It is quite tender to palpation. He denies headaches. No visual symptoms, sore throat, odynophagia, or dysphagia. No dyspnea or cough. No chest pain. No abdominal pain. He is able to void without difficulty and is having no diarrhea. PAST MEDICAL HISTORY: Type 2 diabetes, left ventricular thrombus, NV, pulmonary embolism, PVD with bilateral AKAs, history of methamphetamine use with still active use intermittently. He does not inject, but inhales mostly. PAST SURGICAL HISTORY: As above. Also revascularization procedures in the right lower extremity with stents, transmetatarsal amputation, and rotator cuff surgery. ALLERGIES: TRAMADOL. SOCIAL HISTORY: Currently in [facility]. Does not smoke, but had been methamphetamine until he was admitted to rehab. FAMILY HISTORY: Noncontributory. CURRENT MEDICATIONS: 1. Eliquis. 2. Ecotrin. 3. Catapres. 4. Plavix. 5. Pepcid. 6. Neurontin. 7. Insulin. 8. Levaquin. 9. Vancomycin. PHYSICAL EXAMINATION: VITAL SIGNS: The patient has been afebrile through the hospital stay. The max temperature is 99.7 at the beginning. Other vital signs are normal. O2 saturations are normal. SKIN: There is a one photo note from August 27, which shows the area of the AKA wound with wide area of granulation tissue. There is only a central location with kind of whitish fatty like tissue. Most of the remainder is viable red with significant bleeding. The surrounding skin has normal color and there is no erythema noticeable. The patient has a PICC line in left upper extremity with normal exit site appearance and he is not catheterized otherwise at this moment. He has no lymphadenopathy. HEENT: Ocular movements conjugate. Oral cavity was not particularly abnormal. NECK: Supple. No jugular vein distention. LUNGS: Symmetric. Clear breath sounds. HEART: S1 and S2, regular rate. ABDOMEN: Soft, not distended or tender. The right groin wound is irregular shaped and measuring about 1 cm and this appears to be superficial. No drainage noticeable. Maybe a little bit of serosanguineous earlier. NEUROLOGIC: His cognitive function appears to be intact. LABORATORY STUDIES: Urinalysis with greater than 50 wbc's from 08/26. Followup WBCs the latest one 9.2, hemoglobin 8.7, platelets 689 with 66% neutrophils. Chemistry; creatinine 0.65, calcium 8.9, and sodium 132. A swab was taken, actually I think it is from the groin, it is labeled as groin and Enterococcus faecalis with a broad susceptibility results. ASSESSMENT: 1. History of methamphetamine use in the past. 2. Type 2 diabetes. 3. Ischemic heart disease. 4. Peripheral vascular disease with bilateral above-knee amputations, the most recent one just within the past 2 months. 5. Wound dehiscence with wide open area of wound exposure in the right AKA site , but no evidence of actual inflammatory process. 6. Right groin wound as well with possible mild abscess. It could be just a seroma accumulating in the area. It does not seem to be directly associated with the vascular bundle. DISCUSSION: The right thigh pain could be related to some element of vascular insufficiency or just the pain from the procedure and the large wound presence. The culture results are from the groin site, not from the AKA site. I would not prescribe antimicrobials for the AKA site, the patient has already completed his treatment for the bacteremia and PICC line can be removed. I would continue on oral Levaquin for another week or two in preparation for discharge planning. Continue wound management as previously. Job ID: [id number] ELIZABETH
[2019-09-03] MEDS: Fentanyl 100 MCG/2 ML VIAL SLOW IVP PRN ×4 (05:04→19:17)
[2019-09-03] MEDS: HYDROcodone/Acetaminophen 10/325 mg Tablet PO PRN ×2 (08:51→16:39)
[2019-09-03] MEDS: Gabapentin 300 MG CAP PO SCH ×3 (08:53→21:23)
[2019-09-03] MEDS: Aspirin 81 mg Enteric Coated Tablet PO SCH (08:54)
[2019-09-03] MEDS: Apixaban 5 MG TAB PO SCH ×2 (08:54→21:23)
[2019-09-03] MEDS: Clopidogrel Bisulfate 75 MG TAB PO SCH (08:54)
[2019-09-03] MEDS: Famotidine 20 MG TAB PO SCH ×2 (08:54→21:22)
[2019-09-03] MEDS: Insulin Glargine 50 UNITS in Pre-Filled Syringe SC SCH (08:54)
[2019-09-03] MEDS: cloNIDine 0.1 MG TAB PO SCH ×2 (08:58→21:22)
[2019-09-03] MEDS: HumaLOG 300 UNITS/3 ML VIAL SC PRN (12:38)
--- NOTE | 2019-09-03 14:40 | PDOC.HOSPP ---
- Subjective Encounter Date: 09/03/19 Encounter Time: 10:00 Subjective: The patient currently is in 10/10 pain after his dressing change. He is still pending placement. He is agreeable to SNF placement - Objective Vital Signs & Weight: Vital Signs (12 hours) Temp Pulse Resp BP BP Pulse Ox 09/03/19 11:40 98 F 87 16 107/69 98 09/03/19 08:58 115/78 09/03/19 07:22 97.9 F 79 17 102/71 97 Weight Admit Weight 244 lb 1.6 oz Weight 244 lb 1.6 oz I&O: 09/02/19 09/03/19 09/04/19 06:59 06:59 06:59 Intake Total 2100 Output Total 4368 3532 Balance -4730 -3224 Result Diagrams: 08/31/19 06:37 08/31/19 06:37 Additional Labs: Accuchecks 09/03/19 09/03/19 09/02/19 11:43 06:02 19:32 POC Glucose 185 H 106 149 H 09/02/19 16:09 POC Glucose 87 Hospitalist ROS - Review of Systems Constitutional: denies: fever, chills Respiratory: denies: cough, dry - Medication Medications: Active Medications Generic Name Dose Route Start Last Admin Trade Name Freq PRN Reason Stop Dose Admin Hydrocodone Bitart/Acetaminophen 2 tab 08/27/19 18:09 09/03/19 08:51 [place] 10/325 PO 2 tab Q4H PRN Administration PAIN 7-10 Apixaban 5 mg 08/27/19 21:00 09/03/19 08:54 Eliquis PO 5 mg BID KATHLEEN Administration Aspirin 81 mg 08/28/19 09:00 09/03/19 08:54 Ecotrin PO 81 mg DAILY KATHLEEN Administration Clonidine 0.1 mg 08/27/19 21:00 09/03/19 08:58 Catapres PO Not Given BID KATHLEEN Clopidogrel Bisulfate 75 mg 08/28/19 09:00 09/03/19 08:54 Plavix PO 75 mg DAILY KATHLEEN Administration Famotidine 20 mg 08/27/19 21:00 09/03/19 08:54 Pepcid PO 20 mg BID KATHLEEN Administration Fentanyl 50 mcg 09/02/19 04:34 09/03/19 10:55 Sublimaze SLOW IVP 50 mcg Q3H PRN Administration Severe Pain (7-10) Gabapentin 600 mg 09/02/19 15:00 09/03/19 08:53 Neurontin PO 600 mg TID KATHLEEN Administration Insulin Glargine 50 units/ 0.5 mls @ 0 mls/hr 08/28/19 09:00 09/03/19 08:54 Miscellaneous Medication SC 0.5 mls QAM KATHLEEN Administration Levofloxacin 750 mg/ Device 150 mls @ 100 mls/hr 08/29/19 17:00 09/02/19 17: 49 IVPB 150 mls Q24HR KATHLEEN Administration Insulin Human Lispro 0 units 08/27/19 18:06 09/03/19 12:38 Humalog SC 3 unit .AGGRESSIVE SLIDING PRN Administration Aggressive Correctional Scale Lidocaine HCl 0 ml 08/31/19 10:12 08/31/19 11:58 Xylocaine 4% Topical Barb TOP 50 ml PRN PRN Administration RIGHT VAC CHNAGES Morphine Sulfate 4 mg 08/27/19 18:22 09/02/19 20:54 Morphine SLOW IVP 4 mg Q6H PRN Administration Severe Pain (7-10) Senna/Docusate Sodium 2 tab 08/27/19 17:57 09/02/19 20:53 Senokot S PO 2 tab BID PRN Administration Constipation - Exam General Appearance: NAD, awake alert Eye: PERRL, anicteric sclera ENT: normocephalic atraumatic, no oropharyngeal lesions Neck: supple, no JVD Heart: RRR, no murmur, no gallops, no rubs Respiratory: CTAB, no wheezes, no rales, no ronchi Gastrointestinal: soft, non-tender, non-distended, normal bowel sounds Extremities: no cyanosis, no clubbing, no edema Extremities - other findings: bilateral AKA. Dried necrotic stump. Bandage removed, wound looks clean Skin: normal turgor, no lesions, no rashes Neurological: cranial nerve grossly intact, normal sensation to touch, no focal deficits, no new deficit Musculoskeletal: normal tone, normal strength, no muscle wasting Psychiatric: normal affect, normal behavior, A&O x 3, oriented to person Hosp A/P - Plan This is 54 year old male who presetned with abscess near femoral amputation stump #Right femoral abscess #History of MSSA bacteremia - wound culture from amputation stump growing pseudomonas, Klebsiella, E faecalis. Started on levaquin 08/28, vancomycin added 08/30. Will switch to levaquin for two weeks per ID - received IV cefazolin during last admission for MRSA bacteremia #Neuropathic pain - continue gabapentin 600 mg tid #Anemia - stable, will check iron levels in the morning Code status: full code
[2019-09-03] MEDS: Morphine 4 MG/ML VIAL SLOW IVP PRN (21:16)
[2019-09-04] MEDS: HYDROcodone/Acetaminophen 10/325 mg Tablet PO PRN ×4 (00:31→18:40)
[2019-09-04] MEDS: Fentanyl 100 MCG/2 ML VIAL SLOW IVP PRN ×5 (02:50→20:19)
[2019-09-04] MEDS: Morphine 4 MG/ML VIAL SLOW IVP PRN ×2 (06:22→14:42)
[2019-09-04] MEDS: Clopidogrel Bisulfate 75 MG TAB PO SCH (08:38)
[2019-09-04] MEDS: Gabapentin 300 MG CAP PO SCH ×3 (08:39→20:17)
[2019-09-04] MEDS: Famotidine 20 MG TAB PO SCH ×2 (08:42→20:17)
[2019-09-04] MEDS: Aspirin 81 mg Enteric Coated Tablet PO SCH (08:42)
[2019-09-04] MEDS: Apixaban 5 MG TAB PO SCH ×2 (08:43→20:17)
[2019-09-04] MEDS: cloNIDine 0.1 MG TAB PO SCH ×2 (08:55→20:18)
[2019-09-04 09:45] LABS: Hemoglobin 9.8 g/dL (14.0-18.0); Mean Corpuscular HGB CONC 29.4 g/dL (32.0-36.0); Mean Corpuscular Hemoglobin 23.2 pg (27.0-31.0); Mean Corpuscular Volume 78.9 fL (78.0-98.0); Mean Platelet Volume 6.2 fL (7.4-10.4); Platelet Count 807 thou/uL (130-400); RBC Distribution Width 15.8 % (11.5-14.5); Red Blood Cell (RBC) Count 4.24 mill/uL (4.70-6.10); White Blood Cell (WBC) Count 9.9 thou/uL (4.8-10.8)
[2019-09-04 09:54] LABS: Anion Gap 14 mmol/L (10-20); BUN (Urea Nitrogen) 27 mg/dL (8.4-25.7); Calc. Creatinine Clearance 174 mL/min (70-130); Calcium 9.3 mg/dL (7.8-10.44); Carbon Dioxide 21 mmol/L (22-29); Chloride 104 mmol/L (98-107); Estimated GFR-MDRD Greater than 90; Glucose 132 mg/dL (70-105); Potassium 4.2 mmol/L (3.5-5.1); Sodium 135 mmol/L (136-145)
[2019-09-04] MEDS: Senokot S 8.6-50 MG TAB PO PRN (10:12)
[2019-09-04] MEDS: Insulin Glargine 50 UNITS in Pre-Filled Syringe SC SCH (10:13)
[2019-09-04] MEDS: HumaLOG 300 UNITS/3 ML VIAL SC PRN (16:48)
--- NOTE | 2019-09-04 18:31 | PDOC.HOSPP ---
- Subjective Encounter Date: 09/04/19 Encounter Time: 10:30 Subjective: The patient reports improvement in pain but has spasms every 2 hours in his legs. Narcotics help take the edge off pain. Gabapentin is helping too. Currently waiting on placement - Objective Vital Signs & Weight: Vital Signs (12 hours) Temp Pulse Resp BP BP Pulse Ox 09/04/19 16:12 98.7 F 90 18 98/65 100 09/04/19 16:00 114/72 09/04/19 11:26 98.2 F 98 20 142/95 H 99 09/04/19 08:55 114/76 09/04/19 08:00 97 09/04/19 07:55 98.2 F 91 18 114/80 97 Weight Admit Weight 244 lb 1.6 oz Weight 244 lb 1.6 oz I&O: 09/03/19 09/04/19 09/05/19 06:59 06:59 06:59 Intake Total 2100 3500 Output Total 0977 3275 1000 Balance -3541 -7713 2500 Result Diagrams: 09/04/19 09:22 09/04/19 09:22 Additional Labs: Accuchecks 09/04/19 09/04/19 09/04/19 16:14 11:23 10:15 POC Glucose 192 H 138 H 142 H 09/04/19 09/03/19 05:58 19:44 POC Glucose 127 H 162 H Hospitalist ROS - Review of Systems Constitutional: denies: fever, chills - Medication Medications: Active Medications Generic Name Dose Route Start Last Admin Trade Name Freq PRN Reason Stop Dose Admin Hydrocodone Bitart/Acetaminophen 2 tab 08/27/19 18:09 09/04/19 11:02 [place] 10/325 PO 2 tab Q4H PRN Administration PAIN 7-10 Apixaban 5 mg 08/27/19 21:00 09/04/19 08:43 Eliquis PO 5 mg BID KATHLEEN Administration Aspirin 81 mg 08/28/19 09:00 09/04/19 08:42 Ecotrin PO 81 mg DAILY KATHLEEN Administration Clonidine 0.1 mg 08/27/19 21:00 09/04/19 08:55 Catapres PO Not Given BID KATHLEEN Clopidogrel Bisulfate 75 mg 08/28/19 09:00 09/04/19 08:38 Plavix PO 75 mg DAILY KATHLEEN Administration Famotidine 20 mg 08/27/19 21:00 09/04/19 08:42 Pepcid PO 20 mg BID KATHLEEN Administration Fentanyl 50 mcg 09/02/19 04:34 09/04/19 16:47 Sublimaze SLOW IVP 50 mcg Q3H PRN Administration Severe Pain (7-10) Gabapentin 600 mg 09/02/19 15:00 09/04/19 14:41 Neurontin PO 600 mg TID KATHLEEN Administration Insulin Glargine 50 units/ 0.5 mls @ 0 mls/hr 08/28/19 09:00 09/04/19 10:13 Miscellaneous Medication SC 0.5 mls QAM KATHLEEN Administration Levofloxacin 750 mg/ Device 150 mls @ 100 mls/hr 08/29/19 17:00 09/04/19 16: 45 IVPB 150 mls Q24HR KATHLEEN Administration Insulin Human Lispro 0 units 08/27/19 18:06 09/04/19 16:48 Humalog SC 3 unit .AGGRESSIVE SLIDING PRN Administration Aggressive Correctional Scale Lidocaine HCl 0 ml 08/31/19 10:12 08/31/19 11:58 Xylocaine 4% Topical Barb TOP 50 ml PRN PRN Administration RIGHT VAC CHNAGES Morphine Sulfate 4 mg 08/27/19 18:22 09/04/19 14:42 Morphine SLOW IVP 4 mg Q6H PRN Administration Severe Pain (7-10) Senna/Docusate Sodium 2 tab 08/27/19 17:57 09/04/19 10:12 Senokot S PO 2 tab BID PRN Administration Constipation - Exam General Appearance: NAD, awake alert Eye: PERRL, anicteric sclera ENT: normocephalic atraumatic, no oropharyngeal lesions Neck: supple, symmetric, no JVD, no thyromegaly Heart: RRR, no murmur, no gallops, no rubs Respiratory: CTAB, no wheezes, no rales, no ronchi Gastrointestinal: soft, non-tender, non-distended, normal bowel sounds Extremities: no cyanosis, no clubbing Extremities - other findings: right lower extremity amputation with dried stump. LLE amputation Skin: normal turgor, no lesions, no rashes Neurological: cranial nerve grossly intact, normal sensation to touch, no focal deficits, no new deficit Hosp A/P - Plan This is 54 year old male who presetned with abscess near femoral amputation stump #Right femoral abscess #History of MSSA bacteremia - wound culture from amputation stump growing pseudomonas, Klebsiella, E faecalis. Started on levaquin 08/28, vancomycin added 08/30. Continue levaquin for two weeks - received IV cefazolin during last admission for MRSA bacteremia #Neuropathic pain - continue gabapentin 600 mg tid - added flexeril prn #Anemia - stable, will check iron levels in the morning Code status: full code
[2019-09-04] MEDS: Cyclobenzaprine 10 MG TAB PO PRN (20:18)
[2019-09-05] MEDS: Morphine 4 MG/ML VIAL SLOW IVP PRN ×2 (00:42→11:21)
[2019-09-05] MEDS: HYDROcodone/Acetaminophen 10/325 mg Tablet PO PRN ×4 (02:53→20:05)
[2019-09-05] MEDS: Fentanyl 100 MCG/2 ML VIAL SLOW IVP PRN ×5 (05:03→23:01)
[2019-09-05] MEDS: Cyclobenzaprine 10 MG TAB PO PRN ×3 (08:03→20:09)
[2019-09-05] MEDS: Aspirin 81 mg Enteric Coated Tablet PO SCH (08:03)
[2019-09-05] MEDS: Famotidine 20 MG TAB PO SCH ×2 (08:03→20:04)
[2019-09-05] MEDS: Apixaban 5 MG TAB PO SCH ×2 (08:04→20:04)
[2019-09-05] MEDS: Gabapentin 300 MG CAP PO SCH ×3 (08:04→20:04)
[2019-09-05] MEDS: Clopidogrel Bisulfate 75 MG TAB PO SCH (08:04)
[2019-09-05] MEDS: cloNIDine 0.1 MG TAB PO SCH ×2 (08:05→20:04)
[2019-09-05] MEDS: Polyethylene Glycol 3350 17 GM Packet PO SCH (08:05)
[2019-09-05] MEDS: Insulin Glargine 50 UNITS in Pre-Filled Syringe SC SCH (08:06)
--- NOTE | 2019-09-05 14:30 | PRG ---
DATE OF SERVICE: 09/05/2019 SUBJECTIVE: The patient is still having this burning sensation at the end of the right AKA amputation site. The remainder of his stump is not hurting anymore. The patient has no respiratory symptoms or abdominal pain or diarrhea. OBJECTIVE: VITAL SIGNS: His vital signs are normal. He is afebrile. LUNGS: Clear. HEART: S1 and S2. Regular rate. ABDOMEN: Soft, not distended. EXTREMITIES: Right AKA site with a wide area of negative pressure dressing. The remainder of the stump without any erythema or tenderness on palpation. The groin wound appears okay. LABORATORY DATA: White cell count is at 9.9, hemoglobin 9.8, and platelets are 807. Creatinine 0.76 and sodium 135. ASSESSMENT AND DISCUSSION: Methamphetamine use in the past, type 2 diabetes, ischemic heart disease, peripheral vascular disease; bilateral AKAs, most recent one within the past 2 months; wound dehiscence with wide open area of wound exposure and pain. No actual evidence of inflammatory process. Right groin wound with abscess, which has drained now, appearing good and appearing well. The patient could continue on oral Levaquin for a few more days and then discontinue it. Continue wound care management as previously. Job ID: [id number]
--- NOTE | 2019-09-05 16:32 | PDOC.HOSPP ---
- Subjective Encounter Date: 09/05/19 Subjective: The patient states his wound is better today. He states flexeril loosened his leg up a little but he has a burning feeling near the wound site. Is interested in trying lidocaine He has no other complaints. Per case management, he has been denied still by rehab facilities due to patient being on Medicaid. Patient is requesting rehab near [place] which is closer to his house - Objective Vital Signs & Weight: Vital Signs (12 hours) Temp Pulse Resp BP BP Pulse Ox 09/05/19 12:00 97.9 F 85 18 106/69 97 09/05/19 08:05 118/79 09/05/19 08:00 98 F 78 18 118/79 98 Weight Admit Weight 244 lb 1.6 oz Weight 244 lb 1.6 oz I&O: 09/04/19 09/05/19 09/06/19 06:59 06:59 06:59 Intake Total 4500 1100 Output Total 3275 2800 Balance -3275 1700 1100 Result Diagrams: 09/04/19 09:22 09/04/19 09:22 Additional Labs: Accuchecks 09/05/19 09/05/19 09/04/19 11:14 04:17 19:37 POC Glucose 160 H 138 H 153 H 09/04/19 16:14 POC Glucose 192 H Hospitalist ROS - Review of Systems Constitutional: denies: fever, chills - Medication Medications: Active Medications Generic Name Dose Route Start Last Admin Trade Name Freq PRN Reason Stop Dose Admin Hydrocodone Bitart/Acetaminophen 2 tab 08/27/19 18:09 09/05/19 14:49 [place] 10/325 PO 2 tab Q4H PRN Administration PAIN 7-10 Apixaban 5 mg 08/27/19 21:00 09/05/19 08:04 Eliquis PO 5 mg BID KATHLEEN Administration Aspirin 81 mg 08/28/19 09:00 09/05/19 08:03 Ecotrin PO 81 mg DAILY KATHLEEN Administration Clonidine 0.1 mg 08/27/19 21:00 09/05/19 08:05 Catapres PO Not Given BID KATHLEEN Clopidogrel Bisulfate 75 mg 08/28/19 09:00 09/05/19 08:04 Plavix PO 75 mg DAILY KATHLEEN Administration Cyclobenzaprine HCl 10 mg 09/04/19 11:45 09/05/19 08:03 Flexeril PO 10 mg TIDPRN PRN Administration Muscle Spasm Famotidine 20 mg 08/27/19 21:00 09/05/19 08:03 Pepcid PO 20 mg BID KATHLEEN Administration Fentanyl 50 mcg 09/02/19 04:34 09/05/19 13:00 Sublimaze SLOW IVP 50 mcg Q3H PRN Administration Severe Pain (7-10) Gabapentin 600 mg 09/02/19 15:00 09/05/19 14:50 Neurontin PO 600 mg TID KATHLEEN Administration Insulin Glargine 50 units/ 0.5 mls @ 0 mls/hr 08/28/19 09:00 09/05/19 08:06 Miscellaneous Medication SC 0.5 mls QAM KATHLEEN Administration Levofloxacin 750 mg/ Device 150 mls @ 100 mls/hr 08/29/19 17:00 09/04/19 16: 45 IVPB 150 mls Q24HR KATHLEEN Administration Insulin Human Lispro 0 units 08/27/19 18:06 09/04/19 16:48 Humalog SC 3 unit .AGGRESSIVE SLIDING PRN Administration Aggressive Correctional Scale Lidocaine HCl 0 ml 08/31/19 10:12 08/31/19 11:58 Xylocaine 4% Topical Barb TOP 50 ml PRN PRN Administration RIGHT VAC CHNAGES Morphine Sulfate 4 mg 08/27/19 18:22 09/05/19 11:21 Morphine SLOW IVP 4 mg Q6H PRN Administration Severe Pain (7-10) Polyethylene Glycol 17 gm 09/05/19 09:00 09/05/19 08:05 Miralax PO 17 gm DAILY KATHLEEN Administration Senna/Docusate Sodium 2 tab 08/27/19 17:57 09/04/19 10:12 Senokot S PO 2 tab BID PRN Administration Constipation - Exam General Appearance: NAD, awake alert Eye: PERRL, anicteric sclera ENT: normocephalic atraumatic, no oropharyngeal lesions Neck: supple, symmetric, no JVD, no thyromegaly Heart: RRR, no murmur, no gallops, no rubs Respiratory: CTAB, no wheezes, no rales, no ronchi Gastrointestinal: soft, non-tender, non-distended, normal bowel sounds Extremities: no cyanosis, no clubbing, no edema Skin: normal turgor, no lesions, no rashes Neurological: cranial nerve grossly intact, normal sensation to touch, no focal deficits, no new deficit Musculoskeletal: normal tone, normal strength, no muscle wasting Hosp A/P - Plan This is 54 year old male who presetned with abscess near femoral amputation stump #Right femoral abscess #History of MSSA bacteremia - wound culture from amputation stump growing pseudomonas, Klebsiella, E faecalis. Started on levaquin 08/28. Continue levaquin for another one week per infectious disease - received IV cefazolin during last admission for MRSA bacteremia #Neuropathic pain - continue gabapentin 600 mg tid - continue flexeril prn - added topical lidocaine jelly around wound area #Anemia - stable at 9.8, will check iron levels in the morning Code status: full code
[2019-09-05] MEDS: Senokot S 8.6-50 MG TAB PO PRN (20:14)
[2019-09-06] MEDS: HYDROcodone/Acetaminophen 10/325 mg Tablet PO PRN ×2 (03:21→09:41)
[2019-09-06] MEDS: Morphine 4 MG/ML VIAL SLOW IVP PRN ×2 (05:51→14:53)
[2019-09-06 06:21] LABS: Iron 22 ug/dL (65-175); Iron Binding Capacity, Total 308 mcg/dL (261-462)
[2019-09-06] MEDS: Cyclobenzaprine 10 MG TAB PO PRN ×2 (08:52→19:55)
[2019-09-06] MEDS: Aspirin 81 mg Enteric Coated Tablet PO SCH (08:52)
[2019-09-06] MEDS: Clopidogrel Bisulfate 75 MG TAB PO SCH (08:52)
[2019-09-06] MEDS: cloNIDine 0.1 MG TAB PO SCH ×2 (08:53→19:59)
[2019-09-06] MEDS: Fentanyl 100 MCG/2 ML VIAL SLOW IVP PRN ×3 (08:53→23:10)
[2019-09-06] MEDS: Famotidine 20 MG TAB PO SCH ×2 (08:53→19:55)
[2019-09-06] MEDS: Apixaban 5 MG TAB PO SCH ×2 (08:53→19:55)
[2019-09-06] MEDS: Gabapentin 300 MG CAP PO SCH ×3 (08:53→19:55)
[2019-09-06] MEDS: Insulin Glargine 50 UNITS in Pre-Filled Syringe SC SCH (08:56)
[2019-09-06] MEDS: Polyethylene Glycol 3350 17 GM Packet PO SCH (08:57)
[2019-09-06] MEDS ORDERED: Ketorolac Tromethamine 30 MG/ML VIAL IVP SCH (10:15)
--- NOTE | 2019-09-06 12:28 | PDOC.HOSPP ---
- Subjective Encounter Date: 09/06/19 Encounter Time: 10:30 Subjective: THe patient states he is having a lot of pain from his dressing change, requesting something IV. He has not tried the topical lidocaine yet patient states that he does not want to wear his life vest because it tore up his back and he didn't think it was safe to wear it. He also refuses to wear life vest because it is inhibiting him from getting accepted at rehab. He states he will take care of his leg issue first and then worry about the life- vest later. He agreed to risk of not wearing life vest including sudden cardiac - Objective Vital Signs & Weight: Vital Signs (12 hours) Temp Pulse Resp BP BP BP Pulse Ox 09/06/19 11:37 98.4 F 85 16 114/77 96 09/06/19 08:53 122/82 09/06/19 08:00 98.4 F 94 16 122/82 97 Weight Admit Weight 244 lb 1.6 oz Weight 244 lb 1.6 oz I&O: 09/05/19 09/06/19 09/07/19 06:59 06:59 06:59 Intake Total 4500 2800 240 Output Total 2800 3650 Balance 1700 -850 240 Result Diagrams: 09/04/19 09:22 09/04/19 09:22 Additional Labs: Accuchecks 09/06/19 09/06/19 09/06/19 11:43 04:40 03:33 POC Glucose 157 H 105 77 09/05/19 09/05/19 19:36 16:52 POC Glucose 173 H 142 H Hospitalist ROS - Review of Systems Constitutional: denies: fever - Medication Medications: Active Medications Generic Name Dose Route Start Last Admin Trade Name Freq PRN Reason Stop Dose Admin Hydrocodone Bitart/Acetaminophen 2 tab 08/27/19 18:09 09/06/19 09:41 [place] 10/325 PO 2 tab Q4H PRN Administration PAIN 7-10 Apixaban 5 mg 08/27/19 21:00 09/06/19 08:53 Eliquis PO 5 mg BID KATHLEEN Administration Aspirin 81 mg 08/28/19 09:00 09/06/19 08:52 Ecotrin PO 81 mg DAILY KATHLEEN Administration Clonidine 0.1 mg 08/27/19 21:00 09/06/19 08:53 Catapres PO 0.1 mg BID KATHLEEN Administration Clopidogrel Bisulfate 75 mg 08/28/19 09:00 09/06/19 08:52 Plavix PO 75 mg DAILY KATHLEEN Administration Cyclobenzaprine HCl 10 mg 09/04/19 11:45 09/06/19 08:52 Flexeril PO 10 mg TIDPRN PRN Administration Muscle Spasm Famotidine 20 mg 08/27/19 21:00 09/06/19 08:53 Pepcid PO 20 mg BID KATHLEEN Administration Fentanyl 50 mcg 09/02/19 04:34 09/06/19 08:53 Sublimaze SLOW IVP 50 mcg Q3H PRN Administration Severe Pain (7-10) Gabapentin 600 mg 09/02/19 15:00 09/06/19 08:53 Neurontin PO 600 mg TID KATHLEEN Administration Insulin Glargine 50 units/ 0.5 mls @ 0 mls/hr 08/28/19 09:00 09/06/19 08:56 Miscellaneous Medication SC 0.5 mls QAM KATHLEEN Administration Levofloxacin 750 mg/ Device 150 mls @ 100 mls/hr 08/29/19 17:00 09/05/19 16: 43 IVPB 150 mls Q24HR KATHLEEN Administration Insulin Human Lispro 0 units 08/27/19 18:06 09/04/19 16:48 Humalog SC 3 unit .AGGRESSIVE SLIDING PRN Administration Aggressive Correctional Scale Lidocaine HCl 0 ml 08/31/19 10:12 08/31/19 11:58 Xylocaine 4% Topical Barb TOP 50 ml PRN PRN Administration RIGHT VAC CHNAGES Lidocaine HCl 4 ml 09/06/19 09:00 09/06/19 08:57 Urojet Lidocaine Jelly 2% TOP 4 ml DAILY KATHLEEN Administration Morphine Sulfate 4 mg 08/27/19 18:22 09/06/19 05:51 Morphine SLOW IVP 4 mg Q6H PRN Administration Severe Pain (7-10) Polyethylene Glycol 17 gm 09/05/19 09:00 09/06/19 08:57 Miralax PO 17 gm DAILY KATHLEEN Administration Senna/Docusate Sodium 2 tab 08/27/19 17:57 09/05/19 20:14 Senokot S PO 2 tab BID PRN Administration Constipation - Exam General Appearance: NAD, awake alert Eye: PERRL, anicteric sclera ENT: normocephalic atraumatic, no oropharyngeal lesions Neck: supple, no JVD Heart: RRR, no murmur, no gallops, no rubs Respiratory: CTAB, no wheezes, no rales, no ronchi Gastrointestinal: soft, non-tender, non-distended, normal bowel sounds, no palpable masses Extremities: no cyanosis, no clubbing Extremities - other findings: right AKA, Skin: normal turgor, no lesions, no rashes Neurological: cranial nerve grossly intact, normal sensation to touch, no focal deficits, no new deficit Musculoskeletal: normal tone, normal strength, no muscle wasting Psychiatric: normal affect, normal behavior, A&O x 3, oriented to person Hosp A/P - Plan This is 54 year old male who presetned with abscess near femoral amputation stump #Right femoral abscess #History of MSSA bacteremia - wound culture from amputation stump growing pseudomonas, Klebsiella, E faecalis. Started on levaquin 08/28. Continue levaquin for another 6 days per infectious disease - received IV cefazolin during last admission for MRSA bacteremia #Neuropathic pain - continue gabapentin 600 mg tid - continue flexeril prn - continue topical lidocaine jelly around wound area #LV thrombus #Chronic systolic heart failure -continue eliquis - patient refuses life vest #Anemia - stable at 9.8, will check iron levels in the morning Code status: full code
[2019-09-06] MEDS: HumaLOG 300 UNITS/3 ML VIAL SC PRN (17:01)
[2019-09-07] MEDS ORDERED: Ketorolac Tromethamine 30 MG/ML VIAL IVP SCH (02:15)
[2019-09-07] MEDS: Fentanyl 100 MCG/2 ML VIAL SLOW IVP PRN ×4 (04:48→20:40)
[2019-09-07] MEDS: Clopidogrel Bisulfate 75 MG TAB PO SCH (08:09)
[2019-09-07] MEDS: Apixaban 5 MG TAB PO SCH ×2 (08:09→20:15)
[2019-09-07] MEDS: Gabapentin 300 MG CAP PO SCH ×3 (08:09→20:14)
[2019-09-07] MEDS: Aspirin 81 mg Enteric Coated Tablet PO SCH (08:09)
[2019-09-07] MEDS: Famotidine 20 MG TAB PO SCH ×2 (08:09→20:15)
[2019-09-07] MEDS: Cyclobenzaprine 10 MG TAB PO PRN ×2 (08:10→14:57)
[2019-09-07] MEDS: cloNIDine 0.1 MG TAB PO SCH ×2 (08:10→20:15)
[2019-09-07] MEDS: Insulin Glargine 50 UNITS in Pre-Filled Syringe SC SCH (08:10)
[2019-09-07] MEDS ORDERED: Iopamidol-370 76% 500 ML 1 ML ONE (09:45)
[2019-09-07] MEDS ORDERED: Ketorolac Tromethamine 30 MG/ML VIAL IVP PRN (10:29)
[2019-09-07] MEDS: Polyethylene Glycol 3350 17 GM Packet PO SCH (10:37)
[2019-09-07] MEDS: Morphine 4 MG/ML VIAL SLOW IVP PRN ×3 (10:37→23:25)
[2019-09-07] MEDS: HYDROcodone/Acetaminophen 5/325 mg Tablet PO PRN ×2 (10:38→14:57)
--- NOTE | 2019-09-07 15:29 | CT ---
CT OF THE PELVIS WITH IV CONTRAST: 09/07/19 INDICATION: 54-year-old male with infection of the right leg at the amputation site. COMPARISON: Prior exam dated 08/27/19. FINDINGS: The fluid and gas collection communicating with the skin surface involving the anterior aspect of the patient's right above knee amputation is diminished in size. There is slightly more pronounced perio steal reaction involving the cut surface of the distal femur consistent with changes of periostitis. No additional drainable fluid collection is evident. There is improvement in the soft tissue reticula tion involving the right thigh. The slightly prominent right inguinal lymph nodes are similar appeari ng. Postprocedural change of the right inguinal vasculature is similar appearing. There is a [place] ca theter in a decompressed bladder. There is a mild amount of retained stool within the colon. No drain able internal fluid collection is evident. There is a left above knee amputation site. IMPRESSION: Improvement in the right AKA infection. Progressive maturation of the periostitis involving the right above knee amputation stump. POS: RENÉ
--- NOTE | 2019-09-07 16:14 | PRG ---
DATE OF SERVICE: 09/07/2019 SUBJECTIVE: Mr. Mo is having less pain at the stump site, still that burning sensation at the tip, most of the stump, the right lower extremity is not painful anymore. No respiratory symptoms or abdominal pain. No diarrhea. No genitourinary symptoms. OBJECTIVE: VITAL SIGNS: T-max 98.4, blood pressure 110/74, pulse 85, respirations 16, and O2 saturation 97. GENERAL: Does not appear in distress. HEENT: Ocular movements conjugate. LUNGS: Clear. HEART: S1 and S2, regular rate. ABDOMEN: Soft. GENITOURINARY: The groin area still with 2 open wounds, round-shaped. The base appears better. Still a little bit of serosanguineous drainage. No erythema surrounding it. No tenderness. The tip of the amputation site with a shrinking area of coverage. The dressing to be changed tomorrow again. DIAGNOSTIC STUDIES: The latest white cell count is from 2 days ago was 9.9, hemoglobin 9.8, platelets 807. Repeat CT scan has been performed of pelvis and there was evidence of improvement in the right AK infection, maturation of the periostitis of the right above knee amputation stump. The fluid collection in the anterior aspect of the right above knee amputation is diminished in size. ASSESSMENT AND DISCUSSION: Methamphetamine use, type 2 diabetes, ischemic heart disease, peripheral vascular disease, bilateral [id number]-[id number]-[id number] amputations, most recent one within the past 2 months, wound dehiscence, wide open area of wound exposure. No evidence of inflammatory process outside the imaging study. Right groin wound with a small collection which has resolved now. The patient to continue oral Levaquin. I guess, we will have to extend it in view of the increasing of thrombocytosis and the changes which are improving on the imaging study. Let us go ahead and extend the levofloxacin for another 3 or 4 weeks to be on the safe side. Job ID: [id number]
--- NOTE | 2019-09-07 16:56 | PDOC.HOSPP ---
- Subjective Encounter Date: 09/07/19 Encounter Time: 16:54 Subjective: The patient continues to have burning pain near his wound area. He is demanding for IV medication for pain. Flexeril and gabapentin help him sleep at night. IV medicine only needed during his wound change per patient. He has not tried topical lidocaine. Still awaiting placement - Objective Vital Signs & Weight: Vital Signs (12 hours) Temp Pulse Resp BP BP Pulse Ox 09/07/19 08:10 110/74 09/07/19 08:00 97 09/07/19 07:40 97.8 F 85 16 110/74 97 Weight Admit Weight 244 lb 1.6 oz Weight 244 lb 1.6 oz I&O: 09/06/19 09/07/19 09/08/19 06:59 06:59 06:59 Intake Total 2800 1480 Output Total 3650 2650 Balance -850 -1170 Result Diagrams: 09/04/19 09:22 09/04/19 09:22 Additional Labs: Accuchecks 09/07/19 09/07/19 09/07/19 16:03 11:56 05:03 POC Glucose 121 H 130 H 111 H 09/06/19 19:16 POC Glucose 152 H Hospitalist ROS - Review of Systems Constitutional: denies: fever, chills - Medication Medications: Active Medications Generic Name Dose Route Start Last Admin Trade Name Freq PRN Reason Stop Dose Admin Hydrocodone Bitart/Acetaminophen 2 tab 09/07/19 10:30 09/07/19 14:57 [place] 5/325 PO 2 tab Q4H PRN Administration Severe Pain (7-10) Apixaban 5 mg 08/27/19 21:00 09/07/19 08:09 Eliquis PO 5 mg BID KATHLEEN Administration Aspirin 81 mg 08/28/19 09:00 09/07/19 08:09 Ecotrin PO 81 mg DAILY KATHLEEN Administration Clonidine 0.1 mg 08/27/19 21:00 09/07/19 08:10 Catapres PO 0.1 mg BID KATHLEEN Administration Clopidogrel Bisulfate 75 mg 08/28/19 09:00 09/07/19 08:09 Plavix PO 75 mg DAILY KATHLEEN Administration Cyclobenzaprine HCl 10 mg 09/04/19 11:45 09/07/19 14:57 Flexeril PO 10 mg TIDPRN PRN Administration Muscle Spasm Famotidine 20 mg 08/27/19 21:00 09/07/19 08:09 Pepcid PO 20 mg BID KATHLEEN Administration Fentanyl 50 mcg 09/02/19 04:34 09/07/19 13:27 Sublimaze SLOW IVP 50 mcg Q3H PRN Administration Severe Pain (7-10) Gabapentin 600 mg 09/02/19 15:00 09/07/19 14:57 Neurontin PO 600 mg TID KATHLEEN Administration Insulin Glargine 50 units/ 0.5 mls @ 0 mls/hr 08/28/19 09:00 09/07/19 08:10 Miscellaneous Medication SC 0.5 mls QAM KATHLEEN Administration Levofloxacin 750 mg/ Device 150 mls @ 100 mls/hr 08/29/19 17:00 09/06/19 17: 01 IVPB 150 mls Q24HR KATHLEEN Administration Insulin Human Lispro 0 units 08/27/19 18:06 09/06/19 17:01 Humalog SC 6 unit .AGGRESSIVE SLIDING PRN Administration Aggressive Correctional Scale Lidocaine HCl 0 ml 08/31/19 10:12 08/31/19 11:58 Xylocaine 4% Topical Barb TOP 50 ml PRN PRN Administration RIGHT VAC CHNAGES Lidocaine HCl 4 ml 09/06/19 09:00 09/07/19 10:37 Urojet Lidocaine Jelly 2% TOP 4 ml DAILY KATHLEEN Administration Morphine Sulfate 4 mg 09/07/19 10:29 09/07/19 14:58 Morphine SLOW IVP 4 mg Q4H PRN Administration Severe Pain (7-10) Polyethylene Glycol 17 gm 09/05/19 09:00 09/07/19 10:37 Miralax PO 17 gm DAILY KATHLEEN Administration Senna/Docusate Sodium 2 tab 08/27/19 17:57 09/05/19 20:14 Senokot S PO 2 tab BID PRN Administration Constipation - Exam General Appearance: NAD, awake alert Eye: PERRL, anicteric sclera ENT: normocephalic atraumatic, no oropharyngeal lesions Neck: no JVD Heart: RRR, no murmur, no gallops, no rubs Respiratory: CTAB, no wheezes, no rales, no ronchi Gastrointestinal: soft, non-tender, non-distended, normal bowel sounds Extremities: no cyanosis, no clubbing Skin: normal turgor, no lesions, no rashes Neurological: cranial nerve grossly intact, normal sensation to touch, no focal deficits, no new deficit Musculoskeletal: normal tone, normal strength, no muscle wasting Hosp A/P - Plan CT pelvis: decrease in size of fluid collection. Periostitis near amputation stump This is 54 year old male who presetned with abscess near femoral amputation stump #Right femoral abscess #History of MSSA bacteremia - wound culture from amputation stump growing pseudomonas, Klebsiella, E faecalis. Started on levaquin 08/28. Repeat CT pelvis today s howed decrease in size of fluid collection but some periostitis - per Dr. Cline ,continue levaquin for another 3-4 weeks - received IV cefazolin during last admission for MRSA bacteremia #Neuropathic pain - continue gabapentin 600 mg tid - continue flexeril prn - continue topical lidocaine jelly around wound area #LV thrombus #Chronic systolic heart failure -continue eliquis - patient refuses life vest #Anemia - stable at 9.8, iron sat low at7, consider IV iron Code status: full code
--- NOTE | 2019-09-07 18:41 | CON ---
DATE OF CONSULTATION: REASON FOR CONSULTATION: "High-dose morphine" I reviewed the patient's history and physical, hospital course, and current medication from a chronic pain management standpoint. Unfortunately, we have a little to offer in this case and see no interventional options that would be available to this patient. The medications that he is being provided appear to be appropriate. There are no other good options for his pain management. If acute pain management is needed, I would recommend consulting the acute pain management team. Job ID: [id number]
[2019-09-08] MEDS: Fentanyl 100 MCG/2 ML VIAL SLOW IVP PRN ×4 (02:06→15:52)
[2019-09-08] MEDS: Morphine 4 MG/ML VIAL SLOW IVP PRN ×3 (04:38→18:08)
[2019-09-08] MEDS: HYDROcodone/Acetaminophen 5/325 mg Tablet PO PRN ×2 (06:16→10:36)
[2019-09-08] MEDS: Aspirin 81 mg Enteric Coated Tablet PO SCH (08:30)
[2019-09-08] MEDS: Gabapentin 300 MG CAP PO SCH ×2 (08:30→15:51)
[2019-09-08] MEDS: Apixaban 5 MG TAB PO SCH (08:30)
[2019-09-08] MEDS: cloNIDine 0.1 MG TAB PO SCH (08:31)
[2019-09-08] MEDS: Famotidine 20 MG TAB PO SCH (08:31)
[2019-09-08] MEDS: Clopidogrel Bisulfate 75 MG TAB PO SCH (08:31)
[2019-09-08] MEDS: Cyclobenzaprine 10 MG TAB PO PRN ×2 (08:32→15:51)
[2019-09-08] MEDS: Insulin Glargine 50 UNITS in Pre-Filled Syringe SC SCH (08:32)
[2019-09-08] MEDS: Polyethylene Glycol 3350 17 GM Packet PO SCH (08:34)
[2019-09-08 08:48] LABS: Hemoglobin 9.1 g/dL (14.0-18.0); Mean Corpuscular HGB CONC 29.7 g/dL (32.0-36.0); Mean Corpuscular Hemoglobin 23.1 pg (27.0-31.0); Mean Corpuscular Volume 77.9 fL (78.0-98.0); Mean Platelet Volume 6.5 fL (7.4-10.4); Platelet Count 656 thou/uL (130-400); RBC Distribution Width 15.8 % (11.5-14.5); Red Blood Cell (RBC) Count 3.94 mill/uL (4.70-6.10); White Blood Cell (WBC) Count 10.8 thou/uL (4.8-10.8)
[2019-09-08] MEDS: Lidocaine 4% Topical Sol 50 ML BOT TOP PRN (08:51)
[2019-09-08 09:00] LABS: Anion Gap 12 mmol/L (10-20); BUN (Urea Nitrogen) 38 mg/dL (8.4-25.7); Calc. Creatinine Clearance 184 mL/min (70-130); Calcium 9.5 mg/dL (7.8-10.44); Carbon Dioxide 27 mmol/L (22-29); Chloride 101 mmol/L (98-107); Estimated GFR-MDRD Greater than 90; Glucose 157 mg/dL (70-105); Potassium 4.6 mmol/L (3.5-5.1); Sodium 135 mmol/L (136-145)
[2019-09-08] MEDS: HumaLOG 300 UNITS/3 ML VIAL SC PRN (12:17)
--- NOTE | 2019-09-08 14:44 | DIS ---
DATE OF ADMISSION: 08/27/2019 DATE OF DISCHARGE: 09/08/2019 CONSULTATIONS: 1. Gary Cline with Infectious Disease. 2. Elie Cortez with Pain Management. PROCEDURES: None. BRIEF HISTORY OF PRESENT ILLNESS: This is a 54-year-old male with a past medical history of bilateral jzymv-eut-xapz amputation with right lower extremity AKA performed on 08/16/2019, who had presented to the emergency room with increasing pain to the right groin and right thigh associated with swelling. He was sent to the emergency room, where a CT scan of the pelvis showed a peripherally enhancing collection along the femoral amputation stump with connection to the skin surface at the wound VAC site concerning for possible abscess. The patient was admitted for further workup. HOSPITAL COURSE: Right-sided femoral abscess near the amputation stump: The patient did have wound cultures growing from the stump, which were positive for Pseudomonas, Klebsiella and E faecalis. He was initially started on Levaquin on August 28 and then vancomycin was added on the . The patient did have a PICC line from his prior hospitalization. Infectious Disease was consulted and recommended removal of the PICC line and to continue on Levaquin monotherapy for 1 week. His pain was managed with norco, Flexeril, gabapentin and IV pain medication as needed during wound changes. P Due to frequent burning pain near his wound, repeat CT pelvis was done on the which showed .mprovement in the right AKA infection and maturation of the periostitis. Dr. Cline from Infectious Disease recommended continuing the Levaquin for an additional 4 weeks. He was evaluated for rehab and was accepted at [facility]. He will be discharged there with his current pain medications including [place], gabapentin, Flexeril p.r.n. He understood he cannot receive IV pain medication there. Left ventricular thrombus/chronic systolic heart failure: The patient had an echocardiogram done on 08/01, which showed an EF of 25% to 30%, with a large left ventricular apical thrombus. He had finished two weeks of IV cefazolin from his prior hospitalization. He is also on Eliquis for anticoagulation. The patient is supposed to be on wearing a LifeVest. However, he refuses to wear one since it was uncomfortable for the patient and caused him to have some excoriations on his back. He also felt that it was a barrier to him getting adequate rehab. The patient states that he will wear the LifeVest at a later time when his right leg is healed. He still wanted to remain a full code. His lisinopril was discontinued due to soft blood pressures of 90 to 100 systolic and coreg was reduced to 3.125 mg twice daily as needed. Anemia: The patient's hemoglobin was a 9.1 on the day of discharge. He did have iron studies done, which showed normal ferritin, low iron sat, normal TIBC and low iron. Consideration of outpatient IV iron can be done with his PCP. Type 2 diabetes: The patient is on lantus 50 units SC q.a.m. DISCHARGE PHYSICAL EXAMINATION: VITAL SIGNS: Temperature 97.8, heart rate 91, blood pressure 110/74, respiratory rate 16, O2 saturation 96% on room air, blood pressure 108/77. GENERAL: The patient is alert, awake, and oriented x3. He is morbidly obese. CV: Regular rate and rhythm with no murmurs, rubs, or gallops. LUNGS: Clear to auscultation bilaterally. ABDOMEN: Positive bowel sounds, soft, nontender, nondistended. EXTREMITIES: The patient is status post bilateral AKA. He has a wound VAC on his right AKA with a dried scab present. PERTINENT LABORATORY DATA: CBC 09/07: White count 10.8, hemoglobin 9.1, hematocrit 30.7, platelet count of 656. BMP 09/03: Sodium 135, potassium 4.2, chloride 107, carbon dioxide 21, BUN 27, creatinine 0.76. Lactic acid: 1.1. Iron studies: Iron 22, TIBC 308, percent saturation 7, ferritin 110. LFTs: AST 32, ALT 34, alkaline phosphatase 102. UA 08/26: Shows 100 of protein, 500 leukocyte esterase, 3+ blood. Blood cultures 08/26: Negative. IMAGING: CT pelvis 08/26: Peripherally enhancing collection along the femoral amputation stump measuring 5.7 cm x 5.6 cm with a length of approximately 2.5 cm concerning for underlying infection/abscess with minimal posterior periostitis. CT pelvis 09/06: Improvement in the right AKA infection. Progressive maturation of the periostitis involving the right mafqh-zvr-acrf amputation stump. DISCHARGE CONDITION: Stable to rehab. ACTIVITY: As tolerated. DIET: Diabetic diet. DISCHARGE MEDICATIONS: New prescriptions: 1. Levaquin 750 mg p.o. daily for 4 weeks. Continued medications: 1. Gabapentin 600 mg p.o. t.i.d. 2. Trazodone 50 mg p.o. at bedtime p.r.n. 3. Flexeril 10 mg p.o. t.i.d. 4. Clonidine 0.1 mg p.o. q.6 hours p.r.n. for blood pressure greater than 180. 5. Atorvastatin 80 mg p.o. at bedtime. 6. [place] 5 -325, take two tablets p.o. q4 hours p.r.n, quantity 22 tablets. [place] [employer] Was checked and last narcotic prescription was 10/2018 Discontinued medications: 1. Lisinopril 10 mg p.o. daily. 2. Coreg changed to 3.125 mg p.o. b.i.d. p.r.n. if blood pressure greater than 140. DISCHARGE INSTRUCTIONS: The patient was diagnosed with a possible abscess at his femoral amputation stump. He will be taking Levaquin for four additional weeks. He should follow up with his PCP in a week and Dr. Cline in 4 weeks. His lisinopril was discontinued due to low blood pressures and his Coreg was changed to p.r.n. Please feel free to re-order this if his blood pressure starts becoming significantly elevated. Job ID: [id number] MTDD
[2019-09-08 16:29] VITALS: BP 110/74; TEMP 98.1
--- NOTE | 2019-09-11 11:23 | PQF ---
SUJIT ARCOS BEN DESHPANDE [id number] CLINICAL DOCUMENTATION CLARIFICATION FORM: POST DISCHARGE Addendum to original discharge summary date: ____ Late entry note date: __ DATE: 09/11/2019 ATTN: BEN DESHPANDE Please exercise your independent, professional judgment in responding to the clarification form. Clinical indicators are provided on the bottom of this form for your review Please check appropriate box(s): [ X ] Right sided femoral abscess is related to Complication of amputation stump [ ] Right sided femoral abscess is not related to Complication of amputation stump [ ] Other diagnosis [ ] Unable to determine CLINICAL INDICATORS - SIGNS / SYMPTOMS / LABS - Right sided femoral abscess near the amputation stump- DS, 09/07, BEN DESHPANDE MD - wound cultures growing from the stump, which were positive for pseudomonas, klebsiella and E faecalis- DS, 09/07, BEN DESHPANDE MD - Abscess is unlikely per surgery-H&P, 08/26, Edna Madrid MD - the right AKA infection and maturation of the periostitis- DS, 09/07, BEN DESHPANDE MD - Fluid collection around the site suggesting postsurgical changes- H&P, 08/26, Edna Madrid MD RISK FACTORS -Hx of bilateral above knee amputation with right lower extremity AKA- DS, 09/07 , BEN DESHPANDE MD -Insulin-dependent DM-H&P, 08/26, Edna Madrid MD TREATMENT: - Rocephin.IV- 08/26 - Vancomycin.IV- 08/26 (This form is maintained as a part of the permanent medical record) 2014 [employer]. All Rights Reserved Leroy [email or web address]
== END 2019-09-08 18:33 | DRG 565 ==
LOC: ERS 15:01 → T4-B 18:02
PROVIDERS: ADMIT Internal Medicine; ATTEND Internal Medicine
DX: T87.43 Infection of amputation stump, right lower extremity (principal); L02.415 Cutaneous abscess of right lower limb; T83.511A Infection and inflammatory reaction due to indwelling urethral catheter, initial encounter; I50.22 Chronic systolic (congestive) heart failure; I24.0 Acute coronary thrombosis not resulting in myocardial infarction; N39.0 Urinary tract infection, site not specified; I13.0 Hypertensive heart and chronic kidney disease with heart failure and stage 1 through stage 4 chronic kidney disease, or unspecified chronic kidney disease; M86.9 Osteomyelitis, unspecified; B96.5 Pseudomonas (aeruginosa) (mallei) (pseudomallei) as the cause of diseases classified elsewhere; B96.1 Klebsiella pneumoniae [K. pneumoniae] as the cause of diseases classified elsewhere; F15.10 Other stimulant abuse, uncomplicated; N18.9 Chronic kidney disease, unspecified; E11.22 Type 2 diabetes mellitus with diabetic chronic kidney disease; D63.1 Anemia in chronic kidney disease; I73.9 Peripheral vascular disease, unspecified; B19.20 Unspecified viral hepatitis C without hepatic coma; Y84.6 Urinary catheterization as the cause of abnormal reaction of the patient, or of later complication, without mention of misadventure at the time of the procedure; Y83.5 Amputation of limb(s) as the cause of abnormal reaction of the patient, or of later complication, without mention of misadventure at the time of the procedure; Z89.612 Acquired absence of left leg above knee; Z89.611 Acquired absence of right leg above knee; Z86.711 Personal history of pulmonary embolism; Z79.01 Long term (current) use of anticoagulants; Z79.4 Long term (current) use of insulin; Z88.6 Allergy status to analgesic agent
CPT/HCPCS: 36415; 36416; 72193; 80048; 80053; 80202; 82728; 83540; 83550; 83605; 85025; 85027; 87040; 87070; 87077; 87186; 87205; 93005; 94760; 96361; 96365; 96375; J0692; J0696; J1815; J1885; J1956; J2270; J3010; J3370; J3490; J7030; Q9967

== ENCOUNTER 2020-05-01 21:53 | Inpatient (IN) | payer OTHER ==
[~2020-05-01 21:53] MED LIST changes: -Iopamidol 370 76% 100 ML VIAL ONE; +Iopamidol-370 76% 500 ML 1 ML ONE
[2020-05-01] MEDS ORDERED: Cefepime 2 GM VIAL ONE (22:06)
--- NOTE | 2020-05-01 22:18 | RAD ---
EXAM: Single view of the chest HISTORY: Altered mental status COMPARISON: 08/01/2019 FINDINGS: Single view of the chest shows an enlarged but stable cardiomediastinal silhouette. There is an endotracheal tube in good position with its tip between the clavicles. An NG tube is seen in the stomach. Scattered multifocal infiltrates are seen in the lungs. No acute osseous abnormality. IMPRESSION: 1. Appropriate position of lines and tubes 2. Multifocal infiltrates.
[2020-05-01 22:30] LABS: INR-International Normal Ratio 1.1; PTT 26.1 sec (22.9-36.1); Prothrombin Time 14.8 sec (12.0-14.7)
[2020-05-01 22:34] LABS: Actual Bicarbonate (HCO3a) 20.7 mEq/L (22-28); Analyzer IN Cardio ER; Base Excess (BEa) -4.5 mEq/L (-2.0 to +3.0); CO2 Tension 38.8 mmHg (35.0-45.0); Calcium, Ionized (arterial) 1.16 mmol/L (1.12-1.30); Carboxyhemoglobin (COHb) 0.3 gm% (0.0-3.0); Hemoglobin (Hb) 13.5 g/dL (14.0-18.0); O2 Tension (PaO2), arterial 117.6 mmHg (80.0-100.0); Potassium - ABG Lab 3.89 mmol/L (3.70-5.30); pH, Arterial 7.35 (7.35-7.45)
[2020-05-01 22:37] LABS: Puncture Site RBA
[2020-05-01 22:39] LABS: Acetaminophen Less than 6.0 mcg/mL (10.0-30.0); Alcohol Less than 10 mg/dL (Less than 10); CK (CPK) 264 U/L (30-200); Salicylate Less than 8.0 mg/dL (15.0-30.0)
[2020-05-01 22:40] LABS: ALT (SGPT) 20 U/L (8-55); AST (SGOT) 15 U/L (5-34); Albumin 3.4 g/dL (3.5-5.0); Alkaline Phosphatase 85 U/L (40-110); Anion Gap 20 mmol/L (10-20); BUN (Urea Nitrogen) 12 mg/dL (8.4-25.7); Bilirubin, Total 0.5 mg/dL (0.2-1.2); Calc. Creatinine Clearance 0 mL/min (70-130); Calcium 8.3 mg/dL (7.8-10.44); Carbon Dioxide 17 mmol/L (22-29); Chloride 106 mmol/L (98-107); Globulin 3.5 g/dL (2.4-3.5); Glucose 353 mg/dL (70-105); Lipase 14 U/L (8-78); Potassium 4.2 mmol/L (3.5-5.1); Protein, Total 6.9 g/dL (6.0-8.3); Sodium 139 mmol/L (136-145)
[2020-05-01 22:41] LABS: Hemoglobin 13.5 g/dL (14.0-18.0); Mean Corpuscular HGB CONC 31.7 g/dL (32.0-36.0); Mean Corpuscular Hemoglobin 23.5 pg (27.0-31.0); Mean Corpuscular Volume 74.1 fL (78.0-98.0); Mean Platelet Volume 8.8 fL (7.4-10.4); Platelet Count 317 thou/uL (130-400); Red Blood Cell (RBC) Count 5.75 mill/uL (4.70-6.10); White Blood Cell (WBC) Count 16.6 thou/uL (4.8-10.8)
[2020-05-01 23:01] LABS: #Lymphocytes 0.6 thou/uL (1.20-3.40); #Neutrophils 15.1 thou/uL (1.40-6.50); %Eosinophils 0.1 % (0.0-10.0); %Lymphocytes 3.3 % (21.0-51.0); %Monocytes 5.9 % (0.0-10.0); %Neutrophils 90.7 % (42.0-75.0); Anisocytosis SLIGHT = 6-15 cells (100X) (0-5/hpf); MDiff Complete? YES
[2020-05-01 23:05] LABS: Bacteria/HPF None Seen HPF (None Seen); Bilirubin Negative (Negative); Blood, Urine 2+ (Negative); Clarity Clear (Clear); Glucose, Urine (Dipstick) Greater than 1000 mg/dL (Negative); Ketone, Urine 80 mg/dL (Negative); Leukocyte 25 Leu/uL (Negative); Nitrite Negative (Negative); Protein, Urine (Dipstick) 300 mg/dL (Neg-Trace); RBC/HPF 21-50 HPF (0-3); Specific Gravity, Urine 1.044 (1.002-1.036); Squamous Epithelial 0-3 HPF (0-3); Urobilinogen Normal mg/dL (Less than 2); Yeast-Budding 1+ HPF (None Seen)
[2020-05-01 23:08] LABS: CKMB 3.1 ng/mL (0-6.6)
[2020-05-01 23:17] LABS: Amphetamine Detected (NotDetected); Benzodiazepine Screen Not Detected (NotDetected); Cocaine Metabolite Screen Not Detected (NotDetected); Medtox Reader # READER 4; Methadone Not Detected (NotDetected); Methamphetamine Detected (NotDetected); Opiate Screen Not Detected (NotDetected); Phencyclidine (PCP) Not Detected (NotDetected); THC/Cannabinoid Screen Not Detected (NotDetected); Tricyclic Screen Not Detected (NotDetected)
[2020-05-01 23:18] LABS: Barbiturates Screen Not Detected (NotDetected); Medtox Control Line Valid? VALID (VALID); Oxycodone Screen Not Detected (NotDetected)
--- NOTE | 2020-05-01 23:28 | CT ---
EXAM: CT brain without contrast HISTORY: Unresponsive with altered mental status COMPARISON: None TECHNIQUE: Multiple contiguous axial images were obtained and a CT of the brain without contrast. FINDINGS: There are large areas of loss of whyte-white matter differentiation in the bilateral MCA dis tributions, left greater than right. There is slight shift of the midline to the right of 5 mm. No downward herniation is seen at this time. There may be hyperdense left MCA branches. There is no evid ence of hydrocephalus, intracranial hemorrhage, or extra-axial fluid collection. The calvarium and overlying soft tissues are unremarkable. The visualized paranasal sinuses and masto id air cells are well aerated. IMPRESSION: Bilateral large MCA distribution infarctions.
--- NOTE | 2020-05-01 23:29 | CT ---
EXAM: CT of the cervical spine without contrast HISTORY: Altered mental status COMPARISON: None TECHNIQUE: Multiple contiguous axial images were obtained in a CT of the cervical spine without contr ast. Sagittal and coronal reformats were performed. FINDINGS: The vertebral bodies demonstrate normal height and alignment without fracture or subluxatio n. Moderate degenerative changes are seen throughout the cervical spine. Mild prevertebral soft tissue swelling is seen. The posterior facets are well aligned. Normal alignment of the skull base with the cervical spine is seen. The lung apices are unremarkable. An endotracheal tube and OG tube are partially visualized. IMPRESSION: Degenerative changes without evidence of acute osseous abnormality of the cervical spine.
--- NOTE | 2020-05-02 00:03 | CT ---
EXAM: 1. CT of the chest with contrast 2. CT of the abdomen and pelvis with contrast HISTORY: Altered mental status with chest pain and abdominal pain. COMPARISON: None TECHNIQUE: 1. Multiple contiguous axial images were obtained in a CT the chest with contrast. Coronal reformats were performed. 2. Multiple contiguous axial images were obtained in a CT of the abdomen and pelvis with contrast. Co gail reformats were performed. FINDINGS: CT CHEST: There is an endotracheal tube with its tip just above the panfilo. An OG tube is seen with its tip in the stomach. Mediastinum: Heart is normal in size without focal cardiac abnormality. No hilar or mediastinal lymph adenopathy. Evaluation of the mediastinum is limited without IV contrast. Lungs: Bilateral dependent atelectasis. There is a focal infiltrate in the lingula. Pleural space: No pneumothorax or pleural effusion. Thoracic bones: No evidence of acute fracture. Thoracic chest wall: Unremarkable. CT ABDOMEN/PELVIS: Evaluation of the solid organs is limited without IV contrast. Peritoneum: No free air or free fluid, or stranding changes. Liver: Unremarkable. Gallbladder: Unremarkable. Adrenal glands: Unremarkable. Kidneys: Contrast is seen in both renal collecting systems from recent contrast examination. Spleen: Unremarkable. Pancreas: Unremarkable. Bowel: Scattered diverticula in the colon. Normal caliber small bowel. Normal appendix. Retroperitoneum: No lymphadenopathy. Pelvis: No focal mass or abnormality. A [place] catheter decompresses the urinary bladder. Bones: Degenerative changes are seen in the spine. IMPRESSION: 1. Bilateral dependent atelectasis 2. Lingular infiltrate 3. No evidence of acute intra-abdominal/pelvic abnormality 4. Diverticulosis
[2020-05-02] MEDS ORDERED: Dexamethasone 10 MG/ML VIAL ONE (00:09)
[2020-05-02] MEDS ORDERED: Sodium Chloride 3% 100 ML IVPB SCH (00:30)
[2020-05-02] MEDS ORDERED: Ventilator Sedation Protocol 1 EACH FS ONE (01:15)
[2020-05-02] MEDS ORDERED: hydrALAZINE 20 MG/ML VIAL SLOW IVP PRN (01:15)
--- NOTE | 2020-05-02 01:15 | PDOC.FPRHP ---
- History of Present Illness Chief Complaint: unresponsive History of Present Illness: Pt is a 54 yo M with a PMH of CKD, LV mural thrombus, uncontrolled DM, b/l AKA, Hep C, HLD, HTN, PAD, b/l PE who presents to the ER via EMS for being found unresponsive. The patient's family found him down on the floor with agonal br eathing and was subsequently intubated. CT brain shows bilateral large MCA distribution infarctions. CTA head and neck shows occlusion of the right internal cartoid artery in the neck, and bilateral tiny cerebral arteries without focal occlusion of the MCA. Flow is seen in the right circulation via an anterior communicating artery. Neurosurgery was consulted from the ER and states that palliative measures were the only options at this point since this stroke is fatal. Patient does have uncontrolled diabetes and a history of drug use. ED Course: 3% hypertonic saline, decadron, cefepime, 1L fluid, vanc - Allergies/Adverse Reactions Allergies Allergy/AdvReac Type Severity Reaction Status Date / Time tramadol Allergy Verified 09/30/19 09:40 - Home Medications Medication Instructions Recorded Confirmed Type Atorvastatin Calcium [Lipitor] 80 mg PO HS 08/01/19 08/28/19 History Clopidogrel Bisulfate [Plavix] 75 mg PO DAILY 08/01/19 08/28/19 History Gabapentin [Neurontin] 600 mg PO TID 08/01/19 08/28/19 History Acetaminophen [Tylenol Regular 650 mg PO Q4H PRN tab 08/08/19 08/28/19 Rx Strength] Apixaban [Eliquis] 5 mg PO BID 30 Days #60 tablet 08/08/19 08/28/19 Rx Aspirin [Ecotrin Low Strength] 81 mg PO HS tab 08/08/19 08/28/19 Rx Famotidine [Pepcid] 20 mg PO BID tab 08/08/19 08/28/19 Rx HYDROcodone/Acetaminophen [[place] 2 tab PO PRN PRN 08/14/19 08/28/19 History 10-325 Tablet] Insulin Lispro 5 unit SQ TID-WM 08/16/19 08/28/19 History Insulin Regular [HumuLIN R Vial] 0 unit SC ACHS PRN 08/16/19 08/28/19 History cloNIDine [Catapres] 0.1 mg PO Q6HR 08/16/19 08/28/19 History traZODone HCl [Trazodone HCl] 50 mg PO HS PRN 08/16/19 08/28/19 History Insulin Detemir [Levemir] 50 unit SQ QAM #1 vial 08/24/19 08/28/19 Rx Zolpidem Tartrate [Ambien] 5 mg PO HSPRN PRN #14 tab 08/24/19 08/28/19 Rx Cyclobenzaprine [Flexeril] 1 tab PO TID 08/28/19 08/28/19 History Carvedilol [Coreg] 3.125 mg PO BID-WM #0 tab 09/08/19 08/28/19 Rx Levofloxacin [Levaquin] 750 mg PO DAILY #28 tab 09/08/19 Rx - History PMHx: CKD, LV mural thrombus, uncontrolled DM, b/l AKA, Hep C, HLD, HTN, PAD, b/l PE PSHx: b/k AKA, unknown if other procedures FHx: unknown Social: history of drug use-methamphetamine - Review of Systems ROS unobtainable: due to endotracheal tube - Vital signs BP: 202/134 HR: 109 RR: 14 Tmax: 98.2 Pox: 100% on ventilator Wt: 108.7kg - Physical Exam -Constitutional: intubated -HEENT: pupils constricted, does not react to light Neck: supple -Heart: tachycardia Lungs: CTAB, no respiratory distress Abdomen: soft, no masses/distention -Musculoskeletal: extended posturing -Neurological: unable to respond to commands. does not react to painful stimuli. GCS is 4T (E1 V1T M2) Skin: no rash/lesions, no jaundice -Psychiatric: unable to assess FMR H&P: Results - Labs Result Diagrams: 05/02/20 03:18 05/02/20 06:42 Lab results: WBC 16.6 thou/uL (4.8-10.8) H 05/01/20 22:00 Hgb 13.5 g/dL (14.0-18.0) L 05/01/20 22:00 Hct 42.6 % (42.0-52.0) 05/01/20 22:00 MCV 74.1 fL (78.0-98.0) L 05/01/20 22:00 Plt Count 317 thou/uL (130-400) 05/01/20 22:00 Neutrophils % 90.7 % (42.0-75.0) H 05/01/20 22:00 ABG pH 7.35 (7.35-7.45) 05/01/20 22:30 ABG pCO2 38.8 mmHg (35.0-45.0) 05/01/20 22:30 ABG pO2 117.6 mmHg (80.0-100.0) H 05/01/20 22:30 Sodium 139 mmol/L (136-145) 05/01/20 22:00 Potassium 4.2 mmol/L (3.5-5.1) 05/01/20 22:00 Chloride 106 mmol/L (98-107) 05/01/20 22:00 Carbon Dioxide 17 mmol/L (22-29) L 05/01/20 22:00 BUN 12 mg/dL (8.4-25.7) 05/01/20 22:00 Creatinine 0.94 mg/dL (0.7-1.3) 05/01/20 22:00 Glucose 353 mg/dL (70-105) H 05/01/20 22:00 Lactic Acid 3.0 mmol/L (0.5-2.2) H 05/01/20 22:00 Calcium 8.3 mg/dL (7.8-10.44) 05/01/20 22:00 Total Bilirubin 0.5 mg/dL (0.2-1.2) 05/01/20 22:00 AST 15 U/L (5-34) 05/01/20 22:00 ALT 20 U/L (8-55) 05/01/20 22:00 Alkaline Phosphatase 85 U/L (40-110) 05/01/20 22:00 Creatine Kinase 264 U/L (30-200) H 05/01/20 22:00 CK-MB (CK-2) 3.1 ng/mL (0-6.6) 05/01/20 22:00 B-Natriuretic Peptide 589.4 pg/mL (0-100) H 05/01/20 22:00 Serum Total Protein 6.9 g/dL (6.0-8.3) 05/01/20 22:00 Albumin 3.4 g/dL (3.5-5.0) L 05/01/20 22:00 Lipase 14 U/L (8-78) 05/01/20 22:00 Urine Ketones 80 mg/dL (Negative) A 05/01/20 22:19 Urine Blood 2+ (Negative) A 05/01/20 22:19 Urine Nitrite Negative (Negative) 05/01/20 22:19 Ur Leukocyte Esterase 25 Baljit/uL (Negative) A 05/01/20 22:19 Urine RBC 21-50 HPF (0-3) A 05/01/20 22:19 Urine WBC 4-6 HPF (0-3) A 05/01/20 22:19 Ur Squamous Epith Cells 0-3 HPF (0-3) 05/01/20 22:19 Urine Bacteria None Seen HPF (None Seen) 05/01/20 22:19 - EKG Interpretation EKG: sinus tachycardia FMR H&P: A/P - Plan #unresponsive 2/2 bilateral MCA infarct -CT brain shows bilateral large MCA distribution infarctions. -CTA head and neck shows occlusion of the right internal cartoid artery in the neck, and bilateral tiny cerebral arteries without focal occlusion of the MCA. Flow is seen in the right circulation via an anterior communicating artery. -Neurosurgery deemed this a fatal stroke and is unable to do anything for this patient -permissive HTN up to 220/110 -patient currently intubated without sedation -neuro checks. patient currently not responding to commands or withdrawing to pain -Palliative care consulted #drug use -UDS positive for meth COVID + -multifocal infiltrates -on ventilator # yeast on UA -UA indicative of possible UTI, but no bacteria -will follow up on culture, patient is not febrile #CKD -aware #LV mural thrombus -aware, on home anticoagultion #uncontrolled DM -aware -continue home meds -SSI #b/l AKA -aware #Hep C -aware #HLD -aware, continue home meds #HTN -aware -Hydralazine PRN with permissive HTN up to 220/110 #PAD -aware #b/l PE -aware, patient on home anticoagulation Dispo: admit to inpatient CCU. He is currently intubated without sedation. Patient has a poor prognosis. Pending palliative consult Diet: NPO Fluids: MIVF LR @ 125mL/hr Code: FULL GI ppx: Protonix DVT ppx: Lovenox PCP: unknown FMR H&P: Upper Level - Plan Date/Time: 05/02/20 0056 ILev DO, have evaluated this patient and agree with findings/plan as outlined by pharmacist intern resident. Pertinent changes/additions are listed here. This is a 54 yo male with a pmh of HFrEF, bilateral AKA, IDDM2, HTN, PVD, methamphetamine abuse, hx of left ventricular thrombus, who presents to the ER via EMS. The pt was found by EMS at home on the floor, with agonal breathing and a GCS of 4. He was intubated and brought to the ER where he was evaluated. CT brain shows bilateral large MCA distribution infarctions. CTA head and neck shows occlusion of the right internal cartoid artery in the neck, and bilateral tiny cerebral arteries without focal occlusion of the MCA. FLow is seen in the right circulation via an anterior communicating artery. Neurosurgery was consulted from the ER and report that he has had a fatal stroke and that palliative measures were the only options at this point. I had an extensive conversation with the contact, Gypsy, listed in the ER records at 0115 on 05/02/20. She states that they were checking on him 1 day [employer] and report he was acting funny at that time. She reports they returned the following day, they found him unconscious. I updated the family on the current situation. They report that they are the closes family he has, however, t echnically, she is his Aunt-in-law as his "brother" is actually a brother by adoption and the patient is actually his nephew as his "brother's" parents adopted the pt as a child after the patient's parents . They reported that he would not want CPR or otherwise, however, given the convoluted nature of this relationship and the timing, we will keep him a full code overnight until more information can be gathered. The patient has no or children. Objective: Vitals: BP 202/134, HR 109, RR 14, Temp 98.2, SpO2 100% on ventilator, Wt. 108 kg General: Intubated, not sedated, GCS [id number] HEENT: NG/ET tube placed Cardio: Tachycardic, no murmurs appreciated Lungs: Coarse breath sounds Abdomen: Soft, no ascites Extremities: Bilateral AKA, radial pulses present Neuro: Positive Mae's sign on left, extended posturing on the left, fasciculations of bilateral thighs, pupils 3-4 mm and both slightly reactive to light, corneal reflexes intact, pt does not withdraw to pain and is not curren tly sedated A/P Large acute bilateral MCA occlusions -Admit to ICU -Scheduled neuro checks -Imaging as above -Permissive HTN given significant likelihood of progressive increase ICP -Pt has very poor prognosis and palliative will be consulted in the AM for code status and decision making COVID-19 -CXR consistent with multifocal infiltrates -Will monitor respiratory status and IDDM2 -Diabetic protocols per orders Yeast in urine -Pt is afebrile, will hold off on medications at this time Please see pharmacist intern note for further information and management of chronic conditions Code: Full Propylaxis: Lovenox and protonix Family: None at bedside, discussion as above Fluids: LR Drips: None Diet: NPO Vent settings: SIMV 14, TV 55, PS 10, PEEP 5, FIO2 50% Addendum - Attending - Attending Attestation Date/Time: 05/02/20 1162 I personally evaluated the patient and discussed the management with the team. I agree with the History, Examination, Assessment and Plan documented above with any addition or exceptions noted below.
[2020-05-02] MEDS ORDERED: Fentanyl 100 MCG/2 ML VIAL ONE (01:23)
[2020-05-02 01:28] LABS: Lactic Acid 2.4 mmol/L (0.5-2.2)
[2020-05-02] MEDS ORDERED: Propofol 1,000 MG/100 ML VIAL IV PRN (01:30)
[2020-05-02] MEDS ORDERED: Lorazepam 2 MG/ML VIAL SLOW IVP PRN (01:30)
[2020-05-02] MEDS ORDERED: fentaNYL Citrate/PF 2,000 MCG in Sodium Chloride 0.9% 60 ML IV SCH (01:30)
[2020-05-02] MEDS ORDERED: Morphine 2 MG/ML VIAL SLOW IVP PRN (01:30)
[2020-05-02] MEDS ORDERED: Fentanyl BOLUS 250 ML IVPB PRN (01:30)
[2020-05-02] MEDS ORDERED: DISCONTINUE PREVIOUS NARCOTIC PAIN MEDICATIONS AND BENZODIAZEPINES FS SCH (01:30)
[2020-05-02] MEDS ORDERED: Propofol BOLUS 1,000 MG/100 ML VIAL IV PRN (01:30)
[2020-05-02 01:34] LABS: SARS-CoV-2 NAA Rapid Test DETECTED (NotDetected)
[2020-05-02] MEDS ORDERED: HumaLOG 300 UNITS/3 ML VIAL SC PRN (02:47)
[2020-05-02] MEDS ORDERED: Dextrose 50% Abboject 50 ML SYRINGE SLOW IVP PRN (02:47)
[2020-05-02] MEDS ORDERED: Dextrose 5% in Water 1,000 ML IV PRN (02:47)
[2020-05-02 03:51] LABS: #Lymphocytes 0.4 thou/uL (1.20-3.40); #Monocytes 0.6 thou/uL (0.11-0.59); #Neutrophils 15.6 thou/uL (1.40-6.50); %Lymphocytes 2.5 % (21.0-51.0); %Monocytes 3.3 % (0.0-10.0); %Neutrophils 94.2 % (42.0-75.0); Hemoglobin 12.9 g/dL (14.0-18.0); Mean Corpuscular HGB CONC 31.8 g/dL (32.0-36.0); Mean Corpuscular Hemoglobin 23.5 pg (27.0-31.0); Mean Corpuscular Volume 73.8 fL (78.0-98.0); Platelet Count 312 thou/uL (130-400); RBC Distribution Width 15.7 % (11.5-14.5); Red Blood Cell (RBC) Count 5.52 mill/uL (4.70-6.10); White Blood Cell (WBC) Count 16.6 thou/uL (4.8-10.8)
[2020-05-02] MEDS: Lactated Ringer's 1,000 ML IV SCH ×3 (03:52→20:23)
[2020-05-02] MEDS ORDERED: HumaLOG 300 UNITS/3 ML VIAL SC SCH (05:15)
--- NOTE | 2020-05-02 07:41 | PDOC.FM ---
- Subjective Subjective: No acute events overnight. No sedation. Non-purposeful movements. Does not withdrawal from pain. - Objective MAR Reviewed: Yes Vital Signs & Weight: Vital Signs (12 hours) Temp Pulse Resp BP Pulse Ox 05/02/20 06:00 19 05/02/20 05:00 102 H 05/02/20 04:00 98.8 F 18 05/02/20 02:10 105 H 190/122 H 98 05/02/20 01:50 99.6 F 103 H 19 98 Weight Weight 105.5 kg Most Recent Monitor Data Heart Rate from ECG 76 NIBP 175/108 NIBP BP-Mean 130 Respiration from ECG 0 SpO2 99 I&O: 05/01/20 05/02/20 05/03/20 06:59 06:59 06:59 Output Total 475 Balance -475 Result Diagrams: 05/02/20 03:18 05/01/20 22:00 Phys Exam - Physical Examination Constitutional: NAD non-purposeful movements ETT and OG tube in place Neck: supple Respiratory: no wheezing, no rales, no rhonchi, clear to auscultation bilateral Cardiovascular: RRR, no significant murmur Gastrointestinal: soft, no distention, positive bowel sounds Musculoskeletal: no edema BL AKA Dx/Plan (1) Stroke Code(s): I63.9 - CEREBRAL INFARCTION, UNSPECIFIED Status: Acute (2) Methamphetamine abuse Code(s): F15.10 - OTHER STIMULANT ABUSE, UNCOMPLICATED Status: Acute - Plan Plan: 54yo M with h/o methamphetamine abuse, uncontrolled DM, HLD, HTN, PAD who was found unresponsive subsequently intubated and found to have BL MCA CVA. #Bilateral MCA infarct - Found unresponsive at home - CT brain demonstrated bilateral large MCA distribution infarctions. - CTA head and neck shows occlusion of the right internal cartoid artery in the neck, and bilateral tiny cerebral arteries without focal occlusion of the MCA. Flow is seen in the right circulation via an anterior communicating artery. - Neurosurgery deemed a fatal stroke and is unable to do anything for this patient - permissive HTN up to 220/110 - patient currently intubated without sedation. Neuro checks. Non-purposeful movement, does not follow commands or withdrawal from pain - Palliative care consulted. Will discuss goals of care with family today. - Pulm consulted, apprec recs. #H/o Meth use - UDS positive for meth at admission #COVID+ - multifocal infiltrates - on ventilator, precautions - Does not qualify for Remdesivir. Discuss goals of care with family prior to treatment #Yeast on UA -UA indicative of possible UTI, but no bacteria -will follow up on culture, patient is not febrile #H/o LV mural thrombus and BL PE -aware, holding home anticoagulation due to large MCA infarction #uncontrolled DM -aware -continue home meds -SSI #BL AKA 2/2 uncontrolled DM and PAD/HLD -aware #Hep C -aware #HTN -aware -Hydralazine PRN with permissive HTN up to 220/110 Code: FULL Diet: NPO Fluids: MIVF LR @ 125mL/hr GI ppx: Protonix DVT ppx: HELD PCP: unknown Dispo: Admitted to inpatient CCU. He is currently intubated without sedation. Patient has a very poor prognosis. Pending goals of care discussion with family.
[2020-05-02] MEDS ORDERED: FLU VACC QS2020-21(6MOS UP)/PF 60 MCG/0.5 ML SYRINGE IM ONE (08:00)
[2020-05-02 08:26] LABS: Actual Bicarbonate (HCO3a) 19.2 mEq/L (22-28); Base Excess (BEa) -4.5 mEq/L (-2.0 to +3.0); CO2 Tension 31.2 mmHg (35.0-45.0); Calcium, Ionized (arterial) 1.21 mmol/L (1.12-1.30); Carboxyhemoglobin (COHb) 0.9 gm% (0.0-3.0); Hemoglobin (Hb) 13.1 g/dL (14.0-18.0); O2 Tension (PaO2), arterial 130.1 mmHg (80.0-100.0); Potassium - ABG Lab 3.98 mmol/L (3.70-5.30); pH, Arterial 7.41 (7.35-7.45)
[2020-05-02 08:53] LABS: Puncture Site LRA
[2020-05-02] MEDS ORDERED: Enoxaparin Sodium 40 MG/0.4 ML SYRINGE SC SCH (09:00)
[2020-05-02] MEDS: NPH, Human Insulin Isophane 300 UNIT/3 ML VIAL SC SCH ×2 (09:13→21:20)
[2020-05-02] MEDS: Pantoprazole 40 MG VIAL IVP SCH ×2 (09:13→20:14)
[2020-05-02 09:41] LABS: ALT (SGPT) 17 U/L (8-55); AST (SGOT) 13 U/L (5-34); Albumin 3.3 g/dL (3.5-5.0); Alkaline Phosphatase 78 U/L (40-110); BUN (Urea Nitrogen) 17 mg/dL (8.4-25.7); Bilirubin, Total 0.5 mg/dL (0.2-1.2); Calc. Creatinine Clearance 140 mL/min (70-130); Calcium 8.6 mg/dL (7.8-10.44); Cardiac Risk 3.8 (Less than 4.5); Chloride 110 mmol/L (98-107); Cholesterol 121 mg/dl (< 200 Desired); Globulin 3.5 g/dL (2.4-3.5); Glucose 374 mg/dL (70-105); HDL Cholesterol 32 mg/dL (>60 Neg Risk); LDL Cholesterol, Calculated 67 mg/dL; Potassium 4.3 mmol/L (3.5-5.1); Protein, Total 6.8 g/dL (6.0-8.3); Sodium 142 mmol/L (136-145); Triglycerides 109 mg/dL (Less than 150)
--- NOTE | 2020-05-02 09:47 | PRG ---
DATE OF SERVICE: 05/02/2020 Mr. Mo is a 54-year-old man, who presented positive for methamphetamines with bihemispheric anterior circulation infarcts. Head CT demonstrates a large left MCA stroke of indeterminate duration, but with significant edema and midline shift and a smaller but still substantial right MCA stroke. CT angiogram demonstrates filling of the left anterior circulation through an anterior communicating artery as he has a right midcervical internal carotid artery occlusion. CT scan of the cervical spine demonstrates ossification of the posterior longitudinal ligament in a flowing fashion. A CT scan of the chest, abdomen, and pelvis is negative for acute abnormality from a neurosurgical standpoint. On exam, he really has a nonresponsive exam, has COVID tests come back positive as well. Impression and plan, there is no role for neurosurgical intervention. Unfortunately, this is likely a fatal infarct. Job ID: [id number]
--- NOTE | 2020-05-02 10:00 | CON ---
DATE OF CONSULTATION: 05/02/2020 This is 35 minutes of critical care time. CONSULTING PHYSICIAN: [facility]. REASON FOR CONSULTATION: Respiratory failure requiring mechanical ventilation. HISTORY OF PRESENT ILLNESS: The patient is a 54-year-old male, who was admitted last night with a large bilateral hemispheric stroke. He has severe neurologic compromise and is not considered salvageable. He is currently intubated and on mechanical ventilation. He also has a positive COVID-19 test. PAST MEDICAL HISTORY: 1. Chronic kidney disease. 2. LV mural thrombus. 3. Uncontrolled diabetes mellitus. 4. Peripheral vascular disease with bilateral lower extremity [id number] amputations. 5. Hepatitis C. 6. Hyperlipidemia. 7. Hypertension. 8. Peripheral arterial disease. 9. Bilateral pulmonary emboli. PAST SURGICAL HISTORY: [id number] amputations. FAMILY MEDICAL HISTORY: Not known. SOCIAL HISTORY: Apparently uses methamphetamines. REVIEW OF SYSTEMS: Cannot be obtained because the patient is currently intubated. PHYSICAL EXAMINATION: VITAL SIGNS: Pulse 60, blood pressure 170/111, O2 saturation 98%, respiratory rate 14. He is not on any sedation. NEUROLOGICAL: His left pupil is 6 mm. Right pupil is 3 mm, neither reactive. He does have a slight gag reflex. He withdraws to pain on his left arm. He has some isolated movements of his legs. He also has spontaneous respirations on mechanical ventilation. HEENT: Otherwise, unremarkable. NECK: No JVD. LUNGS: Clear. CARDIOVASCULAR: S1, S2. Regular. ABDOMEN: Obese, soft, nontender. EXTREMITIES: Bilateral [id number] amputations. LABORATORY DATA: White blood cell count 16.6, hematocrit 40.7, and platelet count 312. INR 1.1, PTT 26.1. pH 7.41, pCO2 31, PO2 130. Sodium 139, potassium 4.2, chloride 106, CO2 17, BUN 12, creatinine 0.9, glucose 353. BNP 589. TSH 0.78. Urinalysis showed greater than 1000 glucose/proteinuria. Tox screen positive for amphetamines, methamphetamines. COVID test was positive. Chest CT shows atelectasis, not much in the way of infiltrates, except in the left upper lobe. ASSESSMENT: 1. Large bilateral MCA distribution stroke with severe neurologic compromise. 2. History of LV mural thrombus, on chronic anticoagulation at home. 3. Respiratory failure requiring mechanical ventilation. 4. COVID-19 infection with possibility of COVID pneumonia. 5. Hyperglycemia/diabetes mellitus. 6. Substance abuse. PLAN: I would agree with the other consultants involved that the patient has little hope for survival with this, and palliative care would be the best option. I do not see any need to add steroids at this point as the patient is not terribly hypoxic and definitely would not anticoagulate him at this time. We will be happy to follow with you. Job ID: [id number]
[2020-05-02 10:01] LABS: Carbon Dioxide 16 mmol/L (22-29)
[2020-05-02 10:07] LABS: Anion Gap 20 mmol/L (10-20)
[2020-05-02 11:26] VITALS: BMI 35.4
--- NOTE | 2020-05-02 12:13 | CON ---
DATE OF CONSULTATION: 05/02/2020 CONSULTING PHYSICIAN: Hospitalist Services. IMPRESSION: Bilateral stroke secondary to methamphetamine use and possibly contribution of COVID. The current clinical picture appears grim. I think there is little hope for functional recovery. PLAN: 1. DNR status has been established. 2. Consider discontinuing support. HISTORY OF PRESENT ILLNESS: Mr. Mo is a 54-year-old man, who was found unresponsive. He had a CT of the brain done, which showed evidence of bilateral MCA strokes. His CT angiogram showed a complete occlusion of the right internal carotid artery and patchy small areas of occlusion on the left. His lab work was notable for elevated BNP and lactic acid. His tox screen was positive for methamphetamines and amphetamines. His COVID screen was positive. PAST MEDICAL HISTORY: Otherwise unknown. ALLERGIES: TRAMADOL. SOCIAL HISTORY: Unknown. FAMILY HISTORY: Noncontributory. REVIEW OF SYSTEMS: Not obtainable. PHYSICAL EXAMINATION: VITAL SIGNS: Have been stable. He is afebrile. HEENT: Pupils are nonreactive. He is orally intubated. NEUROLOGIC: He is unresponsive to both painful and verbal stimulation. He has spontaneous respirations. He has no gag or peripheral pain response. SUMMARY: This is a middle-aged gentleman who suffered bilateral infarcts secondary to drug use and possibly a contributing factor of COVID. There is little to offer. Job ID: [id number]
--- NOTE | 2020-05-02 13:01 | PDOC.BPN ---
- Brief Progress Note Encounter Date: 05/02/20 Encounter Time: 12:56 Met with family, Moi, in conference room in CCU. Moi is patient's adoptive brother, but biologic Uncle. Patient himself was never , has no children, no siblings, and parents when he was 9 months ago. Moi states he is patient's closest family. Moi's , Gypsy, on speaker phone for conversation. Patient's illness course and prognosis discussed with Moi and Gypsy. Voiced understanding of fatal CVA. Discussed code status options. Stated would like to change to DNR. Moi also states patient would not want to live on a ventilator and they would like to proceed with comfort extubation and hospice but would like to wait till after [place]. Would like to set up Hospice and have everything ready for after [place]. CM and Hospice [facility] consulted. All questions answered.
[2020-05-02] MEDS: HumaLOG 300 UNITS/3 ML VIAL SC PRN ×3 (13:04→21:28)
[2020-05-02] MEDS ORDERED: Labetalol HCl 100 MG/20 ML VIAL SLOW IVP SCH (16:30)
[2020-05-02] MEDS ORDERED: Labetalol HCl 100 MG/20 ML VIAL SLOW IVP PRN ×2 (16:39→16:41)
[2020-05-02] MEDS ORDERED: Lactated Ringer's 500 ML IV SCH (22:45)
[2020-05-03] MEDS ORDERED: Lactated Ringer's 1,000 ML IV SCH (01:00)
[2020-05-03] MEDS ORDERED: Norepinephrine 8 MG/0.9% NS 250 ML ONE (01:59)
[2020-05-03] MEDS ORDERED: Norepinephrine 16 MG in Dextrose 5% in Water 234 ML IVPB SCH ×2 (02:00)
--- NOTE | 2020-05-03 03:29 | OP ---
DATE OF PROCEDURE: 05/03/2020 PROCEDURE PERFORMED: Central line placement. INDICATIONS: Need for pressors due to soft blood pressures. CONSENT: Procedure was performed emergently and the permission was applied because of the emergent nature. DESCRIPTION OF PROCEDURE: I started by washing my hands prior to starting sterile technique. A time-out was performed. My hands were washed immediately prior to the procedure. I wore a surgical cap, mask, protective eye wear, full gown, and sterile gloves throughout the procedure. Patient was placed flat. The right chest region was prepped with chlorhexidine scrub and draped in a sterile fashion using full drape and sterile probe cover employed. Medial and lateral heads of the sternocleidomastoid muscles were identified and the carotid pulse was identified as well. Internal jugular vein was identified using ultrasound. Anesthesia was not required due to the intubated and sedated nature. Using real-time of plane guidance, the introducer needle was inserted to the internal jugular vein under direct ultrasound visualization. Venous blood was withdrawn. The syringe was removed and guidewire was advanced into the introducer needle. The guidewire was visualized in the internal jugular vein by ultrasound. A small incision was made at the skin surface with a scalpel and introducer needle was exchanged for the dilator over the guidewire. After appropriate dilation was obtained, the dilator was exchanged over the wire for a triple-lumen central venous catheter. The wire was removed and the catheter was sutured in place at 15 cm. A sterile SorbaView shield was placed over the catheter at the insertion site. The patient tolerated the procedure without any hemodynamic compromise. At the time of the procedure, all ports were aspirated and flushed properly. Post procedure chest x-ray is pending at this time. POC ultrasound showed lung sliding. Estimated blood loss is less than 15 mL. Job ID: [id number] [facility]
[2020-05-03] MEDS: Lactated Ringer's 1,000 ML IV SCH ×3 (03:37→19:15)
--- NOTE | 2020-05-03 07:33 | PDOC.FM ---
- Subjective Subjective: Overnight had episodes of hypotension that did not respond to fluid bolus. Right IJ was placed and patient started on levophed for pressor support. Otherwise, no acute events. Hospice referral sent, plan to compassionately extubated after , possibly Wednesday if all arranged. - Objective MAR Reviewed: Yes Vital Signs & Weight: Vital Signs (12 hours) Temp Resp BP 05/03/20 07:16 111/70 05/03/20 06:00 14 05/03/20 04:00 14 05/03/20 02:00 14 05/03/20 01:15 14 05/03/20 00:00 14 05/02/20 22:00 14 05/02/20 20:00 99.9 F H 14 Weight Admit Weight 105.233 kg Weight 105.5 kg Most Recent Monitor Data Heart Rate from ECG 57 NIBP 97/59 NIBP BP-Mean 71 Respiration from ECG 14 SpO2 98 I&O: 05/02/20 05/03/20 05/04/20 06:59 06:59 06:59 Intake Total 4590 Output Total 475 3060 Balance -475 1530 Result Diagrams: 05/02/20 03:18 05/02/20 06:42 Phys Exam - Physical Examination Constitutional: NAD (intubated. Not on sedation. No movement.) ETT and OG in place. Pupils 4mm R IJ in place Respiratory: no wheezing, no rales, no rhonchi, clear to auscultation bilateral Cardiovascular: RRR, no significant murmur Gastrointestinal: soft, no distention, positive bowel sounds BL AKA Dx/Plan (1) Stroke Code(s): I63.9 - CEREBRAL INFARCTION, UNSPECIFIED Status: Acute (2) Methamphetamine abuse Code(s): F15.10 - OTHER STIMULANT ABUSE, UNCOMPLICATED Status: Acute - Plan Plan: 54yo M with h/o methamphetamine abuse, uncontrolled DM, HLD, HTN, PAD who was found unresponsive subsequently intubated and found to have BL MCA CVA. #Bilateral MCA infarct - Found unresponsive at home - CT brain demonstrated bilateral large MCA distribution infarctions. - CTA head and neck shows occlusion of the right internal cartoid artery - Neurosurgery, Dr. Hopkins, consulted, deemed a fatal stroke and is unable to do anything for this patient - Neurology, Dr. Ferrer, consulted, agreed with neurosurgery, fatal stroke - patient currently intubated without sedation. Neuro checks. Non-purposeful movement, does not follow commands or withdrawal from pain - Pulm consulted, apprec recs. - Discussion with patients family, DNR status and transition to hospice with compassionate extubation likely tomorrow #Hypotension - Right IJ placed on 05/02. Started on levophed for pressure support #H/o Meth use - UDS positive for meth at admission #COVID+ - multifocal infiltrates - on ventilator, precautions - Does not qualify for Remdesivir. No indication for treatment as does not appear to have respiratory disease and terminal prognosis #GBS UTI - s/p Cefepime and Vanc in ED #H/o LV mural thrombus and BL PE -aware, holding home anticoagulation due to large MCA infarction #uncontrolled DM -aware -continue home meds -SSI #BL AKA 2/2 uncontrolled DM and PAD/HLD -aware #Hep C -aware Code: DNR Diet: NPO Fluids: MIVF LR @ 125mL/hr GI ppx: Protonix DVT ppx: HELD PCP: unknown Dispo: Admitted to inpatient CCU. Terminal prognosis. Hospice consulted. Compassionate extubation likely tomorrow.
[2020-05-03] MEDS ORDERED: cefTRIAXone\\ROCEPHIN 1 GM in Sodium Chloride 0.9% 100 ML IVPB SCH (07:45)
[2020-05-03] MEDS: Pantoprazole 40 MG VIAL IVP SCH ×2 (07:46→21:54)
--- NOTE | 2020-05-03 07:47 | RAD ---
CHEST 1 VIEW: Date: 05/03/2020 INDICATION: History of central line placement. COMPARISON: Prior exam dated 05/01/2020. FINDINGS: There is persistent cardiomegaly with pulmonary vascular congestion and left perihilar air space dise ase. Right IJ central venous catheter is now placed with its tip in the region of the SVC. The patien t remains intubated with gastric catheter placement. No pneumothorax evident. IMPRESSION: 1. Left perihilar air space disease is stable. 2. New right IJ central venous catheter. 3. No pneumothorax. POS: BH
[2020-05-03 08:02] LABS: Actual Bicarbonate (HCO3a) 21.2 mEq/L (22-28); Base Excess (BEa) -1.2 mEq/L (-2.0 to +3.0); CO2 Tension 28.5 mmHg (35.0-45.0); Calcium, Ionized (arterial) 1.27 mmol/L (1.12-1.30); Carboxyhemoglobin (COHb) 1.2 gm% (0.0-3.0); Hemoglobin (Hb) 11.9 g/dL (14.0-18.0); O2 Tension (PaO2), arterial 100.7 mmHg (80.0-100.0); Potassium - ABG Lab 3.48 mmol/L (3.70-5.30); pH, Arterial 7.49 (7.35-7.45)
[2020-05-03 08:15] LABS: ALV-art Gradient 148.875 mmHg (0-20); Puncture Site LRA
[2020-05-03] MEDS ORDERED: Insulin Glargine 20 UNITS in Pre-Filled Syringe 1 EACH SC SCH (09:00)
[2020-05-03] MEDS ORDERED: Insulin Glargine 15 UNITS in Pre-Filled Syringe 1 EACH SC SCH (09:00)
[2020-05-03] MEDS: HumaLOG 300 UNITS/3 ML VIAL SC PRN (11:04)
[2020-05-03 14:35] VITALS: BP 97/57
--- NOTE | 2020-05-03 16:16 | PRG ---
DATE OF SERVICE: 05/03/2020 SUBJECTIVE: Marvin Mo remains hemodynamically stable. He is very little if any neurological function. OBJECTIVE: VITAL SIGNS: He is afebrile. Heart rate is in 60s, blood pressure 105/62, respiratory rates in the teens. He is started on some pressors recently. LUNGS: Unchanged. HEART: Unchanged. ABDOMEN: Unchanged. LABORATORY DATA: White count yesterday was 16.6. There is no new lab other than glucoses today. IMPRESSION AND PLAN: 1. Probable embolic strokes involving both hemispheres associated with COVID-19. 2. His neurological exam I am told is deteriorated. Since it is Chang, family wants to wait a few days to see if whether or not he improves. Prognosis is probably pretty dismal. Job ID: [id number]
[2020-05-03 23:27] VITALS: TEMP 98.2
[2020-05-04] MEDS: Lactated Ringer's 1,000 ML IV SCH (03:13)
[2020-05-04 03:53] LABS: #Basophils 0.1 thou/uL (0.0-0.2); #Eosinphils 0.4 thou/uL (0.0-0.7); #Lymphocytes 1.8 thou/uL (1.20-3.40); #Monocytes 0.9 thou/uL (0.11-0.59); #Neutrophils 15.1 thou/uL (1.40-6.50); %Basophils 0.4 % (0.0-1.0); %Eosinophils 2.2 % (0.0-10.0); %Monocytes 5.1 % (0.0-10.0); %Neutrophils 82.4 % (42.0-75.0); Hemoglobin 11.8 g/dL (14.0-18.0); Mean Corpuscular HGB CONC 30.6 g/dL (32.0-36.0); Mean Corpuscular Hemoglobin 23.5 pg (27.0-31.0); Mean Corpuscular Volume 76.8 fL (78.0-98.0); Mean Platelet Volume 8.9 fL (7.4-10.4); Platelet Count 258 thou/uL (130-400); RBC Distribution Width 16.1 % (11.5-14.5); Red Blood Cell (RBC) Count 5.02 mill/uL (4.70-6.10); White Blood Cell (WBC) Count 18.3 thou/uL (4.8-10.8)
[2020-05-04 04:34] LABS: Anion Gap 14 mmol/L (10-20); BUN (Urea Nitrogen) 26 mg/dL (8.4-25.7); Calc. Creatinine Clearance 90 mL/min (70-130); Calcium 8.8 mg/dL (7.8-10.44); Carbon Dioxide 23 mmol/L (22-29); Chloride 128 mmol/L (98-107); Glucose 178 mg/dL (70-105); Potassium 3.2 mmol/L (3.5-5.1); Sodium 162 mmol/L (136-145)
--- NOTE | 2020-05-04 06:43 | PDOC.FM ---
- Subjective Subjective: Hypotensive early this AM. Increased levophed to 15. Family notified and are en route to hospital. Intermittent short runs of VTach overnight as well. Still with no reflexes, no sedation. - Objective MAR Reviewed: Yes Vital Signs & Weight: Vital Signs (12 hours) Temp Resp 05/04/20 06:00 14 05/04/20 04:00 14 05/04/20 02:00 14 05/04/20 01:00 14 05/04/20 00:00 14 05/03/20 22:00 98.2 F 14 05/03/20 20:00 14 05/03/20 19:15 98.2 F Weight Admit Weight 105.233 kg Weight 105.5 kg Most Recent Monitor Data Heart Rate from ECG 97 NIBP 72/53 NIBP BP-Mean 59 Respiration from ECG 14 SpO2 92 I&O: 05/02/20 05/03/20 05/04/20 06:59 06:59 06:59 Intake Total 4590 2318.3 Output Total 475 3060 2525 Balance -475 1530 -206.7 Result Diagrams: 05/04/20 03:37 05/04/20 03:37 Phys Exam - Physical Examination ETT and OG in place Neck: supple R IJ in place Course BS BL Cardiovascular: RRR, no significant murmur Gastrointestinal: soft, no distention, positive bowel sounds Musculoskeletal: no edema Pupils 4mm, non reactive. No corneal reflex. Dx/Plan (1) Stroke Code(s): I63.9 - CEREBRAL INFARCTION, UNSPECIFIED Status: Acute (2) Methamphetamine abuse Code(s): F15.10 - OTHER STIMULANT ABUSE, UNCOMPLICATED Status: Acute - Plan Plan: 54yo M with h/o methamphetamine abuse, uncontrolled DM, HLD, HTN, PAD who was found unresponsive subsequently intubated and found to have BL MCA CVA. #Bilateral MCA infarct - Found unresponsive at home - CT brain demonstrated bilateral large MCA distribution infarctions. - CTA head and neck shows occlusion of the right internal cartoid artery - Neurosurgery, Dr. Hopkins, consulted, deemed a fatal stroke and is unable to do anything for this patient - Neurology, Dr. Ferrer, consulted, agreed with neurosurgery, fatal stroke - Patient currently intubated without sedation. Neuro checks. Pupils non reactive. - Pulm consulted, apprec recs. - Discussion with patients family, DNR status and transition to hospice with compassionate extubation likely today. #Hypotension - Right IJ placed on 05/02. Worsening overnight, levophed up to 15. - Family notified and en route as patient may pass prior to extubation #Acute renal failure - BUN/Cr 26/.40, 2/2 above as well as levophed - Family en route to discuss transition to comfort #Hypernatremia - Na 162, 2/2 above - Change fluids to 1/2 NS, monitor #H/o Meth use - UDS positive for meth at admission #COVID+ - multifocal infiltrates - on ventilator, precautions - Does not qualify for Remdesivir. 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 Terminal prognosis. Hospice consulted. Decompensation today. Family called and en route. Stabilize as much as possible for family to arrive. Addendum - Attending - Attending Attestation Date/Time: 05/04/20 [id number] I personally evaluated the patient and discussed the management with Dr. [] I agree with the History, Examination, Assessment and Plan documented above with any addition or exceptions noted below. The patient's status is decompensating. Discussing this with family who agrees with compassionate extubation and stopping pressors.
[2020-05-04] MEDS ORDERED: Dextrose 5% in Water 1,000 ML IV SCH (07:00)
[2020-05-04 07:07] LABS: Actual Bicarbonate (HCO3a) 21.7 mEq/L (22-28); CO2 Tension 46.9 mmHg (35.0-45.0); Calcium, Ionized (arterial) 1.34 mmol/L (1.12-1.30); Carboxyhemoglobin (COHb) 1.2 gm% (0.0-3.0); Hemoglobin (Hb) 12.7 g/dL (14.0-18.0); O2 Tension (PaO2), arterial 63.3 mmHg (80.0-100.0); Potassium - ABG Lab 3.38 mmol/L (3.70-5.30); pH, Arterial 7.28 (7.35-7.45)
[2020-05-04 07:18] LABS: Puncture Site RRA
[2020-05-04 07:19] LABS: ALV-art Gradient 163.275 mmHg (0-20)
--- NOTE | 2020-05-04 08:12 | RAD ---
Chest AP view INDICATION: History of pneumonia COMPARISON: May 03, 2020 FINDINGS: Lungs: There is worsening right infrahilar airspace disease. Left perihilar airspace disease is stab le. Cardiac silhouette: Cardiomegaly persists Pulmonary vasculature: Pulmonary vascular congestion persists Pleural spaces: Small bilateral pleural effusions persist Upper abdomen: No abnormality seen. Osseous structures: No acute osseous abnormality. Additional findings: Patient remains intubated with gastric catheter and right IJ central venous cat heter placement. No pneumothorax. IMPRESSION: 1. Worsening right infrahilar airspace disease may reflect worsening pneumonia or edema. There is pe rsistent left perihilar airspace disease. 2. Stable cardiomegaly pulmonary vascular congestion and small bilateral pleural effusions. Findings are consistent with changes of mild cardiac dysfunction.
--- NOTE | 2020-05-04 08:43 | PDOC.BPN ---
- Brief Progress Note Encounter Date: 05/04/20 Encounter Time: 08:00 Paged by nurse. MAPs 50s. O2 sat low-80s. RR 50s. Called and spoke with GERARDO Mcfarland. Explained situation. Family unable to visit as they are all COVID PUI's. Bartolo state they do not want any further escalation of care and would like to transition to comfort care. Would like pressors stopped and compassionate extubation. All questions answered. Will transition to comfort care. Charge and Nurse updated.
--- NOTE | 2020-05-04 12:48 | PDOC.BPN ---
- Brief Progress Note Encounter Date: 05/04/20 Encounter Time: 09:15 Progress Note Compassionately extubated per family request at 0900. TOD 0905. PE: HEENT: pupils fixed and dilated Card: No pulse, no auscultated heart sounds Resp: No spontaneous respirations Neuro: No withdrawal to painful stimuli TOD: 05/04/20 @ 0905 See dictation Summary for hospital course.
--- NOTE | 2020-05-04 16:37 | DIS ---
DATE OF ADMISSION: 05/02/2020 DATE OF DISCHARGE: 05/04/2020 RESIDENT: Yony Crockett MD. DATE OF : 05/04/2020. TIME OF : 0905 hours. CAUSE OF : Bilateral MCA CVA. SECONDARY DIAGNOSES: 1. COVID-19 positive. 2. Acute renal failure. 3. Hypernatremia. 4. History of methamphetamine abuse. 5. Group B Streptococcus urinary tract infection. 6. Uncontrolled type 2 diabetes. 7. Hepatitis C. 8. Peripheral artery disease. 9. Hyperlipidemia. HISTORY OF PRESENT ILLNESS AND HOSPITAL COURSE: The patient is a 54-year-old male with past medical history of CKD, history of left ventricular mural wall thrombus, uncontrolled diabetes, hep C, hyperlipidemia, hypertension, peripheral artery disease, who presented to the ER via EMS after being found unresponsive. The patient's family found him down with agonal breathing. EMS was called. He was subsequently intubated. In the emergency department, a head CT showed bilateral large MCA distribution infarctions. CTA head and neck showed occlusion of the right internal carotid artery. Neurosurgery was contacted from the emergency department, however, stated this was a fatal CVA and unfortunately nothing to be done for this patient. The patient was then admitted for further evaluation and consultation with family. Neurology was consulted, who evaluated the patient and agreed with Neurosurgery recommendations. The patient was intubated, however, did not require any sedation. On exam, the patient had no withdrawal to painful stimuli, no corneal reflexes, and no purposeful movement. The patient's UDS was positive for methamphetamines and he was subsequently found to be COVID positive. Family discussion was had with the patient's brother who was next of kin regarding the events and prognosis. The patient's brother stated that he would not want to live on a ventilator with a poor prognosis. It was determined that the patient will be kept comfortable for comfort extubation after [employer]. Over the first few days of hospitalization, the patient did have an episode of hypotension that required placement of central line and started on pressors with stabilization. On the date of , the patient began to have worsening hypotension even on Levophed. Oxygen saturation began to drop, heart rate bradycardic. Family was called and stated they would not want any aggressive measures done and would like to proceed with discontinuation of pressors and compassionate extubation that morning. The patient was subsequently extubated at 0900 hours and time of was pronounced at 9:05 a.m. Family was updated and appreciative of the care provided. Job ID: [id number]
--- NOTE | 2020-05-06 15:12 | CT ---
Exam: CTA neck with contrast CTA head with contrast HISTORY: Altered mental status and bilateral MCA distribution infarctions COMPARISON: CT brain 05/01/2020 TECHNIQUE: 1. Multiple contiguous axial images were obtained and a CTA of the neck with contrast. 3-D sagittal a nd coronal MIP reformats were performed. 2. Multiple contiguous axial images were obtained and a CTA of the head with contrast. 3-D sagittal a nd coronal MIP reformats were performed. FINDINGS: CTA NECK: Aortic arch: Normal origin of the carotid arteries from the arch. No significant atherosclerotic dise ase of the subclavian arteries. Right common carotid artery: No significant atherosclerotic disease or narrowing Left common carotid artery: No significant atherosclerotic disease or narrowing Right internal carotid artery: Complete occlusion of the right internal carotid artery just distal to the bifurcation. Right external carotid artery: No significant atherosclerotic disease or narrowing Left internal carotid artery: No significant atherosclerotic disease or narrowing per NASCET criteri a Left external carotid artery: No significant atherosclerotic disease or narrowing Right cervical vertebral artery: No significant atherosclerotic disease or narrowing Left cervical vertebral artery: No significant atherosclerotic disease or narrowing No cervical adenopathy. The lung apices are unremarkable. Degenerative changes are seen in the spine. An endotracheal tube and NG tube are visualized. CTA HEAD: Right intracranial internal carotid artery: Occluded Right anterior cerebral artery: Flow is seen within this vessel secondary to an intact anterior commu nicating artery. Right middle cerebral artery: Diminutive in size. Flow is seen within this vessel secondary to an int act anterior communicating artery. Left intracranial internal carotid artery: Patent without narrowing or occlusion Left anterior cerebral artery: Patent without narrowing or occlusion Left middle cerebral artery: Diminutive in size without M1 segment occlusion. No aneurysmal dilatation is seen in the anterior circulation. Right vertebral artery: Patent without narrowing or occlusion Left vertebral artery: Patent without narrowing or occlusion Basilar artery: Patent without narrowing or occlusion The posterior cerebral arteries and cerebellar arteries are patent without narrowing or occlusion. No aneurysmal dilatation is seen in the posterior circulation. IMPRESSION: 1. Occlusion of the right internal carotid artery in the neck 2. There are bilateral tiny middle cerebral arteries without focal occlusion of the middle cerebral a rteries. Flow is seen in the right circulation via an anterior communicating artery. Transcribed Date/Time: 05/06/2020 3:11 PM
== END 2020-05-04 09:05 | disposition expired | DRG 64 ==
LOC: ERS 21:53 → CCU 05-02 00:26 → UNDOADMIN 05-02 00:28
PROVIDERS: ADMIT Student in an Organized Health Care Education/Training Program; ATTEND Student in an Organized Health Care Education/Training Program
PROC: 0BH17EZ Insertion of Endotracheal Airway into Trachea, Via Natural or Artificial Opening (ICD-10-PCS; principal; 2020-05-02)
PROC: 8E0ZXY6 Isolation (ICD-10-PCS; 2020-05-02)
PROC: 5A1945Z Respiratory Ventilation, 24-96 Consecutive Hours (ICD-10-PCS; 2020-05-02)
PROC: 0D9670Z Drainage of Stomach with Drainage Device, Via Natural or Artificial Opening (ICD-10-PCS; 2020-05-02)
PROC: 02HV33Z Insertion of Infusion Device into Superior Vena Cava, Percutaneous Approach (ICD-10-PCS; 2020-05-04)
PROC: B548ZZA Ultrasonography of Superior Vena Cava, Guidance (ICD-10-PCS; 2020-05-04)
PROC: 3E033XZ Introduction of Vasopressor into Peripheral Vein, Percutaneous Approach (ICD-10-PCS; 2020-05-04)
DX: I63.513 Cerebral infarction due to unspecified occlusion or stenosis of bilateral middle cerebral arteries (principal); U07.1 COVID-19; G93.6 Cerebral edema; R40.2312 Coma scale, best motor response, none, at arrival to emergency department; R40.2112 Coma scale, eyes open, never, at arrival to emergency department; R40.2212 Coma scale, best verbal response, none, at arrival to emergency department; J12.89 Other viral pneumonia; J96.00 Acute respiratory failure, unspecified whether with hypoxia or hypercapnia; N39.0 Urinary tract infection, site not specified; I50.22 Chronic systolic (congestive) heart failure; I13.0 Hypertensive heart and chronic kidney disease with heart failure and stage 1 through stage 4 chronic kidney disease, or unspecified chronic kidney disease; N17.9 Acute kidney failure, unspecified; E87.0 Hyperosmolality and hypernatremia; I47.2 Ventricular tachycardia; Z66 Do not resuscitate; Z51.5 Encounter for palliative care; F15.10 Other stimulant abuse, uncomplicated; B95.1 Streptococcus, group B, as the cause of diseases classified elsewhere; B18.2 Chronic viral hepatitis C; E11.65 Type 2 diabetes mellitus with hyperglycemia; E11.51 Type 2 diabetes mellitus with diabetic peripheral angiopathy without gangrene; E78.5 Hyperlipidemia, unspecified; E11.22 Type 2 diabetes mellitus with diabetic chronic kidney disease; R29.729 NIHSS score 29; I51.3 Intracardiac thrombosis, not elsewhere classified; I95.9 Hypotension, unspecified; Z88.6 Allergy status to analgesic agent; Z79.01 Long term (current) use of anticoagulants; Z79.4 Long term (current) use of insulin; Z79.899 Other long term (current) drug therapy; Z86.711 Personal history of pulmonary embolism; Z89.612 Acquired absence of left leg above knee; Z89.611 Acquired absence of right leg above knee; Z78.1 Physical restraint status
CPT/HCPCS: 0240U; 36415; 36416; 36600; 51702; 70450; 70496; 70498; 71045; 71250; 72125; 74177; 80048; 80053; 80061; 80306; 80307; 81003; 81015; 82550; 82553; 82805; 83605; 83690; 83880; 84443; 84484; 85025; 85610; 85730; 87040; 87077; 87086; 87635; 93005; 94002; 94003; 96365; 96366; 96367; 96375; C9113; J0360; J0692; J1100; J1815; J2060; J2270; J3010; J3370; J7030; J7131; Q9967; U0003